=== PATIENT | female | born 1975 | race Caucasian/White ===

== ENCOUNTER 2024-03-31 21:00 | Outpatient (OUT) | payer BC, SELFPAY | END 2024-03-31 21:01 | disposition home or self-care (01) | LOC: SLEEP 04-02 08:00 | PROVIDERS: PCP Family Medicine; Visit Provider Family Medicine | DX: G47.33 Obstructive sleep apnea (adult) (pediatric) (principal) | CPT/HCPCS: 95810 ==

== ENCOUNTER 2024-04-10 20:54 | Outpatient (OUT) | payer BC, SELFPAY ==
--- OUTSIDE RECORDS SUMMARY | 2024-04-10 20:56 | XMS_ITS | CCD ---
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 Name Role Phone DR JAUN SULTANA Attending Unavailable NADERER, DR JAUN Irene Consulting Unavailable NADEREWiley, DR JAUN Irene Primary Care Unavailable NADERER, DR JAUN Irene Admitting Unavailable Shantell Serra Unavailable David Giles Unavailable Allison Odom Unavailable Santa Jang Unavailable MD Jaun Sultana Primary Care Provider Ly, DO Martha Kwok Attending Provider Ly, Martha L Admitting Unavailable Ly, Martha Kwok Attending Unavailable Naderer, Jaun Primary Care Unavailable Ly, Martha L Admitting Unavailable Ly, Martha Kwok Attending Unavailable Lexi, Jaun Primary Care Unavailable SERVICE, JOBST Referring Unavailable NADERER, JAUN Primary Care Unavailable SERVICE, JOBST Referring Unavailable NADERER, JAUN Primary Care Unavailable SERVICE, JOBST Referring Unavailable NADERER, JAUN Primary Care Unavailable SERVICE, JOBST Referring Unavailable NADERER, JAUN Primary Care Unavailable SERVICE, JOBST Referring Unavailable NADERER, JAUN Primary Care Unavailable NADPOWER, JAUN Attending Unavailable NADERER, JAUN Attending Unavailable Allergies Allergy Classification Reported Allergen(s) Allergy Type Date of Onset Reaction(s) Facility (20 sources) adalimumab; Translations: [ADALIMUMAB] Drug Allergy 1 RASH [facility] (20 sources) metroNIDAZOLE; Translations: [METRONIDAZOLE] Drug Allergy 7 headaches, nausea [facility] (1 source) adalimumab Drug Allergy 4 [facility] (1 source) metroNIDAZOLE Drug Allergy 4 [facility] (1 source) Midodrine; Translations: [MIDODRINE] Drug Allergy 7 [facility] Medications Current Medications Medication Drug Class(es) Dates Sig (Normalized) Sig (Original) 10 ML risankizumab-rzaa 60 MG/ML Injection [Skyrizi] (5 sources) Skyrizi 600 MG/10ML as directed Intravenous Active [id number] 200 actuat albuterol 0.09 mg/actuat metered dose inhaler (5 sources) beta2-Adrenergic Agonist Start: 10-03-2022 take 2 puff(s) by inhalation every four hours as needed Albuterol Sulfate HFA 108 (90 Base) MCG/ACT 2 puffs as needed Inhalation every 4 hrs PRN Sep, Active aspirin 81 mg delayed release oral tablet (19 sources) Platelet Aggregation Inhibitor, Nonsteroidal Anti-inflammatory Drug Start: 01-30-2024 take 1 tablet by mouth once daily Aspirin (Adult Aspirin Regimen) 81 mg tablet,delayed release (DR/EC) Active 81 MG PO Daily January 30, 2024 12:00am take 1 tablet by molly th every twenty-four hours Aspirin 81 MG 1 tablet Orally Once a day Active atorvastatin 20 mg oral tablet (4 sources) HMG-CoA Reductase Inhibitor Start: 01-30-2024 take 20 mg by mouth once daily Atorvastatin Active 20 MG PO Daily January 30, 2024 12:00am take 1 tablet by molly th every twenty-four hours Atorvastatin Calcium 20 MG 1 tablet Oral ly Once a day Active cetirizine hydrochloride 10 mg oral tablet (17 sources) Histamine-1 Receptor Antagonist take 1 tablet by mouth every twenty-four hours ZyrTEC Allergy 10 MG 1 tablet Orally Once a day Active ZyrTEC Allergy A ctive cholecalciferol 0.05 mg oral capsule (11 sources) Vitamin D Vitamin D3 50 MC G (1999) as directed Orally Once a day Active citalopram 20 mg oral tablet (15 sources) Serotonin Reuptake Inhibitor Start: take 20 mg by mouth once daily Citalopram Active 20 MG PO Daily January 30, 2024 12:00am take 1 tablet by molly th every twenty-four hours Citalopram Hydrobromide 20 MG 1 tablet Orally Once a day Active Citalopram & Diet Manage Prod (4 sources) Citalopram & t Manage Prod Active dextromethorphan hydrobromide 15 mg / guaiFENesin 400 mg / pseudoephedrine hydrochloride 60 mg oral tablet (1 source) alpha-Adrenergic Agonist, Uncompetitive U-zmuwos-R-aspartate Receptor Antagonist, Sigma-1 Agonist Start: 11-17-19 take 4 tablets by mouth every twenty-four hours as needed Capmist DM 60-15-400 MG as needed Orally every 4-6 hours as needed, max 4 tablets in 24 hours for 5 days Nov, Active lisinopril 10 mg oral tablet (15 sources) Angiotensin Converting Enzyme Inhibitor take 1 tablet by mouth every twenty-four hours Lisinopril 10 MG 1 tablet Orally Once a day for 30 Active Lisinopril 20 MG Oral for 30 Active methylPREDNISolone 4 mg oral tablet (4 sources) Corticosteroid Start: 07-23-2022 methylPREDNISo lone 4 MG as directed Orally for daily dose take half with breakfast, half with dinner for 6 days Jul, Active Start: 10-22-2021 methylPREDNISo lone 4 MG as directed Orally Oct, Active 24 hr metoprolol succinate 25 mg extended release oral tablet (4 sources) beta-Adrenergic Reddy Start: 01-30-2024 take 25 mg by mouth twice daily Metoprolol Succinate Active 25 MG PO Twice daily January 30, 2024 12:00am [facility] Metoprolol Tartrate 25 MG 1 tablet with food Orally Twice a day Active Omeprazole (4 sources) Proton Pump Inhibitor Start: 01-30-2024 omeprazo le Active PO January 30, 2024 12:00am Start: 04-21-2023 take 1 capsule by mo [facility] once daily Omeprazole 40 MG 1 capsule 30 minutes before morning meal Orally Once a day for 30 days Apr, Active oseltamivir 75 mg oral capsule (1 source) Neuraminidase Inhibitor Start: 11-17-2023 take 1 capsule by mouth every twelve hours Oseltamivir Phosphate 75 MG 1 capsule Orally Twice a day for 5 day(s) Nov, Active 24 hr oxybutynin chloride 10 mg extended release oral tablet (14 sources) Cholinergic Muscarinic Antagonist Start: 01-30-2024 take 10 mg by mouth once daily Oxybutynin Chloride Active 10 MG PO Daily January 30, 2024 12:00am oxyBUTYnin Chlor lul 10 MG as directed Orally Active Oxybutynin Activ e predniSONE 20 mg oral tablet (8 sources) Start: 01-09-2024 take 2 tablets by mouth once daily Prednisone Active 40 MG PO Daily 60 January 09, 2024 12:00am Take 2 tablets orally once a day. Start: 01-02-2024 End: 01-30-2024 Prednisone Discontinued 0 PO Daily 36 January 02, 2024 12:00am January 30, 2024 3:00pm Take 8 tablets on day one then decrease by 1 tablet until gone orally daily; Start: 11-17-2023 take 1 tablet by molly th every twelve hours prednisone 20 MG 1 tablet Orally BID for 5 Nov, Active Start: 07-05-2022 predniSONE 10 MG 8 tabs day one then decrease by 1 tablet until finished. Orally Once a day for 8 days Jun, Active Start: 02-10-2022 predniSONE 10 MG 8 tabs day one then decrease by 1 tablet until finished. Orally Once a day for 8 days Jan, Active Skyrizi 360 MG/2.4ML (3 sources) Start: 04-30-2022 Skyrizi 360 MG/2.4ML INJECT Subcutaneous AT WEEK 12 AND THEN EVERY 8 WEEKS THERAFTER for 56 days DISPENSE WITH ON BODY INJECTOR Apr, Active skyrizi 360 mg/2.4ml solution cartridge (2 sources) Skyrizi 360 MG/2.4ML as directed Subcutaneous Active Skyrizi 600 MG/10ML (3 sources) Start: 04-30-2022 Skyrizi 600 MG /10ML as directed Intravenous INFUSED AT WEEK 0, WEEK 4 AND WEEK 8 for 56 days Apr, Active 1 ml ustekinumab 90 mg/ml prefilled syringe (10 sources) Interleukin-12 Antagonist, Interleukin-23 Antagonist Start: 09-07-2021 Stelara 90 MG/ML INJECT 1 PREFILLED SYRINGE Subcutaneous EVERY 56 DAYS for 56 days PRIOR AUTH REFERENCE NUMBER [id number] FROM 09/07/21 TO 09/07/22 Aug, Active warfarin sodium 4 mg oral tablet (4 sources) Vitamin K Antagonist Start: 01-30-2024 take 4 mg by mouth once daily Warfarin Active 4 MG PO Daily January 30, 2024 12:00am take 1 tablet by molly th every twenty-four hours Warfarin Sodium 4 MG 1 tablet Orally Once a day Active Completed/Discontinued Medications Medication Drug Class(es) Dates Sig (Normalized) Sig (Original) Triamcinolone (20 sources) Corticosteroid Start: 10-22-2021 KENALOG - 10 m g Oct, 60 mg Start: 03-05-2021 KENALOG - 10 m g February, 40 mg Start: 06-08-2018 KENALOG - 10 m g May, 40 mg Problems Active Problems Problem Classification Problem Date Documented Da te Episodic/Chronic Abdominal pain (17 sources) Abdominal pain; Translations: [Unspecified abdominal pain] Episodic Heart valve disorders (2 sources) History of aortic valve replacement; Translations: [Presence of prosthetic heart valve] 01-30-2024 Chronic Immunizations and screening for infectious disease (12 sources) Contact with and (suspected) exposure to other viral communicable diseases; Translations: [Contact with and (suspected) exposure to other viral communicable diseases] Episodic Influenza (1 source) Influenza due to other identified influenza virus with other respiratory manifestations Episodic Nutritional deficiencies (1 source) Vitamin D deficiency, unspecified; Translations: [VITAMIN D DEFICIENCY UNSPECIFIED] Onset: 10-20-2021 Chronic Other circulatory disease (17 sources) Elevated blood pressure; Translations: [Elevated blood-pressure reading, without diagnosis of hypertension] Episodic Other gastrointestinal disorders (19 sources) Constipation; Translations: [Constipation, unspecified] 01-30-2024 Episodic Other gastrointestinal disorders (17 sources) Diarrhea; Translations: [Diarrhea, unspecified] Episodic Other nutritional; endocrine; and metabolic disorders (17 sources) Obese class I; Translations: [Body mass index (BMI) 31.0-31.9, adult] Chronic Other skin disorders (17 sources) Eruption; Translations: [Rash and other nonspecific skin eruption] Episodic Other upper respiratory infections (1 source) Acute sinusitis, unspecified Episodic Regional enteritis and ulcerative colitis (20 sources) Crohn's disease; Translations: [Crohn's disease, unspecified, with unspecified complications] Onset: 09-15-2021 Resolved: 04-15-2022 Chronic Viral infection (1 source) Other viral agents as the cause of diseases classified elsewhere Episodic Past or Other Problems Problem Classification Problem Date Documented Da te Episodic/Chronic Complication of device; implant or graft (1 source) Stenosis of other cardiac prosthetic devices, implants and grafts, subsequent encounter; Translations: [Stenosis of other cardiac prosthetic devices, implants and grafts, subsequent encounter] Onset: 01-08-2023 Episodic Other skin disorders (1 source) Rash and other nonspecific skin eruption Onset: 10-22-2021 Resolved: 10-22-2021 Episodic Viral infection (1 source) COVID-19 Results Test Name Value Interpretation Reference Range Facility Complete Blood Count Auto Di ffon 02-28-2024 Basophils (Bld) [#/Vol] 0.1 10*3/uL Normal 0.0-0.2 [facility] Comment on above: Result Comment: PERF ORMED BY: [place] [address] PATHOLOGIST EMERGENCY COMMUNICATIONS OFFICER ROBIN HERNANDEZ M.D. Performed By: #### P TT, PT, CBC #### [address] Basophils/100 WBC (Bld) 0.5 % Normal . [facility] Comment on above: Performed By: #### P TT, PT, CBC #### [place] [address] [place] Eosinophils (Bld) [#/Vol] 0.1 10*3/uL Normal 0.0-0.45 [facility] Comment on above: Performed By: #### P TT, PT, CBC #### [address] Eosinophils/100 WBC (Bld) 0.7 % Normal . [facility] Comment on above: Performed By: #### P TT, PT, CBC #### [address] Erythrocyte distribution width (RBC) [Ratio] 13.5 % Normal 11.9-15.3 [facility] Comment on above: Performed By: #### P TT, PT, CBC #### [address] Hematocrit (Bld) [Volume fraction] 43.7 % Normal 34.0-46.4 [facility] Comment on above: Performed By: #### P TT, PT, CBC #### [facility] [address] Hemoglobin (Bld) [Mass/Vol] 14.8 g/dL Normal 11.8-15.4 [facility] Comment on above: Performed By: #### P TT, PT, CBC #### [facility] [address] Lymphocytes (Bld) [#/Vol] 2.2 10*3/uL Normal 1.00-4.8 [facility] Comment on above: Performed By: #### P TT, PT, CBC #### [address] Lymphocytes/100 WBC (Bld) 16.6 % Normal . [facility] Comment on above: Performed By: #### P TT, PT, CBC #### [address] MCH (RBC) [Entitic mass] 29.5 pg Normal 24.7-34.3 [facility] Comment on above: Performed By: #### P TT, PT, CBC #### [address] MCV (RBC) [Entitic vol] 87.1 fL Normal 80-100 [facility] Comment on above: Performed By: #### P TT, PT, CBC #### [address] Mean Corpuscular HGB Conc 33.9 g/dL Normal 32.0-35.0 [facility] Comment on above: Performed By: #### P TT, PT, CBC #### [place] [address] [place] Monocytes (Bld) [#/Vol] 0.5 10*3/uL Normal 0.0-0.8 [facility] Comment on above: Performed By: #### P TT, PT, CBC #### [place] [address] [place] Monocytes/100 WBC (Bld) 3.5 % Normal . [facility] Comment on above: Performed By: #### P TT, PT, CBC #### [facility] [address] Neutrophils (Bld) [#/Vol] 10.3 10*3/uL High 1.8-7.7 [facility] Comment on above: Performed By: #### P TT, PT, CBC #### [facility] [address] Neutrophils/100 WBC (Bld) 78.7 % Normal . [facility] Comment on above: Performed By: #### P TT, PT, CBC #### [facility] [address] NRBC% 0.2 /100{WBC} Normal 0-0.5 [facility] Comment on above: Performed By: #### P TT, PT, CBC #### [address] Platelet mean volume (Bld) [Entitic vol] 9.1 fL Normal 6.3-10.7 [facility] Comment on above: Performed By: #### P TT, PT, CBC #### [place] [address] [place] Platelets (Bld) [#/Vol] 264 10*3/uL Normal 150-450 [facility] Comment on above: Performed By: #### P TT, PT, CBC #### [place] [address] [place] RBC (Bld) [#/Vol] 5.02 10*6/uL High 3.60-5.00 [facility] Comment on above: Performed By: #### P TT, PT, CBC #### [facility] [address] [place] [address] [place] WBC (Bld) [#/Vol] 13.1 10*3/uL High 3.8-11.6 [facility] Comment on above: Performed By: #### P TT, PT, CBC #### [place] [address] [place] HCG,Urineon 05-14-2024 Beta HCG ( test) Ql (U) Negative Normal [facility] Comment on above: Result Comment: PERF ORMED BY: [place] [address] PATHOLOGIST EMERGENCY COMMUNICATIONS OFFICER ROBIN HERNANDEZ M.D. Performed By: #### U HCG #### [address] Luis Miguel 02-28-2024 L Specimen: [id number] Received: 02/28/24 Status: OZ Retony Num: [id number] Spec Type: Surgical Subm Dr: Martha Calderon DO Tissues: A Colon Biopsy (TERMINAL ILEUM BX) B Colon Biopsy (ASC POLYP) C Colon Biopsy (RT COLON BX) D Colon Biopsy (TRANSV BX) E Colon Biopsy (LT COLON BX) Procedures: HE/10, Gross/Micro L4/5 Age/ Patient Sex Location Account Attending Physician Bridget Campa 48/F [id number] Martha Calderon DO SPEC NUM: [id number] RECD: 02/28/24 STATUS: OZ WYNNE NUM: [id number] NICOL: 02/28/24 DR: Martha Calderon DO ENTERED: 02/28/[address] [facility] [address]: SPEC TYPE: Surgical DEPT: S ORDERED: HE/10, Gross/Micro L4/5 ORDERED: HE/10, Gross/Micro L4/5 Pathological Diagnosis A. Terminal ileum, biopsy: No significant pathologic abnormality. B. Polyp, ascending colon, biopsy: Hyperplastic polyp. C. Right colon, biopsy: No evidence of active colitis. D. Transverse colon, biopsy: No evidence of active colitis. E. Left colon, biopsy: No evidence of active colitis. Gross Description Received are 5 formalin filled containers each labeled with the patient's name, date of and specific specimen site. A. Further labeled terminal ileum BX are 2 herman mucosal tissue fragments measuring 0.4 x 0.3 x 0.1 cm and 0.3 x 0.3 x 0.1 cm, entirely submitted in A1. B. Further labeled ascending polyp is a 0.4 x 0.3 x 0.1 cm herman polypoid tissue fragment, entirely submitted in B1. Specimen: [id number] Received: 02/28/24 Status: OZ Wynne Num: [id number] Spec Type: Surgical Subm Dr: Martha Calderon DO Tissues: A Colon Biopsy (TERMINAL ILEUM BX) B Colon Biopsy (ASC POLYP) C Colon Biopsy (RT COLON BX) D Colon Biopsy (TRANSV BX) E Colon Biopsy (LT COLON BX) Procedures: , Gross/Micro L4/5 Patient: Janet Campajolanta [id number] (Continued) Specimen: [id number] Received: 02/28/24 (Continued) Gross Description (Continued) Signed (signature on file) Priscila Pace MD 02/29/24 1429 Specimen: [id number] Received: 02/28/24 Status: OZ Wynne Num: [id number] Spec Type: Surgical Subm Dr: Martha Calderon DO Tissues: A Colon Biopsy (TERMINAL ILEUM BX) B Colon Biopsy (ASC POLYP) C Colon Biopsy (RT COLON BX) D Colon Biopsy (TRANSV BX) E Colon Biopsy (LT COLON BX) Procedures: , Gross/Micro /5 Patient: KatherynJanetjolanta [id number] (Continued) Specimen: [id number] Received: 02/28/24 (Continued) Gross Description (Continued) C. Further labeled right colon BX are multiple herman mucosal tissue fragments measuring in aggregate 1.2 x 0.3 x 0.1 cm, entirely submitted in C1. D. Further labeled transverse colon BX are 2 herman mucosal tissue fragments measuring 0.5 x 0.4 x 0.1 cm and 0.4 x 0.4 x 0.1 cm, entirely submitted in D1. E. Further labeled left colon BX are multiple herman mucosal tissue fragments measuring in aggregate 1.4 x 0.3 x 0.1 cm, entirely submitted in E1. Clinical history: Crohn's, colitis. CPT Codes 36121k0 Specimen: [id number] Received: 02/28/24 Status: OZ Wynne Num: [id number] Spec Type: Surgical Subm Dr: Martha Calderon DO Tissues: A Colon Biopsy (TERMINAL ILEUM BX) B Colon Biopsy (ASC POLYP) C Colon Biopsy (RT COLON BX) D Colon Biopsy (TRANSV BX) E Colon Biopsy (LT COLON BX) Procedures: Tameka RICHARDSON/Ronnie L4/5 Patient: Bridget Campa [id number] (Continued) Signed (signature on file) Priscila Pace MD 02/29/24 1429 Normal [facility] Partial Thromboplastin Timeo n 02-28-2024 aPTT Coag (Bld) [Time] 26.1 s Normal 25.1-36.5 [facility] Comment on above: Result Comment: A he matocrit value greater than 55% may lead to inaccurate results in coagulation testing. Patients having hematocrit values >55% require a special collection tube for coagulation studies. Please contact the laboratory at [phone] for redraw instructions. PERFORMED BY: [place] [address] PATHOLOGIST EMERGENCY COMMUNICATIONS OFFICER ROBIN HERNANDEZ M.D. Performed By: #### P TT, PT, CBC #### [address] Prothrombin Time INRon 02-27 INR Coag (PPP) [Relative time] 1.0 {INR} Normal [facility] Comment on above: Result Comment: INR Therapeutic Range A) Pre- and Peroperative OAT started two weeks before surgery. NOT HIP SURGERY: 1.5 - 2.5 HIP SURGERY: 2 - 3 B) Primary and secondary prevention of venous THROMBOSIS: 2 - 3 C) Active venous thrombosis, pulmonary embolism and prevention of recurrent venous thrombosis: 2 - 3 D) Prevention of arterial thromboembolism including patients with mechanical heart valves: 3 - 4.5 Performed By: #### P TT, PT, CBC #### [address] PT Coag (PPP) [Time] 11.7 s Normal 9.0-12.9 [facility] Comment on above: Result Comment: A he matocrit value greater than 55% may lead to inaccurate results in coagulation testing. Patients having hematocrit values >55% require a special collection tube for coagulation studies. Please contact the laboratory at [phone] for redraw instructions. Performed By: #### P TT, PT, CBC #### [address] enterographyon 02-13-2024 CT enterography [facility] [place] [address] [place] [address] CT Scan Report Signed Patient: Bridget Campa MR#: [id number] : 1975 Acct:[id number] Age/Sex: 48 / F ADM Date: 02/13/24 Loc: CT Room: Type: [facility] Attending Dr: Martha Calderon DO Copies to: Martha Calderon DO Ordering Provider: Martha Calderon DO Date of Service: 02/13/24 CT/CT enterography: K50.90 - Crohn's disease, unspecified, without complications CT ABDOMEN AND PELVIS WITH INTRAVENOUS CONTRAST: (Enterography protocol) CLINICAL HISTORY: Crohn's disease. COMPARISON: None TECHNIQUE: Spiral images were obtained through the abdomen and pelvis following the administration of intravenous contrast. Enterography protocol was utilized. This CT exam was performed using one or more following dose reduction techniques: Automated exposure control, adjustment of the mA and/or kV according to patient size, or use of iterative reconstruction technique. FINDINGS: Lung Bases: [Bibasilar atelectasis.] Organs:Cholelithiasi s. Subcentimeter low attenuating lesions left lobe of the liver, too small fracture characterization. No CBD dilatation. Portal vein is patent. Spleen pancreas and adrenal glands all appear unremarkable. No enhancing renal mass or hydronephrosis. Punctate stone left kidney. Abdominal and appears normal in caliber.[ GI: Small hiatal hernia. Distal stomach is grossly unremarkable. Duodenum appears normally positioned. Normal fold pattern is seen. No definite abnormal wall thickening or enhancement is seen. Terminal ileum appears grossly unremarkable. Mesentery appears unremarkable. Pelvis:[Urinary bladder is grossly unremarkable. IUD is in place. No adnexal mass.] Peritoneum/Retroperi toneum:No free air, free fluid or lymphadenopathy.[ Abd wall/Bones:Abdominal wall demonstrates no acute findings. Osseous structures demonstrate degenerative change.[ CT/CT enterography IMPRESSION: 1. No definitive CT evidence of active Crohn's disease. 2. Cholelithiasis. 3. Small hiatal hernia. 4. Left nephrolithiasis. Impression dictated by: Michael Tavares Jr., D.OTristan02/13/2024 1:17 PM Dictation Location: [place] [address] Transcribed By: [facility] 02/13/24 1317 Dictated By: Michael Tavares Jr, DO 02/13/24 1311 Signed By: 02/13/24 1317 Normal [facility] COVID/FLU/RSV RT-PCRon 11-17 SARS-CoV-2 (COVID-19) RNA DAMIEN+probe Ql (Unsp spec) Negative [facility] flikdate Other COVID/FLU/RSV RT-PCR Positive [facility] flikdate Other COVID/FLU/RSV RT-PCR Negative [facility] flikdate Other Quick Strepon 11-17-2023 S. pyogenes Org specific cx Ql (Throat) Negative [facility] flikdate Other [employer] Strep [facility] flikdate Other COVID/FLU/RSV RT-PCRon 10-26 SARS-CoV-2 (COVID-19) RNA DAMIEN+probe Ql (Unsp spec) Positive [facility] flikdate Other COVID/FLU/RSV RT-PCR Negative [facility] flikdate Other COVID/FLU RT-PCRon 2 SARS-CoV-2 (COVID-19) RNA DAMINE+probe Ql (Unsp spec) Negative [facility] flikdate Other COVID/FLU RT-PCR Negative [facility] flikdate Other Quick Strepon 07-23-2022 S. pyogenes Org specific cx Ql (Throat) Negative [facility] flikdate Other Quick Strep Lizhi [facility] flikdate Other VIT D 25-OH [facility] 2020 Vitamin D, 25-Hydroxy 25.7 ng/mL Critically low 30.0-100.0 [facility] Comment on above: Result Comment: Lizzy min D deficiency has been defined by the [place] [employer] and an Endocrine Society practice guideline as a level of serum 25-OH vitamin D less than 20 ng/mL (1,2). The Endocrine Society went on to further define vitamin D insufficiency as a level between 21 and 29 ng/mL (2). 1. IOM ([place] [employer]). 2010. Dietary reference intakes for calcium and D. [place]: The National Academies Press. 2. Lacey MF, Raoul SCHAEFER, Addy PACHECO, et al. Evaluation, treatment, and prevention of vitamin D deficiency: an Endocrine Society clinical practice guideline. JCEM. 2010; 96(7):1911-30. Performed By: #### V ITADLC #### [facility] [address] [place] [address] Dr. Kanchan Ramirez CBC AUTO DIFFon 10-12-2021 BASO # 0.0 103/ul Normal 0.0-0.1 [facility] Comment on above: Performed By: #### C BC #### [facility] [address] [place] [place] [address] Dr. Kanchan Ramirez Basophils/100 WBC (Bld) 0.4 % Normal 0.2-2.0 [facility] Comment on above: Performed By: #### C BC #### [facility] [address] [place] [address] Dr. Kanchan Ramirez EO # 0.1 103/ul Normal 0.0-0.7 [facility] Comment on above: Performed By: #### C BC #### [facility] [address] [place] [address] Dr. Kanchan Ramirez Eosinophils/100 WBC (Bld) 1.5 % Normal 0.9-7.0 [facility] Comment on above: Performed By: #### C BC #### [facility] [address] [place] [address] Dr. Kanchan Ramirez Erythrocyte distribution width (RBC) [Ratio] 12.7 % Normal 11.0-15.0 [facility] Comment on above: Performed By: #### C BC #### [facility] [address] [place] [address] Dr. Kanchan Ramirez Hematocrit (Bld) [Volume fraction] 40.4 % Normal 36.0-48.0 [facility] Comment on above: Performed By: #### C BC #### [facility] [address] [address] [address] Kanchan Ramirez Hemoglobin (Bld) [Mass/Vol] 13.6 g/dL Normal 12.0-16.0 [facility] Comment on above: Performed By: #### C BC #### [facility] [address] [address] [address] Kanchan Ramirez IG # 0.02 10e3/ul Normal 0.00-0.03 [facility] Comment on above: Performed By: #### C BC #### [facility] [address] [place] [address] Dr. Kanchan Ramirez IG % 0.2 % Normal 0.0-0.5 [facility] Comment on above: Performed By: #### C BC #### [facility] [address] [place] [address] Dr. Kanchan Ramirez LYMPH # 3.4 103/ul Normal 1.2-3.8 [facility] Comment on above: Performed By: #### C BC #### [facility] [address] [place] [address] Dr. Kanchan Ramirez Lymphocytes/100 WBC (Bld) 37.5 % Normal 20.5-60.0 [facility] Comment on above: Performed By: #### C BC #### [facility] [address] [place] [address] Dr. Kanchan Ramirez MANUAL DIFF REQ NO Normal [facility] Comment on above: Performed By: #### C BC #### [facility] [address] [place] [address] Dr. Kanchan Ramirez MCH (RBC) [Entitic mass] 30.4 pg Normal 26.7-34.0 [facility] Comment on above: Performed By: #### C BC #### [facility] [address] [place] [address] Dr. Kanchan Ramirez MCHC (RBC) [Mass/Vol] 33.7 g/dL Normal 29.9-35.2 [facility] Comment on above: Performed By: #### C BC #### [facility] [address] [address] [address] Kanchan Ramirez MCV (RBC) [Entitic vol] 90.2 fL Normal 81.0-99.0 [facility] Comment on above: Performed By: #### C BC #### [facility] [address] [address] [address] Kanchan Ramirez MONO # 0.7 103/ul Normal 0.3-0.8 [facility] Comment on above: Performed By: #### C BC #### [facility] [address] [place] [address] Dr. Kanchan Ramirez Monocytes/100 WBC (Bld) 7.9 % Normal 1.7-12.0 [facility] Comment on above: Performed By: #### C BC #### [facility] [address] [place] [address] Dr. Kanchan Ramirez NEUT # 4.8 103/ul Normal 1.4-6.5 [facility] Comment on above: Performed By: #### C BC #### [facility] [address] [place] [address] Dr. Kanchan Ramirez Neutrophils/100 WBC (Bld) 52.5 % Normal 43.0-75.0 [facility] Comment on above: Performed By: #### C BC #### [facility] [address] [place] [address] Dr. Kanchan Ramirez Platelet mean volume (Bld) [Entitic vol] 11.7 fL Normal 9.5-13.5 [facility] Comment on above: Performed By: #### C BC #### [facility] [address] [place] [address] Dr. Kanchan Ramirez PLT 260 103/ul Normal 150-450 [facility] Comment on above: Performed By: #### C BC #### [facility] [address] [place] [address] Dr. Kanchan Ramirez RBC 4.48 106/ul Normal 4.20-5.40 [facility] Comment on above: Performed By: #### C BC #### [facility] [address] [address] [address] Kanchan Ramirez WBC 9.1 103/ul Normal 4.0-11.0 [facility] Comment on above: Performed By: #### C BC #### [facility] [address] [place] [address] Dr. Kanchan Ramirez DIRECT LDLon 10-12-2021 Cholesterol in LDL [Mass/Vol] 116 mg/dL Normal [facility] Comment on above: Performed By: #### D LDL, LIPID, TSH, LIVER, BMP #### [facility] [address] [place] [address] Dr. Kanchan Ramirez DLDL NORMAL SEE BELOW Normal [facility] Comment on above: Result Comment: <100 mg/dl OPTIMAL 100 - 129 mg/dl NEAR OR ABOVE OPTIMAL 130 - 159 mg/dl BORDERLINE HIGH 160 - 189 mg/dl HIGH >190 mg/dl VERY HIGH Performed By: #### D LDL, LIPID, TSH, LIVER, BMP #### [facility] [address] [place] [address] Dr. Kanchan Ramirez GLYCOHEMOGLOBIN A1Con 2020 ADA RECOMMENDATION ADA THERAPEUTIC TARGET 6.0 - 7.0 ACTION SUGGESTED > 7.0 Normal [facility] Comment on above: Performed By: #### A 1C #### [facility] [address] [place] [address] Dr. Kanchan Ramirez Glucose [Mass/Vol] 114 mg/dL Normal [facility] Comment on above: Performed By: #### A 1C #### [facility] [address] [place] [address] Dr. Kanchan Ramirez HbA1c (Bld) [Mass fraction] 5.6 % Normal <=6.0 [facility] Comment on above: Performed By: #### A 1C #### [facility] [address] [place] [address] Dr. Kanchan Ramirez LIPID PROFILEon 10-12-2021 CHOL-HDL RATIO NORM SEE BELOW Normal [facility] Comment on above: Result Comment: 3.3 - 4.4 LOW RISK 4.4 - 7.1 AVERAGE RISK 7.1 - 11.0 MODERATE RISK >11.0 HIGH RISK Performed By: #### D LDL, LIPID, TSH, LIVER, BMP #### [facility] [address] [address] [address] Kanchan Ramirez Cholesterol [Mass/Vol] 219 mg/dL Critically high <=200 [facility] Comment on above: Performed By: #### D LDL, LIPID, TSH, LIVER, BMP #### [facility] [address] [address] [address] Kanchan Ramirez Cholesterol in HDL [Mass/Vol] 38 mg/dL Normal [facility] Comment on above: Performed By: #### D LDL, LIPID, TSH, LIVER, BMP #### [facility] [address] [address] [address] Kanchan Ramirez Cholesterol.total/Ch olesterol in HDL [Mass ratio] 5.8 {ratio} Normal [facility] Comment on above: Performed By: #### D LDL, LIPID, TSH, LIVER, BMP #### [facility] [address] [address] [address] Kanchan Ramirez HDL NORMAL > or = 60 mg/dl - LOW CARDIOVASCULAR RISK <40 mg/dl - HIGH CARDIOVASCULAR RISK Normal [facility] Comment on above: Performed By: #### D LDL, LIPID, TSH, LIVER, BMP #### [facility] [address] [address] [address] Kanchan Ramirez LDL CALC NORMAL SEE BELOW Normal [facility] Comment on above: Result Comment: <100 mg/dl OPTIMAL 100 - 129 mg/dl NEAR OR ABOVE OPTIMAL 130 - 159 mg/dl BORDERLINE HIGH 160 - 189 mg/dl HIGH >190 mg/dl VERY HIGH Performed By: #### D LDL, LIPID, TSH, LIVER, BMP #### [facility] [address] [address] [address] Kanchan Ramirez Triglyceride [Mass/Vol] 457 mg/dL Critically high <=150 [facility] Comment on above: Performed By: #### D LDL, LIPID, TSH, LIVER, BMP #### [facility] [address] [address] [address] Kanchan Ramirez VLDL CALC 91.4 mg/dL Normal [facility] Comment on above: Performed By: #### D LDL, LIPID, TSH, LIVER, BMP #### [facility] [address] [place] [address] Dr. Kanchan Ramirez LIVER PROFILEon 10-12-2021 Albumin [Mass/Vol] 3.7 g/dL Normal 3.5-5.0 [facility] Comment on above: Performed By: #### D LDL, LIPID, TSH, LIVER, BMP #### [facility] [address] [place] [address] Dr. Kanchan Ramirez Albumin/Globulin [Mass ratio] 1.0 {ratio} Normal [facility] Comment on above: Performed By: #### D LDL, LIPID, TSH, LIVER, BMP #### [facility] [address] [place] [address] Dr. Kanchan Ramirez ALP [Catalytic activity/Vol] 65 U/L Normal 38-126 [facility] Comment on above: Performed By: #### D LDL, LIPID, TSH, LIVER, BMP #### [facility] [address] [place] [address] Dr. Kanchan Ramirez ALT [Catalytic activity/Vol] 15 U/L Normal 9-52 [facility] Comment on above: Performed By: #### D LDL, LIPID, TSH, LIVER, BMP #### [facility] [address] [place] [address] Dr. Kanchan Ramirez AST [Catalytic activity/Vol] 20 U/L Normal 14-36 [facility] Comment on above: Performed By: #### D LDL, LIPID, TSH, LIVER, BMP #### [facility] [address] [place] [address] Dr. Kanchan Ramirez BILI, CONJUGATED <0.1 Normal 0.0-0.3 [facility] Comment on above: Performed By: #### D LDL, LIPID, TSH, LIVER, BMP #### [facility] [address] [place] [address] Dr. Kanchan Ramirez Bilirubin [Mass/Vol] 0.2 mg/dL Normal 0.2-1.3 [facility] Comment on above: Performed By: #### D LDL, LIPID, TSH, LIVER, BMP #### [facility] [address] [place] [address] Dr. Kanchan Ramirez Globulin (S) [Mass/Vol] 3.6 g/dL Normal [facility] Comment on above: Performed By: #### D LDL, LIPID, TSH, LIVER, BMP #### [facility] [address] [place] [address] Dr. Kanchan Ramirez Protein [Mass/Vol] 7.3 g/dL Normal 6.1-8.2 [facility] Comment on above: Performed By: #### D LDL, LIPID, TSH, LIVER, BMP #### [facility] [address] [place] [address] Dr. Kanchan Ramirez PROF CHEM 8 (BAS METB)on Anion gap [Moles/Vol] 14.8 mmol/L Normal [facility] Comment on above: Performed By: #### D LDL, LIPID, TSH, LIVER, BMP #### [facility] [address] [place] [address] Dr. Kanchan Ramirez Calcium [Mass/Vol] 8.9 mg/dL Normal 8.4-10.2 [facility] Comment on above: Performed By: #### D LDL, LIPID, TSH, LIVER, BMP #### [facility] [address] [place] [address] Dr. Kanchan Ramirez Chloride [Moles/Vol] 103 mmol/L Normal 98-107 [facility] Comment on above: Performed By: #### D LDL, LIPID, TSH, LIVER, BMP #### [facility] [address] [place] [address] Dr. Kanchan Ramirez CO2 [Moles/Vol] 23.7 mmol/L Normal 22.0-30.0 [facility] Comment on above: Performed By: #### D LDL, LIPID, TSH, LIVER, BMP #### [facility] [address] [place] [address] Dr. Kanchan Ramirez Creatinine [Mass/Vol] 0.88 mg/dL Normal 0.52-1.04 [facility] Comment on above: Performed By: #### D LDL, LIPID, TSH, LIVER, BMP #### [facility] [address] [address] [address] Kanchan Ramirez EGFR-AF BAHRAINI >60 Normal >=60 [facility] Comment on above: Performed By: #### D LDL, LIPID, TSH, LIVER, BMP #### [facility] [address] [address] [address] Kanchan Ramirez EGFR-NON AF BAHRAINI >60 Normal >=60 [facility] Comment on above: Performed By: #### D LDL, LIPID, TSH, LIVER, BMP #### [facility] [address] [address] [address] Kanchan Ramirez Glucose [Mass/Vol] 128 mg/dL Critically high 74-106 [facility] Comment on above: Performed By: #### D LDL, LIPID, TSH, LIVER, BMP #### [facility] [address] [address] [address] Kanchan Ramirez Potassium [Moles/Vol] 3.5 mmol/L Normal 3.4-5.0 [facility] Comment on above: Performed By: #### D LDL, LIPID, TSH, LIVER, BMP #### [facility] [address] [address] [address] Kanchan Ramirez Sodium [Moles/Vol] 138 mmol/L Normal 137-145 [facility] Comment on above: Performed By: #### D LDL, LIPID, TSH, LIVER, BMP #### [facility] [address] [address] [address] Kanchan Ramriez Urea nitrogen [Mass/Vol] 16.0 mg/dL Normal 7.0-17.0 [facility] Comment on above: Performed By: #### D LDL, LIPID, TSH, LIVER, BMP #### [facility] [address] [address] [address] Kanchan Ramirez Urea nitrogen/Creatinine [Mass ratio] 18.2 mg/mg Normal [facility] Comment on above: Performed By: #### D LDL, LIPID, TSH, LIVER, BMP #### [facility] [address] [address] [address] Kanchan Ramirez TSHon 10-12-2021 TSH 1.244 uIU/mL Normal 0.470-4.680 [facility] Comment on above: Performed By: #### D LDL, LIPID, TSH, LIVER, BMP #### [facility] [address] [place], [place] [address] Dr. Kanchan Ramirez TSH RANGE SEE BELOW Normal [facility] Comment on above: Result Comment: <0.3 4 UIU/ml HYPERTHYROID 0.34-5.60 UIU/ml EUTHYROID >5.60 UIU/ml HYPOTHYROID Performed By: #### D LDL, LIPID, TSH, LIVER, BMP #### [facility] [address] [place], [place] [address] Dr. Kanchan Ramirez Vital Signs Date Time Vital Sign Value Performing Clinician Facility 01-30-2024 14:58-0400 Body height 167.64 cm [facility] 01-30-2024 14:58-0400 Body mass index (BMI) [Ratio] 35.9 kg/m2 [facility] 01-30-2024 14:58-0400 Body weight 100.81 kg [facility] 01-30-2024 14:58-0400 Diastolic blood pressure 86 mm[Hg] [facility] 01-30-2024 14:58-0400 Systolic blood pressure 166 mm[Hg] [facility] 11-17-2023 11:00-0500 Body height 167.64 cm Allison Odom Other [facility] 11-17-2023 11:00-0500 Body mass index (BMI) [Ratio] 34.21 kg/m2 Allison Odom Other [facility] Other 11-17-2023 11:00-0500 Body temperature 99.6 [degF] Allison Odom Other [email or web address] Other 11-17-2023 11:00-0500 Body weight 96.16 kg Allison Odom Other [facility] 11-17-2023 11:00-0500 Respiratory rate 18 /min Allison Odom Other [email or web address] Other 11-17-2023 11:00-0500 SaO2% (BldA) [Mass fraction] 98 % Allison Odom Other [email or web address] Other 10-26-2022 17:15-0500 Body height 167.64 cm Santa Jang Other [email or web address] Other 10-26-2022 17:15-0500 Body mass index (BMI) [Ratio] 33.89 kg/m2 Santa Jang Other [email or web address] Other 10-26-2022 17:15-0500 Body temperature 97.7 [degF] Santa Jang Other [facility] Other 10-26-2022 17:15-0500 Body weight 95.26 kg Santa Jang Other [email or web address] Other 10-26-2022 17:15-0500 Respiratory rate 18 /min Santa Jang Other [email or web address] Other 10-26-2022 17:15-0500 SaO2% (BldA) [Mass fraction] 97 % Santa Jang Other [email or web address] Other 10-21-2022 16:30-0500 Body height 167.64 cm David Giles Other [email or web address] Other 10-21-2022 16:30-0500 Body mass index (BMI) [Ratio] 33.57 kg/m2 David Giles Other [facility] Other 10-21-2022 16:30-0500 Body weight 94.35 kg David Giles Other [email or web address] Other 10-21-2022 16:30-0500 Diastolic blood pressure 99 mm[Hg] David Giles Other [email or web address] Other 10-21-2022 16:30-0500 Systolic blood pressure 135 mm[Hg] David Giles Other [email or web address] Other 07-23-2022 11:30-0400 Body height 167.64 cm Allison Odom Other [email or web address] Other 07-23-2022 11:30-0400 Body mass index (BMI) [Ratio] 33.08 kg/m2 Allison Odom Other [facility] Other 07-23-2022 11:30-0400 Body temperature 97.7 [degF] Allison Odom Other [facility] Other 07-23-2022 11:30-0400 Body weight 92.99 kg Allison Odom Other [email or web address] Other 07-23-2022 11:30-0400 Respiratory rate 18 /min Allison Odom Other [email or web address] Other 07-23-2022 11:30-0400 SaO2% (BldA) [Mass fraction] 97 % Allison Odom Other [email or web address] Other 04-15-2022 16:30-0400 Body height 167.64 cm David Tisha Other [email or web address] Other 04-15-2022 16:30-0400 Body mass index (BMI) [Ratio] 32.92 kg/m2 David Giles Other [facility] Other 04-15-2022 16:30-0400 Body weight 92.53 kg David Giles Other [facility] Other 01-12-2022 16:45-0400 Body height 167.64 cm David Giles Other [facility] Other 01-12-2022 16:45-0400 Body mass index (BMI) [Ratio] 33.25 kg/m2 David Giles Other [facility] Other 01-12-2022 16:45-0400 Body weight 93.44 kg David Giles Other [email or web address] Other 10-22-2021 11:25-0500 Body height 167.64 cm Shantell Serra Other [email or web address] Other 10-22-2021 11:25-0500 Body mass index (BMI) [Ratio] 33.08 kg/m2 Shantell Serra Other [email or web address] Other 10-22-2021 11:25-0500 Body temperature 98 [degF] Shantell Serra Other [email or web address] Other 10-22-2021 11:25-0500 Body weight 92.99 kg Shantell Serra Other [email or web address] Other 10-22-2021 11:25-0500 Diastolic blood pressure 80 mm[Hg] Shantell Serra Other [facility] Other 10-22-2021 11:25-0500 SaO2% (BldA) [Mass fraction] 98 % Deniscoreen Serra Other [email or web address] Other 10-22-2021 11:25-0500 Systolic blood pressure 130 mm[Hg] Deniscoreen Maryse Other [facility] Other 09-15-2021 16:30-0500 Body height 167.64 cm David Tisha Other [facility] Other 09-15-2021 16:30-0500 Body mass index (BMI) [Ratio] 33.08 kg/m2 David Giles Other [facility] Other 09-15-2021 16:30-0500 Body weight 92.99 kg David Tisha Other [email or web address] Other Encounters Encounter Date Encounter Type Care Provider Facility Start: 03-19-2024 End: 03-19-2024 ambulatory JAUN SULTANA Not Available Start: 03-14-2024 End: 03-14-2024 ambulatory [facility] Start: 02-28-2024 End: 02-28-2024 ambulatory Martha L Ly Facility:[facility] Start: 02-13-2024 End: 02-13-2024 ambulatory Martha L Ly Facility:[facility] Start: 02-13-2024 End: 02-13-2024 ambulatory MD Jaun Sultana Work Phone: [facility] Work Phone: Start: 02-13-2024 End: 02-13-2024 Patient encounter procedure MD Jaun Sultana Work Phone: [facility] [place] Work Phone: Start: 02-01-2024 End: 02-01-2024 ambulatory [facility] Start: 01-30-2024 End: 01-30-2024 ambulatory [facility] Work Phone: Start: 01-30-2024 End: 01-30-2024 Patient encounter procedure [facility] Physician [facility] Work Phone: Start: 11-23-2023 End: 11-28-2023 ambulatory [facility] Start: 11-17-2023 End: 11-17-2023 ambulatory Allison Flowersler Other [email or web address] Other Start: 11-17-2023 Office outpatient visit 25 minutes Allison Odom [facility] Start: 11-17-2023 End: 11-17-2023 Patient encounter procedure [facility] Start: 10-31-2023 End: 10-31-2023 ambulatory David Giles Other [email or web address] Other Start: 10-31-2023 Telephone encounter David welch [facility] Start: 10-14-2023 End: 10-17-2023 ambulatory [facility] Start: 10-12-2023 End: 10-12-2023 ambulatory [facility] Start: 09-19-2023 End: 09-19-2023 ambulatory JAUN SULTANA Not Available Start: 04-14-2023 End: 04-14-2023 ambulatory David Giles Other [email or web address] Other Start: 04-14-2023 Telephone encounter David welch [facility] Start: 11-15-2022 End: 11-15-2022 ambulatory David Giles Other [email or web address] Other Start: 11-15-2022 Telephone encounter David welch [facility] Start: 10-26-2022 End: 10-26-2022 ambulatory David Giles Other [facility] Other Start: 10-26-2022 Office outpatient visit 25 minutes Santa Jang [facility] Start: 10-26-2022 Telephone encounter David welch [facility] Start: 10-21-2022 End: 10-21-2022 ambulatory David Giles Other [email or web address] Other Start: 10-21-2022 Patient encounter procedure David Giles [facility] Start: 07-23-2022 End: 07-23-2022 ambulatory Allison Odom Other [email or web address] Other Start: 07-23-2022 Office outpatient visit 25 minutes Allison Odom [facility] Start: 07-19-2022 End: 07-19-2022 ambulatory David Giles Other [email or web address] Other Start: 07-19-2022 Telephone encounter David welch [facility] Start: 07-14-2022 End: 07-14-2022 ambulatory David Giles Other [email or web address] Other Start: 07-14-2022 Telephone encounter David welch [facility] Start: 07-02-2022 End: 07-02-2022 ambulatory David Giles Other [email or web address] Other Start: 07-02-2022 Telephone encounter David welch [facility] Start: 04-15-2022 End: 04-15-2022 ambulatory David Giles Other [email or web address] Other Start: 04-15-2022 Patient encounter procedure David Giles [facility] Start: 04-15-2022 Telephone encounter David Arias ck [facility] Start: 02-09-2022 End: 02-09-2022 ambulatory David Giles Other [email or web address] Other Start: 02-09-2022 Telephone encounter David Jiménezmagdalene welch [facility] Start: 01-12-2022 End: 01-12-2022 ambulatory David Tisha Other [email or web address] Other Start: 01-12-2022 Office outpatient visit 15 minutes David Giles [facility] Start: 10-22-2021 End: 10-22-2021 ambulatory Deniscoreen Maryse Other [email or web address] Other Start: 10-22-2021 Office outpatient visit 15 minutes Shantell Serra [facility] Start: 10-20-2021 Encounter for genera l adult medical examination without abnormal findings DR JAUN SULTANA [facility] Start: 10-12-2021 End: 10-13-[address] JAUN SULTANA Facility:[facility] Start: 10-12-2021 End: 10-13-2021 Encounter for general adult medical examination without abnormal findings DR JAUN SULTANA Facility:[facility] Start: 09-15-2021 End: 09-15-2021 ambulatory David Giles Other [email or web address] Other Start: 09-15-2021 Office outpatient visit 15 minutes David Giles [facility] Procedures Date Procedure Procedure Detail Performing Clinician Start: 02-13-2024 CT of small intestine Leslie Sultana Work Phone: Plan of Treatment Date Care Activity Detail Author CT Abdomen and Pelvis [facility] Hepatitis B core antibody measurement [facility] Hepatitis B virus bedoya rface Ab [Presence] in Serum [facility] enter [facility] Payers Date Payer Category Payer Self-pay [id number] [address] [id number] 1975 Unknown [id number] 1975 Unknown [id number] 1974 Unknown [id number] 1975 Unknown [id number] 2.16.84 [id number] 1974 Unknown [id number] 2.16.84 [id number] 1974 Unknown [id number] 2.16.84 [id number] 1974 Unknown [id number] 2.16.840 [id number] 1959 Unknown [id number] Unknown [id number] 2.16.8 [id number] Unknown [id number] 2.16.8 [id number] Social History Date Type Detail Facility Unknown if ever smoked [email or web address] Other Sex Assigned At Sex Assigned At Bir th [email or web address] Other Start: 07-27-2018 Tobacco smoking status NHIS Ex-smoker (finding) [facility] Start: 1975 Sex Assigned At Female F [facility] Clinical Notes 11-19-2011 to 11-17-2023 Note Date & Type Note Facility 11-17-2023 Evaluation note Encounter Date Diagnosis Assessment Notes Nov, Contact with and (suspected) exposure to other viral communicable diseases (ICD-10 - Z20.828) Nov, Influenza A (ICD-10 - J10.1) Advised patient that Influenza A PCR test was positive, Influenza B/COVID/RSV PCR negative. Rapid Strep test negative. Encouraged supportive care, Tamiflu as directed, prednisone, Capmist as directed, Tylenol as needed for body aches/fever. Increase fluids and rest. Encouraged use of cool mist humidifier, push fluids, rest. Advised patient that she needs to stay home from work/school/acti vities until fever free for 24 hours without use of antipyretics. Work note provided. Follow-up with PCP for further management if needed. Immediate eval for SOB, difficulty, chest pain, fevers that do not break with antipyretic or any other concerning symptoms as reviewed on patient education handout. Patient verbalizes understanding and is agreeable to treatment plan. Patient left in stable condition [email or web address] Other 01-10-2023 Evaluation note* Encounter Date Diagnosis Assessment Notes Treatment Notes Treatment Clinical Notes Oct, Contact with and (suspected) exposure to other viral communicable diseases (ICD-10 - Z20.828) Oct, COVID-19 (ICD-10 - U07.1) Today you tested positive for the COVID virus. This mean you need to follow all CDC quarantine guidelines found at [email or web address]. It is important to rest, increase fluids, and stay at home. Recommend contacting primary care provider and discussing best course of action if you have chronic health conditions. COVID POSITIVE education handout discharge instructions. given. [email or web address] Other 01-05-2023 Evaluation note* Encounter Date Diagnosis Assessment Notes Treatment Notes Treatment Clinical Notes Oct, Crohn's disease (ICD-10 - K50.90) CONTINUE SKYRIZI DIRECTED PT DUE FOR SKYRIZI INJECTION NEXT WEEK OBTAIN LABS FROM [email or web address] Other 10-07-2022 Evaluation note* Encounter Date Diagnosis Assessment Notes Treatment Notes Treatment Clinical Notes Jul, Contact with and (suspected) exposure to other viral communicable diseases (ICD-10 - Z20.828) Jul, Acute sinusitis, unspecified (ICD-10 - J01.90) Advsied patient that rapid Strep test, COVID and Influenza A/B PCR test were negative. Discussed diagnosis with patient today. Will treat as viral at this time based on physical exam and duration of symptoms. Advised patient viral syndromes last 7-10 days. Patient reports no tolerance to Flonase, will send in rx of Medrol dose pack as directed, reviewed side effects. If symptoms do not improve in the next 7 days patient may call UC and I will send antibiotic. Encouraged supportive care as directed today. Push fluids/rest, nasal saline washes as directed, may use Tylenol as needed for discomfort, OTC Cordicidin HBP. Patient to follow up with PCP or UC for any new or worsening symptoms. Immediate eval if SOB, wheezing, difficulty breathing, or other concerning symptoms. Patient verbalizes understanding and is agreeable to treatment plan Jul, Other viral agents as the cause of diseases classified elsewhere (ICD-10 - B97.89) [email or web address] Other 06-30-2022 Evaluation note* Encounter Date Diagnosis Assessment Notes Treatment Notes Treatment Clinical Notes Mar, Crohn's disease, unspecified, without complications (ICD-10 - K50.90) START PROCESS FOR APPROVAL OF Social 2 Step INDICATED ABOVE [email or web address] Other 03-29-2022 Evaluation note* Encounter Date Diagnosis Assessment Notes Treatment Notes Treatment Clinical Notes Dec, Crohn's disease, unspecified, without complications (ICD-10 - K50.90) PATIENT HAD AN ALLERGIC REACTION TO THE HUMIRA. PATIENT DOES CONTINUE ON THE STELARA AND NO REATIONS NOTED. PATIENT DOES HAVE INCREASED GAS, LOOSE STOOLS AND DOES WEAR OFF SOONER THEN THE 56 DAYS. PATIENT STATES 1 WEEK PRIOR SHE DOES START DEVELOPING SYMPTOMS. PATIENT DOES WATCH WHAT SHE EATS AT THIS TIME AND WITH THE HUMIRA SHE DID NOT HAVE TO DO THAT. PATIENT HAS BEEN ON THE STELARA SINCE JULY OR SEPTEMBER OF 2021. [email or web address] Other 01-06-2022 Evaluation note* Encounter Date Diagnosis Assessment Notes Treatment Notes Treatment Clinical Notes Oct, Rash and nonspecific skin eruption (ICD-10 - R21) Pt received 60mg IM Kenalog in office today. Pt tolerated well. Performed by Jacinda Gross CMA. Pt to take meds as prescribed -- start tomorrow. May use rx topical steroid cream as prescribed. No other nsaids while on steroid. Pt to avoid contact with allergen. Avoid hot showers as it draws out rash. Pt to use topical calamine lotion or benadryl cream prn for itching. Otc benadryl prn. Pt to f/u with pcp as needed for persistent or worsening symptoms. Pt understood and agreed to treatment plan. [email or web address] Other 11-30-2021 Evaluation note* Encounter Date Diagnosis Assessment Notes Treatment Notes Treatment Clinical Notes Aug, Crohn's disease, unspecified, without complications (ICD-10 - K50.90) PATIENT STATES THAT SHE IS ON THE STELARA AND SHE HAS ONLY HAD THE IV DOSE. PATIENT CAN NOT TELL A DIFFERENCE AT THIS TIME. PATIENT STATES PAIN HAS IMPROVED, NOT REGULAR BOWEL MOVEMENTS AT THIS TIME. [email or web address] Other 02-03-2012 History general Narrative - Reported* Type Description Date Medical History bicuspid aortic valve Medical History crohns Medical History 11/19/11 Colonoscopy-scarring sple terri flexure Medical History 07/03/09EGD/Colonoscopy-normal EG D, Crohn's disease Medical History Tobacco use disorder, current Medical History Tobacco use disorder, current Medical History Acrodermatitis continua of Hallo peau Medical History AI [Aortic insufficiency] Medical History Hypertension, unspecified HTN Medical History Crohn's disease Medical History Exercise counseling Medical History 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 difficile diarrhea Medical History Crohn disease Medical History Encounter for smoking cessation counseling Medical History 03/09/2017 Colonoscop y- patchy inflammation cecum, Scarring, splenic flexure Medical History BMI 30.0-30.9,adult Medical History BMI 31.0-31.9,adult Medical History chronic depression Surgical History crohns Surgical History ganglion cyst Surgical History bicuspid aortic valve replaceme nt 03/2015 Hospitalization History Crohns 2009 [email or web address] Other 02-03-2012 History general Narrative - Reported* Type Description Date Medical History bicuspid aortic valve Medical History crohns Medical History 11/19/11 Colonoscopy-scarring sple terri flexure Medical History 07/03/09EGD/Colonoscopy-normal EG D, Crohn's disease Medical History Tobacco use disorder, current Medical History Tobacco use disorder, current Medical History Acrodermatitis continua of Hallo peau Medical History AI [Aortic insufficiency] Medical History Hypertension, unspecified HTN Medical History Crohn's disease Medical History Exercise counseling Medical History 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 difficile diarrhea Medical History Crohn disease Medical History Encounter for smoking cessation counseling Medical History 03/09/2017 Colonoscop y- patchy inflammation cecum, Scarring, splenic flexure Medical History BMI 30.0-30.9,adult Medical History BMI 31.0-31.9,adult Medical History chronic depression Surgical History crohns Surgical History ganglion cyst Surgical History bicuspid aortic valve replaceme nt 03/2015 Surgical History bicuspid aortic valve replaceme nt 01/05/2023 Hospitalization History Crohns 2008 [facility] flikdate Other Evaluation noteNo InformationNortThe [facility] flikdate Other Evaluation noteNo assessment information available [facility] Work Phone: Evaluation note* Diagnosis Onset Date Resolution Status Crohn's disease acute [facility] Work Phone: Summary Purpose Family History No Family History Records Found Relationship Condition Age at Onset Recorded Date/T kimberly father Malignant neoplasm Unknown Diabetes mellitus Unknown Heart disease Unknown Not Specified Unknown Chronic obstructive pulmonary disease Unk nown sister Hypertension Unknown Advance Directives No Advanced Directives Records Found Advance Directive Response Recorded Date/ Time Advance Directives No June 9:13am Chief Complaint and Reason for Visit Chief Complaint Congestion, Fever, S trep Exposure 6 month follow up for crohns Chief Complaint Congestion, Fever, S trep Exposure 6 month follow up for crohns K50.90 Reason for Visit Crohn's disease Additional Source Comments INFORMATION SOURCE (unrecogn ized section and content) DATE CREATED AUTHOR 10/21/2021 [facility] DATE CREATED AUTHOR AUTHOR'S ORGANIZ ATION 03/10/2024 [facility] DATE CREATED AUTHOR AUTHOR'S ORGANIZ ATION 03/15/2024 [facility] DATE CREATED AUTHOR AUTHOR'S ORGANIZ ATION 04/10/2024 [facility] EPIC REASON FOR VISIT (unrecogniz ed section and content) RASH ON ARM, POST COVID CASSANDRA TER, POSS REACTIONPATIENT HERE FOR 6 WEEK FOLLOW UP TO CROHNS. PATIENT WAS TO START STELARA.PATIENT HERE FOR 4 MONTH FOLLOW UP TO CROHNS. PATIENT WAS TO CONTINUE ON THE STELARA.Clinical Acute IllnessPATIENT HERE FOR 3 MONTH FOLLOW UP TO CROHNS. PATIENT TO CONTINUE ON STELARA.06/18 SKYRIZI- APPROVEDCLINICALPRESCRIPTIONH/A POSS SINUS INFECTIONSKYRIZI- APPROVED THROUGH [facility]- DATE 08/03PATIENT HERE FOR 6 MONTH FOLLOW UP CROHN'S DISEASE. PT WAS STARTED ON SKYRIZI.SkyriziCOUG, CONGESTION, POSITIVE HOME LUBJZpxtcksg01/29 [place]52/15 Skrizi 360 mg/2.4 ml OBICONGESTION, FEVER, STREP EXPOSURE Care Teams (unrecognized sec tion and content) Team Status: Active Member Role Status Dates Jaun Sultana MD Primary Care Provider Active Team Status: Inactive Member Role Status Dates Allison Odom APRN Attending Provider Active Start: November 17, 2023 End: November 17, 2023 Team Status: Inactive Member Role Status Dates Jaun Sultana MD Primary Care Provider Active S tart: January 30, 2024 End: January 30, 2024 Martha Calderon DO Attending Provider Active St art: January 30, 2024 End: January 30, 2024 Team Status: Inactive Member Role Status Dates Jaun Sultana MD Primary Care Provider Active S tart: February 13, 2024 End: February 13, 2024 Martha Calderon DO Attending Provider Active St art: February 13, 2024 End: February 13, 2024 Goals (unrecognized section and content) Goals may be documented in a n alternate section FOR RECORDS PERTAINING TO PATIENTS WHO ARE OR HAVE BEEN ENROLLED IN A CHEMICAL DEPENDENCY/SUBSTANCEABUSE PROGRAM, SOME INFORMATION MAY BE OMITTED. This clinical summary was aggregated from multiple sources. Caution should be exercised in using it in the provision of clinical care. This summary normalizes information from multiple sources, and as a consequence, information in this document may materially change the coding, format and clinical context of patient data. In addition, data may be omitted in some cases. CLINICAL DECISIONS SHOULD BE BASED ON THE PRIMARY CLINICAL RECORDS. [facility] provides no warranty or guarantee of the accuracy or completeness of information in this document.
== END 2024-04-10 20:55 | disposition home or self-care (01) ==
LOC: SLEEP 20:54
PROVIDERS: PCP Family Medicine; Visit Provider Family Medicine
DX: G47.33 Obstructive sleep apnea (adult) (pediatric) (principal)
CPT/HCPCS: 95811

== ENCOUNTER 2025-05-02 07:32 | Outpatient (OUT) | payer BC, SELFPAY ==
--- OUTSIDE RECORDS SUMMARY | 2025-05-02 07:37 | XMS_ITS | CCD ---
Author Organization [facility] Care Team Providers Care Piercing Machine Operator Name Role Phone DR JAUN SULTANA Attending Unavailable NADERER, DR JAUN Irene Consulting Unavailable NADERER, DR JAUN Irene Primary Care Unavailable NADERER, DR JAUN Irene Admitting Unavailable Shantell Serra Unavailable David Giles Unavailable Allison Odom Unavailable Santa Jang Unavailable MD Jaun Sultana Primary Care Provider Ly, DO Martha L Attending Provider Ly, Martha L Admitting Unavailable Ly, Martha L Attending Unavailable Jaun Sultana Primary Care Unavailable Ly, Martha L Admitting Unavailable Ly, Martha L Attending Unavailable Jaun Sultana Primary Care Unavailable ROBINA LEE Attending Unavailable JAUN SULTANA Referring Unavailable JAUN SULTANA Primary Care Unavailable Jaun Sultana MD Primary Care Provider Jaun Sultana MD Unavailable JAUN SULTANA Attending Unavailable NADERERJAUN Attending Unavailable NADEREJAUN Jama Attending Unavailable NADEREJAUN Jama Attending Unavailable RAJI PAULINO Attending Unavailable NADEREJAUN Jama Attending Unavailable Jaun Sultana MD Primary Care Provider Jaun Sultana MD Primary Care Provider [phone] SERVICE, MIROSLAVA Referring Unavailable JAUN SULTANA Primary Care Unavailable LY, MARTHA L Referring Unavailable JAUN SULTANA Primary Care Unavailable JAUN SULTANA Referring Unavailable JAUN SULTANA Primary Care Unavailable SERVICE, JOBST Referring Unavailable JAUN SULTANA Primary Care Unavailable LY, MARTHA L Referring Unavailable NADERER, JAUN Primary Care Unavailable SERVICE, JOBST Referring Unavailable NADERER, JAUN Primary Care Unavailable SERVICE, JOBST Referring Unavailable NADERER, JAUN Primary Care Unavailable NADERER, JAUN Referring Unavailable NADERER, JAUN Primary Care Unavailable MEDICATION MANAGEMENT, [facility] Referr ing Unavailable NADERER, JAUN Primary Care Unavailable MEDICATION MANAGEMENT, [facility] Referr ing Unavailable NADERER, JAUN Primary Care Unavailable MEDICATION MANAGEMENT, [facility] Referr ing Unavailable NADERER, JAUN Primary Care Unavailable MEDICATION MANAGEMENT, [facility] Referr ing Unavailable NADERER, JAUN Primary Care Unavailable MEDICATION MANAGEMENT, [facility] Referr ing Unavailable NADERER, JAUN Primary Care Unavailable MEDICATION MANAGEMENT, [facility] Referr ing Unavailable NADERER, JAUN Primary Care Unavailable MEDICATION MANAGEMENT, [facility] Referr ing Unavailable NADERER, JAUN Primary Care Unavailable MEDICATION MANAGEMENT, [facility] Referr ing Unavailable NADERER, JAUN Primary Care Unavailable Allergies Allergy Classification Reported Allergen(s) Allergy Type Date of Onset Reaction(s) Facility (20 sources) adalimumab; Translations: [ADALIMUMAB] Drug Allergy 1 RASH [facility] (20 sources) metroNIDAZOLE; Translations: [METRONIDAZOLE] Drug Allergy 7 headaches, nausea [facility] (1 source) adalimumab Drug Allergy 4 [facility] Repository (1 source) metroNIDAZOLE Drug Allergy 4 [facility] Repository (14 sources) Midodrine; Translations: [MIDODRINE] Drug Allergy 7 [facility] Rep[facility] (10 sources) adalimumab Drug Allergy 3 [facility] Healthcare Medications Current Medications Medication Drug Class(es) Dates Sig (Normalized) Sig (Original) 10 ML risankizumab-rzaa 60 MG/ML Injection [Skyrizi] (5 sources) Skyrizi 600 MG/10ML as directed Intravenous Active acetaminophen 325 mg oral tablet (12 sources) Start: 01-09-2023 take 2 tablets by mouth every four hours as needed acetaminophen (TYLENOL) 325 mg tablet Take 2 tablets (650 mg total) by mouth every 4 (four) hours as needed (Mild headache or pain scale of 1-3). 30 tablet 01/09/2023 Active [id number] 200 actuat albuterol 0.09 mg/actuat metered dose inhaler (5 sources) beta2-Adrenergic Agonist Start: 10-03-2022 take 2 puff(s) by inhalation every four hours as needed Albuterol Sulfate HFA 108 (90 Base) MCG/ACT 2 puffs as needed Inhalation every 4 hrs PRN Sep, Active ALPRAZolam 0.5 mg oral tablet (12 sources) Benzodiazepine Start: 09-19-2023 End: 12-06-2024 take 1 tablet by mouth three times daily as needed for anxiety ALPRAZolam (Xanax) 0.5 MG tablet Indications: VIKI (generalized anxiety disorder) Take 1 tablet (0.5 mg) by mouth 3 (three) times a day as needed for anxiety for up to 7 days 20 tablet 11/29/2024 Active aspirin 81 mg delayed release oral tablet (20 sources) Platelet Aggregation Inhibitor, Nonsteroidal Anti-inflammatory Drug Start: 05-24-2023 take 1 tablet by mouth in the morning aspirin 81 mg Take 1 tablet (81 mg total) by mouth in the morning. 05/24/2023 Active take 1 tablet by molly th every twenty-four hours Aspirin 81 MG 1 tablet Orally Once a day Active atorvastatin 20 mg oral tablet (20 sources) HMG-CoA Reductase Inhibitor Start: 01-30-2024 End: 01-14-2025 take 1 tablet by mouth in the morning atorvastatin (LIPITOR) 20 mg tablet TAKE 1 TABLET BY MOUTH IN THE MORNING PATIENT NEEDS LABS FOR FURTHER REFILLS 90 tablet 01/14/2025 Active cetirizine hydrochloride 10 mg oral tablet (20 sources) Histamine-1 Receptor Antagonist take 5 mg by mouth in the morning cetirizine (ZyrTEC) 10 MG tablet Take 5 mg by mouth in the morning. Active take 1 tablet by molly th every twenty-four hours ZyrTEC Allergy 10 MG 1 tablet Orally Once a day Active ZyrTEC Allergy A ctive cholecalciferol 0.05 mg oral capsule (11 sources) Vitamin D Vitamin D3 50 MC G (2000 UT) as directed Orally Once a day Active citalopram 40 mg oral tablet (20 sources) Serotonin Reuptake Inhibitor Start: take 1 tablet by mouth once daily citalopram (CeleXA) 40 MG tablet Indications: VIKI (generalized anxiety disorder) Take 1 tablet by mouth once daily 30 tablet 04/15/2025 Active Start: 02-09-2025 take 1 tablet by molly th once daily Citalopram 40 mg tablet Active 40 MG PO Daily February 09, 2025 12:00am Start: 09-17-2024 take 1 tablet by molly th once daily citalopram (CeleXA) 40 MG tablet Indications: VIKI (generalized anxiety disorder) (CMS/HCC) TAKE 1 TABLET BY MOUTH ONCE DAILY 30 tablet 2 09/17/2024 Active Start: 03-19-2024 take 1 tablet by molly th once daily citalopram (CeleXA) 40 MG tablet Indications: VIKI (generalized anxiety disorder) (CMS/HCC) Take 1 tablet (40 mg) by mouth Daily 30 tablet 5 03/19/2024 Active Start: 05-05-2020 End: 02-09-2025 take 1 tablet by mouth in the morning citalopram (CeleXA) 20 mg tablet Take 1 tablet (20 mg total) by mouth in the morning. 05/05/2020 Active Citalopram & Diet Manage Prod (4 sources) Citalopram & t Manage Prod Active dextromethorphan hydrobromide 15 mg / guaiFENesin 400 mg / pseudoephedrine hydrochloride 60 mg oral tablet (1 source) alpha-Adrenergic Agonist, Uncompetitive N-kmzyfg-G-aspartate Receptor Antagonist, Sigma-1 Agonist Start: 11-17-19 take 4 tablets by mouth every twenty-four hours as needed Capmist DM 60-15-400 MG as needed Orally every 4-6 hours as needed, max 4 tablets in 24 hours for 5 days Nov, Active furosemide 40 mg oral tablet (20 sources) Loop Diuretic Start: 09-17-20 24 Furosemide 40 mg tablet Active 40 MG PO Every 48 hours as needed September 17, 2024 1:00am Start: 05-24-2024 take 1 tablet by molly th once daily as needed furosemide (Lasix) 40 MG tablet Indications: Bilateral leg edema TAKE 1 TABLET BY MOUTH DAILY NEEDED 30 tablet 2 09/17/2024 Active levonorgestrel 0.866915 mg/hr intrauterine system (10 sources) Progestin, Progestin-containing Intrauterine Device Levonorgestrel (Mirena, 52 MG,) 20 MCG/DAY intrauterine device by Intrauterine route. Active lisinopril 10 mg oral tablet (15 sources) Angiotensin Converting Enzyme Inhibitor take 1 tablet by mouth every twenty-four hours Lisinopril 10 MG 1 tablet Orally Once a day for 30 Active Lisinopril 20 MG Oral for 30 Active 24 hr metFORMIN hydrochloride 500 mg extended release oral tablet (20 sources) Biguanide Start: 05-24-2024 End: 05-01-2025 take 1 tablet by mouth every twenty-four hours at mealtime metFORMIN XR (Glucophage-XR) 500 MG 24 hr tablet Indications: Prediabetes Take 1 tablet (500 mg) by mouth in the evening. Take with meals Do not crush, chew, or split. 30 tablet 5 05/24/2024 05/01/2025 Discontinued take 1 tablet by molly th once daily at breakfast metFORMIN XR (GLUCOPHAGE XR) 500 mg 24 h r tablet Take 1 tablet (500 mg total) by mouth daily with breakfast. Active methylPREDNISolone 4 mg oral tablet (4 sources) Corticosteroid Start: 07-23-2022 methylPREDNISo lone 4 MG as directed Orally for daily dose take half with breakfast, half with dinner for 6 days Jul, Active Start: 10-22-2021 methylPREDNISo lone 4 MG as directed Orally Oct, Active metoprolol tartrate 25 mg oral tablet (20 sources) beta-Adrenergic Reddy Start: 10-01-2024 take 1 tablet by mouth at bedtime metoprolol tartrate (LOPRESSOR) 25 mg tablet Indications: Benign hypertension , Nonrheumatic aortic valve stenosis Take 1 tablet (25 mg total) by mouth in the morning and at bedtime. 180 tablet 3 10/01/2024 Active Start: 01-30-2024 End: 02-09-2025 take 1 tablet by mouth twice daily Metoprolol Succinate 25 mg tablet extended release 24 hr Discontinued 25 MG PO Twice daily January 30, 2024 12:00am February 09, 2025 9:27am oseltamivir 75 mg oral capsule (1 source) Neuraminidase Inhibitor Start: 11-17-2023 take 1 capsule by mouth every twelve hours Oseltamivir Phosphate 75 MG 1 capsule Orally Twice a day for 5 day(s) Nov, Active 24 hr oxybutynin chloride 15 mg extended release oral tablet (20 sources) Cholinergic Muscarinic Antagonist Start: 09-27-2024 take 1 tablet by mouth once daily oxybutynin XL (Ditropan-XL) 15 MG 24 hr tablet Indications: Stress bladder incontinence, female Take 1 tablet (15 mg) by mouth Daily Do not crush, chew, or split. 30 tablet 5 09/27/2024 Active Start: 03-19-2024 take 1 tablet by molly th once daily oxybutynin XL (Ditropan-XL) 15 MG 24 hr tablet Indications: Stress bladder incontinence, female Take 1 tablet (15 mg) by mouth Daily Do not crush, chew, or split. 30 tablet 5 03/19/2024 Active Start: 01-30-2024 End: 02-09-2025 take 1 tablet by mouth once daily Oxybutynin Chloride 10 mg tablet extended release 24hr Discontinued 10 MG PO Daily January 30, 2024 12:00am February 09, 2025 9:27am Start: 04-24-2021 take 1 tablet by molly th every twenty-four hours in the morning oxybutynin XL (DITROPAN-XL) 10 mg 24 hr tablet Take 1 tablet (10 mg total) by mouth in the morning. 04/24/2021 Active oxyBUTYnin Chlor lul 10 MG as directed Orally Active Oxybutynin Activ e Skyrizi 360 MG/2.4ML (3 sources) Start: 04-30-2022 Skyrizi 360 MG /2.4ML INJECT Subcutaneous AT WEEK 12 AND THEN EVERY 8 WEEKS THERAFTER for 56 days DISPENSE WITH ON BODY INJECTOR Apr, Active skyrizi 360 mg/2.4ml solution cartridge (2 sources) Skyrizi 360 MG/2 .4ML as directed Subcutaneous Active Skyrizi 600 MG/10ML [...] for 56 days PRIOR AUTH REFERENCE NUMBER [id number] FROM 09/07/21 TO 09/07/22 Aug, Active Vedolizumab (20 sources) Integrin Receptor Antagonist Start: 02-09-2025 Vedolizumab (Entyvio Pen) 108 mg/0.68 mL pen injector Active 108 MG SUBCUT EVERY 2 MONTHS February 09, 2025 9:27am Start: 11-22-2024 End: 02-09-2025 Vedolizumab (Entyvio Pen) 10 8 mg/0.68 mL pen injector Discontinued 108 MG SUBCUT EVERY 2 WEEKS November 22, 2024 1:00am February 09, 2025 9:28am Start: 11-22-2024 Vedolizumab (E ntyvio Pen) 108 mg/0.68 mL pen injector Active 108 MG SUBCUT EVERY 2 WEEKS November 22, 2024 12:00am vedolizumab (ENT YVIO) 60 mg/mL recon soln Infuse 300 mL (18,000 mg total) into a venous catheter. Active Vedolizumab (ENT YVIO IV) Infuse into a venous catheter Active warfarin sodium 4 mg oral tablet (20 sources) Vitamin K Antagonist Start: 01-30-2024 End: 03-18-2025 take 1 tablet by mouth in the evening warfarin (COUMADIN) 4 mg tablet Indications: Stenosis of prosthetic aortic valve, subsequent encounter Take 1 tablet (4 mg total) by mouth in the evening. Or as directed by PPMM. 90 tablet 1 03/18/2025 Active take 1 tablet by mouth once sonali y warfarin (Coumadin) 5 MG tablet Take 5 mg by mouth 1 (one) time each day. Take as directed per After Visit Summary. Active take 1 tablet by molly th every twenty-four hours Warfarin Sodium 4 MG 1 tablet Orally Onc e a day Active Completed/Discontinued Medications Medication Drug Class(es) Dates Sig (Normalized) Sig (Original) amoxicillin 875 mg / clavulanate 125 mg oral tablet (2 sources) Penicillin-class Antibacterial Start: 09-17-2024 End: 09-28-2024 take 1 tablet by mouth every twelve hours Amoxicillin-Pot Clavulanate 875-125 mg tablet Discontinued 1 TAB PO Every 12 hours 05 08September 17, 2024 1:00am September 28, 2024 12:20pm Nirmatrelvir-Riton avir (Paxlovid) 300 mg (150 mg x 2)-100 mg tablets,dose pack (2 sources) Start: 09-28-2024 End: 11-22-2024 Nirmatrelvir-Riton avir (Paxlovid) 300 mg (150 mg x 2)-100 mg tablets,dose pack Discontinued 0 PO .COMPLEX September 28, 2024 1:00am November 22, 2024 3:49pm take TWO 150 mg tablets of nirmatrelvir with ONE 100 mg tablet of ritonavir twice daily for 5 days PO Start: 09-28-2024 End: 11-22-2024 Nirmatrelvir-Ritonavir (Paxl ovid) 300 mg (150 mg x 2)-100 mg tablets,dose pack Discontinued 0 PO .COMPLEX September 28, 2024 12:00am November 22, 2024 2:49pm take TWO 150 mg tablets of nirmatrelvir with ONE 100 mg tablet of ritonavir twice daily for 5 days PO Omeprazole (14 sources) Proton Pump Inhibitor Start: 01-30-2024 End: 02-17-2024 omeprazole Discontinued PO January 30, 2024 12:00am February 17, 2024 9:00am Start: 01-30-2024 End: 02-17-2024 omeprazole Discontinued PO A pril 2023 11:00pm February 17, 2024 8:00am Start: 01-30-2024 omeprazole Act eddie PO January 30, 2024 12:00am Start: 04-21-2023 End: 11-22-2024 take 1 capsule by mouth once daily Omeprazole 40 mg capsule,delayed release(DR/EC) Discontinued 40 MG PO Daily February 17, 2024 12:00am November 22, 2024 3:49pm FreeTextSi capsule 30 minutes before morning meal Orally Once a day; Note: Source Status: Taking; Refills: 11; Provider: Tisha Jama predniSONE 20 mg oral tablet (14 sources) Start: 01-09-2024 End: 09-17-2024 take 2 tablets by mouth once daily Prednisone 20 mg tablet Discontinued 10 MG PO Daily February 17, 2024 12:00am September 17, 2024 11:25am Take 2 tablets orally once a day. Start: 01-09-2024 take 2 tablets by [facility] once daily Prednisone Active 40 MG PO Daily 60 January 09, 2024 12:00am Take 2 tablets orally once a day. Start: 01-02-2024 End: 01-30-2024 Prednisone 10 mg tablet Disc ontinued 0 PO Daily 36 January 02, 2024 [...] a day for 8 days Jan, Active Triamcinolone (20 sources) Corticosteroid Start: 10-22-2021 KENALOG - 10 m g Oct, 60 mg Start: 03-05-2021 KENALOG - 10 m g February, 40 mg Start: 06-08-2018 KENALOG - 10 m g May, 40 mg Problems Active Problems Problem Classification Problem Date Documented Da te Episodic/Chronic Abdominal pain (17 sources) Abdominal pain; Translations: [Unspecified abdominal pain] Episodic Anxiety disorders (13 sources) Generalized anxiety disorder; Translations: [Generalized anxiety disorder] Onset: 09-19-2023 09-19-2023 Chronic Aortic; peripheral; and visceral artery aneurysms (10 sources) Aneurysm of ascending aorta; Translations: [Thoracic ascending aortic aneurysm] Onset: 03-19-2024 03-19-2024 Chronic Cardiac and circulatory congenital anomalies (11 sources) Bicuspid aortic valve; Translations: [Congenital bicuspid aortic valve] Onset: 09-19-2023 09-19-2023 Chronic Diabetes mellitus without complication (13 sources) Prediabetes; Translations: [Prediabetes] Onset: 09-22-2023 09-22-2023 Episodic Disorders of lipid metabolism (11 sources) Hyperlipidemia, unspecified; Translations: [Dyslipidemia] Onset: 09-19-2023 09-19-2023 Chronic Essential hypertension (20 sources) Essential (primary) hypertension; Translations: [Hypertensive disorder] Onset: 08-19-2011 Resolved: 07-04-2018 09-19-2023 Chronic Genitourinary symptoms and ill-defined conditions (10 sources) Female stress incontinence; Translations: [Stress incontinence (female) (male)] Onset: 09-19-2023 09-19-2023 Chronic Heart valve disorders (20 sources) History of aortic valve replacement; Translations: [Presence of prosthetic heart valve] Onset: 10-25-2013 Resolved: 07-04-2018 01-30-2024 Chronic Immunizations and screening for infectious disease (12 sources) Contact with and (suspected) exposure to other viral communicable diseases; Translations: [Contact with and (suspected) exposure to other viral communicable diseases] Episodic Influenza (1 source) Influenza due to other identified influenza virus with other respiratory manifestations Episodic Intestinal infection (2 sources) Clostridium difficile diarrhea; Translations: [Enterocolitis due to Clostridium difficile, not specified as recurrent] 09-17-2024 Episodic Mood disorders (12 sources) Recurrent major depressive episodes, mild ; Translations: [Major depressive disorder, recurrent, mild] Onset: 09-19-2023 09-19-2023 Chronic Nutritional deficiencies (1 source) Vitamin D deficiency, unspecified; Translations: [VITAMIN D DEFICIENCY UNSPECIFIED] Onset: 10-20-2021 Chronic Other circulatory disease (17 sources) Elevated blood pressure; Translations: [Elevated blood-pressure reading, without diagnosis of hypertension] Episodic Other connective tissue disease (2 sources) Ganglion cyst; Translations: [Ganglion, unspecified site] 09-17-2024 Episodic Other gastrointestinal disorders (20 sources) Constipation; Translations: [Constipation, unspecified] 01-30-2024 Episodic Other gastrointestinal disorders (17 sources) Diarrhea; Translations: [Diarrhea, unspecified] Episodic Other lower respiratory disease (2 sources) Hypoxia; Translations: [Hypoxemia] 07-18-2024 Episodic Other lower respiratory disease (2 sources) Snoring; Translations: [Snoring] 07-18-2024 Episodic Other nutritional; endocrine; and metabolic disorders (17 sources) Obese class I; Translations: [Body mass index (BMI) 31.0-31.9, adult] Chronic Other nutritional; endocrine; and metabolic disorders (18 sources) Body mass index 30+ - obesity; Translations: [Obesity, unspecified] Onset: 08-19-2021 09-19-2023 Chronic Other nutritional; endocrine; and metabolic disorders (12 sources) Insulin resistance; Translations: [Insulin resistance] Onset: 05-15-2024 05-15-2024 Chronic Other nutritional; endocrine; and metabolic disorders (8 sources) Severe obesity; Translations: [Class 2 severe obesity due to excess calories with serious comorbidity and body mass index (BMI) of 36.0 to 36.9 in adult ([facility])] Onset: 08-19-2021 08-14-2024 Chronic Other skin disorders (17 sources) Eruption; Translations: [Rash and other nonspecific skin eruption] Episodic Other upper respiratory infections (4 sources) Acute sinusitis, unspecified; Translations: [Acute sinusitis] Episodic Regional enteritis and ulcerative colitis (20 sources) Crohn's disease; Translations: [Crohn's disease, unspecified, with unspecified complications] Onset: 07-12-2019 Resolved: 04-15-2022 Chronic Residual codes; unclassified (12 sources) Hypersomnia; Translations: [Hypersomnia, unspecified] Onset: 03-19-2024 03-19-2024 Chronic Residual codes; unclassified (6 sources) Obstructive sleep apnea syndrome; Translations: [Obstructive sleep apnea (adult) (pediatric)] 07-18-2024 Chronic Residual codes; unclassified (2 sources) Sleep deprivation; Translations: [Sleep deprivation] 07-18-2024 Episodic Spondylosis; intervertebral disc disorders; other back problems (10 sources) Degeneration of lumbar intervertebral disc; Translations: [DDD (degenerative disc disease), lumbar] Onset: 09-19-2023 09-19-2023 Chronic Viral infection (4 sources) Other viral agents as the cause of diseases classified elsewhere; Translations: [Disease caused by 2019-nCoV] Episodic Past or Other Problems Problem Classification Problem Date Documented Date Episodic/Chronic Abdominal hernia (10 sources) Gastroesophageal reflux disease with hiatal hernia; Translations: [Diaphragmatic hernia without obstruction or gangrene] Onset: 03-19-2024 03-19-2024 Episodic Complication of device; implant or graft (20 sources) Prosthetic aortic valve stenosis; Translations: [Stenosis of other cardiac prosthetic devices, implants and grafts, subsequent encounter] Onset: 01-05-2023 10-08-2024 Episodic Conditions associated with dizziness or vertigo (12 sources) Dizziness; Translations: [Dizziness and giddiness] Resolved: 07-04-2018 07-04-2018 Episodic Other lower respiratory disease (12 sources) Dyspnea; Translations: [Shortness of breath] Resolved: 07-04-2018 07-04-2018 Episodic Other nervous system disorders (10 sources) Pain of skin; Translations: [Other disturbances of skin sensation] Onset: 05-15-2024 05-15-2024 Episodic Other skin disorders (1 source) Rash and other nonspecific skin eruption Onset: 10-22-2021 Resolved: 10-22-2021 Episodic Other skin disorders (12 sources) Skin tag; Translations: [Other hypertrophic disorders of the skin] Onset: 03-19-2024 Resolved: 05-01-2025 05-24-2024 Episodic Residual codes; unclassified (12 sources) Bilateral lower limb edema; Translations: [Localized edema] Onset: 05-24-2024 05-24-2024 Episodic Residual codes; unclassified (1 source) Localized edema; Translations: [Localized edema] Onset: 09-27-2024 Episodic Viral infection (1 source) COVID-19 Results Test Name Value Interpretation Reference Range Facility HbA1c (Bld) [Mass fraction]o n 05-01-2025 Interpretation and review of laboratory [facility] 05-01-2025 HbA1c (Bld) [Mass fraction] 6.2 % [facility] POCT Protime / INRon 04-04-2 025 INR Coag (PPP) [Relative time] 1.5 {INR} Abnormal 0.8 - 1.2 [facility] Interpretation and review of laboratory results Abnormal [facility] POCT Protime / INRon 03-14-2 025 INR Coag (PPP) [Relative time] 2.3 {INR} Abnormal 0.8 - 1.2 [facility] Interpretation and review of laboratory results Abnormal [facility] POCT Protime / INRon 02-13-2 025 INR Coag (PPP) [Relative time] 2.5 {INR} Abnormal 0.8 - 1.2 [facility] Interpretation and review of laboratory results Abnormal [facility] POCT Protime / INRon 01-15-2 025 INR Coag (PPP) [Relative time] 1.7 {INR} Abnormal 0.8 - 1.2 [facility] Interpretation and review of laboratory results Abnormal [facility] POCT Protime / INRon 12-24-2 025 INR Coag (PPP) [Relative time] 1.4 {INR} Abnormal 0.8 - 1.2 [facility] Interpretation and review of laboratory results Abnormal [facility] POCT Protime / INRon 12-03- 025 INR Coag (PPP) [Relative time] 1.4 {INR} Abnormal 0.8 - 1.2 [facility] Interpretation and review of laboratory results Abnormal [facility] POCT Protime / INRon 10-22- 025 INR Coag (PPP) [Relative time] 1.8 {INR} Abnormal 0.8 - 1.2 [facility] Interpretation and review of laboratory results Abnormal [facility] POCT Protime / INRon 024 INR Coag (PPP) [Relative time] 1.2 {INR} 0.8 - 1.2 [facility] No Panel InformationOrdered By: Heidy Barrios on 09-28-2024 COVID Antigen (POC) [facility] Influenza virus B Ag [Presen ce] in Upper respiratory specimen by Rapid immunoassayon 09-17-2024 FLUBV Ag IA.rapid Ql (Nph) Influenza virus B Ag [Presence] in Upper respiratory specimen by Rapid immunoassay [facility] No Panel Informationon 09-17 Influenza Type A (Rapid) Negative [facility] POC SARS CoV-2 Antigen Negative [facility] No Panel InformationOrdered By: Heidy Barrios on 09-17-2024 Quick Strep (POC) [facility] CBC AND AUTO DIFFon 07-09-20 24 ABSOLUTE BASOPHIL 0.0 [id number]/L Normal 0.0-0.2 [place] [facility] Comment on above: Performed By: #### C BCA, LIVR #### [facility] ([id number]) [address], [address] [place] [address] ABSOLUTE NEUTROPHIL 5.5 X10E9/L Normal 1.5-6.6 [facility] Comment on above: Performed By: #### C MAL, LIVR #### [facility] ([id number]) [address], [address] [place] [address] Basophils/100 WBC (Bld) 0.4 % Normal [facility] Comment on above: Performed By: #### C BCA, LIVR #### [facility] ([id number]) [address], [address] [place] [address] Eosinophils (Bld) [#/Vol] 0.1 10*3/uL Normal 0.0-0.4 [facility] Comment on above: Performed By: #### C BCA, LIVR #### [facility] ([id number]) [address] [place] [address] Eosinophils/100 WBC (Bld) 1.3 % Normal [facility] Comment on above: Performed By: #### C MAL, LIVR #### [facility] ([id number]) [address] [place] [address] Erythrocyte distribution width (RBC) [Ratio] 12.6 % Normal 11.5-15.0 [facility] Comment on above: Performed By: #### C BCA, LIVR #### [facility] ([id number]) [address], [address] [place] [address] Hematocrit (Bld) [Volume fraction] 40.9 % Normal 35-47 [facility] Comment on above: Performed By: #### C BCA, LIVR #### [facility] ([id number]) [address] [place] [address] Hemoglobin (Bld) [Mass/Vol] 14.0 g/dL Normal 11.7-15.5 [facility] Comment on above: Performed By: #### C BCA, LIVR #### [facility] ([id number]) [address] [place] [address] Lymphocytes (Bld) [#/Vol] 3.1 10*3/uL Normal 1.0-3.5 [facility] Comment on above: Performed By: #### C BCA, LIVR #### [facility] ([id number]) [address], [address] [place] [address] Lymphocytes/100 WBC (Bld) 32.6 % Normal [facility] Comment on above: Performed By: #### C MAL, LIVR #### [facility] ([id number]) [address], [address] [place] [address] MCH (RBC) [Entitic mass] 29.7 pg Normal 27-34 [facility] Comment on above: Performed By: #### C MAL, LIVR #### [facility] ([id number]) [address], [address] [place] [address] MCHC (RBC) [Mass/Vol] 34.3 g/dL Normal 32-36 [facility] Comment on above: Performed By: #### C MAL, LIVR #### [facility] ([id number]) [address], [address] [place] [address] MCV (RBC) [Entitic vol] 87 fL Normal 80-100 [facility] Comment on above: Performed By: #### C BCA, LIVR #### [facility] ([id number]) [address], [address] [place] [address] Monocytes (Bld) [#/Vol] 0.7 10*3/uL Normal 0-0.9 [facility] Comment on above: Performed By: #### C BCA, LIVR #### [facility] ([id number]) [address], [address] [place] [address] Monocytes/100 WBC (Bld) 7.8 % Normal [facility] Comment on above: Performed By: #### C BCA, LIVR #### [facility] ([id number]) [address], [address] [place] [address] Neutrophils/100 WBC (Bld) 57.9 % Normal [facility] Comment on above: Performed By: #### C BCA, LIVR #### [facility] ([id number]) [address] [facility] [address] [place] [address] Platelet mean volume (Bld) [Entitic vol] 10.3 fL Normal 7-12 [facility] Comment on above: Performed By: #### C MAL, LIVR #### [facility] ([id number]) [address] [address] [place] [address] Platelets (Bld) [#/Vol] 230 10*3/uL Normal 150-450 [facility] Comment on above: Performed By: #### C MAL, LIVR #### [facility] ([id number]) [address], [address] [place] [address] RBC COUNT 4.73 X10E12/L Normal 3.80-5.20 [facility] Comment on above: Performed By: #### C MAL, LIVR #### [facility] ([id number]) [address] [address] [place] [address] WBC (Bld) [#/Vol] 9.5 10*3/uL Normal 4.0-11.0 [facility] Comment on above: Performed By: #### C BCA, LIVR #### [facility] ([id number]) [address] [address] [place] [address] LIVER PANELon 07-09-2024 Albumin [Mass/Vol] 4.4 g/dL Normal 3.2-5.3 [facility] Comment on above: Performed By: #### C MAL, LIVR #### [facility] ([id number]) [address], [address] [place] [address] ALP [Catalytic activity/Vol] 55 U/L Normal 39-130 [facility] Comment on above: Performed By: #### C BCA, LIVR #### [facility] ([id number]) [address], [address] [place] [address] ALT [Catalytic activity/Vol] 15 U/L Normal 0-31 [facility] Comment on above: Performed By: #### C BCA, LIVR #### [facility] ([id number]) [address], [address] [place] [address] AST [Catalytic activity/Vol] 19 U/L Normal 0-41 [facility] Comment on above: Performed By: #### C BCA, LIVR #### [facility] ([id number]) [address], [address] [place] [address] Bilirubin [Mass/Vol] 0.6 mg/dL Normal 0.3-1.2 [facility] Comment on above: Performed By: #### C BCA, LIVR #### [facility] ([id number]) [address], [address] [place] [address] Bilirubin.direct [Mass/Vol] 0.1 mg/dL Normal 0.0-0.4 [facility] Comment on above: Performed By: #### C BCA, LIVR #### [facility] ([id number]) [address], [address] [place] [address] Protein [Mass/Vol] 7.1 g/dL Normal 6.0-8.0 [facility] Comment on above: Performed By: #### C BCA, LIVR #### [facility] ([id number]) [address], [address] [place] [address] BASIC METABOLIC PANLon 05-16 Anion gap [Moles/Vol] 10 mmol/L Normal 5-15 [facility] Comment on above: Performed By: #### H A1C, BMP #### [facility] ([id number]) [address], [address] [place] [address] Calcium [Mass/Vol] 8.7 mg/dL Normal 8.5-10.5 [facility] Comment on above: Performed By: #### H A1C, BMP #### [facility] ([id number]) [address], [address] [place] [address] Chloride [Moles/Vol] 103 mmol/L Normal 98-109 [facility] Comment on above: Performed By: #### H A1C, BMP #### [facility] ([id number]) [address], [address] [place] [address] CO2 [Moles/Vol] 22 mmol/L Normal 22-32 [facility] Comment on above: Performed By: #### H A1C, BMP #### [facility] ([id number]) [address], [address] [place] [address] Creatinine [Mass/Vol] 0.85 mg/dL Normal 0.40-1.00 [facility] Comment on above: Result Comment: METH OD TRACEABLE TO IDMS STANDARD Performed By: #### H A1C, BMP #### [facility] ([id number]) [address], [address] [place] [address] GFR/1.73 sq M.predicted among non-blacks MDRD (S/P/Bld) [Vol rate/Area] 84 mL/min/{1.73_m2} Normal >59 [facility] Comment on above: Result Comment: Reported eGFR is based on the CKD-EPI 2020 equation that does not use a race coefficient. Performed By: #### H A1C, BMP #### [facility] ([id number]) [address], [address] [place] [address] Glucose [Mass/Vol] 84 mg/dL Normal 65-99 [facility] Comment on above: Performed By: #### H A1C, BMP #### [facility] ([id number]) [address], [address] [place] [address] Potassium [Moles/Vol] 3.6 mmol/L Normal 3.5-5.0 [facility] Comment on above: Performed By: #### H A1C, BMP #### [facility] ([id number]) [address], [address] [place] [address] Sodium [Moles/Vol] 135 mmol/L Normal 134-146 [facility] Comment on above: Performed By: #### H A1C, BMP #### [facility] ([id number]) [address], [address] [place] [address] Urea nitrogen [Mass/Vol] 11 mg/dL Normal 5-23 [facility] Comment on above: Performed By: #### H A1C, BMP #### [facility] ([id number]) [address], [address] [place] [address] HGB A1C (GLYCO-HGB)on 2023 Glucose [Mass/Vol] 123 mg/dL Normal [facility] Comment on above: Performed By: #### H A1C, BMP #### [facility] ([id number]) [address] [place] [address] HbA1c (Bld) [Mass fraction] 5.9 % High 4.4-5.6 [facility] Comment on above: Result Comment: NOTE ADA Guidelines Result HgbA1c Normal : less than 5.7 % Prediabetes : 5.7 % to 6.4 % Diabetes : > 6.4 % Use with caution in patients with abnormal hemoglobin variants as the half-life of red blood cells and in vivo glycation rates are affected. Performed By: #### H A1C, BMP #### [facility] ([id number]) [address], [address] [place] [address] CBC AND AUTO DIFFon 07-25-20 24 ABSOLUTE BASOPHIL 0.0 X10E9/L Normal 0.0-0.2 [facility] Comment on above: Performed By: #### C MAL, LIVR #### [facility] ([id number]) [address], [address] [place] [address] ABSOLUTE NEUTROPHIL 4.6 X10E9/L Normal 1.5-6.6 [facility] Comment on above: Performed By: #### C MAL, LIVR #### [facility] ([id number]) [address], [address] [place] [address] Basophils/100 WBC (Bld) 0.4 % Normal [facility] Comment on above: Performed By: #### Rebekah RESENDEZ, LIVR #### [facility] ([id number]) [address] [place] [address] Eosinophils (Bld) [#/Vol] 0.1 10*3/uL Normal 0.0-0.4 [facility] Comment on above: Performed By: #### Rebekah RESENDEZ, LIVR #### [facility] ([id number]) [address] [place] [address] Eosinophils/100 WBC (Bld) 1.7 % Normal [facility] Comment on above: Performed By: #### Rebekah RESENDEZ, LIVR #### [facility] ([id number]) [address] [place] [address] Erythrocyte distribution width (RBC) [Ratio] 13.2 % Normal 11.5-15.0 [facility] Comment on above: Performed By: #### Rebekah BCA, LIVR #### [facility] ([id number]) [address] [place] [address] Hematocrit (Bld) [Volume fraction] 39.2 % Normal 35-47 [facility] Comment on above: Performed By: #### C BCA, LIVR #### [facility] ([id number]) [address], [address] [place] [address] Hemoglobin (Bld) [Mass/Vol] 13.7 g/dL Normal 11.7-15.5 [facility] Comment on above: Performed By: #### C BCA, LIVR #### [facility] ([id number]) [address], [address] [place] [address] Lymphocytes (Bld) [#/Vol] 2.6 10*3/uL Normal 1.0-3.5 [facility] Comment on above: Performed By: #### C BCA, LIVR #### [facility] ([id number]) [address], [address] [place] [address] Lymphocytes/100 WBC (Bld) 33.0 % Normal [facility] Comment on above: Performed By: #### C BCA, LIVR #### [facility] ([id number]) [address], [address] [place] [address] MCH (RBC) [Entitic mass] 30.7 pg Normal 27-34 [facility] Comment on above: Performed By: #### C BCA, LIVR #### [facility] ([id number]) [address] [place] [address] MCHC (RBC) [Mass/Vol] 34.9 g/dL Normal 32-36 [facility] Comment on above: Performed By: #### C BCA, LIVR #### [facility] ([id number]) [address] [place] [address] MCV (RBC) [Entitic vol] 88 fL Normal 80-100 [facility] Comment on above: Performed By: #### C BCA, LIVR #### [facility] ([id number]) [address], [address] [place] [address] Monocytes (Bld) [#/Vol] 0.6 10*3/uL Normal 0-0.9 [facility] Comment on above: Performed By: #### C BCA, LIVR #### [facility] ([id number]) [address], [address] [place] [address] Monocytes/100 WBC (Bld) 7.1 % Normal [facility] Comment on above: Performed By: #### C MAL, LIVR #### [facility] ([id number]) [address], [address] [place] [address] Neutrophils/100 WBC (Bld) 57.8 % Normal [facility] Comment on above: Performed By: #### C BCA, LIVR #### [facility] ([id number]) [address] [place] [address] Platelet mean volume (Bld) [Entitic vol] 11.0 fL Normal 7-12 [facility] Comment on above: Performed By: #### C MAL, LIVR #### [facility] ([id number]) [address], [address] [place] [address] Platelets (Bld) [#/Vol] 206 10*3/uL Normal 150-450 [facility] Comment on above: Performed By: #### C BCA, LIVR #### [facility] ([id number]) [address] [place] [address] RBC COUNT 4.46 X10E12/L Normal 3.80-5.20 [facility] Comment on above: Performed By: #### C BCA, LIVR #### [facility] ([id number]) [address] [place] [address] WBC (Bld) [#/Vol] 7.9 10*3/uL Normal 4.0-11.0 [facility] Comment on above: Performed By: #### C BCA, LIVR #### [facility] ([id number]) [address], [address] [place] [address] LIVER PANELon 05-10-2024 Albumin [Mass/Vol] 4.2 g/dL Normal 3.2-5.3 [facility] Comment on above: Performed By: #### C BCA, LIVR #### [facility] ([id number]) [address] [place] [address] ALP [Catalytic activity/Vol] 50 U/L Normal 39-130 [facility] Comment on above: Performed By: #### C BCA, LIVR #### [facility] ([id number]) [address], [address] [place] [address] ALT [Catalytic activity/Vol] 18 U/L Normal 0-31 [facility] Comment on above: Performed By: #### C BCA, LIVR #### [facility] ([id number]) [address] [place] [address] AST [Catalytic activity/Vol] 23 U/L Normal 0-41 [facility] Comment on above: Performed By: #### C BCA, LIVR #### [facility] ([id number]) [address] [place] [address] Bilirubin [Mass/Vol] 0.5 mg/dL Normal 0.3-1.2 [facility] Comment on above: Performed By: #### C BCA, LIVR #### [facility] ([id number]) [address] [place] [address] Bilirubin.direct [Mass/Vol] 0.1 mg/dL Normal 0.0-0.4 [facility] Comment on above: Performed By: #### C BCA, LIVR #### [facility] ([id number]) [address] [place] [address] Protein [Mass/Vol] 6.8 g/dL Normal 6.0-8.0 [facility] Comment on above: Performed By: #### C MAL, LIVR #### [facility] ([id number]) [address], [address] [place] [address] Complete Blood Count Auto Di ffon 02-28-2024 Basophils (Bld) [#/Vol] 0.1 10*3/uL Normal 0.0-0.2 [facility] Comment on above: Result Comment: PERF ORMED BY: [place] [address] PATHOLOGIST [employer]PER[employer] ROBIN HERNANDEZ M.D. Performed By: #### P TT, PT, CBC #### [address] Basophils/100 WBC (Bld) 0.5 % Normal . [facility] Comment on above: Performed By: #### P TT, PT, CBC #### [place] [address] [place] Eosinophils (Bld) [#/Vol] 0.1 10*3/uL Normal 0.0-0.45 [facility] Comment on above: Performed By: #### P TT, PT, CBC #### [place] [address] [place] Eosinophils/100 WBC (Bld) 0.7 % Normal . [facility] Comment on above: Performed By: #### P TT, PT, CBC #### [place] [address] [place] Erythrocyte distribution width (RBC) [Ratio] 13.5 % Normal 11.9-15.3 [facility] Comment on above: Performed By: #### P TT, PT, CBC #### [place] [address] [place] Hematocrit (Bld) [Volume fraction] 43.7 % Normal 34.0-46.4 [facility] Comment on above: Performed By: #### P TT, PT, CBC #### [address] Hemoglobin (Bld) [Mass/Vol] 14.8 g/dL Normal 11.8-15.4 [facility] Comment on above: Performed By: #### P TT, PT, CBC #### [address] Lymphocytes (Bld) [#/Vol] 2.2 10*3/uL Normal 1.00-4.8 [facility] Comment on above: Performed By: #### P TT, PT, CBC #### [address] Lymphocytes/100 WBC (Bld) 16.6 % Normal . [facility] Comment on above: Performed By: #### P TT, PT, CBC #### [address] MCH (RBC) [Entitic mass] 29.5 pg Normal 24.7-34.3 [facility] Comment on above: Performed By: #### P TT, PT, CBC #### [address] MCV (RBC) [Entitic vol] 87.1 fL Normal 80-100 [facility] Comment on above: Performed By: #### P TT, PT, CBC #### [address] Mean Corpuscular HGB Conc 33.9 g/dL Normal 32.0-35.0 [facility] Comment on above: Performed By: #### P TT, PT, CBC #### [place] [address] [place] Monocytes (Bld) [#/Vol] 0.5 10*3/uL Normal 0.0-0.8 [facility] Comment on above: Performed By: #### P TT, PT, CBC #### [address] Monocytes/100 WBC (Bld) 3.5 % Normal . [facility] Comment on above: Performed By: #### P TT, PT, CBC #### [facility] [address] [place] [address] [place] Neutrophils (Bld) [#/Vol] 10.3 10*3/uL High 1.8-7.7 [facility] Comment on above: Performed By: #### P TT, PT, CBC #### [facility] [address] [place] [address] [place] Neutrophils/100 WBC (Bld) 78.7 % Normal . [facility] Comment on above: Performed By: #### P TT, PT, CBC #### [facility] [address] NRBC% 0.2 /100{WBC} Normal 0-0.5 [facility] Comment on above: Performed By: #### P TT, PT, CBC #### [address] Platelet mean volume (Bld) [Entitic vol] 9.1 fL Normal 6.3-10.7 [facility] Comment on above: Performed By: #### P TT, PT, CBC #### [place] [address] [place] Platelets (Bld) [#/Vol] 264 10*3/uL Normal 150-450 [facility] Comment on above: Performed By: #### P TT, PT, CBC #### [place] [address] [place] RBC (Bld) [#/Vol] 5.02 10*6/uL High 3.60-5.00 [facility] Comment on above: Performed By: #### P TT, PT, CBC #### [place] [address] [place] WBC (Bld) [#/Vol] 13.1 10*3/uL High 3.8-11.6 [facility] Comment on above: Performed By: #### P TT, PT, CBC #### [place] [address] [place] HCG,Urineon 02-28-2024 Beta HCG ( test) Ql (U) Negative Normal [facility] Comment on above: Result Comment: PERF ORMED BY: [place] [address] PATHOLOGIST [employer]PER[employer] ROBIN HERNANDEZ M.D. Performed By: #### U HCG #### [address] [place] 02-28-2024 L Specimen: [id number] Received: 02/28/24 Status: NASEEMGhazala Wynne Num: [id number] Spec Type: Surgical Subm Dr: Martha Calderon DO Tissues: A Colon Biopsy (TERMINAL ILEUM BX) B Colon Biopsy (ASC POLYP) C Colon Biopsy (RT COLON BX) D Colon Biopsy (TRANSV BX) E Colon Biopsy (LT COLON BX) Procedures: HE/10, Gross/Micro L4/5 Age/ Patient Sex Location Account Attending Physician Sarbjit Campa 48/F [id number] Martha Calderon DO SPEC NUM: [id number] RECD: 02/28/24 STATUS: OZ WYNNE NUM: [id number] NICOL: 02/28/24- SUBM DR: Martha Calderon DO ENTERED: 02/28/[address] [facility] [address]: SPEC TYPE: Surgical DEPT: S ORDERED: [...] tissue fragment, entirely submitted in B1. Specimen: [id number] Received: 02/28/24 Status: OZ [place] Num: [id number] Spec Type: Surgical Subm Dr: Martha Calderon DO Tissues: A Colon Biopsy (TERMINAL ILEUM BX) B Colon Biopsy (ASC POLYP) C Colon Biopsy (RT COLON BX) D Colon Biopsy (TRANSV BX) E Colon Biopsy (LT COLON BX) Procedures: , Gross/Micro L4/5 Patient: Janet Campajolanta [id number] (Continued) Specimen: [id number] Received: 02/28/24 (Continued) Gross Description (Continued) Signed (signatur e on file) Priscila Pace MD 02/29/24 1429 Specimen: [id number] Received: 02/28/24 Status: OZ [place] Num: [id number] Spec Type: Surgical Subm Dr: Martha Calderon DO Tissues: A Colon Biopsy (TERMINAL ILEUM BX) B Colon Biopsy (ASC POLYP) C Colon Biopsy (RT COLON BX) D Colon Biopsy (TRANSV BX) E Colon Biopsy (LT COLON BX) Procedures: , Gross/Micro L4/5 Patient: Janet Campajolanta [id number] (Continued) Specimen: [id number] Received: 02/28/24 (Continued) Gross Description (Continued) C. [...] E1. Clinical history: Crohn's, colitis. CPT Codes 59015x2 Specimen: [id number] Received: 02/28/24 Status: OZ [place] Num: [id number] Spec Type: Surgical Subm Dr: Martha Calderon DO Tissues: A Colon Biopsy (TERMINAL ILEUM BX) B Colon Biopsy (ASC POLYP) C Colon Biopsy (RT COLON BX) D Colon Biopsy (TRANSV BX) E Colon Biopsy (LT COLON BX) Procedures: Tameka RICHARDSON/Ronnie L4/5 Patient: Sarbjit Campa [id number] (Continued) Signed (signatur e on file) Priscila Pace MD 02/29/24 1429 Normal [facility] Partial Thromboplastin Timeo n 02-28-2024 aPTT Coag (Bld) [Time] 26.1 s Normal 25.1-36.5 [facility] Comment on above: Result Comment: A he matocrit value greater than 55% may lead to inaccurate results in coagulation testing. Patients having hematocrit values >55% require a special collection tube for coagulation studies. Please contact the laboratory at [phone] for redraw instructions. PERFORMED BY: [place] [address] PATHOLOGIST [employer]PER[employer] ROBIN HERNANDEZ M.D. Performed By: #### P TT, PT, CBC #### [address] Prothrombin Time INRon 02-27 INR Coag (PPP) [Relative time] 1.0 {INR} Normal [facility] Comment on above: Result Comment: INR Therapeutic [...] By: #### P TT, PT, CBC #### [address] PT Coag (PPP) [Time] 11.7 s Normal 9.0-12.9 [facility] Comment on above: Result Comment: A he matocrit value greater than 55% may lead to inaccurate results in coagulation testing. Patients having hematocrit values >55% require a special collection tube for coagulation studies. Please contact the laboratory at [phone] for redraw instructions. Performed By: #### P TT, PT, CBC #### [address] enterographyon 02-13-2024 CT enterography [facility] [place] [address] [place] [address] CT Scan Report Signed Patient: Sarbjit Campa MR#: [id number] : [id number] Acct:[id number] Age/Sex: 48 / F ADM Date: 02/13/24 Loc: CT Room: Type: [facility] Attending Dr: Martha Calderon DO Copies to: [...] reconstruction technique. FINDINGS: Lung Bases: [Bibasilar atelectasis.] Organs:Cholelithias is. Subcentimeter low attenuating lesions left lobe of [...] IUD is in place. No adnexal mass.] Peritoneum/Retroper itoneum:No free air, free fluid or lymphadenopathy.[ Abd wall/Bones:Abdomina l wall demonstrates no acute findings. Osseous structures demonstrate degenerative change.[ CT/CT enterography IMPRESSION: 1. No definitive CT evidence of active Crohn's disease. 2. Cholelithiasis. 3. Small hiatal hernia. 4. Left nephrolithiasis. Impression dictated by: Michael Tavares Jr., D.OTristan02/13/2024 1:17 PM Dictation Location: [place] [address] Transcribed By: [facility] 02/13/24 1317 Dictated By: Michael Tavares Jr DO 02/13/24 1311 Signed By: 02/13/24 1317 Normal [facility] COVID/FLU/RSV RT-PCRon 11-17 SARS-CoV-2 (COVID-19) RNA DAMIEN+probe Ql (Unsp spec) Negative [facility] [employer] Other COVID/FLU/RSV RT-PCR Positive [facility] [employer] Other COVID/FLU/RSV RT-PCR Negative [facility] [employer] Other Quick Strepon 11-17-2023 S. pyogenes Org specific cx Ql (Throat) Negative [facility] [employer] Other [employer] Strep [facility] [employer] Other COVID/FLU/RSV RT-PCRon 10-26 SARS-CoV-2 (COVID-19) RNA DAMIEN+probe Ql (Unsp spec) Positive [facility] [employer] Other COVID/FLU/RSV RT-PCR Negative [facility] [employer] Other COVID/FLU RT-PCRon 2 SARS-CoV-2 (COVID-19) RNA DAMIEN+probe Ql (Unsp spec) Negative [facility] [employer] Other COVID/FLU RT-PCR Negative [facility] [employer] Other [employer] St[employer] 07-23-2022 S. pyogenes Org specific cx Ql (Throat) Negative [facility] [employer] Other Quick Strep [facility] [employer] Other VIT D 25-OH [facility]on 2020 Vitamin D, 25-Hydroxy 25.7 ng/mL Critically low 30.0-100.0 [facility] Comment on above: Result Comment: Lizzy min D deficiency has been defined by the [place] of [employer] and an Endocrine Society practice guideline as a level of serum 25-OH vitamin D less than 20 ng/mL (1,2). The Endocrine Society went on to further define vitamin D insufficiency as a level between 21 and 29 ng/mL (2). 1. IOM ([place] of [employer]). 2010. Dietary reference intakes for calcium and D. [place]uri [place]: The National Academies Press. 2. Lacey MF, Raoul SCHAEFER, Addy PACHECO, et al. Evaluation, treatment, and prevention of vitamin D deficiency: an Endocrine Society clinical practice guideline. JCEM. 2010; 96(7):1911-30. Performed By: #### V ITADLC #### [facility] [address] [place] [address] Dr. Kanchan Ramirez CBC AUTO DIFFon 10-12-2021 BASO # 0.0 103/ul Normal 0.0-0.1 [facility] Comment on above: Performed By: #### C BC #### [facility] [address] [place] [address] Dr. Kanchan Ramirez Basophils/100 WBC (Bld) 0.4 % Normal 0.2-2.0 [facility] Comment on above: Performed By: #### C BC #### [facility] [address] [place] [address] Dr. Kanchan Ramirez EO # 0.1 103/ul Normal 0.0-0.7 [facility] Comment on above: Performed By: #### C BC #### [facility] [address] [place] [address] Dr. Kanchan Ramirez Eosinophils/100 WBC (Bld) 1.5 % Normal 0.9-7.0 [facility] Comment on above: Performed By: #### C BC #### [facility] [address] [place] [address] Dr. Kanchan Ramirez Erythrocyte distribution width (RBC) [Ratio] 12.7 % Normal 11.0-15.0 [facility] Comment on above: Performed By: #### C BC #### [facility] [address] [place] [address] Dr. Kanchan Ramirez Hematocrit (Bld) [Volume fraction] 40.4 % Normal 36.0-48.0 [facility] Comment on above: Performed By: #### C BC #### [facility] [address] [place] [address] [address] Kanchan Ramirez Hemoglobin (Bld) [Mass/Vol] 13.6 g/dL Normal 12.0-16.0 [facility] Comment on above: Performed By: #### C BC #### [facility] [address] [place] [address] [address] Kanchan Ramirez IG # 0.02 10e3/ul Normal 0.00-0.03 [facility] Comment on above: Performed By: #### C BC #### [facility] [address] [place] [address] Dr. Kanchan Ramirez IG % 0.2 % Normal 0.0-0.5 [facility] Comment on above: Performed By: #### C BC #### [facility] [address] [place] [address] Dr. Kanchan Ramirez LYMPH # 3.4 103/ul Normal 1.2-3.8 [facility] Comment on above: Performed By: #### C BC #### [facility] [address] [place] [address] Dr. Kanchan Ramirez Lymphocytes/100 WBC (Bld) 37.5 % Normal 20.5-60.0 [facility] Comment on above: Performed By: #### C BC #### [facility] [address] [place] [address] Dr. Kanchan Ramirez MANUAL DIFF REQ NO Normal [facility] Comment on above: Performed By: #### C BC #### [facility] [address] [place] [address] Dr. Kanchan Ramirez MCH (RBC) [Entitic mass] 30.4 pg Normal 26.7-34.0 [facility] Comment on above: Performed By: #### C BC #### [facility] [address] [place] [address] Dr. Kanchan Ramirez MCHC (RBC) [Mass/Vol] 33.7 g/dL Normal 29.9-35.2 [facility] Comment on above: Performed By: #### C BC #### [facility] [address] [place] [address] [address] Kanchan Ramirez MCV (RBC) [Entitic vol] 90.2 fL Normal 81.0-99.0 [facility] Comment on above: Performed By: #### C BC #### [facility] [address] [place] [address] [address] Kanchan Ramirez MONO # 0.7 103/ul Normal 0.3-0.8 [facility] Comment on above: Performed By: #### C BC #### [facility] [address] [place] [address] Dr. Kanchan Ramirez Monocytes/100 WBC (Bld) 7.9 % Normal 1.7-12.0 [facility] Comment on above: Performed By: #### C BC #### [facility] [address] [place] [address] Dr. Kanchan Ramirez NEUT # 4.8 103/ul Normal 1.4-6.5 [facility] Comment on above: Performed By: #### C BC #### [facility] [address] [place] [address] Dr. Kanchan Ramirez Neutrophils/100 WBC (Bld) 52.5 % Normal 43.0-75.0 [facility] Comment on above: Performed By: #### C BC #### [facility] [address] [place] [address] Dr. Kanchan Ramirez Platelet mean volume (Bld) [Entitic vol] 11.7 fL Normal 9.5-13.5 [facility] Comment on above: Performed By: #### C BC #### [facility] [address] [place] [address] Dr. Kanchan Ramirez PLT 260 103/ul Normal 150-450 [facility] Comment on above: Performed By: #### C BC #### [facility] [address] [place] [address] Dr. Kanchan Ramirez RBC 4.48 106/ul Normal 4.20-5.40 [facility] Comment on above: Performed By: #### C BC #### [facility] [address] [place] [address] [address] Kanchan Ramirez WBC 9.1 103/ul Normal 4.0-11.0 [facility] Comment on above: Performed By: #### C BC #### [facility] [address] [place] [address] Dr. Kanchan Ramirez DIRECT LDLon 10-12-2021 Cholesterol in LDL [Mass/Vol] 116 mg/dL Normal [facility] Comment on above: Performed By: #### D LDL, LIPID, TSH, LIVER, BMP #### [facility] [address] [place] [address] [address] Kanchan Ramirez DLDL NORMAL SEE BELOW Normal [facility] Comment on above: Result Comment: <100 mg/dl OPTIMAL 100 - 129 mg/dl NEAR OR ABOVE OPTIMAL 130 - 159 mg/dl BORDERLINE HIGH 160 - 189 mg/dl HIGH >190 mg/dl VERY HIGH Performed By: #### D LDL, LIPID, TSH, LIVER, BMP #### [facility] [address] [place] [address] [address] Kanchan Ramirez GLYCOHEMOGLOBIN A1Con 2020 ADA RECOMMENDATION ADA THERAPEUTIC TARGET 6.0 - 7.0 ACTION SUGGESTED > 7.0 Normal [facility] Comment on above: Performed By: #### A 1C #### [facility] [address] [place] [address] Dr. Kanchan Ramirez Glucose [Mass/Vol] 114 mg/dL Normal [facility] Comment on above: Performed By: #### A 1C #### [facility] [address] [place] [address] Dr. Kanchan Ramirez HbA1c (Bld) [Mass fraction] 5.6 % Normal <=6.0 [facility] Comment on above: Performed By: #### A 1C #### [facility] [address] [place] [address] Dr. Kanchan Ramirez LIPID PROFILEon 10-12-2021 CHOL-HDL RATIO NORM SEE BELOW Normal [facility] Comment on above: Result Comment: 3.3 - 4.4 LOW RISK 4.4 - 7.1 AVERAGE RISK 7.1 - 11.0 MODERATE RISK >11.0 HIGH RISK Performed By: #### D LDL, LIPID, TSH, LIVER, BMP #### [facility] [address] [place] [address] [address] Kanchan Ramirez Cholesterol [Mass/Vol] 219 mg/dL Critically high <=200 [facility] Comment on above: Performed By: #### D LDL, LIPID, TSH, LIVER, BMP #### [facility] [address] [place] [address] [address] Kanchan Ramirez Cholesterol in HDL [Mass/Vol] 38 mg/dL Normal [facility] Comment on above: Performed By: #### D LDL, LIPID, TSH, LIVER, BMP #### [facility] [address] [place] [address] [address] Kanchan Ramirez Cholesterol.total/Chol esterol in HDL [Mass ratio] 5.8 {ratio} Normal [facility] Comment on above: Performed By: #### D LDL, LIPID, TSH, LIVER, BMP #### [facility] [address] [place] [address] [address] Kanchan Ramirez HDL NORMAL > or = 60 mg/dl - LOW CARDIOVASCULAR RISK <40 mg/dl - HIGH CARDIOVASCULAR RISK Normal [facility] Comment on above: Performed By: #### D LDL, LIPID, TSH, LIVER, BMP #### [facility] [address] [place] [address] [address] Kanchan Ramirez LDL CALC NORMAL SEE BELOW Normal [facility] Comment on above: Result Comment: <100 mg/dl OPTIMAL 100 - 129 mg/dl NEAR OR ABOVE OPTIMAL 130 - 159 mg/dl BORDERLINE HIGH 160 - 189 mg/dl HIGH >190 mg/dl VERY HIGH Performed By: #### D LDL, LIPID, TSH, LIVER, BMP #### [facility] [address] [place] [address] [address] Kanchan Ramirez Triglyceride [Mass/Vol] 457 mg/dL Critically high <=150 [facility] Comment on above: Performed By: #### D LDL, LIPID, TSH, LIVER, BMP #### [facility] [address] [place] [address] [address] Kanchan Ramirez VLDL CALC 91.4 mg/dL Normal [facility] Comment on above: Performed By: #### D LDL, LIPID, TSH, LIVER, BMP #### [facility] [address] [place] [address] Dr. Kanchan Ramirez LIVER PROFILEon 10-12-2021 Albumin [Mass/Vol] 3.7 g/dL Normal 3.5-5.0 [facility] Comment on above: Performed By: #### D LDL, LIPID, TSH, LIVER, BMP #### [facility] [address] [place] [address] Dr. Kanchan Ramirez Albumin/Globulin [Mass ratio] 1.0 {ratio} Normal [facility] Comment on above: Performed By: #### D LDL, LIPID, TSH, LIVER, BMP #### [facility] [address] [place] [address] Dr. Kanchan Ramirez ALP [Catalytic activity/Vol] 65 U/L Normal 38-126 [facility] Comment on above: Performed By: #### D LDL, LIPID, TSH, LIVER, BMP #### [facility] [address] [place] [address] Dr. Kanchan Ramirez ALT [Catalytic activity/Vol] 15 U/L Normal 9-52 [facility] Comment on above: Performed By: #### D LDL, LIPID, TSH, LIVER, BMP #### [facility] [address] [place] [address] Dr. Kanchan Ramirez AST [Catalytic activity/Vol] 20 U/L Normal 14-36 [facility] Comment on above: Performed By: #### D LDL, LIPID, TSH, LIVER, BMP #### [facility] [address] [place] [address] Dr. Kanchan Ramirez BILI, CONJUGATED <0.1 Normal 0.0-0.3 [facility] Comment on above: Performed By: #### D LDL, LIPID, TSH, LIVER, BMP #### [facility] [address] [place] [address] Dr. Kanchan Ramirez Bilirubin [Mass/Vol] 0.2 mg/dL Normal 0.2-1.3 [facility] Comment on above: Performed By: #### D LDL, LIPID, TSH, LIVER, BMP #### [facility] [address] [place] [address] Dr. Kanchan Ramirez Globulin (S) [Mass/Vol] 3.6 g/dL Normal [facility] Comment on above: Performed By: #### D LDL, LIPID, TSH, LIVER, BMP #### [facility] [address] [place] [address] Dr. Kanchan Ramirez Protein [Mass/Vol] 7.3 g/dL Normal 6.1-8.2 [facility] Comment on above: Performed By: #### D LDL, LIPID, TSH, LIVER, BMP #### [facility] [address] [place] [address] Dr. Kanchan Ramirez PROF CHEM 8 (BAS METB)on Anion gap [Moles/Vol] 14.8 mmol/L Normal [facility] Comment on above: Performed By: #### D LDL, LIPID, TSH, LIVER, BMP #### [facility] [address] [place] [address] Dr. Kanchan Ramirez Calcium [Mass/Vol] 8.9 mg/dL Normal 8.4-10.2 [facility] Comment on above: Performed By: #### D LDL, LIPID, TSH, LIVER, BMP #### [facility] [address] [place] [address] Dr. Kanchan Ramirez Chloride [Moles/Vol] 103 mmol/L Normal 98-107 [facility] Comment on above: Performed By: #### D LDL, LIPID, TSH, LIVER, BMP #### [facility] [address] [place] [address] Dr. Kanchan Ramirez CO2 [Moles/Vol] 23.7 mmol/L Normal 22.0-30.0 [facility] Comment on above: Performed By: #### D LDL, LIPID, TSH, LIVER, BMP #### [facility] [address] [place] [address] Dr. Kanchan Ramirez Creatinine [Mass/Vol] 0.88 mg/dL Normal 0.52-1.04 [facility] Comment on above: Performed By: #### D LDL, LIPID, TSH, LIVER, BMP #### [facility] [address] [place] [address] [address] Kanchan Ramirez EGFR-AF LITHUANIAN >60 Normal >=60 [facility] Comment on above: Performed By: #### D LDL, LIPID, TSH, LIVER, BMP #### [facility] [address] [place] [address] [address] Kanchan Ramirez EGFR-NON AF LITHUANIAN >60 Normal >=60 [facility] Comment on above: Performed By: #### D LDL, LIPID, TSH, LIVER, BMP #### [facility] [address] [place] [address] [address] Kanchan Ramirez Glucose [Mass/Vol] 128 mg/dL Critically high 74-106 [facility] Comment on above: Performed By: #### D LDL, LIPID, TSH, LIVER, BMP #### [facility] [address] [place] [address] [address] Kanchan Ramirez Potassium [Moles/Vol] 3.5 mmol/L Normal 3.4-5.0 [facility] Comment on above: Performed By: #### D LDL, LIPID, TSH, LIVER, BMP #### [facility] [address] [place] [address] [address] Kanchan Ramirez Sodium [Moles/Vol] 138 mmol/L Normal 137-145 [facility] Comment on above: Performed By: #### D LDL, LIPID, TSH, LIVER, BMP #### [facility] [address] [place] [address] [address] Kanchan Ramirez Urea nitrogen [Mass/Vol] 16.0 mg/dL Normal 7.0-17.0 [facility] Comment on above: Performed By: #### D LDL, LIPID, TSH, LIVER, BMP #### [facility] [address] [place] [address] [address] Kanchan Ramirez Urea nitrogen/Creatinine [Mass ratio] 18.2 mg/mg Normal [facility] Comment on above: Performed By: #### D LDL, LIPID, TSH, LIVER, BMP #### [facility] [address] [address] [address] Kanchan Ramirez TSHon 10-12-2021 TSH 1.244 uIU/mL Normal 0.470-4.680 [facility] Comment on above: Performed By: #### D LDL, LIPID, TSH, LIVER, BMP #### [facility] [address], [place] [address] Dr. Kanchan Ramirez TSH RANGE SEE BELOW Normal [facility] Comment on above: Result Comment: <0.3 4 UIU/ml HYPERTHYROID 0.34-5.60 UIU/ml EUTHYROID >5.60 UIU/ml HYPOTHYROID Performed By: #### D LDL, LIPID, TSH, LIVER, BMP #### [facility] [address], [place] [address] Dr. Kanchan Ramirez Vital Signs Date Time Vital Sign Value Performing Clinician Facility 05-01-2025 09:05-0400 Body height 167.6 cm Jaun Sultana MD Work Phone: [facility] 05-01-2025 09:05-0400 Body mass index (BMI) [Ratio] 39.22 kg/m2 Jaun Sultana MD Work Phone: [facility] 05-01-2025 09:05-0400 Body temperature 97.5 [degF] Jaun Sultana MD Work Phone: [facility] 05-01-2025 09:05-0400 Body weight 110.22 kg Jaun Sultana MD Work Phone: [facility] 05-01-2025 09:05-0400 Diastolic blood pressure 78 mm[Hg] Jaun Sultana MD Work Phone: [facility] 05-01-2025 09:05-0400 Heart rate 62 /min Jaun Sultana MD Work Phone: [facility] 05-01-2025 09:05-0400 Respiratory rate 22 /min Jaun Sultana MD Work Phone: [facility] 05-01-2025 09:05-0400 SaO2% (BldA) [Mass fraction] 97 % Jaun Sultana MD Work Phone: [facility] 05-01-2025 09:05-0400 Systolic blood pressure 144 mm[Hg] Jaun Sultana MD Work Phone: [facility] 02-09-2025 09:21-0400 Body height 167.64 cm [facility] 02-09-2025 09:21-0400 Body mass index (BMI) [Ratio] 38.3 kg/m2 [facility] 02-09-2025 09:21-0400 Body temperature 98.6 [degF] [facility] 02-09-2025 09:21-0400 Body weight 107.72 kg [facility] 02-09-2025 09:21-0400 Diastolic blood pressure 77 mm[Hg] [facility] 02-09-2025 09:21-0400 Heart rate 77 /min [facility] 02-09-2025 09:21-0400 Respiratory rate 18 /min [facility] 02-09-2025 09:21-0400 SaO2% (BldA) [Mass fraction] 98 % [facility] 02-09-2025 09:21-0400 Systolic blood pressure 109 mm[Hg] [facility] 11-22-2024 14:45-0500 Body height 167.64 cm [facility] 11-22-2024 14:45-0500 Body mass index (BMI) [Ratio] 37.1 kg/m2 [facility] 11-22-2024 14:45-0500 Body weight 104.5 kg [facility] 09-28-2024 11:24-0500 Body temperature 98.1 [degF] [facility] 09-28-2024 11:24-0500 Diastolic blood pressure 87 mm[Hg] [facility] 09-28-2024 11:24-0500 Heart rate 80 /min [facility] 09-28-2024 11:24-0500 Respiratory rate 18 /min [facility] 09-28-2024 11:24-0500 SaO2% (BldA) [Mass fraction] 99 % [facility] 09-28-2024 11:24-0500 Systolic blood pressure 133 mm[Hg] [facility] 09-17-2024 10:31-0500 Body height 167.64 cm [facility] 09-17-2024 10:31-0500 Body mass index (BMI) [Ratio] 37.1 kg/m2 [facility] 09-17-2024 10:31-0500 Body temperature 97.5 [degF] [facility] 09-17-2024 10:31-0500 Body weight 104.49 kg [facility] 09-17-2024 10:31-0500 Diastolic blood pressure 96 mm[Hg] [facility] 09-17-2024 10:31-0500 Heart rate 78 /min [facility] 09-17-2024 10:31-0500 Respiratory rate 18 /min [facility] 09-17-2024 10:31-0500 SaO2% (BldA) [Mass fraction] 98 % [facility] 09-17-2024 10:31-0500 Systolic blood pressure 146 mm[Hg] [facility] 08-14-2024 15:15-0400 Body height 167.6 cm Jaun Sultana MD Work Phone: [facility] 08-14-2024 15:15-0400 Body mass index (BMI) [Ratio] 36.8 kg/m2 Jaun Sultana MD Work Phone: [facility] 08-14-2024 15:15-0400 Body temperature 97.81 [degF] Jaun Sultana MD Work Phone: [facility] 08-14-2024 15:15-0400 Body weight 103.42 kg Jaun Sultana MD Work Phone: [facility] 08-14-2024 15:15-0400 Diastolic blood pressure 84 mm[Hg] Jaun Sultana MD Work Phone: [facility] 08-14-2024 15:15-0400 Heart rate 73 /min Jaun Sultana MD Work Phone: [facility] 08-14-2024 15:15-0400 Respiratory rate 22 /min Jaun Sultana MD Work Phone: [facility] 08-14-2024 15:15-0400 SaO2% (BldA) [Mass fraction] 96 % Jaun Sultana MD Work Phone: [facility] 08-14-2024 15:15-0400 Systolic blood pressure 156 mm[Hg] Jaun Sultana MD Work Phone: [facility] 07-18-2024 15:04-0400 Body height 167.6 cm Raji Tamir DO Work Phone: [facility] 07-18-2024 15:04-0400 Body mass index (BMI) [Ratio] 37.12 kg/m2 Raji Tamir DO Work Phone: [facility] 07-18-2024 15:04-0400 Body weight 104.33 kg Raji Tamir DO Work Phone: [facility] 07-18-2024 15:04-0400 Diastolic blood pressure 106 mm[Hg] Raji Tamir DO Work Phone: [facility] 07-18-2024 15:04-0400 Heart rate 78 /min Raji Tamir DO Work Phone: [facility] 07-18-2024 15:04-0400 SaO2% (BldA) [Mass fraction] 96 % Raji Tamir DO Work Phone: [facility] 07-18-2024 15:04-0400 Systolic blood pressure 152 mm[Hg] Raji Tamir DO Work Phone: [facility] 01-30-2024 14:58-0400 Body height 167.64 cm [facility] 01-30-2024 14:58-0400 Body mass index (BMI) [Ratio] 35.9 kg/m2 [facility] 01-30-2024 14:58-0400 Body weight 100.81 kg [facility] 01-30-2024 14:58-0400 Diastolic blood pressure 86 mm[Hg] [facility] 01-30-2024 14:58-0400 Systolic blood pressure 166 mm[Hg] [facility] 11-17-2023 11:00-0500 Body height 167.64 cm Allison Odom Other [facility] 11-17-2023 11:00-0500 Body mass index (BMI) [Ratio] 34.21 kg/m2 Allison Odom Other [employer] Other 11-17-2023 11:00-0500 Body temperature 99.6 [degF] Allison Odom Other [facility] [employer] Other 11-17-2023 11:00-0500 Body weight 96.16 kg Allison Odom Other [facility] 11-17-2023 11:00-0500 Respiratory rate 18 /min Allison Odom Other [employer] Other 11-17-2023 11:00-0500 SaO2% (BldA) [Mass fraction] 98 % Allison Odom Other [employer] Other 10-26-2022 17:15-0500 Body height 167.64 cm Santa Jang Other [employer] Other 10-26-2022 17:15-0500 Body mass index (BMI) [Ratio] 33.89 kg/m2 Santa Jang Other [employer] Other 10-26-2022 17:15-0500 Body temperature 97.7 [degF] Santa Jang Other [employer] Other 10-26-2022 17:15-0500 Body weight 95.26 kg Santa Jang Other [employer] Other 10-26-2022 17:15-0500 Respiratory rate 18 /min Santa Jang Other [employer] Other 10-26-2022 17:15-0500 SaO2% (BldA) [Mass fraction] 97 % Santa Jang Other [employer] Other 10-21-2022 16:30-0500 Body height 167.64 cm David Tisha Other [employer] Other 10-21-2022 16:30-0500 Body mass index (BMI) [Ratio] 33.57 kg/m2 David Tisha Other [employer] Other 10-21-2022 16:30-0500 Body weight 94.35 kg David Giles Other [employer] Other 10-21-2022 16:30-0500 Diastolic blood pressure 99 mm[Hg] David Giles Other [employer] Other 10-21-2022 16:30-0500 Systolic blood pressure 135 mm[Hg] David Tisha Other [employer] Other 07-23-2022 11:30-0400 Body height 167.64 cm Allison Odom Other [employer] Other 07-23-2022 11:30-0400 Body mass index (BMI) [Ratio] 33.08 kg/m2 Allison Odom Other [employer] Other 07-23-2022 11:30-0400 Body temperature 97.7 [degF] Allison Odom Other [employer] Other 07-23-2022 11:30-0400 Body weight 92.99 kg Allison Odom Other [employer] Other 07-23-2022 11:30-0400 Respiratory rate 18 /min Allison Odom Other [employer] Other 07-23-2022 11:30-0400 SaO2% (BldA) [Mass fraction] 97 % Allison Odom Other [employer] Other 04-15-2022 16:30-0400 Body height 167.64 cm David Giles Other [employer] Other 04-15-2022 16:30-0400 Body mass index (BMI) [Ratio] 32.92 kg/m2 David Giles Other [employer] Other 04-15-2022 16:30-0400 Body weight 92.53 kg David Giles Other [employer] Other 01-12-2022 16:45-0400 Body height 167.64 cm David Giles Other [employer] Other 01-12-2022 16:45-0400 Body mass index (BMI) [Ratio] 33.25 kg/m2 David Giles Other [employer] Other 01-12-2022 16:45-0400 Body weight 93.44 kg David Giles Other [employer] Other 10-22-2021 11:25-0500 Body height 167.64 cm Shantell Serra Other [employer] Other 10-22-2021 11:25-0500 Body mass index (BMI) [Ratio] 33.08 kg/m2 Shantell Maryse Other [employer] Other 10-22-2021 11:25-0500 Body temperature 98 [degF] Shantell Serra Other [employer] Other 10-22-2021 11:25-0500 Body weight 92.99 kg Shantell Serra Other [employer] Other 10-22-2021 11:25-0500 Diastolic blood pressure 80 mm[Hg] Shantell Maryse Other [employer] Other 10-22-2021 11:25-0500 SaO2% (BldA) [Mass fraction] 98 % Shantell Maryse Other [employer] Other 10-22-2021 11:25-0500 Systolic blood pressure 130 mm[Hg] Shantell Maryse Other [employer] Other 09-15-2021 16:30-0500 Body height 167.64 cm David Giles Other [employer] Other 09-15-2021 16:30-0500 Body mass index (BMI) [Ratio] 33.08 kg/m2 David Giles Other [employer] Other 09-15-2021 16:30-0500 Body weight 92.99 kg David Giles Other [employer] Other Encounters Encounter Date Encounter Type Care Provider Facility Start: 05-01-2025 End: 05-01-2025 Anibal Sultana MD Work Phone: [facility] Start: 05-01-2025 End: 05-01-2025 Bamboo flowsheet Jaun Sultana MD [facility] Phone[facility] Start: 05-01-2025 End: 05-01-2025 Office outpatient visit 25 minutes Jaun Sultana MD Work Phone: [facility] Comment on above: Prediabetes (Primary Dx); Insulin resistance; Annual physical exam; Obstructive sleep apnea (adult) (pediatric); Crohn's disease of both small and large intestine without complications (HCC) Start: 05-01-2025 End: 05-01-2025 Patient encounter procedure Jaun Sultana MD Work Phone: [facility] Start: 04-04-2025 End: 04-04-2025 Follow-up encounter [facility] 1 [facility] Medication Management Comment on above: Stenosis of prosthet ic aortic valve, subsequent encounter (Primary Dx); S/P AVR Start: 04-04-2025 End: 04-04-2025 ambulatory [facility] Start: 03-18-2025 End: 03-18-2025 Orders Only Laquita Jacobs [facility] Work Phone: [facility] Comment on above: S/P AVR (Primary Dx) ; Stenosis of prosthetic aortic valve, subsequent encounter Start: 03-14-2025 End: 03-14-2025 Follow-up encounter [facility] 1 [facility] Comment on above: Stenosis of prosthet ic aortic valve, subsequent encounter (Primary Dx) Start: 03-14-2025 End: 03-14-2025 ambulatory [facility] Start: 02-13-2025 End: 02-13-2025 ambulatory [facility] Start: 02-13-2025 End: 02-13-2025 Follow-up encounter [facility] 1 [facility] Comment on above: Stenosis of prosthet ic aortic valve, subsequent encounter (Primary Dx) Start: 02-09-2025 End: 02-09-2025 ambulatory [facility] Work Phone: Start: 02-09-2025 End: 02-09-2025 Patient encounter procedure [facility] Work Phone: Start: 01-15-2025 End: 01-15-2025 Follow-up encounter [facility] 1 [facility] Medication Management Comment on above: Stenosis of prosthet ic aortic valve, subsequent encounter (Primary Dx) Start: 01-15-2025 End: 01-15-2025 [facility] Start: 01-14-2025 End: 01-14-2025 Refill Murtaza Starr APRN-QA SPECIALIST Work Phone: [facility] Comment on above: Med Refill Start: 01-10-2025 End: 01-10-2025 Telephone encounter Letty Magallon MA [facility] Medication Management Start: 12-24-2024 End: 12-24-2024 Follow-up encounter [facility] 1 [facility]ication Management Comment on above: Stenosis of prosthet ic aortic valve, subsequent encounter (Primary Dx) Start: 12-24-2024 End: 12-24-2024 ambulatory [facility] Start: 12-03-2024 End: 12-03-2024 Follow-up encounter [facility] 1 [facility] Medication Management Comment on above: Stenosis of prosthet ic aortic valve, subsequent encounter (Primary Dx) Start: 12-03-2024 End: 12-03-2024 [facility] Start: 11-29-2024 End: 11-29-2024 Refill Jaun Sultana MD Work Phone: [facility] Comment on above: VIKI (generalized anx iety disorder) ([facility]) Start: 11-22-2024 End: 11-22-2024 ambulatory [facility] Work Phone: Start: 11-22-2024 End: 11-22-2024 Patient encounter procedure [facility] Work Phone: Start: 10-22-2024 End: 10-22-2024 ambulatory [facility] Start: 10-22-2024 End: 10-22-2024 Follow-up encounter [facility] [address] [facility] Medication Therapy Management Comment on above: Stenosis of prosthet ic aortic valve, subsequent encounter (Primary Dx) Start: 10-11-2024 End: 10-18-2024 Refill Sunitha Alvarenga APRN-QA SPECIALIST Work Phone: [facility] Comment on above: Med Refill Start: 10-08-2024 End: 10-08-2024 Follow-up encounter [facility] Medication Therapy Management Comment on above: Stenosis of prosthet ic aortic valve, subsequent encounter (Primary Dx) Start: 10-08-2024 End: 10-08-2024 ambulatory [facility] Start: 09-28-2024 End: 09-28-2024 Patient encounter procedure [facility] Work Phone: Start: 09-27-2024 End: 09-27-2024 ambulatory JAUN SULTANA [facility] Start: 09-17-2024 End: 09-17-2024 Patient encounter procedure [facility] Work Phone: Start: 08-29-2024 End: 08-29-2024 ambulatory [facility] Start: 08-14-2024 End: 08-14-2024 Office outpatient visit 25 minutes Jaun Sultana MD Work Phone: [facility] Comment on above: Essential hypertensi on (CMS/HCC) (Primary Dx); MDD (major depressive disorder), recurrent episode, mild (HCC) (CMS/HCC); VIKI (generalized anxiety disorder) (CMS/HCC); Bilateral leg edema; Inflamed skin tag; Class 2 severe obesity due to excess calories with serious comorbidity and body mass index (BMI) of 36.0 to 36.9 in adult (CMS/HCC); Obstructive sleep apnea (adult) (pediatric) Start: 08-14-2024 End: 08-14-2024 ambulatory JAUN SULTANA Not Available Start: 08-14-2024 End: 08-14-2024 Bamboo flowsheet Jaun Sultana MD Work Phone: [facility] Start: 08-14-2024 End: 08-14-2024 Bamboo flowsheet Jaun Sultana MD Work Phone: [facility] Start: 07-20-2024 End: 07-20-2024 ambulatory [facility] Start: 07-19-2024 End: 07-19-2024 ambulatory [facility] Start: 07-18-2024 End: 07-18-2024 Office consultation new/estab patient 60 min Raji Paulino DO Work Phone: [facility] Comment on above: KOLE (obstructive sle ep apnea); Hypoxia; Sleep deprivation; Hypersomnia; Snoring; Obesity (BMI 35.0-39.9 without comorbidity) Start: 07-18-2024 End: 07-18-2024 ambulatory RAJI PAULINO Not Available Start: 07-18-2024 End: 07-18-2024 Bamboo flowsheet Raji Tamir DO Work Phone: [facility] Start: 07-18-2024 End: 07-18-2024 [employer] Labsheet Raji Tamir DO Work Phone: [facility] Start: 07-09-2024 End: 07-09-2024 ambulatory [facility] Start: 06-06-2024 End: 06-06-2024 ambulatory [facility] Start: 05-24-2024 End: 05-24-2024 ambulatory JAUN SULTANA Not Available Start: 05-16-2024 End: 05-16-2024 ambulatory JAUN SULTANA [facility] Start: 05-15-2024 End: 05-15-2024 ambulatory JAUN CURRYERER Not Available Start: 05-10-2024 End: 05-10-2024 ambulatory MARTHA L LY [facility] Start: 04-25-2024 End: 04-25-2024 ambulatory [facility] Start: 03-19-2024 End: 03-19-2024 ambulatory JAUN ANTOINETTEERER Not Available Start: 02-28-2024 End: 02-28-2024 ambulatory Martha L Ly Facility:[facility] Start: 02-13-2024 End: 02-13-2024 ambulatory Martha L Ly Facility:[facility] Start: 02-13-2024 End: 02-13-2024 ambulatory MD Jaun Sultana Work Phone: [facility] Work Phone: Start: 02-13-2024 End: 02-13-2024 Patient encounter procedure MD Jaun Sultana Work Phone: [facility] [place] Work Phone: Start: 01-30-2024 End: 01-30-2024 ambulatory [facility] Work Phone: Start: 01-30-2024 End: 01-30-2024 Patient encounter procedure [facility] Gastroenterology Work Phone: Start: 11-17-2023 End: 11-17-2023 ambulatory Allison Odom Other [employer] Other Start: 11-17-2023 Office outpatient vi sit 25 minutes Allison Odom [facility] Start: 11-17-2023 End: 11-17-2023 Patient encounter procedure [facility]- Start: 10-31-2023 End: 10-31-2023 ambulatory David Giles Other [employer] Other Start: 10-31-2023 Telephone encounter David welch [facility] Start: 09-19-2023 End: 09-19-2023 ambulatory JAUN SULTANA Not Available Start: 09-19-2023 Patient encounter procedure Raji Paulino DO Work Phone: [facility] Start: 04-14-2023 End: 04-14-2023 ambulatory David Jiménezack Other [employer] Other Start: 04-14-2023 Telephone encounter David Arias yuri [facility] Start: 11-15-2022 End: 11-15-2022 ambulatory David Giles Other [employer] Other Start: 11-15-2022 Telephone encounter David Arias yuri [facility] Start: 10-26-2022 End: 10-26-2022 ambulatory David Giles Other [employer] Other Start: 10-26-2022 Office outpatient vi sit 25 minutes Santa Jang [facility] Start: 10-26-2022 Telephone encounter David welch [facility] Start: 10-21-2022 End: 10-21-2022 ambulatory David Giles Other [employer] Other Start: 10-21-2022 Patient encounter procedure David Giles [facility] Start: 07-23-2022 End: 07-23-2022 ambulatory Allison Odom Other [employer] Other Start: 07-23-2022 Office outpatient vi sit 25 minutes Allison Odom [facility] Start: 07-19-2022 End: 07-19-2022 ambulatory David Tisha Other [employer] Other Start: 07-19-2022 Telephone encounter David welch [facility] Start: 07-14-2022 End: 07-14-2022 ambulatory David Giles Other [employer] Other Start: 07-14-2022 Telephone encounter David welch [facility] Start: 07-02-2022 End: 07-02-2022 ambulatory David Tisha Other [employer] Other Start: 07-02-2022 Telephone encounter David welch [facility] Start: 04-15-2022 End: 04-15-2022 ambulatory David Tisha Other [employer] Other Start: 04-15-2022 Patient encounter procedure David Giles [facility] Start: 04-15-2022 Telephone encounter David welch [facility] Start: 02-09-2022 End: 02-09-2022 ambulatory David Giles Other [employer] Other Start: 02-09-2022 Telephone encounter David welch [facility] Start: 01-12-2022 End: 01-12-2022 ambulatory David Giles Other [employer] Other Start: 01-12-2022 Office outpatient vi sit 15 minutes David Giles [facility] Start: 10-22-2021 End: 10-22-2021 ambulatory Shantell Serra Other [employer] Other Start: 10-22-2021 Office outpatient vi sit 15 minutes Shantell Serra [facility] Start: 10-20-2021 Encounter for genera l adult medical examination without abnormal findings DR JAUN SULTANA [facility] Start: 10-12-2021 End: 10-13-[address] JAUN SULTANA Facility: Start: 10-12-2021 End: 10-13-2021 Encounter for general adult medical examination without abnormal findings DR JAUN SULTANA Facility:[facility] Start: 09-15-2021 End: 09-15-2021 ambulatory David Giles Other [employer] [facility] [employer] Other Start: 09-15-2021 Office outpatient vi sit 15 minutes David Giles [facility] Procedures Date Procedure Procedure Detail Performing Clinician Start: 05-01-2025 Hemoglobin glycosyla dewey a1c Jaun Sultana MD Work Phone: Start: 04-04-2025 Prothrombin time [facility] Work Phone: Start: 03-14-2025 Prothrombin time [facility] Work Phone: Start: 02-13-2025 Prothrombin time [facility] Work Phone: Start: 01-15-2025 Prothrombin time [facility] Work Phone: Start: 12-24-2024 Prothrombin time [facility] Work Phone: Start: 12-03-2024 Prothrombin time [facility] Work Phone: Start: 10-22-2024 Prothrombin time [employer] Work Phone: Start: 10-08-2024 Prothrombin time [employer] Work Phone: Start: 09-28-2024 COVID Antigen (POC) Start: 09-17-2024 Quick Strep (POC) Start: 07-20-2024 Follow-up visit Follow-up [facility] Start: 02-28-2024 Colonoscopy Raji hathaway DO Work Phone: Start: 02-13-2024 CT of small intestine Leslie Sultana Work Phone: Plan of Treatment Date Care Activity Detail Author Start: 02-27-2034 Screening for malign ant neoplasm of colon [facility] Start: 08-01-2025 End: 08-01-2025 Patient encounter procedure 08/01/2025 9:15 AM EDT Office Visit [facility] [address] [place] [address] Jaun Sultana MD [address] [place] [address] [facility] Start: 07-20-2025 Adult BMI Screening Adult BMI Screen ing [facility] Start: 06-17-2025 Influenza vaccination P [facility] Start: 05-21-2025 End: 05-21-2025 Follow-up encounter 05/21/2025 11:15 AM EDT Follow Up Anticoagulation [facility] Medication Management [address] [place] [address] [facility] Start: 05-01-2025 End: 05-01-2026 Basic metabolic 1998 panel - Serum or Plasma Basic metabolic panel Lab Routine Annual physical exam Expected: 05/01/2025 (Approximate), Expires: 05/01/2026 [facility] Comment on above: Expected: 05/01/2025 (Approximate), Expires: 05/01/2026 Start: 05-01-2025 End: 05-01-2026 CBC W Auto Differential panel - Blood CBC and differential Lab Routine Annual physical exam Expected: 05/01/2025 (Approximate), Expires: 05/01/2026 [facility] Comment on above: Expected: 05/01/2025 (Approximate), Expires: 05/01/2026 Start: 05-01-2025 End: 05-01-2026 Hepatic function 2000 panel - Serum or Plasma Hepatic function panel Lab Routine Annual physical exam Expected: 05/01/2025 (Approximate), Expires: 05/01/2026 [facility] Comment on above: Expected: 05/01/2025 (Approximate), Expires: 05/01/2026 Start: 05-01-2025 End: 05-01-2026 Insulin, fasting Insulin, fasting Lab Routine Insulin resistance Expected: 05/01/2025 (Approximate), Expires: 05/01/2026 [facility] Work Phone: Comment on above: Expected: 05/01/2025 (Approximate), Expires: 05/01/2026 Start: 05-01-2025 End: 05-01-2026 Lipid 1996 panel - Serum or Plasma Lipid panel Lab Routine Annual physical exam Expected: 05/01/2025 (Approximate), Expires: 05/01/2026 [facility] Comment on above: Expected: 05/01/2025 (Approximate), Expires: 05/01/2026 Start: 05-01-2025 End: 05-01-2026 Thyrotropin [Units/volume] in Serum or Plasma TSH Lab Routine Annual physical exam Expected: 05/01/2025 (Approximate), Expires: 05/01/2026 [facility] Comment on above: Expected: 05/01/2025 (Approximate), Expires: 05/01/2026 Start: 05-01-2025 End: 05-01-2025 Patient encounter procedure 05/01/2025 8:45 AM EDT Office Visit [facility] [address] [place] [address] Jaun Sultana MD [address] [place] [address] Arrived [facility] Comment on above: Arrived Start: 04-04-2025 End: 04-04-2025 Follow-up encounter 04/04/2025 11:15 AM EDT Follow Up Anticoagulation [facility] Medication Management [address] [place] [address] [facility] Start: 03-14-2025 End: 03-14-2025 Follow-up encounter 03/14/2025 11:45 AM EDT Follow Up Anticoagulation [facility] Medication Management [address] [place] [address] [facility] Start: 02-13-2025 End: 02-13-2025 Follow-up encounter 02/13/2025 9:00 AM EDT Follow Up Anticoagulation [facility] Medication Management [address] [place] [address] [facility] Start: 02-11-2025 End: 02-11-2025 Patient encounter procedure 02/11/2025 2:45 PM EDT Office Visit [facility] [address] [place] [address] Jaun Sultana MD [address] [place] [address] [facility] Start: 01-15-2025 End: 01-15-2025 Follow-up encounter 01/15/2025 2:15 PM EDT Follow Up Anticoagulation [facility]ication [facility] [address] [place] [address] [facility] Start: 01-11-2025 End: 01-11-2025 Follow-up encounter 01/11/2025 2:15 PM EDT Follow Up Anticoagulation [facility] Medication Management [address] [place] [address] [facility] Start: 12-24-2024 End: 12-24-2024 Follow-up encounter 12/24/2024 2:15 PM EDT Follow Up Anticoagulation [facility] Medication Management [address] [place] [address] [facility] Start: 12-03-2024 End: 12-03-2024 Follow-up encounter 12/03/2024 2:15 PM EST Follow Up Anticoagulation [facility] Medication Therapy Management [address] [place] [address] [facility] Start: 10-22-2024 End: 10-22-2024 Follow-up encounter 10/22/2024 2:15 PM EST Follow Up Anticoagulation [facility] Medication Therapy Management [address] [place] [address] [facility] Start: 2024 Administration of varicella zoster vaccine Zoster (Shingles) Vaccine (1 of 2) [facility] Start: 08-14-2024 End: 08-14-2024 Patient encounter procedure [facility] Comment on above: Arrived Start: 07-18-2024 End: 07-18-2024 Patient encounter procedure 07/18/2024 3:00 PM EDT Office Visit [facility] [address] [place] [id number] Raji Paulino, [address] [place] [address] Arrived [facility] Comment on above: Arrived Start: 06-17-2024 COVID-19 Vaccine ( season) COVID-19 Vaccine ( season) [facility] Start: 06-17-[address] [facility] Start: 01-29-2024 Tobacco Screening Tobacco Screening [facility] Start: 2014 Screening for malign ant neoplasm of breast Mammogram [facility] Start: 2004 Screening for malign ant neoplasm of cervix [facility] Start: 1995 Screening for malign ant neoplasm of cervix Pap Smear [facility] Start: 1993 DTaP,Tdap and Td Vaccines (1 - Tdap) DTaP,Tdap and Td Vaccines ( - Tdap) [facility] Start: 1992 Adult BMI Follow Up Plan Adult BMI F ollow Up Plan [facility] Start: 1986 Depression Screening Depression Scre ening [facility] Start: 1986 Tobacco Screening Tobacco Screening [facility] Start: 1974 Screening for malign ant neoplasm of colon [facility] Start: 1974 Screening for malign ant neoplasm of lung Lung Cancer Screening Shared Decision Making [facility] CT Abdomen and Pelvis [facility] Hepatitis B core antibody measurement [facility] Hepatitis B virus surface Ab [Presence] in Serum [facility] Immunizations Immunization Date Immunization Notes Care Provider Yajaira medina 10-18-2021 Moderna SARS-CoV-2 Vaccination Raji Paulino DO Work Phone: [facility] 08-12-2021 influenza, injectabl e, quadrivalent, preservative free Pmh 1 [facility] 08-12-2021 influenza virus vaccine, unspecified formulation Raji Paulino DO Work Phone: [facility] 01-15-2021 Moderna SARS-CoV-2 Vaccination Raji Paulino DO Work Phone: [facility] 12-18-2020 Moderna SARS-CoV-2 Vaccination Raji Paulino DO Work Phone: [facility] 08-06-2020 influenza, injectabl e, quadrivalent, preservative free Pmh 1 [facility] 08-28-2019 influenza, injectabl e, quadrivalent, contains preservative Pmh 1 [facility] 08-02-2018 influenza, injectabl e, quadrivalent, preservative free Pmh 1 [facility] 08-03-2017 influenza, injectabl e, quadrivalent, preservative free Pmh 1 [facility] 07-28-2016 influenza, injectabl e, quadrivalent, contains preservative Pmh 1 [facility] 07-23-2015 influenza, injectabl e, quadrivalent, preservative free Pmh 1 [facility] 08-15-2014 influenza, injectabl e, quadrivalent, contains preservative Pmh 1 [facility] Payers Date Payer Category Payer Medicaid MEDICAID [facility] [id number] 2025 Medicaid [id number] 2024 Self-pay [id number] 2023 [employer] Blue [employer] [id number] 2023 Blue Cross Blue Shie ld Managed Care - Other ANTHEM [id number]. [id number] 2023 Blue Cross Blue Shie ld Managed Care - PPO ANTHEM [id number]. [id number] 2023 Unknown BCBS BCBS [id number] [id number] 2023-Present [phone] [address] [place] [address] [id number]. [id number] 2023 Blue Cross Blue Shield INJ [id number] 2.16.840.1.155970.19 1974 Unknown [id number] 2.16.840.1.204090.3.579.2. 593 1974 Unknown [id number] 2.16840.1.834525.3.579.2. 1286 1974 Unknown [id number] 2.16.840.1.910872.3.579.2. 1259 1974 Unknown [id number] 2.16840.1.340664.3.579.2. 9 1974 Unknown [id number] 2.16.840.1.207972.3.579.2. 9 1974 Unknown [id number] 2.840.1.805782.3.579.2. 1259 1974 Unknown [id number] 2.16840.1.142829.3.579.2. 1259 1974 Unknown [id number] 2.16840.1.892958.3.579.2. 9 1974 Unknown [id number] 2.16.840.1.305932.3.579.2. 128 1974 Unknown [id number] 2.840.1.064590.3.579.2. 128 1974 Unknown [id number] 2.16840.1.756976.3.579.2. 128 1974 Unknown [id number] 2.16840.1.482462.3.579.2. 128 1974 Unknown [id number] 2.16840.1.441034.3.579.2. 128 1974 Unknown [id number] 2.16840.1.148918.3.579.2. 128 1974 Unknown [id number] 2.16.840.1.871734.3.579.2. 1285 1974 Unknown [id number] 2.16.840.1.304279.3.579.2. 1285 1974 Unknown [id number] 2.16.840.1.279579.3.579.2. 1285 1974 Unknown [id number] 2.16840.1.258094.3.579.2. 1285 1974 Unknown [id number] 2.16.840.1.295594.3.579.2. 1285 1974 Unknown [id number] 2.16840.1.899651.3.579.2. 1285 1974 Unknown [id number] 2.16.840.1.690961.3.579.2. 1285 1974 Unknown [id number] 2.16840.1.823991.3.579.2. 1285 1974 Unknown [id number] 2.16.840.1.249805.3.579.2. 128 1959 Unknown [id number] Unknown [id number] 2.16.840.1.923254.3.579.2. 531 Unknown [id number] 2.16.840.1.719431.3.579.2. 531 Social History Date Type Detail Facility Unknown if ever smoked [facility] Start: 05-14-2024 End: 05-01-2025 Sex Assigned At [facility] Start: 07-27-2018 End: 07-18-2024 Tobacco smoking status SDIS Ex-smoker (finding) [facility] Start: 1975 Sex Assigned At Female [facility] Start: 10-17-1994 End: 10-17-2014 History of tobacco use Current smoker [facility] Start: 10-17-1994 End: 10-17-2014 History of tobacco use Cigarette Smoker [facility] Start: 09-19-2023 End: 05-14-2024 Cigarettes smoked current (pack per day) - Reported 1 [facility] Start: 09-19-2023 End: 07-18-2024 Tobacco use and exposure Former smokeless tobacco user [facility] Start: 05-24-2024 End: 05-01-2025 Alcoholic beverage intake Lifetime non-drinker (finding) [facility] How often do you nee d to have someone help you when you read instructions, pamphlets, or other written material from your doctor or pharmacy [SILS] Never [facility] Do you belong to any clubs or organizations such as synagogue groups, unions, fraternal or athletic groups, or school groups? Yes [facility] Are you now , , , , never or living with a partner? [facility] How often to you hav e a drink containing alcohol? Monthly or less [facility] How many standard dr inks containing alcohol do you have on a typical day? 1 or 2 [facility] How often do you hav e 6 or more drinks on 1 occasion? Never [facility] How hard is it for y ou to pay for the very basics like food, housing, medical care, and heating Not very hard [facility] Do you feel stress - tense, restless, nervous, or anxious, or unable to sleep at night because your mind is troubled all the time - these days [OSQ] Only a little [facility] (I/We) worried wheth er (my/our) food would run out before (I/we) got money to buy more. Never true [facility] In the past 12 month s, was there a time when you were not able to pay the mortgage or rent on time? No [facility] Start: 1975 Sex assigned at Not on file [facility] Start: 09-03-2022 Tobacco use and exposure Smokeless tobacco non-user [facility] Start: 05-24-2023 Alcoholic beverage intake Current drinker of alcohol (finding) [facility] Start: 06-17-2017 Alcohol Comment occasionally [facility] Start: 05-22-2015 End: 02-09-2025 Sex Female (finding) [facility] Medical Equipment Procedure Code Equipment Code Equipment Origin al Text Equipment Identifier Dates Valve Aor 14.7mm 21mm 30mm 19.4mm Onx Cnfrm-X Sw Rng Ptfe - [id number] - [id number] Start: 01-05-2023 Goals Date Patient Goal Desired Activity /State Personal health goal Comment on above: Formatting of this n ote might be different from the original. Evaluation of progress towards goal: Patient will discharge with home health care. - Timi Ochoa RN 01/06/23 2:13 PM Clinical Notes 11-19-2011 to 05-01-2025 Jaun Sultana MD - 05/01/2025 9:36 AM Simon Sultana MD - 05/01/2025 9:36 AM Simon Sultana MD - 05/01/2025 8:45 AM Dominic Rivas [facility] - 04/04/2025 11:15 AM EDT Note Date & Type Note Facility 05-01-2025 History of Presen t illness Narrative Associated Problem(s): Class 2 severe obesity due to excess calories with serious comorbidity and body mass index (BMI) of 39.0 to 39.9 in adult ([facility]) Weight loss indicated. Associated Problem(s): Prediabetes A1C in office 6.2. Reports BS 150 fasting and developed signs of elevated BS. Check fasting labs and if over 126 would meet criteria for diabetes. Images from the original note were not included. Subjective Patient ID: Sarbjit Campa is a 49 y.o. female who presents for Follow-up (Possible diabetes). Concerned of possible diabetes. History of prediabetes and insulin resistance. On metformin for few months but had to stop due to diarrhea and nausea. Checking BS in am and often around 150 when first wake up and fasting. Highest reading has been 189 after eating. C/o excessive thirst and increased urination. C/o severe fatigue and no energy. C/o sweating all the time. Reports episode where felt shaky and jittery like BS was dropping and it was 95. Did not have labs. Review of Systems Respiratory: Negative for cough, shortness of breath and wheezing. Cardiovascular: Negative for chest pain and palpitations. Gastrointestinal: Negative for abdominal pain, diarrhea, nausea and vomiting. Genitourinary: Negative for dysuria. Objective Physical Exam Constitutional: General: She is not in acute distress. Appearance: Normal appearance. HENT: Head: Normocephalic. Right Ear: Tympanic membrane normal. Left Ear: Tympanic membrane normal. Eyes: Extraocular Movements: Extraocular movements intact. Pupils: Pupils are equal, round, and reactive to light. Cardiovascular: Rate and Rhythm: Normal rate and regular rhythm. Heart sounds: No murmur heard. No friction rub. No gallop. Pulmonary: Effort: Pulmonary effort is normal. Breath sounds: Normal breath sounds. No wheezing, rhonchi or rales. Abdominal: General: Bowel sounds are normal. There is no distension. Palpations: Abdomen is soft. Tenderness: There is no abdominal tenderness. There is no guarding or rebound. Musculoskeletal: Cervical back: Neck supple. Right lower leg: No edema. Left lower leg: No edema. Neurological: Mental Status: She is alert. Assessment/Plan Problem List Items Addressed This Visit Annual physical exam Relevant Orders Basic metabolic panel CBC and differential Hepatic function panel Lipid panel TSH Prediabetes - Primary A1C in office 6.2. Reports BS 150 fasting and developed signs of elevated BS. Check fasting labs and if over 126 would meet criteria for diabetes. Relevant Orders POCT glycosylated hemoglobin (Hb A1C) docked device (Completed) Insulin resistance Relevant Orders Insulin, fasting documented in this encounter [facility] 04-04-2025 History of Presen t illness Narrative 15 minute azzi-oh-hlss follow-up anticoagulation appointment. INR performed in office per protocol. INR 1.5 (goal range: 1.5-2.0). Patient reports: Taking warfarin dosing as documented. Missed or extra doses of warfarin: No Changes to medications: No Changes to lifestyle (diet / alcohol / smoking / activity): No Recent emergency department visit / hospitalization / health changes / new contraindication to current anticoagulant: No Signs/symptoms of bruising/bleeding or clotting or any intolerable adverse events: No Upcoming procedures: No Anticoagulant prescription needed: No Seen referring provider in the last year Duration of therapy reviewed Assessment: INR is remaining stable in therapeutic range on current warfarin regimen. Plan: Patient instructed to continue warfarin 4 mg daily. Check INR in 6 week(s). Patient verbalizes understanding of anticoagulant dosing instructions and information discussed. Dosing regimen, counseling, and follow-up appointment were provided to the patient. Patient reminded to call with questions or any medication changes. Patient instructed to seek medical attention if any major bleeding/bleeding that persists or worsens. Priscilla Rivas [facility] 04/04/25 1123 documented in this encounter [facility] 03-18-2025 History of Presen t illness Narrative Refill request received via fax from [facility] for warfarin 4 mg tablets. Last OV: 07/20/24. New Rx sent to patient preferred pharmacy. Additionally, updated referral routed to Dr. Robina Lee for co-sign as Asiya Wang PA-C is no longer with [facility]. PPMM awaiting co-signature. Laquita Jacobs [facility] 03/18/25 0839 documented in this encounter [facility] 03-14-2025 History of Presen t illness Narrative 15 minute ccdm-dm-tzuh follow-up anticoagulation appointment. INR performed in office per protocol. INR 2.3 (goal range: 1.5-2.0). Patient reports: Taking warfarin dosing as documented. Missed or extra doses of warfarin: No Changes to medications: No Changes to lifestyle (diet / alcohol / smoking / activity): No Recent emergency department visit / hospitalization / health changes / new contraindication to current anticoagulant: No Signs/symptoms of bruising/bleeding or clotting or any intolerable adverse events: No Upcoming procedures: No Anticoagulant prescription needed: No Seen referring provider in the last year Duration of therapy reviewed Assessment: INR remains slightly elevated for unidentifiable reason.We will reduce weekly dose 7% Plan: Patient instructed to decrease to warfarin 4 mg daily. Check INR in 3 week(s). Patient is usually a 6 week follow up Patient verbalizes understanding of anticoagulant dosing instructions and information discussed. Dosing regimen, counseling, and follow-up appointment were provided to the patient. Patient reminded to call with questions or any medication changes. Patient instructed to seek medical attention if any major bleeding/bleeding that persists or worsens. Priscilla Rivas [facility] 03/14/25 1148 documented in this encounter [facility] 02-13-2025 History of Presen t illness Narrative 15 minute yigo-fr-ohxu follow-up anticoagulation appointment. INR performed in office per protocol. INR 2.5 (goal range: 1.5-2.0). Patient reports: Taking warfarin dosing as documented. Missed or extra doses of warfarin: No Changes to medications: YES Prednisone 20 mg daily course and a decongestant Changes to lifestyle (diet / alcohol / smoking / activity): No Recent emergency department visit / hospitalization / health changes / new contraindication to current anticoagulant: YES Cold for ~1 week Signs/symptoms of bruising/bleeding or clotting or any intolerable adverse events: No Upcoming procedures: No Anticoagulant prescription needed: No Seen referring provider in the last year Duration of therapy reviewed Assessment: INR is elevated due to illness and steroids. We will reduce x1, then resume stable dosing. Plan: Patient instructed to decrease to warfarin 2 mg 02/13, then resume 6 mg Mon and 4 mg AOD. Check INR in 4 week(s). Patient is usually a 6 week follow up. Patient verbalizes understanding of anticoagulant dosing instructions and information discussed. Dosing regimen, counseling, and follow-up appointment were provided to the patient. Patient reminded to call with questions or any medication changes. Patient instructed to seek medical attention if any major bleeding/bleeding that persists or worsens. Priscilla Rivas [facility] 02/13/25 0927 documented in this encounter [facility] 01-15-2025 History of Presen t illness Narrative 15 minute unrm-rz-ctvs follow-up anticoagulation appointment. INR performed in office per protocol. INR 1.7 (goal range: 1.5-2.0). Patient reports: Taking warfarin dosing as documented. Missed or extra doses of warfarin: No Changes to medications: No Changes to lifestyle (diet / alcohol / smoking / activity): No Recent emergency department visit / hospitalization / health changes / new contraindication to current anticoagulant: No Signs/symptoms of bruising/bleeding or clotting or any intolerable adverse events: No Upcoming procedures: No Anticoagulant prescription needed: No Seen referring provider in the last year Duration of therapy reviewed Assessment: INR is remaining stable in therapeutic range on current warfarin regimen. Plan: Patient instructed to continue warfarin 6 mg Mon and 4 mg AOD. Check INR in 4 week(s). Patient was previously a 6 week follow up Patient verbalizes understanding of anticoagulant dosing instructions and information discussed. Dosing regimen, counseling, and follow-up appointment were provided to the patient. Patient reminded to call with questions or any medication changes. Patient instructed to seek medical attention if any major bleeding/bleeding that persists or worsens. Priscilla Rivas RPH 01/15/25 1423 documented in this encounter [facility] 01-10-2025 Miscellaneous Notes The patient's name appeared on the PALOMO for tomorrow. Mechanic Welder CHELSEY requesting a call back to let [facility] know if patient plans on keeping the appointment or if the appointment needs to be rescheduled. documented in this encounter [facility] 01-10-2025 Telephone encounter Note The patient's name appeared on the PALOMO for tomorrow. Mechanic Welder CHELSEY requesting a call back to let [facility]rosl[facility] know if patient plans on keeping the appointment or if the appointment needs to be rescheduled. [facility] 12-24-2024 History of Presen t illness Narrative 15 minute pvla-kn-pzjd follow-up anticoagulation appointment. INR performed in office per protocol. INR 1.4 (goal range: 1.5-2.0). Patient reports: Taking warfarin dosing as documented. Missed or extra doses of warfarin: No Changes to medications: No Changes to lifestyle (diet / alcohol / smoking / activity): No Recent emergency department visit / hospitalization / health changes / new contraindication to current anticoagulant: No Signs/symptoms of bruising/bleeding or clotting or any intolerable adverse events: No Upcoming procedures: No Anticoagulant prescription needed: No Seen referring provider in the last year Duration of therapy reviewed Assessment: INR remains low. Patient endorses overall increased movement with warmer weather. WE will increase weekly dose 7% Plan: Patient instructed to increase to warfarin 6 mg Mon and 4 mg AOD. Check INR in 2.5 week(s). Patient verbalizes understanding of anticoagulant dosing instructions and information discussed. Dosing regimen, counseling, and follow-up appointment were provided to the patient. Patient reminded to call with questions or any medication changes. Patient instructed to seek medical attention if any major bleeding/bleeding that persists or worsens. Priscilla Rivas RPH 12/24/24 1417 documented in this encounter [facility] 12-03-2024 History of Presen t illness Narrative 15 minute sprm-yx-utsw follow-up anticoagulation appointment. INR performed in office per protocol. INR 1.4 (goal range: 1.5-2.0). Patient reports: Taking warfarin dosing as documented. Missed or extra doses of warfarin: No Changes to medications: No Changes to lifestyle (diet / alcohol / smoking / activity): No Recent emergency department visit / hospitalization / health changes / new contraindication to current anticoagulant: No Signs/symptoms of bruising/bleeding or clotting or any intolerable adverse events: No Upcoming procedures: No Anticoagulant prescription needed: No Seen referring provider in the last year Duration of therapy reviewed Assessment: INR is slightly low. Patient is getting ready to leave for vacation and anticipates 1 ETOH per day. We will boost aggressively for initial travel, then maintain current dosing schedule Plan: Patient instructed to increase to warfarin 8 mg 12/03, then resume 4 mg daily. Check INR in 3 week(s). Patient is usually a 6 week follow up Patient verbalizes understanding of anticoagulant dosing instructions and information discussed. Dosing regimen, counseling, and follow-up appointment were provided to the patient. Patient reminded to call with questions or any medication changes. Patient instructed to seek medical attention if any major bleeding/bleeding that persists or worsens. Priscilla Rivas RPH 12/03/24 1418 documented in this encounter [facility] 11-22-2024 Evaluation note Diagnosis Onset Date Resolution Crohn's disease acute November 22, 2024 2:44pm [facility] Work Phone: 1(364) 959-672301-06-2025 History of Present illness Narrative* Priscilla Rivas RPH - 10/22/2024 2:15 PM EST 15 minute xppr-on-mqsf follow-up anticoagulation appointment. INR performed in office per protocol. INR 1.8 (goal range: 1.5-2.0). Patient reports: Taking warfarin dosing as documented. Missed or extra doses of warfarin: No Changes to medications: No Changes to lifestyle (diet / alcohol / smoking / activity): No Recent emergency department visit / hospitalization / health changes / new contraindication to current anticoagulant: No Signs/symptoms of bruising/bleeding or clotting or any intolerable adverse events: No Upcoming procedures: No Anticoagulant prescription needed: No Seen referring provider in the last year Duration of therapy reviewed Assessment: INR is remaining stable in therapeutic range on current warfarin regimen. Plan: Patient instructed to continue warfarin 4 mg daily. Check INR in 6 week(s). Patient verbalizes understanding of anticoagulant dosing instructions and information discussed. Dosing regimen, counseling, and follow-up appointment were provided to the patient. Patient reminded to call with questions or any medication changes. Patient instructed to seek medical attention if anymajor bleeding/bleeding that persists or worsens. Priscilla Rivas RPH 10/22/24 1425 [facility] History of Present illness Narrative* Priscilla Rivas RP - 10/08/2024 2:15 PM EST 15 minute dwbi-qp-jqjo follow-up anticoagulation appointment. INR performed in office per protocol. INR 1.2 (goal range: 1.5-2.0). Patient reports: Taking warfarin dosing as documented. Missed or extra doses of warfarin: No Changes to medications: YES Completed Paxlovid Changes to lifestyle (diet / alcohol / smoking / activity): YES Physical inventory on 10/05-- long active day Recent emergency department visit / hospitalization / health changes / new contraindication to current anticoagulant: No Signs/symptoms of bruising/bleeding or clotting or any intolerable adverse events: No Upcoming procedures: No Anticoagulant prescription needed: No Seen referring provider in the last year Duration of therapy reviewed Assessment: INR is subtherapeutic. This is possibly due to increased activity and/or Paxlovid DDI. We will boost x1, then resume usual dose Plan: Patient instructed to increase to warfarin 6 mg 10/08, then resume 4 mg daily. Check INR in 2week(s). Patient is usually a 6 week follow up Patient verbalizes understanding of anticoagulant dosing instructions and information discussed. Dosing regimen, counseling, and follow-up appointment were provided to the patient. Patient reminded to call with questions or any medication changes. Patient instructed to seek medical attention if anymajor bleeding/bleeding that persists or worsens. Priscilla Rivas RPH 10/08/24 1358 documented in this [facility]12-02-2024 Evaluation note* Diagnosis Onset Date Resolution Status Admit Date Acute sinusitis acute September 17, 2024 10:12am COVID-19 acute September 28, 2024 10:36am Crohn's disease acute November 22, 2024 2:44pm [facility] Work Phone: 1(389) 929-678010-29-2024 History of Present illness Narrative* Jaun Sultana MD - 08/14/2024 5:10 PM EDTAssociated Problem(s): MDD (major depressive disorder), recurrent episode, mild (HCC) (CMS/HCC) Symptoms controlled with celexa and continue. * Jaun Sultana MD - 08/14/2024 5:10 PM EDTAssociated Problem(s): Inflamed skin tag Painful skin tag and requests removal. Will cryo. Used liquid nitrogen to perform 3 freeze thaw cycles and patient tolerated well. Warned will form blister and likely will take multiple treatments. If develop new or worsening symptoms call. * Jaun Sultana MD - 08/14/2024 5:10 PM EDTAssociated Problem(s): VIKI (generalized anxiety disorder) (CMS/HCC) Symptoms controlled with celexa and continue. Use xanax PRN. * Jaun Sultana MD - 08/14/2024 5:10 PM EDTAssociated Problem(s): Essential hypertension (CMS/HCC) BP controlled and monitor PRN. * Jaun Sultana MD - 08/14/2024 5:10 PM EDTAssociated Problem(s): Bilateral leg edema Edema controlled with lasix and continue. Elevate legs PRN. * Jaun Sultana MD - 08/14/2024 5:10 PM EDTAssociated Problem(s): Class 2 severe obesity due to excess calories with serious comorbidity and body mass index (BMI) of 36.0 to 36.9 in adult (CMS/HCC) Discussed proper diet and regular aerobic exercise. Recommend Weight Watchers and need to limit calories and smaller portions. Need to increase activity and regular aerobic exercise several days a week for 30 minutes at a time. * Jaun Sultana MD - 08/14/2024 3:00 PM EDT Images from the original note were not included. Subjective Patient ID: Sarbjit Campa is a 48 y.o. female who presents for Follow-up (Skin tag did not fall off/). Follow up HTN, depression, anxiety, back pain, and edema. Checking BP PRN and typically controlled.BP elevated today. Taking medication daily and tolerating without side effects. Mood tolerable withmedication. Occasional symptoms and at times down, sad, and no motivation. Not want to do anything or be around others. Anxiety stable. Not as stressed out or overwhelmed. Not as nervous or worry as much. Not as grayson or irritable. Using xanax rarely and helps when needed. Back pain stable. Pain inlow back and across top hips. No radiation into gluteal region or down legs. Pain worse with walking and standing. Using OTC PRN and helps when needed. Edema controlled with medication. Mild swellingat end of day and if on feet a lot. Edema improved in am and with elevation. C/o skin tag on left upper inner thigh. Cryo 7/30 and smaller but still present. Irritated with underwear and clothing. Review of Systems Respiratory: Negative for cough, shortness of breath and wheezing. Cardiovascular: Negative for chest pain and palpitations. Gastrointestinal: Negative for abdominal pain, diarrhea, nausea and vomiting. Genitourinary: Negative for dysuria. Objective Physical Exam Constitutional: General: She is not in acute distress. Appearance: Normal appearance. HENT: Head: Normocephalic. Right Ear: Tympanic membrane normal. Left Ear: Tympanic membrane normal. Eyes: Extraocular Movements: Extraocular movements intact. Pupils: Pupils are equal, round, and reactive to light. Cardiovascular: Rate and Rhythm: Normal rate and regular rhythm. Heart sounds: No murmur heard. No friction rub. No gallop. Pulmonary: Effort: Pulmonary effort is normal. Breath sounds: Normal breath sounds. No wheezing, rhonchi or rales. Abdominal: General: Bowel sounds are normal. There is no distension. Palpations: Abdomen is soft. Tenderness: There is no abdominal tenderness. There is no guarding or rebound. Musculoskeletal: Cervical back: Neck supple. Right lower leg: No edema. Left lower leg: No edema. Neurological: Mental Status: She is alert. Assessment/Plan Problem List Items Addressed This Visit Essential hypertension (CMS/HCC) - Primary (Chronic) BP controlled and monitor PRN. Class 2 severe obesity due to excess calories with serious comorbidity and body mass index (BMI) of36.0 to 36.9 in adult (CMS/HCC) Discussed proper diet and regular aerobic exercise. Recommend Weight Watchers and need to limit calories and smaller portions. Need to increase activity and regular aerobic exercise several days a week for 30 minutes at a time. VIKI (generalized anxiety disorder) (CMS/HCC) Symptoms controlled with celexa and continue. Use xanax PRN. MDD (major depressive disorder), recurrent episode, mild (HCC) (CMS/HCC) Symptoms controlled with celexa and continue. Inflamed skin tag Painful skin tag and requests removal. Will cryo. Used liquid nitrogen to perform 3 freeze thaw cycles and patient tolerated well. Warned will form blister and likely will take multiple treatments. If develop new or worsening symptoms call. Bilateral leg edema Edema controlled with lasix and continue. Elevate legs PRN. documented in this encounterWashington University Medical [id number] History of Present illness Narrative* Raji Paulino, - 07/18/2024 3:00 PM EDT Images from the original note were not included. Chief Complaint Patient presents with Sleep Apnea Subjective Sarbjit Campa, 48 y.o., female being seen in Sleep Consultation. She was told by her sister that she snores and stops breathing. HPI Sleep ND Patient Symptoms Snores: NO Wakes gasping for breath: yes Dozes off if inactive: sometimes Dozes off with activity: NO Wakes a lot through the night: no Witnessed episodes of apnea: yes Is sleep restful or restorative: NO Bedtime: 9 tevin Is it hard or easy to fall asleep: +/- Wake time: 4 am. Takes naps: yes - every Tuesday. 1 hour Feels better after napping: yes Sleepwalk: NO Sleeptalk: No Vivid Dreams:No Acts out dreams: No Sleep related hallucinations: No Sleep paralysis: No Cataplexy: No Restless Leg: No Kicking/Jerking at night: No TV on while sleeping: no Smoke before bed: vape Caffeine within 3 hours before bed: no CV exercise: No Past Medical History: Diagnosis Date Benign essential hypertension (CMS/HCC) Congenital bicuspid aortic valve Crohn's disease without complication, unspecified gastrointestinal tract location (CMS/HCC) DDD (degenerative disc disease), lumbar Dyslipidemia (CMS/HCC) VIKI (generalized anxiety disorder) (CMS/HCC) Ganglion cyst Hyperhidrosis MDD (major depressive disorder), single episode, mild (HCC) (CMS/HCC) Psoriasis (CMS/HCC) Stress incontinence in female Vitamin D deficiency Past Surgical History: Procedure Laterality Date AORTIC VALVE REPLACEMENT 04/10/2015 bioprostetic, mechanical valve CT ANGIOGRAM ABDOMEN PELVIS 12/30/2022 CT ANGIOGRAM ABDOMEN PELVIS 12/30/2022 CT ANGIOGRAM ABDOMEN PELVIS 04/04/2015 CT ANGIOGRAM ABDOMEN PELVIS 04/04/2015 CT ANGIOGRAM HEART CORONARY 12/30/2022 CT ANGIOGRAM TAVR 12/30/2022 CT ANGIOGRAM HEART CORONARY 04/04/2015 CT ANGIOGRAM TAVR 04/04/2015 CYST REMOVAL TUBAL LIGATION Family History Problem Relation Name Age of Onset COPD Mother Diabetes Mother Hypertension Mother Hypertension Father Coronary artery disease Father Social History Tobacco Use Smoking status: Former Current packs/day: 0.00 Average packs/day: 1 pack/day for 20.0 years (20.0 ttl pk-yrs) Types: Cigarettes Start date: 1994 Quit date: 2015 Years since quittin.7 Smokeless tobacco: Former Substance Use Topics Alcohol use: Never Vape nicotine Allergies: Flagyl [metronidazole] and Humira [adalimumab] General: No fever or chills HEENT: No nasal congestion or runny nose Pulmonary: No shortness of breath or cough Cardiovascular: No chest pain or palpitations GI: No nausea or vomiting : No dysuria or hematuria Musculoskeletal: No new aches or pains or muscle weakness Infectious: no recurrent fevers or infections Dermatologic: No rashes or skin lesions Neurologic: No new headaches or dizziness Vitals: 07/18/24 1504 BP: (!) 152/106 Pulse: 78 SpO2: 96% Body mass index is 37.12 kg/m . weight: 230 lb Neurologic exam: General: Obese, cooperative, pleasant Mental status: Awake, alert to person, place and time. Recent and remote memory are intact. Attention and concentration are normal. Fund of knowledge is appropriate for level of education. HEENT: NC/AT Cranial nerves: CN II: Visual clark full to confrontation. No loss of vision CN III, IV, : pupils equal round and reactive to light. Extraocular movements intact. No ptosis present. CN V: Facial sensation is normal. CN VII: Full and symmetric facial movement. CN VIII: Hearing is normal CN IX and X: Palate elevates symmetrically. CN XI: Shoulder shrug is normal bilaterally. CN XII: Tongue is midline without atrophy or fasciculation. Speech: Clear and fluent no aphasia or dysarthria Pronator drift: Negative bilateral upper extremity Coordination: Intact, no signs of dysmetria Good finger to nose and rapid alternating movements Sensory: Sensation is intact to light, temperature and vibratory touch throughout four extremities. Motor: LUE 5/5 RUE 5/5 LLE 5/5 RLE 5/5 Tone: Physiologic, no tremor, bradykinesia or rigidity DTR: Bilateral Biceps 2/4 Bilateral BR 2/4 Bilateral Patellar 2/4 No spasticity Gait: Normal to casual gait Romberg's Negative Review and summary of old records: Assessment/Plan Diagnoses and all orders for this visit: KOLE (obstructive sleep apnea) Hypoxia Sleep deprivation Hypersomnia Snoring Obesity (BMI 35.0-39.9 without comorbidity) 48-year-old female with a severe obstructive sleep apnea with an apnea-hypopnea index of 44 and an oxygen desaturation /hypoxia down to 80 percent. This is leading to significant daytime hypersomnolence and snoring. She does have underlying obesity and would benefit from aggressive weight loss measures. She did have some signs of possible periodic limb movement disorder on her testing however shestates that she typically sleeps with the dog down at her feet and so she thinks that may have beenthe increased movements as the dog was not there. She was titrated on BiPAP at 11/cm of water and this is working well for her. She is getting great benefit feeling more rested and overall seen an improvement in her sleep. She is compliant using the machine 100 percent of the time was 97 percent ofthe time greater than 4 hours. Her average nightly usage is 5 hours and 59 minutes and residual AHIof 3.9. She does have some mild sleep deprivation from not allowing enough hours of sleep and wouldbenefit from allowing at least an hour more sleep time. She has to get up at 4:00 a.m. and does notwant to go to bed at 8 she goes to bed at 9 but would benefit from going to bed at 8. Plan PSG was reviewed with her BiPAP titration was reviewed with her Compliance data was reviewed and she is compliant as above Her [place] Sleepiness scale is a 4 She will monitor for any limb movements and we can consider adding medication if she feels like it is an issue Wear the CPAP machine whenever sleeping including naps She should try to get more hours of sleep and try to get 8 hours The patient was counseled on proper sleep hygiene and adequate hours of sleep. The patient was counseled on the need for aggressive diet, exercise, and weight loss. No tobacco within 1 hour of bed (stop nicotine) The patient was counseled on the risks of stroke, CT, and sudden with KOLE, along with the need for compliance with the CPAP/BiPAP treatment. The diagnosis was all discussed with the patient. All questions were answered and they agreed with the treatment plan. Patient will call if there are any new issues or questions. Pt has been fully educated on their diagnosis, treatment options, follow up plan, and return instructions Return to clinic: 1 year documented in this encounterWashington University Medical [id number] Evaluation note* Encounter Date Diagnosis Assessment Notes Treatment Notes Treatment Clinical Notes Nov, Contact with and (suspected) exposure [...] that she needs to stay home from work/school/activit ies until fever free for 24 hours without use of antipyretics. Work note provided. Follow-up with PCP for further management if needed. Immediate eval for SOB, difficulty, chest pain, fevers that do not break with antipyretic or any other concerning symptoms as reviewed on patient education handout. Patient verbalizes understanding and is agreeable to treatment plan. Patient left in stable condition [employer] Other 01-10-2023 Evaluation note* Encounter Date Diagnosis [...] COVID POSITIVE education handout discharge instructions. given. [employer] Other 01-05-2023 Evaluation note* Encounter Date Diagnosis Assessment Notes Treatment Notes Treatment Clinical Notes Oct, Crohn's disease (ICD-10 - K50.90) CONTINUE SKYRIZI DIRECTED PT DUE FOR SKYRIZI INJECTION NEXT WEEK OBTAIN LABS FROM [facility] [place] [facility] 6 MONTHS [employer] Other 10-07-2022 Evaluation note* Encounter Date Diagnosis [...] the next 7 days patient may call and I will send antibiotic. Encouraged supportive [...] of diseases classified elsewhere (ICD-10 - B97.89) [employer] Other 06-30-2022 Evaluation note* Encounter Date Diagnosis Assessment Notes Treatment Notes Treatment Clinical Notes Mar, Crohn's disease, unspecified, without complications (ICD-10 - K50.90) START PROCESS FOR APPROVAL OF Feebbo INDICATED ABOVE [employer] Other 03-29-2022 Evaluation note* Encounter Date Diagnosis [...] STELARA SINCE JULY OR SEPTEMBER OF 2021. [employer] Other 01-06-2022 Evaluation note* Encounter Date Diagnosis Assessment Notes Treatment Notes Treatment Clinical Notes Oct, Rash and nonspecific skin eruption (ICD-10 - R21) Pt received 60mg IM Kenalog in office today. Pt tolerated well. Performed by Jacinda Gross [facility]. Pt to take meds as prescribed -- [...] Pt understood and agreed to treatment plan. [employer] Other 11-30-2021 Evaluation note* Encounter Date Diagnosis Assessment Notes Treatment Notes Treatment Clinical Notes Aug, Crohn's disease, unspecified, without complications (ICD-10 - K50.90) PATIENT STATES THAT SHE IS ON THE STELARA AND SHE HAS ONLY HAD THE IV DOSE. PATIENT CAN NOT TELL A DIFFERENCE AT THIS TIME. PATIENT STATES PAIN HAS IMPROVED, NOT REGULAR BOWEL MOVEMENTS AT THIS TIME. [employer] Other 02-03-2012 History general Narrative - Reported* Type Description Date Medical History bicuspid aortic valve Medical History crohns Medical History 2 Colonoscopy-scarring sple terri flexure Medical History 07/03/09EGD/Colonoscopy-normal EG D, Crohn's disease Medical History Tobacco use disorder, current Medical History Tobacco use disorder, current Medical History Acrodermatitis continua of Hallo peau Medical History AI [Aortic insufficiency] Medical History Hypertension, unspecified HTN Medical History Crohn's disease Medical History Exercise counseling Medical History Dietary surveillance and intellectual property counsel ing Medical History C. difficile diarrhea Medical History Crohn disease Medical History Encounter for smoking cessation counseling Medical History 03/09/2017 Colonoscop y- patchy inflammation cecum, Scarring, splenic flexure Medical History BMI 30.0-30.9,adult Medical History BMI 31.0-31.9,adult Medical History chronic depression Surgical History crohns Surgical History ganglion cyst Surgical History bicuspid aortic valve replaceme nt 03/2015 Hospitalization History Crohns 2009 [employer] Other 02-03-2012 History general Narrative - Reported* [...] Exercise counseling Medical History Dietary surveillance and intellectual property counsel ing Medical History C. difficile diarrhea Medical [...] valve replaceme nt 01/05/2023 Hospitalization History Crohns 2009 [facility] [employer] Other Evaluation noteNo InformationNortK[facility] [employer] Other Evaluation noteNo assessment information available [facility] Work Phone: Evaluation note* Diagnosis Onset Date Resolution Status [facility] Work Phone: Evaluation note* Diagnosis KOLE (obstructive sleep apnea) Obstructive sleep apnea (adult) (pediatric) Hypoxia Hypoxemia Sleep deprivation Problems related to lack of adequate sleep Hypersomnia Hypersomnia, unspecified Snoring Other dyspnea and respiratory abnormality Obesity (BMI 35.0-39.9 without comorbidity) documented [facility]* Diagnosis Annual physical exam- Primary Routine general medical examination at a health care facility Screening mammogram for breast cancer Essential hypertension (CMS/HCC) Unspecified essential hypertension Essential hypertension (CMS/HCC)- Primary Unspecified essential hypertension MDD (major depressive disorder), recurrent episode, mild (HCC) (CMS/HCC) VIKI (generalized anxiety disorder) (CMS/HCC) Generalized anxiety disorder DDD (degenerative disc disease), lumbar Degeneration of lumbar or lumbosacral intervertebral disc Stress bladder incontinence, female Inflamed skin tag Hypersomnia Hypersomnia, unspecified Aneurysm of ascending aorta without rupture (CMS/HCC) Hiatal hernia with GERD without esophagitis Crohn's disease of both small and large intestine without complication (CMS/HCC) Body mass index [BMI] 35.0-35.9, adult (Z68.35) Inflamed skin tag- Primary Pain of skin Disturbance of skin sensation Prediabetes Other abnormal glucose Obesity (BMI 30-39.9) Insulin resistance Other abnormal glucose Essential (primary) hypertension (CMS/HCC) Unspecified essential hypertension Body mass index (BMI) 37.0-37.9, adult Bilateral leg edema- Primary Edema Congenital bicuspid aortic valve Prediabetes Other abnormal glucose Essential hypertension (CMS/HCC)- Primary Unspecified essential hypertension MDD (major depressive disorder), recurrent episode, mild (HCC) (CMS/HCC) VIKI (generalized anxiety disorder) (CMS/HCC) Generalized anxiety disorder Bilateral leg edema Edema Inflamed skin tag Class 2 severe obesity due to excess calories with serious comorbidity and body mass index (BMI) of 36.0 to 36.9 in adult (CMS/HCC) Obstructive sleep apnea (adult) (pediatric) documented in this encounter [facility]* Diagnosis Stenosis of prosthetic aortic valve, subsequent encounter- Primary documented [facility]* Diagnosis Annual physical exam- Primary Routine general medical examination at a health care facility Screening mammogram for breast cancer Essential hypertension (CMS/HCC) Unspecified essential hypertension Essential hypertension (CMS/HCC)- Primary Unspecified essential hypertension MDD (major depressive disorder), recurrent episode, mild (HCC) (CMS/HCC) VIKI (generalized anxiety disorder) ([facility]) Generalized anxiety disorder DDD (degenerative disc disease), lumbar Degeneration of lumbar or lumbosacral intervertebral disc Stress bladder incontinence, female Inflamed skin tag Hypersomnia Hypersomnia, unspecified Aneurysm of ascending aorta without rupture ([facility]) Hiatal hernia with GERD without esophagitis Crohn's disease of both small and large intestine without complication ([facility]) Body mass index [BMI] 35.0-35.9, adult (Z68.35) Inflamed skin tag- Primary Pain of skin Disturbance of skin sensation Prediabetes Other abnormal glucose Obesity (BMI 30-39.9) Insulin resistance Other abnormal glucose Essential (primary) hypertension (CMS/HCC) Unspecified essential hypertension Body mass index (BMI) 37.0-37.9, adult Bilateral leg edema- Primary Edema Congenital bicuspid aortic valve Prediabetes Other abnormal glucose Essential hypertension (CMS/HCC)- Primary Unspecified essential hypertension MDD (major depressive disorder), recurrent episode, mild (HCC) (CMS/HCC) VIKI (generalized anxiety disorder) ([facility]/HCC) Generalized anxiety disorder Bilateral leg edema Edema Inflamed skin tag Class 2 severe obesity due to excess calories with serious comorbidity and body mass index (BMI) of 36.0 to 36.9 in adult (CMS/HCC) Obstructive sleep apnea (adult) (pediatric) VIKI (generalized anxiety disorder) ([facility]) Generalized anxiety disorder documented in this encounter [facility] HealthcareEvaluation note* Diagnosis Stenosis of prosthetic aortic valve, subsequent encounter- Primary documented in this encounter [facility]* Diagnosis Stenosis of prosthetic aortic valve, subsequent encounter- Primary documented in this encounter [facility]* Diagnosis S/P AVR- Primary Stenosis of prosthetic aortic valve, subsequent encounter documented in this encounter [facility]* Diagnosis Stenosis of prosthetic aortic valve, subsequent encounter- Primary S/P AVR documented in this encounter [facility]* Diagnosis Annual physical exam- Primary Routine general medical examination at a health care facility Screening mammogram for breast cancer Essential hypertension Unspecified essential hypertension Essential hypertension- Primary Unspecified essential hypertension MDD (major depressive disorder), recurrent episode, mild VIKI (generalized anxiety disorder) Generalized anxiety disorder DDD (degenerative disc disease), lumbar Degeneration of lumbar or lumbosacral intervertebral disc Stress bladder incontinence, female Inflamed skin tag Hypersomnia Hypersomnia, unspecified Aneurysm of ascending aorta without rupture Hiatal hernia with GERD without esophagitis Crohn's disease of both small and large intestine without complication (HCC) Body mass index [BMI] 35.0-35.9, adult (Z68.35) Inflamed skin tag- Primary Pain of skin Disturbance of skin sensation Prediabetes Other abnormal glucose Obesity (BMI 30-39.9) Insulin resistance Other abnormal glucose Essential (primary) hypertension Unspecified essential hypertension Body mass index (BMI) 37.0-37.9, adult Bilateral leg edema- Primary Edema Congenital bicuspid aortic valve Prediabetes Other abnormal glucose Essential hypertension- Primary Unspecified essential hypertension MDD (major depressive disorder), recurrent episode, mild VIKI (generalized anxiety disorder) Generalized anxiety disorder Bilateral leg edema Edema Inflamed skin tag Class 2 severe obesity due to excess calories with serious comorbidity and body mass index (BMI) of 36.0 to 36.9 in adult ([facility]-HCC) Obstructive sleep apnea (adult) (pediatric) Prediabetes- Primary Other abnormal glucose Insulin resistance Other abnormal glucose Annual physical exam Routine general medical examination at a health care facility Obstructive sleep apnea (adult) (pediatric) Crohn's disease of both small and large intestine without complications (HCC) documented in this encounter [facility] HealthcareInstructionsNot on filedocumented in this encounterProMediParma [facility] SystemInstructionsNot on filedocumented in this encounterProCorey Hospital SystemInstructionsNot on filedocumented in this encounterProCorey Hospital SystemInstructionsNot on filedocumented in this encounterProCorey Hospital System InstructionsNot on filedocumented in this encounterProCorey Hospital System InstructionsNot on filedocumented in this encounterProDch [facility] Summary Purpose Family History Relationship Condition Age at Onset Recorded Date/T kimbelry father Malignant neoplasm Unknown Diabetes mellitus Unknown Heart disease Unknown Not Specified Unknown Chronic obstructive pulmonary disease Unk nown sister Hypertension Unknown Relationship Condition Age at Onset Recorded Date/T kimberly father Diabetes mellitus Unknown Heart disease Unknown Malignant neoplasm of prostate Unknown mother Unknown Chronic obstructive pulmonary disease Unk nown sister Hypertension Unknown Advance Directives Advance Directive Response Recorded Date/ Time Advance Directives No June 9:13am Date Activated Date Inactivated Comments 01/05/2023 11:49 AM 01/08/2023 2:55 PM Advance Directive Response Recorded Date/ Time Advance Directives No June 8:13am Date Activated Date Inactivated Comments 01/05/2023 11:49 AM 01/08/2023 2:55 PM Chief Complaint and Reason for Visit Chief Complaint Congestion, Fever, S trep Exposure 6 month follow up for crohns Chief Complaint Congestion, Fever, S trep Exposure 6 month follow up for crohns K50.90 Reason for Visit Crohn's disease Chief Complaint Admit Date cough, congestion September 17, 2024 1 0:12am Cough, congestion September 28, 2024 10:36am 6 month follow up / Crohn's November 2:44pm Reason for Visit Admit Date Acute sinusitis September 17, 2024 1 0:12am COVID-19 September 28, 2024 10:36am Crohn's disease November 22, 2024 2 :44pm Chief Complaint Admit Date 6 month follow up / Crohn's November 2:44pm Cough, ear pain February 09, 2025 9:2 0am Reason for Visit Admit Date Crohn's disease November 22, 2024 2 :44pm Additional Source Comments INFORMATION SOURCE (unrecogn ized section and content) DATE CREATED AUTHOR 10/21/2021 [facility] DATE CREATED AUTHOR AUTHOR'S ORGANIZ ATION 03/10/2024 [facility] DATE CREATED AUTHOR AUTHOR'S ORGANIZ ATION 07/22/2024 [facility] DATE CREATED AUTHOR AUTHOR'S ORGANIZ ATION 08/16/2024 [facility] DATE CREATED AUTHOR AUTHOR'S ORGANIZ ATION 04/07/2025 [facility] REASON FOR VISIT (unrecogniz ed section and content) Reason Comments Sleep Apnea Reason Comments Follow-up Skin tag did not fal l off Reason Onset Date Comments Med Refill 10/11/2024 Reason Onset Date Comments Med Refill 11/29/2024 Reason Comments Med Refill Reason Comments Follow-up Possible diabetes Care Teams (unrecognized sec tion and content) Team Status: Active Member Role Status Dates Jaun Slutana MD Primary Care Provider Active Team Status: [...] February 13, 2024 End: February 13, 2024 Piercing Machine Operator Relationship Specialty Start Date End Date Jaun Sultana MD [address] [place] [phone] PCP - General Family Medicine 08/24/23 Piercing Machine Operator Relationship Specialty Start Date End Date Jaun Sultana MD [address] [place] [phone] PCP - General Family Medicine 08/24/23 Piercing Machine Operator Relationship Specialty Start Date End Date Jaun Sultana MD [address] [place] [phone] PCP - General Family Medicine 08/24/23 Jaun Sultana MD [address] [place] [phone] PCP - [employer] 06/17/24 Piercing Machine Operator Relationship Specialty Start Date End Date Jaun Sultana MD [address] [place] [phone] PCP - General Family Medicine 08/24/23 Jaun Sultana MD [address] [place] [phone] PCP - [employer] 06/17/24 Piercing Machine Operator Relationship Specialty Start Date End Date Jaun Sultana MD PCP - General Family Medicine 07/04/18 [employer]cing Machine Operator Relationship Specialty Start Date End Date Jaun Sultana MD PCP - General Family Medicine 07/04/18 Team Status: Inactive Member Role Status Dates Jaun Sultana MD Primary Care Provider Active S tart: September 17, 2024 End: September 17, 2024 Heidy Barrios APRN Attending Provider Active Start: September 17, 2024 End: September 17, 2024 Team Status: Inactive Member Role Status Dates Jaun Sultana MD Primary Care Provider Active S tart: September 28, 2024 End: September 28, 2024 Heidy Barrios APRN Attending Provider Active Start: September 28, 2024 End: September 28, 2024 Team Status: Inactive Member Role Status Dates Jaun Sultana MD Primary Care Provider Active S tart: November 22, 2024 End: November 22, 2024 Martha Calderon DO Attending Provider Active St art: November 22, 2024 End: November 22, 2024 Piercing Machine Operator Relationship Specialty Start Date End Date Jaun Sultana MD [address] [place] [address] PCP - General Family Medicine 08/24/23 Jaun Sultana MD [address] [place] [id number] PCP [facility] 06/17/24 Piercing Machine Operator Relationship Specialty Start Date End Date Jaun Sultana MD PCP - General Family Medicine 07/04/18 Piercing Machine Operator Relationship Specialty Start Date End Date Jaun Sultana MD PCP - General Family Medicine 07/04/18 Piercing Machine Operator Relationship Specialty Start Date End Date Jaun Sultana MD PCP - General Family Medicine 07/04/18 Team Status: Inactive Member Role Status Dates Jaun uSltana MD Primary Care Provider Active S tart: February 09, 2025 End: February 09, 2025 Mariah Morin APRN Attending Provider Active S tart: February 09, 2025 End: February 09, 2025 Piercing Machine Operator Relationship Specialty Start Date End Date Jaun Sultana MD PCP - General Family Medicine 07/04/18 Piercing Machine Operator Relationship Specialty Start Date End Date Jaun Sultana MD PCP - General Family Medicine 07/04/18 Piercing Machine Operator Relationship Specialty Start Date End Date Jaun Sultana MD [address] [place] [address] PCP - General Family Medicine 08/24/23 Piercing Machine Operator Relationship Specialty Start Date End Date Jaun Sultana MD [address] [place] [address] PCP - General Family Medicine 08/24/23 Goals (unrecognized section and content) Goals may [...] BE BASED ON THE PRIMARY CLINICAL RECORDS. [facility] [employer] provides no warranty or guarantee of the accuracy or completeness of information in this document.
[2025-05-02 07:57] LABS: Hematocrit 41.0 % (36.0-48.0); Hemoglobin 14.7 g/dL (12.0-16.0); Immature Granulocytes Abs Auto 0.01 10^3/uL (0.00-0.03); Immature Granulocytes Pct Auto 0.1 % (0.0-0.5); Lymphocytes Absolute Auto 1.9 10^3/uL (1.2-3.8); Mean Corpuscular HGB Conc 35.9 g/dL (29.9-35.2); Mean Corpuscular Hemoglobin 30.1 pg (26.7-34.0); Mean Corpuscular Volume 84.0 fL (81.0-99.0); Platelet Count 203 10^3/uL (150-450); Red Blood Count 4.88 10^6/uL (4.20-5.40); White Blood Count 7.1 10^3/uL (4.0-11.0)
[2025-05-02 08:56] LABS: Alanine Aminotransferase 28 U/L (14-59); Albumin Globulin Ratio 1.1; Albumin Level 3.7 g/dL (3.4-5.0); Alkaline Phosphatase 76 U/L (46-116); Anion Gap 14.4; Aspartate Amino Transferase 18 U/L (15-37); Blood Urea Nitrogen 10.0 mg/dL (7.0-18.0); Calcium 8.8 mg/dL (8.5-10.1); Carbon Dioxide 24.6 mmol/L (21.0-32.0); Chloride 106 mmol/L (98-107); Cholesterol 136 mg/dL (<=200); Estimated GFR (African America >60 (>=60 mL/min/1.73m^2); Estimated GFR (Non-African Ame >60 (>=60 mL/min/1.73m^2); Globulin 3.3 g/dL; Glucose 143 mg/dL (74-106); HDL Cholesterol 44 mg/dL (40-60); Potassium 4.0 mmol/L (3.5-5.1); Sodium 141 mmol/L (136-145); Thyroid Stimulating Hormone 1.446 uIU/mL (0.358-3.740); Total Protein 7.0 g/dL (6.4-8.2); Triglycerides 148 mg/dL (<=150); VLDL CHOLESTEROL 29.6 mg/dL
== END 2025-05-02 07:33 | disposition home or self-care (01) ==
PROVIDERS: PCP Family Medicine; Visit Provider Family Medicine
DX: Z00.00 Encounter for general adult medical examination without abnormal findings (principal); E88.819 Insulin resistance, unspecified
CPT/HCPCS: 36415; 80048; 80061; 80076; 83525; 84443; 85025

== ENCOUNTER 2025-07-29 14:30 | Outpatient (REF) | payer BC, SELFPAY ==
--- OUTSIDE RECORDS SUMMARY | 2025-08-01 05:49 | XMS_ITS | Continuity of Care Document ---
Author Organization [facility] Address [address] [place] [address] Phone Care Team Providers Care Reimbursement Specialist Name Role Phone Jaun Elliott MD Primary Care Provider Martha Calderon DO Attending Provider [phone] Kevin Flynn DO Attending Provider [phone] Jaun Elliott MD Attending Provider [phone] Care Teams Patient Care Team Team Status: Active Member Role Status Dates Jaun Elliott MD Primary Care Provider Active Visit Care Team Team Status: Inactive Member Role Status Dates Jaun Elliott MD Primary Care Provider Active S tart: June 06, 2025 End: June 06jose Calderon DOAttrosalba ProviderActiveStart: June 06, 2025 End: June 06, 2025 Visit Care Team Team Status: Inactive Member Role Status Dates Kevin Flynn DO Attending Provider Active Start : July 29, 2025 End: July 29, 2025 Patient Care Team Team Status: Inactive Member Role Status Dates Jaun Elliott MD Primary Care Provider Active S tart: August 01, 2025 End: August 01, 2025Jaun Elliott MDAttrosalba ProviderActiveStart: August 01, 2025 End: August 01, 2025 Chief Complaint and Reason for Visit Chief Complaint Admit Date 6 MONTH FOLLOW UP CROHN'S June 06, 025 2:24pm Unknown July 29, 2025 1 :20pm Established Patient August 01, 2025 9 :07am Reason for Visit Admit Date Crohn's disease June 06, 2025 2: 24pm Allergies, Adverse Reactions, Alerts Allergen Type Severity Reaction Last Updated Verified Status adalimumab Allergy Unknown RASH August 01, 2025 9:26am Yes Active metronidazole Allergy Unknown headaches, nausea Octo 2024 9:26am Yes Active Social History Smoking Status Status Start Date End Date Date of Observa tion Ex-smoker (finding) February 09, 2025 9:30am Observation Status Observation Response Date of Response Legal Sex Female (finding) Sex Assigned At BirthFemaleDecember 1974 Family History Relationship Condition Age at Onset Recorded Date/T kimberly father Diabetes mellitus Unknown Heart diseaseUnknownMalignant neoplasm of prostateUnknownmotherDeceasedUnknown Chronic obstructive pulmonary diseaseUnknownsisterHypertensionUnknown Problems Active Problems Medical Problem Onset Date Status Class 2 severe obesity due t o excess calories with serious comorbidity and body mass index (BMI) of 39.0 to 39.9 in adult Unknown Active Bilateral leg edema Unknown Active VIKI (generalized anxiety disorder) Unknown Active Crohn's disease of both smal l and large intestine without complication Unknown Active Congenital bicuspid aortic valve Unknown Active Ganglion cyst Unknown Active Stress bladder incontinence, female Unknown Active Pain of skin Unknown Active Dyslipidemia Unknown Active AI (aortic insufficiency) Unknown Active Hypersomnia Unknown Active DDD (degenerative disc disease), lumbar Unknown Active Essential hypertension Unknown Active Bicuspid aortic valve Unknown Active Acrodermatitis continua of [place] Unknown Active Hiatal hernia with GERD without esophagitis Unkn own Active Type 2 diabetes mellitus wit h hyperglycemia, without long-term current use of insulin Unknown Active MDD (major depressive disorder), recurrent episo de, mild Unknown Active Thoracic ascending aortic aneurysm Unknown Active Constipation Unknown Active Inactive/Resolved Problems Medical Problem Onset Date Status C. difficile diarrhea Unknown Resolved COVID-19 Unknown Resolved Viral URI with cough Unknown Resolved Acute sinusitis Unknown Resolved Type 2 diabetes mellitus Unknown Resolve d Acute effusion of both middle ears Unknown Resolved Crohn's disease Unknown Resolved Insulin resistance Unknown Resolved Aortic valve replaced Unknown Resolved Medications Medication Status Dose Units Route Directions Qty Days St art Date Stop Date End Date Instructions Adherence Prednisone 10 mg tablet Discontinued 0 QULdrln346Isgvh 2023 12:00amApril 2023 3:00pmTake 8 tablets on day one then decrease by 1 tablet until gone orally daily;Prednisone 20 mg tablet Fjwrkcglapym96OBAWOcqpz8074Lvjxs 2023 12:00amMay 2023 9:02amTake 2 tablets orally once a day.Tirzepatide (Mounjaro) 5 mg/0.5 mL pen injector Nadxjvfwwdwz3AOHXLFBNuuxzj anfd3Lmlvmiipr 2024 3:46pmOctober 2024 9:44amFurosemide 40 mg omlyerNyakrahmkdxt74REUJVubpl 48 hours as needed for dmwvm30Yvlxstqtl 2024 3:46pmOctober 2024 9:27amCitalopram 40 mg blzgfaIixgwe43QZYSWnqlw46Xvvbmszfu 2024 9:33amComplies with drug therapy Omeprazole 40 mg capsule,delayed release(DR/EC)Mwarrxydkcns88MQPPVmnqfXbd 2023 12:00amFebruary 2024 3:49pmFreeTextSi capsule 30 minutes before morning meal Orally Once a day; Note: Source Status: Taking; Refills: 11; Provider: Tisah Hernandez RPrednisone 20 mg rkvhjdUjetxdfcofvz54TDYDEdqjpGln 2023 12:00amDecember 2023 11:25amTake 2 tablets orally once a day. Aspirin (Adult Aspirin Regimen) 81 mg tablet,delayed release (DR/EC)Qlghzf67XEOM DailyApril 2023 12:00amComplies with drug therapyWarfarin 4 mg tablet Vdqjpuesajgg9SAOEVezmhNmlun 2023 12:00amOctober 2024 9:55am Metoprolol Succinate 25 mg tablet extended release 24 gcHfjyouxolaaf57TEXSQsbvj dailyApril 2023 12:00amApril 2024 9:27amAtorvastatin 20 mg tablet Emzsas15UMBKMadgyLyvlz 2023 12:00amComplies with drug therapyOxybutynin Chloride 10 mg tablet extended release 86qpHqzkigddwamr23RIDCEnjvmZviyt 2023 12:00amApril 2024 9:27amCitalopram 20 mg izlhouVojkczzvcbyp34PYKR DailyApril 2023 12:00amApril 2024 9:26amomeprazoleDiscontinuedPO January 30, 2024 12:00amMay 2023 9:00amVedolizumab (Entyvio Pen) 108 mg/0.68 mL pen rhhnzmqpXuodmjnsmxok332HMIMDZZJOTMNE 2 WEEKSFebruary 2024 1:00amApril 2024 9:28amVedolizumab (Entyvio Pen) 108 mg/0.68 mL pen hchxyuchWnslyyrqlimc307IRMIKNHWBGZQJ 2 MONTHSApril 2024 9:27amAugust 2024 2:30pmMetformin 500 mg tablet extended release 24 hrDiscontinuedMGPO September 17, 2024 1:00amApril 2024 9:25amFurosemide 40 mg tablet Tlsfnlmixgjr35BRCMXqtxk 48 hours as neededDe2023 1:00amSeptember 2024 3:47pmAmoxicillin-Pot Clavulanate 875-125 mg vredgpFmwwaivsxalm1NFHGF Every 12 dyyve0646Ftajldie2023 1:00amDecember 2023 12:20pm Vedolizumab (Entyvio) 300 mg recon wofqMaitjq296ZXMMWCKVI 8 WEEKSAugust 2024 12:00amadminister over 30 minsUnknownTirzepatide (Mounjaro) 5 mg/0.5 mL pen injectorDiscontinuedMGSUBCUTAugu2024 12:00amSeptember 2024 3:47pm Vedolizumab (Entyvio Pen) 108 mg/0.68 mL pen zleamxhrOwmxie416SFEUDTFZKNNDI 2 WEEKS2.0430Augus2024 12:00amComplies with drug therapyMetoprolol Tartrate 25 mg wsspodOlqxem64YFQJQhriu dailyApr2024 12:00amComplies with drug therapyCitalopram 40 mg vwglhyAhiydsbmeenz77HAFGOdmnhHqgtz 2024 12:00amSeptember 2024 9:34amOxybutynin Chloride 15 mg tablet extended release 26mfYjbqus30RHIFtoognJuiyr 2024 12:00amComplies with drug therapy Alprazolam 0.5 mg tabletActive0.5MGPOThree times daily as neededApril 2024 12:00amComplies with drug therapyPrednisone 20 mg hvuswbOrdjofpvmxfe68TTILLsdmz3 3April 2024 12:00amOctober 2024 9:15xjNhktsmjonqpdclw-Lctuirslq-Yo (Bromfed Dm) 2-30-10 mg/5 mL nrdybWjzcugstikut1TAWFLEJSK 4-6 HOURS as needed for cold qslbared9344Vxrxo 2024 12:00amOctober 2024 9:26amFluticasone Propionate 50 mcg/actuation spray,ujhtiqcbazDttnmj5GPCIRNGOKOPICJAPjldv5047Zutfx 2024 12:00amadminister into each nostrilComplies with drug therapyWarfarin 5 mg xuotlvIfuymw9PQUIKvlozSnodsph 2024 12:00amComplies with drug therapy Tirzepatide 7.5 mg/0.5 mL pen injectorActive7.5MGSUBCUTevery urjc6Lxpucnk 2024 9:44amComplies with drug therapyNirmatrelvir-Ritonavir (Paxlovid) 300 mg (150 mg x 2)-100 mg tablets,dose cssbBraicvjuyobt7NC.BGPOBUQ04Oagfnxbp 2023 1:00amFebruary 2024 3:49pmtake TWO 150 mg tablets of nirmatrelvir with ONE 100 mg tablet of ritonavir twice daily for 5 days PO Vital Signs Vital Reading Result Reference Range Collection Date/Time Height 66 [in_i] June 06, 2025 2:78fsNnqqrs207.32 kgAugust 2024 2:29pmBMI (Body Mass Index)37.1 kg/n9Hehsqe 2024 2:49cgNjvwil95 [in_i]August 01, 2025 9:25am Idbpwp28.97 kgOctober 2024 9:25amBody Lrvrtyibpjf59.8 [degF]97.6-99.0 August 01, 2025 9:25amHeart Rate81 /dft79-349Mcesfla 2024 9:25am Respiratory rate20 /rbg62-42Roplesg 2024 9:25amOxygen saturation by Pulse rwbnraaz22 %95-100[facility] 2024 9:25amBP Xmfqxcmt939 mm[Hg]100-140Octc[facility] 2024 9:25amBP Amhyydjbm15 mm[Hg]60-100Octcumberland [facility] hospital 2024 9:25amBMI (Body Mass Index)34.8 kg/w8Ycypbci 2024 9:25am Advance Directives Advance Directive Response Recorded Date/ Time Advance Directives No June 9:13am Insurance Providers Guarantor Sarbjit Campa Address [address] [place] [phone] Info.Home Phone: Payer Policy Id Subscriber's Name Subscriber Id Effectiv e Date Expiration Date Rochelle TELLES [id number] Sarbjit Knightsaudberto [id number] Encounters Encounter Location(s) Arrival/Admit Date Discharge/Depart Date Provider(s) Departed Physician/Prov ider Office Visit -[facility] June 06, 2025 2:24pm June 06, 2025 2:46pm Martha Calderon DO Departed Referred -[facility] July 29, 2025 1:20pm July 29, 2025 1:21pm Kevin Flynn Departed Physician/Prov ider Office Visit -[facility] August 01, 2025 9:07am August 01, 2025 9:48am Jaun Elliott MD Recent Diagnosis Onset Date Admit Date Crohn's disease Unknown June 06 2:24pm Assessments Diagnosis Onset Date Resolution Status Admit Date Crohn's disease inactiveAugus2024 2:24pm Plan of Treatment Author [facility]on [facility] 2:45pmContinue Entyvio infusions. Patient would like to switch to injectable if able which is fine Will request her labs from her primary care doctor Follow-up in 6 months and as needed Future Tests Future scheduled test information is unavailable Pending Tests Test Name Ordered Date Scheduled Date Miscellaneous Pathology Test July 29, 2025 12:00am Future Visits Future appointment information is unavailable Referrals to Other Providers Referral information is unavailable Future Procedures Procedure Name Ordered Date Scheduled Date Pathology Request for Lab Parag July 30 2:14pm July 29, 2025 12:00am Future Medications Future medication information is unavailable Patient Instructions Patient instructions are unavailable
--- OUTSIDE RECORDS SUMMARY | 2025-08-06 14:36 | XMS_ITS | CCD ---
Author Organization [facility] Care Team Providers Care Heel Sander Name Role Phone DR JAUN SULTANA Attending Unavailable RD, DR JAUN Irene Consulting Unavailable RD, DR JAUN Irene Primary Care Unavailable RD, DR JAUN Irene Admitting Unavailable Shantell Serra Unavailable David Giles Unavailable [phone] Allison Odom Unavailable Santa Jang Unavailable MD Jaun Sultana Primary Care Provider LyDO Martha Attending Provider ROBINA LEE Attending Unavailable JAUN SULTANA Referring Unavailable JAUN SULTANA Primary Care Unavailable Jaun Sultana MD Primary Care Provider [phone] Jaun Sultana MD Unavailable Jaun Sultana MD Primary Care Provider Jaun Sultana MD Primary Care Provider Jaun Sultana MD Primary Care Provider [phone] Jaun Sultana MD Primary Care Provider Martha Calderon DO Attending Provider [phone] Jaun Sultana MD Primary Care Provider JAUN SULTANA Attending Unavailable KEVIN FLYNN Attending Unavailable JAUN SULTANA Attending Unavailable KEVIN FLYNN Attending Unavailable KEVIN FLYNN Attending Unavailable Kevin Flynn DO Attending Provider Kevin Flynn Attending Unavailable Kevin Flynn Admitting Unavailable Jaun Sultana MD Attending Provider [phone] SERVICE, JOBST Referring Unavailable NADERER, JAUN Primary [...] NADERER, JAUN Primary Care Unavailable Allergies Allergy ClassificationReported Allergen(s)Allergy TypeDate of OnsetReaction(s) Facility (20 sources)adalimumab; Translations: [ADALIMUMAB]Drug Asthnpm96-37-5147RNML[address] [place] [address] (20 sources)metroNIDAZOLE; Translations: [METRONIDAZOLE]Drug Epwyood44-70-6839 headaches, [facility] ([facility] sources)Midodrine; Translations: [MIDODRINE]Drug Uosvxaq01-93-5039UswVxdbrc Repository (18 sources)adalimumabDrug Nroibay09-25-7341[facility] (1 source)adalimumabDrug Rahuqqd31-46-9474WvmnjwxwsElyria [facility] Hospital Repository (1 source)metroNIDAZOLEDrug Pwbwnbn66-97-9228HybeeqhcqElyria [facility] Hospital Repository Medications Current Medications MedicationDrug Class(es)DatesSig (Normalized)Sig (Original)10 ML risankizumab- rzaa 60 MG/ML Injection [Skyrizi] (5 sources)Skyrizi 600 MG/10ML as directed Intravenous Activeacetaminophen 325 mg oral tablet (17 sources)Start: 49-10-0481ngru 2 tablets by mouth every four hours as needed acetaminophen (TYLENOL) 325 mg tablet Take 2 tablets (650 mg total) by mouth every 4 (four) hours as needed (Mild headache or pain scale of 1-3). 30 tablet 01/09/2023 [id number] 200 actuat albuterol 0.09 mg/actuat metered dose inhaler (5 sources)beta2-Adrenergic AgonistStart: 81-42-0315grwa 2 puff(s) by inhalation every four hours as neededAlbuterol Sulfate HFA 108 (90 Base) MCG/ACT 2 puffs as needed Inhalation every 4 hrs PRN Sep, ActiveALPRAZolam 0.5 mg oral tablet (20 sources)BenzodiazepineStart: 54-52-3685bjvz 1 tablet by mouth three times daily as neededAlprazolam 0.5 mg tablet Active 0.5 MG PO Three times daily as needed February 09, 2025 12:00am Complies with drug therapyStart: 09-19-2023 End: 94-06-3501ygci 1 tablet by mouth three times daily as needed for anxiety ALPRAZolam (Xanax) 0.5 MG tablet Indications: VIKI (generalized anxiety disorder) Take 1 tablet (0.5mg) by mouth 3 (three) times a day as needed for anxiety for up to 7 days 20 tablet 11/29/2024 Activeaspirin 81 mg delayed release oral tablet (20 sources)Platelet Aggregation Inhibitor, Nonsteroidal Anti-inflammatory Drug Start: 08-20-8080vxis 1 tablet by mouth in the morningaspirin 81 mg Take 1 tablet (81 mg total) by mouth in the morning. 05/24/2023 Activetake 1 tablet by mouth every twenty-four hoursAspirin 81 MG 1 tablet Orally Once a day Active atorvastatin 20 mg oral tablet (20 sources)HMG-CoA Reductase InhibitorStart: 01-30-2024 End: 95-15-6128lkpi 1 tablet by mouth once dailyatorvastatin (LIPITOR) 20 mg tablet Indications: Hyperlipidemia, unspecified hyperlipidemia type Take 1 tablet (20 mg total) by mouth daily. 90 tablet 1 05/23/2025 Activecetirizine hydrochloride 10 mg oral tablet (20 sources)Histamine-1 Receptor Antagonisttake 5 mg by mouth in the morning cetirizine (ZyrTEC) 10 MG tablet Take 5 mg by mouth in the morning. Activetake 1 tablet by mouth every twenty-four hoursZyrTEC Allergy 10 MG 1 tablet Orally Once a day ActiveZyrTEC Allergy Activecholecalciferol 0.05 mg oral capsule (11 sources)Vitamin DVitamin D3 50 MCG (1999 UT) as directed Orally Once a day Activecitalopram 40 mg oral tablet (20 sources)Serotonin Reuptake InhibitorStart: 02-09-2025 End: 66-72-6158iawm 1 tablet by mouth once dailycitalopram (CeleXA) 40 MG tablet Indications: VIKI (generalized anxiety disorder) Take 1 tablet by mouth once daily 30 tablet 05/20/2025 ActiveStart: 32-58-1989bzzl 1 tablet by mouth once dailycitalopram (CeleXA) 40 MG tablet Indications: VIKI (generalized anxiety disorder) (CMS/HCC) TAKE 1 TABLET BY MOUTH ONCE DAILY 30 tablet 2 09/17/2024 ActiveStart: 20-57-7744fypi 1 tablet by mouth once dailycitalopram (CeleXA) 40 MG tablet Indications: VIKI (generalized anxiety disorder) (CMS/HCC) Take 1 ta blet (40 mg) by mouth Daily 30 tablet 5 03/19/2024 ActiveStart: 05-05-2020 End: 26-67-6181ibzf 1 tablet by mouth in the morningcitalopram (CeleXA) 20 mg tablet Take 1 tablet (20 mg total) by mouth in the morning. 05/05/2020 Active Citalopram & Diet Manage Prod (4 sources)Citalopram & Diet Manage Prod Activedextromethorphan hydrobromide 15 mg / guaiFENesin 400 mg / pseudoephedrine hydrochloride 60 mg oraltablet (1 source)alpha-Adrenergic Agonist, Uncompetitive W-aazicw-X-aspartate Receptor Antagonist, Sigma-1 AgonistStart: 92-23-5020qgma 4 tablets by mouth every twenty-four hours as neededCapmist DM 60-15-400 MG as needed Orally every 4-6 hours as needed, max 4 tablets in 24 hours for 5days Nov, Active fluconazole 150 mg oral tablet (2 sources)Azole AntifungalStart: 06-11-2025 End: 33-50-0582nxoblprsidk (Diflucan) 150 MG tablet Indications: Yeast infection Take 1 tablet (150 mg) by mouth 1(one) time for 1 dose Repeat in 7 days if symptoms persist. 2 tablet 06/11/2025 06/11/2025 Activefluticasone propionate 0.05 mg/actuat metered dose nasal spray (3 sources)CorticosteroidStart: 69-64-2486wqww 1 spray(s) nasal route once daily Fluticasone Propionate 50 mcg/actuation spray,suspension Active 1 SPRAY INTRANASAL Daily February 09, 2025 12:00am administer into each nostril Complies with drug therapyfurosemide 40 mg oral tablet (20 sources)Loop DiureticStart: 09-17-2024 End: 98-97-8298Tfybipdbhk 40 mg tablet Discontinued 40 MG PO Every 48 hours as needed for edema June 3:46pm August 01, 2025 9:27amStart: 86-20-3562ugfn 1 tablet by mouth once daily as neededfurosemide (Lasix) 40 MG tablet Indications: Bilateral leg edema TAKE 1 TABLET BY MOUTH DAILY NEEDED 30 tablet 2 09/17/2024 Activelevonorgestrel 0.630716 mg/hr intrauterine system (20 sources)Progestin, Progestin-containing Intrauterine DeviceStart: 06-24-2025 End: 68-10-9722Rdewrcblbbxsfa intrauterine device 52 mgStart: 06-24-2025 End: 88-80-9620Oxxueekazqmvgj intrauterine deviceStart: 06-24-2025 End: 81-75-5718Hoxf PRN Procedure, Starting on Tue06/24/25 at 1330, For 1 dose Levonorgestrel (Mirena, 52 MG,) 20 MCG/DAY intrauterine device by Intrauterine route. Activelisinopril 10 mg oral tablet (15 sources)Angiotensin Converting Enzyme Inhibitortake 1 tablet by mouth every twenty-four hoursLisinopril 10 MG 1 tablet Orally Once a day for 30 Active Lisinopril 20 MG Oral for 30 ActivemethylPREDNISolone 4 mg oral tablet (4 sources)CorticosteroidStart: 22-04-9274asxmtuRZLHEYOyitwy 4 MG as directed Orally for daily dose take half with breakfast, half with dinner for 6 days Jul, ActiveStart: 19-95-8420jetzgcTCRWDHSpxfxw 4 MG as directed Orally Oct, Activemetoprolol tartrate 25 mg oral tablet (20 sources)beta-Adrenergic BlockerStart: 53-68-3786tjey 1 tablet by mouth at bedtimemetoprolol tartrate (LOPRESSOR) 25 mg tablet Indications: Benign hypertension , Nonrheumatic aorticvalve stenosis Take 1 tablet (25 mg total) by mouth in the morning and at bedtime. 180 tablet 3 10/01/2024 ActiveStart: 01-30-2024 End: 83-70-6528umxy 1 tablet by mouth twice dailyMetoprolol Succinate 25 mg tablet extended release 24 hr Discontinued 25 MG PO Twice daily January 30, 2024 12:00am February 09, 2025 9:27amoseltamivir 75 mg oral capsule (1 source)Neuraminidase InhibitorStart: 13-57-3636nbak 1 capsule by mouth every twelve hoursOseltamivir Phosphate 75 MG 1 capsule Orally Twice a day for 5 day(s) Nov, Vicwjt02 hr oxybutynin chloride 15 mg extended release oral tablet (20 sources)Cholinergic Muscarinic AntagonistStart: 38-06-8652pyjc 1 tablet by mouth once dailyoxybutynin XL (Ditropan-XL) 15 MG 24 hr tablet Indications: Stress bladder incontinence, female Take 1 tablet (15 mg) by mouth Daily Do not crush, chew, or split. 30 tablet 5 09/27/2024 ActiveStart: 92-77-6446ownv 1 tablet by mouth once dailyoxybutynin XL (Ditropan-XL) 15 MG 24 hr tablet Indications: Stress bladder incontinence, female Take 1 tablet (15 mg) by mouth Daily Do not crush, chew, or split. 30 tablet 5 03/19/2024 ActiveStart: 01-30-2024 End: 69-57-5933riyl 1 tablet by mouth once dailyOxybutynin Chloride 10 mg tablet extended release 24hr Discontinued 10 MG PO Daily January 292:00am February 09, 2025 9:27amStart: 50-63-7719eypp 1 tablet by mouth every twenty-four hours in the morningoxybutynin XL (DITROPAN-XL) 10 mg 24 hr tablet Take 1 tablet (10 mg total) by mouth in the morning.04/24/2021 ActiveoxyBUTYnin Chloride 10 MG as directed Orally ActiveOxybutynin ActiveSkyrizi 360 MG/2.4ML (3 sources)Start: 72-02-9693Qkalili 360 MG/2.4ML INJECT Subcutaneous AT WEEK 12 AND THEN EVERY 8 WEEKS THERAFTER for 56 days DISPENSE WITH ON BODY INJECTOR Apr, Activeskyrizi 360 mg/2.4ml solution cartridge (2 sources)Skyrizi 360 MG/2.4ML as directed Subcutaneous ActiveSkyrizi 600 MG/10ML (3 sources)Start: 68-17-7250Faoufns 600 MG/10ML as directed Intravenous INFUSED AT WEEK 0, WEEK 4 AND WEEK 8 for 56 days Apr, ActiveTirzepatide (1 source)Start: 42-67-8394Fznozoluxpc 7.5 mg/0.5 mL pen injector Active 7.5 MG SUBCUT every week 2 August 01, 2025 9:44am Complies with drug therapy Tirzepatide (Mounjaro) 5 MG/0.5ML solution auto-injector (7 sources)Start: 05-75-5612ximsgd 5 mg by subcutaneous injection every week Tirzepatide (Mounjaro) 5 MG/0.5ML solution auto-injector Indications: Type 2 diabetes mellitus withhyperglycemia, without long-term current use of insulin (HCC) Inject 5 mg under the skin 1 (one) time per week 2 mL 3 06/03/2025 Active1 ml ustekinumab 90 mg/ml prefilled syringe (10 sources)Interleukin-12 Antagonist, Interleukin-23 AntagonistStart: 65-96-8644Hqrynmy 90 MG/ML INJECT 1 PREFILLED SYRINGE Subcutaneous EVERY 56 DAYS for 56 days PRIOR AUTH REFERENCE NUMBER [id number] FROM 09/07/21 TO 09/07/22 Aug, Activevedolizumab 300 mg injection (20 sources)Integrin Receptor AntagonistStart: 59-60-0845Pwhuu: 06-06-2025 Vedolizumab (Entyvio Pen) 108 mg/0.68 mL pen injector Active 108 MG SUBCUT EVERY 2 WEEKS 2.02 13June 06, 2025 12:00am Complies with drug therapyStart: 89-35-1513Vvjke: 02-09-2025 End: 70-55-7601Lajnstzokmy (Entyvio Pen) 108 mg/0.68 mL pen injector Discontinued 108 MG SUBCUT EVERY 2 MONTHS February 09, 2025 9:27am June 06, 2025 2:30pmStart: 99-14-6857Ydakczvwhqj (Entyvio Pen) 108 mg/0.68 mL pen injector Active 108 MG SUBCUT EVERY 2 MONTHS February 09, 2025 9:27amStart: 11-22-2024 End: 21-57-8229Ogizyqjyvap (Entyvio Pen) 108 mg/0.68 mL pen injector Discontinued 108 MG SUBCUT EVERY 2 WEEKS November 22, 2024 1:00am February 09, 2025 9:28amStart: 72-65-8048Rngegotzydz (Entyvio Pen) 108 mg/0.68 mL pen injector Active 108 MG SUBCUT EVERY 2 WEEKS November 22, 2024 12:00am vedolizumab (ENTYVIO) 60 mg/mL recon soln Infuse 300 mL (18,000 mg total) into a venous catheter. ActiveVedolizumab (ENTYVIO IV) Infuse into a venous catheter Activewarfarin sodium 5 mg oral tablet (20 sources)Vitamin K AntagonistStart: 16-17-1922sqfq 1 tablet by mouth once dailyWarfarin 5 mg tablet Active 5 MG PO Daily July 30, 2025 12:00am Complies with drug therapyStart: 01-30-2024 End: 71-83-6687xxgp 1 tablet by mouth in the eveningwarfarin (COUMADIN) 4 mg tablet Indications: Stenosis of prosthetic aortic valve, subsequent encounter Take 1 tablet (4 mg total) by mouth in the evening. Or as [facility] by [facility] 90 tablet 1 03/18/2025 Activetake 1 tablet by mouth every twenty-four hoursWarfarin Sodium 4 MG 1 tablet Orally Once a day Active Completed/Discontinued Medications MedicationDrug Class(es)DatesSig (Normalized)Sig (Original)amoxicillin 875 mg / clavulanate 125 mg oral tablet (5 sources)Penicillin-class AntibacterialStart: 09-17-2024 End: 35-79-3205rrbo 1 tablet by mouth every twelve hoursAmoxicillin-Pot Clavulanate 875-125 mg tablet Discontinued 1 TAB PO Every 12 hours 20 September 17, 2024 1:00am September 28, 2024 12:20pmbrompheniramine maleate 0.4 mg/ml / dextromethorphan hydrobromide 2 mg/ml / pseudoephedrine hydrochloride 6 mg/ml oral solution (3 sources)alpha-Adrenergic Agonist, Uncompetitive L-dbpjni-L-aspartate Receptor Antagonist, Sigma-1 AgonistStart: 02-09-2025 End: 43-05-9126qtwc 1 mL by mouth every four to six hours as needed Dpwlsiqecyrfdtk-Byebhvlcs-Pr (Bromfed Dm) 2-30-10 mg/5 mL syrup Discontinued 5 ML PO EVERY 4-6 HOURS as needed for cold symptoms 118 February 09, 2025 12:00am August 01, 2025 9:26am24 hr metFORMIN hydrochloride 500 mg extended release oral tablet (20 sources)BiguanideStart: 05-24-2024 End: 56-36-0175svom 1 tablet by mouth every twenty-four hoursMetformin 500 mg tablet extended release 24 hr Discontinued MG PO September 17, 2024 1:00am February 09, 2025 9:25amtake 1 tablet by mouth once daily at breakfastmetFORMIN XR (GLUCOPHAGE XR) 500 mg 24 hr tablet Take 1 tablet (500 mg total) by mouth daily with breakfast. ActiveNirmatrelvir-Ritonavir (3 sources)Start: 09-28-2024 End: 09-45-4597Ulymqcvbmysf-Ritonavir (Paxlovid) 300 mg (150 mg x 2)-100 mg tablets,dose pack Discontinued 0 PO .COMPLEX September 28, 2024 1:00am November 22, 2024 3:49pm take TWO 150 mg tablets of nirmatrelvir with ONE 100 mg tablet of ritonavir twice daily for 5 days PONirmatrelvir-Ritonavir (Paxlovid) 300 mg (150 mg x 2)-100 mg tablets,dose pack (2 sources)Start: 09-28-2024 End: 32-82-4002Nzzdnzkouazc-Ritonavir (Paxlovid) 300 mg (150 mg x 2)-100 mg tablets,dose pack Discontinued 0 PO .COMPLEX September 28, 2024 1:00am November 22, 2024 3:49pm take TWO 150 mg tablets of nirmatrelvir with ONE 100 mg tablet of ritonavir twice daily for 5 days POStart: 09-28-2024 End: 79-34-4090Tuqtnwbnukwh-Ritonavir (Paxlovid) 300 mg (150 mg x 2)-100 mg tablets,dose pack Discontinued 0 PO .COMPLEX September 28, 2024 12:00am November 22, 2024 2:49pm take TWO 150 mg tablets of nirmatrelvir with ONE 100 mg tablet of ritonavir twice daily for 5 days POOmeprazole (20 sources)Proton Pump InhibitorStart: 01-30-2024 End: 59-14-9160lklagqsdys Discontinued PO January 30, 2024 12:00am February 17, 2024 9:00amStart: 01-30-2024 End: 28-56-8730cmruiqxkkj Discontinued PO January 29, 2024 11:00pm February 17, 2024 8:00amStart: 47-37-1803djbcqjvcay Active PO January 30, 2024 12:00amStart: 04-21-2023 End: 54-05-8491exwz 1 capsule by mouth once dailyOmeprazole 40 mg capsule,delayed release(DR/EC) Discontinued 40 MG PO Daily February 17, 2024 12:00am November 22, 2024 3:49pm FreeTextSi capsule 30 minutes before morning meal Orally Once a day; Note: Source Status: Taking; Refills: 11; Provider: Tisha Hernandez RpredniSONE 20 mg oral tablet (20 sources)Start: 02-09-2025 End: 57-31-9077ecrs 1 tablet by mouth once dailyPrednisone 20 mg tablet Discontinued 20 MG PO Daily 3 February 09, 2025 12:00am July 30, 2025 9:53amStart: 01-09-2024 End: 98-48-7984byia 2 tablets by mouth once dailyPrednisone 20 mg tablet Discontinued 10 MG PO Daily February 17, 2024 12:00am September 17, 2024 11:25am Take 2 tablets orally once a day.Start: 50-82-0860zadw 2 tablets by mouth once dailyPrednisone Active 40 MG PO Daily 60 January 09, 2024 12:00am Take 2 tablets orally once a day.Start: 01-02-2024 End: 50-03-2613Wpzvbuuzwy 10 mg tablet Discontinued 0 PO Daily 36 8 January 02, 2024 12:00am January 30, 2024 3:00pm Take 8 tablets on day one then decrease by 1 tablet until gone orally daily;Start: 04-14-1253mhls 1 tablet by mouth every twelve hoursprednisone 20 MG 1 tablet Orally BID for 5 Nov, ActiveStart: 57-68-1859nwzwybHBJS 10 MG 8 tabs day one then decrease by 1 tablet until finished. Orally Once a day for 8 days Jun, ActiveStart: 02-10-2022 predniSONE 10 MG 8 tabs day one then decrease by 1 tablet until finished. Orally Once a day for 8 days Jan, ActiveTirzepatide (5 sources)Start: 07-01-2025 End: 59-97-0346Ivbggqvosqu (Mounjaro) 5 mg/0.5 mL pen injector Discontinued 5 MG SUBCUT every week 2 July 01, 2025 3:46pm August 01, 2025 9:44amStart: 20-24-8401Rvkmu: 06-06-2025 End: 93-96-0939Oeqrwollsmm (Mounjaro) 5 mg/0.5 mL pen injector Discontinued MG SUBCUT June 06, 2025 12:00am July 01, 2025 3:47pmStart: 06-06-2025 Tirzepatide (Mounjaro) 5 mg/0.5 mL pen injector Active MG SUBCUT June 06, 2025 12:00am Complieswith drug therapyTriamcinolone (20 sources)CorticosteroidStart: 85-29-2971MGXPTJT - 10 mg Oct, 60 mg Start: 02-01-4633ISRVSFD - 10 mg February, 40 mgStart: 14-31-0620FHNGDMZ - 10 mg May, 40 mg Problems Active Problems Problem ClassificationProblemDateDocumented DateEpisodic/ChronicAbdominal pain (17 sources)Abdominal pain; Translations: [Unspecified abdominal pain]Episodic Anxiety disorders (20 sources)Generalized anxiety disorder; Translations: [Generalized anxiety disorder]Onset: 255853-47-9622BwaetomXrfouv; peripheral; and visceral artery aneurysms (20 sources)Aneurysm of ascending aorta; Translations: [Thoracic ascending aortic aneurysm]Onset: 589997-73-0039OmyvoyhAcrucxm and circulatory congenital anomalies (20 sources)Bicuspid aortic valve; Translations: [Congenital bicuspid aortic valve]Onset: 632441-88-0219PiclykbCtshchbxjfcvp and procreative management (5 sources)Intrauterine contraceptive device in situ; Translations: [Encounter for routine checking of intrauterine contraceptive device]16-87-7862Cqivgmaz Diabetes mellitus with complications (9 sources)Hyperglycemia due to type 2 diabetes mellitus; Translations: [Type 2 diabetes mellitus with hyperglycemia]Onset: 220478-25-8566PcuuvyuCvbkmqvs mellitus without complication (3 sources)Type 2 diabetes mellitus; Translations: [Type 2 diabetes mellitus without complications]36-13-4211AvsaaetPveeqfkio of lipid metabolism (20 sources)Hyperlipidemia, unspecified; Translations: [Dyslipidemia]Onset: 971869-54-5668RtxlnwiHeygxvmyw hypertension (20 sources)Essential (primary) hypertension; Translations: [Hypertensive disorder]Onset: 08-19-2011 Resolved: 880629-79-1280NbeqwjaClswyrdcxgxag symptoms and ill-defined conditions (20 sources)Female stress incontinence; Translations: [Stress incontinence (female) (male)]Onset: 865957-94-9017RzbzjlrVsncc valve disorders (20 sources)History of aortic valve replacement; Translations: [Presence of prosthetic heart valve]Onset: 10-25-2013 Resolved: 237247-15-8573RhuuwmdOvcoxeerhhrgz and screening for infectious disease (12 sources)Contact with and (suspected) exposure to other viral communicable diseases; Translations: [Contact with and (suspected) exposure to other viral communicable diseases]EpisodicInfluenza (1 source)Influenza due to other identified influenza virus with other respiratory manifestationsEpisodicIntestinal infection (5 sources)Clostridium difficile diarrhea; Translations: [Enterocolitis due to Clostridium difficile, not specified as recurrent]31-79-7873AxcitxwzJhqb disorders (20 sources)Recurrent major depressive episodes, mild ; Translations: [Major depressive disorder, recurrent, mild]Onset: 852078-09-0100EbtnyjmOxiplhn (2 sources)Mycosis; Translations: [Candidiasis, unspecified]09-84-1649Chemwlba Nutritional deficiencies (1 source)Vitamin D deficiency, unspecified; Translations: [VITAMIN D DEFICIENCY UNSPECIFIED]Onset: 43-56-4537XwzuuhpSsjve circulatory disease (17 sources)Elevated blood pressure; Translations: [Elevated blood-pressure reading, without diagnosis of hypertension]EpisodicOther connective tissue disease (5 sources)Ganglion cyst; Translations: [Ganglion, unspecified site]09-17-2024 EpisodicOther gastrointestinal disorders (20 sources)Constipation; Translations: [Constipation, unspecified]01-30-2024 EpisodicOther gastrointestinal disorders (17 sources)Diarrhea; Translations: [Diarrhea, unspecified]EpisodicOther inflammatory condition of skin (2 sources)Acrodermatitis continua of [place]; Translations: [Acrodermatitis continua]71-50-5142JwjjdtgNvbvd lower respiratory disease (2 sources)Hypoxia; Translations: [Hypoxemia]35-58-8335TdtgqmkhAzckp lower respiratory disease (2 sources)Snoring; Translations: [Snoring]76-44-8637VsmhrqnwTgtql nutritional; endocrine; and metabolic disorders (17 sources)Obese class I; Translations: [Body mass index (BMI) 31.0-31.9, adult]ChronicOther nutritional; endocrine; and metabolic disorders (20 sources)Body mass index 30+ - obesity; Translations: [Obesity, unspecified] Onset: 104890-17-2146XydqbswHhhqg nutritional; endocrine; and metabolic disorders (20 sources)Insulin resistance; Translations: [Insulin resistance]Onset: 046814-99-7621TttkgryRqflc nutritional; endocrine; and metabolic disorders (18 sources)Severe obesity; Translations: [Class 2 severe obesity due to excess calories with serious comorbidity and body mass index (BMI) of 36.0 to 36.9 in adult ([facility])]Onset: 771268-22-9866EytoguwBhjzn screening for suspected conditions (not mental disorders or infectious disease) (1 source)Patient encounter status; Translations: [Encounter for screening mammogram for malignant neoplasm of breast]70-68-4474EuwqduirLukbx skin disorders (17 sources)Eruption; Translations: [Rash and other nonspecific skin eruption] EpisodicOther upper respiratory infections (10 sources)Acute sinusitis, unspecified; Translations: [Acute sinusitis] EpisodicOtitis media and related conditions (3 sources)Acute transudative otitis media; Translations: [Other acute nonsuppurative otitis media, bilateral]98-72-1882QjjpodtoNecoprgv enteritis and ulcerative colitis (20 sources)Crohn's disease; Translations: [Crohn's disease, unspecified, with unspecified complications]Onset: 07-12-2019 Resolved: 58-89-3133OuvvthsHwlzlgig codes; unclassified (20 sources)Hypersomnia; Translations: [Hypersomnia, unspecified]Onset: 617452-79-3805ZtxqikwSuvixbon codes; unclassified (6 sources)Obstructive sleep apnea syndrome; Translations: [Obstructive sleep apnea (adult) (pediatric)]78-92-6346JfoxiggJyjtfkaq codes; unclassified (2 sources)Sleep deprivation; Translations: [Sleep deprivation]07-18-2024 EpisodicResidual codes; unclassified (1 source)Postmenopausal state; Translations: [Asymptomatic menopausal state] 78-04-7704UiiicvuuPfrcvkftnvs; intervertebral disc disorders; other back problems (20 sources)Degeneration of lumbar intervertebral disc; Translations: [DDD (degenerative disc disease), lumbar]Onset: 426670-24-2594UpdffafThqwp infection (7 sources)Other viral agents as the cause of diseases classified elsewhere; Translations: [Disease caused by 2019-nCoV]Episodic Past or Other Problems Problem ClassificationProblemDateDocumented DateEpisodic/ChronicAbdominal hernia (20 sources)Gastroesophageal reflux disease with hiatal hernia; Translations: [Diaphragmatic hernia without obstruction or gangrene]Onset: 03-19-2024 04-77-6666PkcporzfYpqfcgiagchw of device; implant or graft (20 sources)Prosthetic aortic valve stenosis; Translations: [Stenosis of other cardiac prosthetic devices, implants and grafts, subsequent encounter]Onset: 734690-75-7149ZwsrwuxdMcyjephlnm associated with dizziness or vertigo (17 sources)Dizziness; Translations: [Dizziness and giddiness] Resolved: 306117-35-6679HwsppqgtRybzpmup mellitus without complication (13 sources)Prediabetes; Translations: [Prediabetes]Onset: 076369-18-3532 EpisodicOther lower respiratory disease (17 sources)Dyspnea; Translations: [Shortness of breath] Resolved: [id number] nervous system disorders (20 sources)Pain of skin; Translations: [Other disturbances of skin sensation] Onset: [id number] skin disorders (1 source)Rash and other nonspecific skin eruptionOnset: 10-22-2021 Resolved: 38-19-5704LtrlwyfuOsmgm skin disorders (20 sources)Skin tag; Translations: [Other hypertrophic disorders of the skin] Onset: 03-19-2024 Resolved: [id number] codes; unclassified (20 sources)Bilateral lower limb edema; Translations: [Localized edema]Onset: 945318-73-8873UfanyacyKszoylpt codes; unclassified (1 source)Localized edema; Translations: [Localized edema]Onset: 09-27-2024 EpisodicViral infection (1 source)COVID-19 Results Test NameValueInterpretationReference RangeFacilityPATHOLOGY REQUEST FOR LAB CORPon [id number] REQUEST FOR LAB [facility] HospitalComment on above: See report. Scanned copy available in EMR. PATH- [facility] POCT Protime / INRon 85-96-1017PXZ Coag (PPP) [Relative time]1.8 {INR}Abnormal 0.8 - 1.2PWyandot Memorial Hospital SystemInterpretation and review of laboratory results AbnormalProKindred Hospital PittsburghPOCT Protime / INRon 28-38-4792VDT Coag (PPP) [Relative time]1.8 {INR}Abnormal0.8 - 1.2PWyandot Memorial Hospital SystemInterpretation and review of laboratory resultsAbnormalProMediTidelands Waccamaw Community Hospital SystemIUD Insertionon [id number] Zamora LPN 06/25/2025 8:58 AM IUD Insertion Performed by: Sharda Zamora LPN Authorized by: Kevin Flynn DO Procedure: IUD insertion Consent obtained by patient, parent, or legal power of mortgage loan closer - including discussion of procedure risks and [...] fundal placement: no Intended removal date: 5 yearsH[facility] Division HealthcarePOCT Protime / INRon 85-94-5499XXT Coag (PPP) [Relative time]2.7 {INR}Abnormal0.8 - 1.2PCleveland Clinic Akron GeneralInterpretation and review of laboratory resultsAbDepartment of Veterans Affairs Medical Center-LebanonPOCT Protime / INRon 31-08-5304EUZ Coag (PPP) [Relative time]1.8 {INR}Abnormal0.8 - 1.2PC[facility] Clinic [facility] General Interpretation and review of laboratory resultsAbChildren's Hospital of Wisconsin– MilwaukeeALL CBC WITH AUTO DIFFon 76-85-3945ACELIKVWF ABSOLUTE CDQI2JVDD HealthcareBasophils/100 WBC (Bld)0.3 %0.2 - 2.0 %[facility] Healthcare Eosinophils/100 WBC (Bld)2 %0.9 - 7.0 %[facility] Special[facility] HospitalErythrocyte distribution width (RBC) [Ratio]12.5 %11.0 - 15.0 %[facility] HealthcareHematocrit (Bld) [Volume fraction]41 %36.0 - 48.0 %[facility] HealthcareHemoglobin (Bld) [Mass/Vol]14.7 g/dL 12.0 - 16.0 g/dLNOPike County Memorial HospitalIMMATURE GRANULOCYTES ABS AUTO0.01[facility] Immature granulocytes/100 WBC (Bld)0.1 %0.0 - 0.5 %[facility] HospitalInterpretation and review of laboratory resultsAbnormCrichton Rehabilitation CenterLYMPHOCYTES ABSOLUTE AUTO1.9NOPike County Memorial HospitalLymphocytes/100 WBC (Bld)27.2 %20.5 - 60.0 %[facility] CenterH (RBC) [Entitic mass]30.1 pg26.7 - 34.0 pgWestern Missouri Mental Health CenterHC (RBC) [Mass/Vol]35.9 g/gJBxad68.9 - 35.2 g/dLWestern Missouri Mental Health CenterV (RBC) [Entitic vol]84 fL81.0 - 99.0 fLSelect Specialty HospitalMONOCYTES ABSOLUTE AUTO0.6NOPike County Memorial Hospital Monocytes/100 WBC (Bld)7.8 %1.7 - 12.0 %[facility] HospitalNEUTROPHILS ABSOLUTE AUTO 4.4N[facility]S [facility]ruder HospitalNeutrophils/100 WBC (Bld)62.6 %43.0 - 75.0 %[facility] Platelet mean volume (Bld) [Entitic vol]11.7 fL9.5 - 13.5 fLSelect Specialty HospitalTBH EO #0.1NOMS Magruder HospitalTB QXC492EILV Magruder HospitalTB RBC4.88N[facility]S [facility]ruder HospitalTB WBC 7.1N[facility]S [facility]ruder HospitalCLINISYNCNOMS EszpwifogmDfK4w (Bld) [Mass fraction]on 59-19-6785Gbezoqidphxjxp and review of laboratory resultsAbCape Fear Valley Medical CenterLaboratory - Hematology and Cell countson 77-66-3426RrL5h (Bld) [Mass fraction]6.2 %[facility] HospitalPOCT Protime / INRon 94-57-7816UQK Coag (PPP) [Relative time]1.5 {INR}Abnormal0.8 - 1.2PWyandot Memorial Hospital SystemInterpretation and review of laboratory resultsAbDepartment of Veterans Affairs Medical Center-LebanonPOCT Protime / INRon 98-47-7839EJS Coag (PPP) [Relative time]2.3 {INR} Abnormal0.8 - 1.2PCleveland Clinic Akron GeneralInterpretation and review of laboratory resultsAbDepartment of Veterans Affairs Medical Center-LebanonPOCT Protime / INR on 81-88-0921LMJ Coag (PPP) [Relative time]2.5 {INR}Abnormal0.8 - 1.2PWyandot Memorial Hospital SystemInterpretation and review of laboratory resultsAbnoBarnes-Kasson County HospitalPOCT Protime / INRon 68-19-0752INJ Coag (PPP) [Relative time]1.7 {INR}Abnormal0.8 - 1.2PWyandot Memorial Hospital System Interpretation and review of laboratory resultsAbnoMarshfield Medical Center Rice LakePOCT Protime / INRon 91-86-9228YZJ Coag (PPP) [Relative time]1.4 {INR}Abnormal0.8 - 1.2PWyandot Memorial Hospital SystemInterpretation and review of laboratory resultsAbnoBarnes-Kasson County HospitalPOCT Protime / INRon 13-06-2750XPW Coag (PPP) [Relative time]1.4 {INR}Abnormal0.8 - 1.2PWyandot Memorial Hospital SystemInterpretation and review of laboratory results AbnormalMeadows Psychiatric CenterPOCT Protime / INRon 95-34-6607IPB Coag (PPP) [Relative time]1.8 {INR}Abnormal0.8 - 1.2PWyandot Memorial Hospital SystemInterpretation and review of laboratory resultsAbnoBarnes-Kasson County HospitalPOCT Protime / INRon 26-44-6566NIG Coag (PPP) [Relative time]1.2 {INR}0.8 - 1.2PKirkbride CenterNo Panel InformationOrdered By: Heidy Barrios on 39-27-8509POAMT Antigen (POC)[facility] HospitalInfluenza virus B Ag [Presence] in Upper respiratory specimen by Rapid immunoassayon [id number] Ag IA.rapid Ql (Nph) Influenza virus B Ag [Presence] in Upper respiratory specimen by Rapid immunoassayElyria Memorial HospitalNo Panel Informationon 09-17-2024 Influenza Type A (Rapid)NegativeElyria Memorial HospitalPO SARS CoV-2 AntigenNegativeElyria Memorial HospitalNo Panel InformationOrdered By: Heidy Barrios on 18-01-2975Cczlg Strep (POC)[facility] COVID/FLU/RSV RT-PCRon 58-64-0389WZNP-CoV-2 (COVID-19) RNA DAMIEN+probe Ql (Unsp spec)NegativeRives Junction [facility] Other COVID/FLU/RSV RT-PCRPositiveNopemiscot memorial health systems [facility] Other COVID/FLU/RSV RT-PCRNegativeRives Junction [facility] Other Quick Strepon 11-17-2023S. pyogenes Org specific cx Ql (Throat)NegativeRives Junction [facility] Other quick StrepTransGenRx Other COVID/FLU/RSV RT-PCRon 56-31-5279PDWK-CoV-2 (COVID-19) RNA DAMIEN+probe Ql (Unsp spec)PositiveRives Junction [facility] Other COVID/FLU/RSV RT-PCRNegativeRives Junction [facility] Other COVID/FLU RT-PCRon 94-45-8061LHPJ-CoV-2 (COVID-19) RNA DAMIEN+probe Ql (Unsp spec)NegativeRives Junction [facility] Other COVID/FLU RT-PCRNegativeVLN Partners [facility] Other quick Strepon 2S. pyogenes Org specific cx Ql (Throat)NegativeRives Junction [facility] Other Quick StrepTransGenRx Other VIT D 25-OH LABCORPon 23-84-0260Iaitgxq D, 25-Hydroxy 25.7 ng/mLCritically low30.0-100.0The [facility] [address] HospitalComment on above:Result Comment: Vitamin D deficiency has been defined by the [place] of [employer] and an Endocrine Society practice guideline as a level of serum 25-OH vitamin D less than 20 ng/mL (1,2). The Endocrine Society went on to further define vitamin D insufficiency as a level between 21 and 29 ng/mL (2). 1. IOM ([place] of [employer]). 2010. Dietary reference intakes for calcium and D. [place]: The National Academies Press. 2. Lacey MF, Raoul SCHAEFER, Addy PACHECO, et al. Evaluation, treatment, and prevention of vitamin D deficiency: an Endocrine Society clinical practice guideline. JCEM. 2010; 96(7):1911-30.Performed By: #### VITADLC #### [facility] [address] [place] [address] Dr. Kanchan Olvera AUTO DIFFon 65-21-1590CTYI #0.0 103/ulNormal0.0-0.1The [facility] [address] HospitalComment on above:Performed By: #### CBC #### [facility] [address] [place] [address] Dr. Kanchan RamirezBasophils/100 WBC (Bld)0.4 %Normal0.2-2.0[facility] Comment on above:Performed By: #### CBC #### [facility] [address] [address] [address] Kanchan Covarrubias #0.1 103/ulNormal0.0-0.7The [facility] [address] HospitalComment on above: Performed By: #### CBC #### [facility] [address] [place] [address] Dr. Kanchan Garciaosinophils/100 WBC (Bld)1.5 %Normal0.9-7.0The [facility] Comment on above:Performed By: #### CBC #### [facility] [address] [place] [address] Dr. Kanchan Garciarythrocyte distribution width (RBC) [Ratio]12.7 %Vvztwn16.0-15.[address] HospitalComment on above:Performed By: #### CBC #### [facility] [address] [place] [address] Dr. Kanchan RamirezHematocrit (Bld) [Volume fraction]40.4 %Yxwkfc99.0-48.0The [facility] HospitalComment on above:Performed By: #### CBC #### [facility] [address] [address] [address] Kanchan RamirezHemoglobin (Bld) [Mass/Vol]13.6 g/eLDmqhbb82.0-16.0The [facility] [address] HospitalComment on above:Performed By: #### CBC #### [facility] [address] [place] [address] Dr. Kanchan Guerra #0.02 10e3/ulNormal0.00-0.03The [facility] [address] HospitalComment on above:Performed By: #### CBC #### [facility] [address] [place] [address] Dr. Kanchan Guerra %0.2 %Normal0.0-0.5The [facility] [address] HospitalComment on above: Performed By: #### CBC #### [facility] [address] [place] [address] Dr. Kanchan Leigh #3.4 103/ulNormal1.2-3.8The [facility] [address] HospitalComment on above:Performed By: #### CBC #### [facility] [address] [place] [address] Dr. Kanchan Urenahocytes/100 WBC (Bld)37.5 %Iawerr20.5-60.0The [facility] [address] HospitalComment on above:Performed By: #### CBC #### [facility] [address] [place] [address] Dr. Kanchan HenriquezUAL DIFF REQNONormalThe Wilson Street HospitalComment on above: Performed By: #### CBC #### [facility] [address] [place] [address] Dr. Kanchan Tran (RBC) [Entitic mass]30.4 hkYoiqvf75.7-34.0The [facility] [address] HospitalComment on above:Performed By: #### CBC #### [facility] [address] [place] [address] Dr. Kanchan Tran (RBC) [Mass/Vol]33.7 g/wIOdosvw21.9-35.2The [facility] [address] HospitalComment on above:Performed By: #### CBC #### [facility] [address] [address] [address] Kanchan TranV (RBC) [Entitic vol]90.2 wUKuhodb07.0-99.0The [facility] [address] HospitalComment on above:Performed By: #### CBC #### [facility] [address] [address] [address] Kanchan Patel #0.7 103/ulNormal0.3-0.8The [facility] [address] HospitalComment on above:Performed By: #### CBC #### [facility] [address] [place] [address] Dr. Kanchan Mitchellocytes/100 WBC (Bld)7.9 %Normal1.7-12.0The [facility] on above:Performed By: #### CBC #### [facility] [address] [place] [address] Dr. Kanchan Calloway #4.8 103/ulNormal1.4-6.5The [facility] on above:Performed By: #### CBC #### [facility] [address] [place] [address] Dr. Kanchan Pozoutrophils/100 WBC (Bld)52.5 %Bqgfxn28.0-75.0The [facility] on above:Performed By: #### CBC #### [facility] [address] [place] [address] Dr. Kanchan Larrylet mean volume (Bld) [Entitic vol]11.7 fLNormal9.5-13.5The [facility] Hospitalment on above:Performed By: #### CBC #### [facility] [address] [place] [address] Dr. Kanchan RamirezPLT260 103/uwIqzphq574-240Uog [facility] Hospitalment on above: Performed By: #### CBC #### [facility] [address] [place] [address] Dr. Kanchan RamirezRBC4.48 106/ulNormal4.20-5.40The [facility] Hospitalment on above:Performed By: #### CBC #### [facility] [address] [address] [address] Kanchan RamirezWBC9.1 103/ulNormal4.0-11.0The [facility] on above: Performed By: #### CBC #### [facility] [address] [address] [address] Kanchan RamirezDIRECT LDLon 73-64-1242Lnsgkijfsdp in LDL [Mass/Vol]116 mg/dL NormalThe Wilson Street HospitalComment on above:Performed By: #### DLDL, LIPID, TSH, LIVER, BMP #### [facility] [address] [address] [address] Kanchan RamirezDLDL NORMALSEE [facility] MemorialComasc[facility] on above: Result Comment: <100 mg/dl OPTIMAL 100 - 129 mg/dl NEAR OR ABOVE OPTIMAL 130 - 159 mg/dl BORDERLINE HIGH 160 - 189 mg/dl HIGH >190 mg/dl VERY HIGHPerformed By: #### DLDL, LIPID, TSH, LIVER, BMP #### [facility] [address] [address] [address] Kanchan RamirezGLYCOHEMOGLOBIN A1Con 53-79-2563LCW RECOMMENDATIONADA THERAPEUTIC TARGET 6.0 - 7.0 ACTION SUGGESTED > 7.0NoSelect Medical Specialty Hospital [facility] on above:Performed By: #### A1C #### [facility] [address] [address] [address] Kanchan RamirezGlucose [Mass/Vol]114 mg/dLWestern Reserve Hospital on above:Performed By: #### A1C #### [facility] [address] [address] [address] Kanchan RamirezHbA1c (Bld) [Mass fraction]5.6 %Normal<=6.0[facility] Comment on above:Performed By: #### A1C #### [facility] [address] [address] [address] Kanchan RamirezLIPID PROFILEon 39-83-0460NNJU-HDL RATIO NORMSEE [facility] on above:Result Comment: 3.3 - 4.4 LOW RISK 4.4 - 7.1 AVERAGE RISK 7.1 - 11.0 MODERATE RISK >11.0 HIGH RISKPerformed By: #### DLDL, LIPID, TSH, LIVER, BMP #### [facility] [address] [address] [address] Kanchan RamirezCholesterol [Mass/Vol]219 mg/dLCritically high<=200[facility] on above:Performed By: #### DLDL, LIPID, TSH, LIVER, BMP #### [facility] [address] [address] [address] Kanchan RamirezCholesterol in HDL [Mass/Vol]38 mg/dLWilson Street Hospital Comment on above:Performed By: #### DLDL, LIPID, TSH, LIVER, BMP #### [facility] [address] [place] [address] Dr. Kanchan Aquinoesterjacky.total/Cholesterol in HDL [Mass ratio]5.8 {ratio} NormalDunlap Memorial Hospital on above:Performed By: #### DLDL, LIPID, TSH, LIVER, BMP #### [facility] [address] [place] [address] Dr. Kanchan Null NORMAL> or = 60 mg/dl - LOW CARDIOVASCULAR RISK <40 mg/dl - HIGH CARDIOVASCULAR RISKWestern Reserve Hospital on above:Performed By: #### DLDL, LIPID, TSH, LIVER, BMP #### [facility] [address] [place] [address] Dr. Kanchan RamirezLDL CALC NORMALSEE [facility]Com[facility] on above:Result Comment: <100 mg/dl OPTIMAL 100 - 129 mg/dl NEAR OR ABOVE OPTIMAL 130 - 159 mg/dl BORDERLINE HIGH 160 - 189 mg/dl HIGH >190 mg/dl VERY HIGH Performed By: #### DLDL, LIPID, TSH, LIVER, BMP #### [facility] [address] [place] [address] Dr. Kanchan RamirezTriglyceride [Mass/Vol]457 mg/dLCritically high<=150The [facility] HospitalComment on above:Performed By: #### DLDL, LIPID, TSH, LIVER, BMP #### [facility] [address] [address] [address] Kanchan FreemanLDL CALC91.4 mg/dLNormalThe [facility] Hospitalment on above: Performed By: #### DLDL, LIPID, TSH, LIVER, BMP #### [facility] [address] [address] [address] Kanchan Tabor PROFILEon 11-53-8166Aeluyhw [Mass/Vol]3.7 g/dLNormal3.5-5.[address] HospitalComment on above:Performed By: #### DLDL, LIPID, TSH, LIVER, BMP #### [facility] [address] [place] [address] Dr. Kanchan RamirezAlbumin/Globulin [Mass ratio]1.0 {ratio}NormalThe [facility] on above:Performed By: #### DLDL, LIPID, TSH, LIVER, BMP #### [facility] [address] [place] [address] Dr. Kanchan Allen [Catalytic activity/Vol]65 U/QAyxheq49-114Xtw [facility] on above:Performed By: #### DLDL, LIPID, TSH, LIVER, BMP #### [facility] [address] [address] [address] Kanchan Maier [Catalytic activity/Vol]15 U/LNormal9-52The [facility] on above:Performed By: #### DLDL, LIPID, TSH, LIVER, BMP #### [facility] [address] [address] [address] Kanchan Holland [Catalytic activity/Vol]20 U/BJrxpow05-58Grs [facility] Hospitalment on above:Performed By: #### DLDL, LIPID, TSH, LIVER, BMP #### [facility] [address] [address] [address] Kanchan Lin, CONJUGATED<0.0Ogysxf2.0-0.3The [facility] Hospitalment on above:Performed By: #### DLDL, LIPID, TSH, LIVER, BMP #### [facility] [address] [address] [address] Kanchan RamirezBilirubin [Mass/Vol]0.2 mg/dLNormal0.2-1.3The [facility] Comment on above:Performed By: #### DLDL, LIPID, TSH, LIVER, BMP #### [facility] [address] [address] [address] Kanchan RamirezGlobulin (S) [Mass/Vol]3.6 g/dLNormalThe [facility] Street HospitalComment on above:Performed By: #### DLDL, LIPID, TSH, LIVER, BMP #### [facility] [address] [place] [address] Dr. Kanchan RamirezProtein [Mass/Vol]7.3 g/dLNormal6.1-8.2[facility] Comment on above:Performed By: #### DLDL, LIPID, TSH, LIVER, BMP #### [facility] [address] [place] [address] Dr. Kanchan RamirezPROF CHEM 8 (BAS METB)on 08-00-6692Aplgt gap [Moles/Vol]14.8 mmol/LNormalOhio State Harding HospitalComment on above:Performed By: #### DLDL, LIPID, TSH, LIVER, BMP #### [facility] [address] [place] [address] Dr. Kanchan RamirezCalcium [Mass/Vol]8.9 mg/dLNormal8.4-10.2[facility] Comment on above:Performed By: #### DLDL, LIPID, TSH, LIVER, BMP #### [facility] [address] [place] [address] Dr. Kanchan RamirezChloride [Moles/Vol]103 mmol/FQnjvwv17-544Gif [facility] Comment on above:Performed By: #### DLDL, LIPID, TSH, LIVER, BMP #### [facility] [address] [place] [address] Dr. Kanchan RamirezCO2 [Moles/Vol]23.7 mmol/CNfutgy19.0-30.0The [facility] Comment on above:Performed By: #### DLDL, LIPID, TSH, LIVER, BMP #### [facility] [address] [address] [address] Kanchan RamirezCreatinine [Mass/Vol]0.88 mg/dLNormal0.52-1.04The [facility] [address] HospitalComment on above:Performed By: #### DLDL, LIPID, TSH, LIVER, BMP #### [facility] [address] [place] [address] Dr. Kanchan GarciaGFR-AF ANDORRAN>60Normal>=60The [facility] HospitalComment on above:Performed By: #### DLDL, LIPID, TSH, LIVER, BMP #### [facility] [address] [place] [address] Dr. Kanchan GarciaGFR-NON AF ANDORRAN>60Normal>=60The [facility] [address] HospitalComment on above:Performed By: #### DLDL, LIPID, TSH, LIVER, BMP #### [facility] [address] [place] [address] Dr. Kanchan RamierzGlucose [Mass/Vol]128 mg/dLCritically rjpw59-579Yjj [facility] Hospitalment on above:Performed By: #### DLDL, LIPID, TSH, LIVER, BMP #### [facility] [address] [place] [address] Dr. Kanchan RamirezPotassium [Moles/Vol]3.5 mmol/LNormal3.4-5.0[facility] Comment on above:Performed By: #### DLDL, LIPID, TSH, LIVER, BMP #### [facility] [address] [place] [address] Dr. Kanchan RamirezSodium [Moles/Vol]138 mmol/KEalbud229-454XgqOhio State Harding Hospital Comment on above:Performed By: #### DLDL, LIPID, TSH, LIVER, BMP #### [facility] [address] [place] [address] Dr. Kanchan RamirezUrea nitrogen [Mass/Vol]16.0 mg/dLNormal7.0-17.0[address] [facility] [address] HospitalComment on above:Performed By: #### DLDL, LIPID, TSH, LIVER, BMP #### [facility] [address] [address] [address] Kanchan RamirezUrea nitrogen/Creatinine [Mass ratio]18.2 mg/mgWilson Street HospitalComascension [facility] on above:Performed By: #### DLDL, LIPID, TSH, LIVER, BMP #### [facility] [address] [address] [address] Kanchan Mccabe 18-27-5613QXC4.244 uIU/mLNormal0.470-4.680[facility] HospitalComascension [facility] on above:Performed By: #### DLDL, LIPID, TSH, LIVER, BMP #### [facility] [address] [place] [address] Dr. Kanchan LanderosThe [facility] HospitalComment on above: Result Comment: <0.34 UIU/ml HYPERTHYROID 0.34-5.60 UIU/ml EUTHYROID >5.60 UIU/ml HYPOTHYROIDPerformed By: #### DLDL, LIPID, TSH, LIVER, BMP #### [facility] [address] [place] [address] Dr. Kanchan Ramirez Vital Signs Date TimeVital SignValuePerforming RnzipzntzLghjkpem63-12-6139 09:25-0400Body qoooln639.64 cmJaun Sultana MD Work Phone: [phone]10-16-2025 09:25-0400 Body mass index (BMI) [Ratio]34.8 kg/m2Jaun Sultana MD Work Phone: [phone]10-16-2025 09:25-0400 Body bdyycxpcuhz82.8 [degF]Jaun Sultana MD Work Phone: [phone] [place], [place] [address]10-16-2025 09:25-0400 Body czhram21.97 kgJaun Sultana MD Work Phone: [phone]10-16-2025 09:25-0400 Diastolic blood iltzptul68 mm[Hg]Jaun Sultana MD Work Phone: [facility]10-16-2025 09:25-0400 Heart rate81 /minJaun Sultana MD Work Phone: [facility]10-16-2025 09:25-0400 Respiratory rate20 /minJaun Sultana MD Work Phone: [facility]10-16-2025 09:25-0400 SaO2% (BldA) [Mass fraction]97 %Jaun Sultana MD Work Phone: [facility]10-16-2025 09:25-0400 Systolic blood rdwwobxb080 mm[Hg]Jaun Sultana MD Work Phone: [phone]10-13-2025 13:53-0400 Body mass index (BMI) [Ratio]34.82 kg/x0Fgqwx Rina DO Work Phone: [phone] [place], [place] [address]Ygybvtxltv90-57-0379 13:53-0400Body dvuflu71.86 kgCorey Rina DO Work Phone: [phone] [place], [place] [address]Uuibpzzjky61-11-2416 13:53-0400Diastolic blood qxzaxres07 mm[Hg]Kevin Rina DO Work Phone: [phone] [place], [place] [address]Pmircdrncq44-03-1016 13:53-0400Systolic blood afagrxga168 mm[Hg]Kevin Rina DO Work Phone: [phone] [place], [place] [address]Yreljpudie00-52-5061 14:00-0400Body mass index (BMI) [Ratio]36.48 kg/k1Xdyie Rina DO Work Phone: [phone] [place], [place] [address]Vmetatfvkv88-61-0581 14:00-0400Body pkjnyd510.51 kgCorey Rina DO Work Phone: [phone]-[facility] HospitalGwktkpsxrk23-56-8997 14:00-0400Diastolic blood mm[Hg]Kevin Rina DO Work Phone: [phone] HospitalPtypolvowq43-12-5482 14:00-0400Systolic blood mm[Hg]Kevin Rina DO Work Phone: [facility] HospitalTikroapxop22-15-6172 09:33-0400Body mass index (BMI) [Ratio]37.04 kg/v5Jkpao Rina DO Work Phone: [facility] HospitalHwihpzuciz12-83-4764 09:33-0400Body .1 kgCorey Rina DO Work Phone: [facility] HospitalPjbtxschim71-22-0314 09:33-0400Diastolic blood uiruwvfk83 mm[Hg]Kevin Rina DO Work Phone: [facility] HospitalIftogwxhao11-64-9717 09:33-0400Systolic blood umywnilj030 mm[Hg]Kevin Rina DO Work Phone: [facility] HospitalArbtthfgyx99-02-4805 14:29-0400Body kucgst438.64 cmJaun Sultana MD Work Phone: [phone] [place], [place] 4610408-21-2025 14:29-0400 Body mass index (BMI) [Ratio]37.1 kg/m2Jaun Sultana MD Work Phone: [facility]08-21-2025 14:29-0400 Body .32 kgJaun Sultana MD Work Phone: [phone]-[facility] [facility] 09:05-0400 Body .6 cmJaun Sultana MD Work Phone: [facility] HospitalYizzopxcmi73-86-5056 09:05-0400Body mass index (BMI) [Ratio]39.22 kg/m2Jaun Sultana MD Work Phone: [facility] HospitalIkgntzmrkp71-54-9559 09:05-0400Body temperature 97.5 [degF]Jaun Sultana MD Work Phone: [facility] HospitalJlttdewrut99-07-9519 09:05-0400Body hfyfvh998.22 kgJaun Sultana MD Work Phone: [facility] HospitalEmdzrlrvfq54-01-2028 09:05-0400Diastolic blood mjgjuljs61 mm[Hg]Jaun Sultana MD Work Phone: [facility] HospitalRknakzfurl25-59-3709 09:05-0400Heart rate62 /min Jaun Sultana MD Work Phone: [facility] HospitalAfzzpkqiiw96-90-7014 09:05-0400Respiratory rate22 /minJaun Sultana MD Work Phone: [facility] HospitalYerjwjmfra03-77-4184 09:05-3233CkL4% (BldA) [Mass fraction]97 %Jaun Sultana MD Work Phone: [facility] HospitalEhqmnyedsi52-69-9737 09:05-0400Systolic blood ukcybyud130 mm[Hg]Jaun Sultana MD Work Phone: [facility] HospitalJdsilynmzi32-16-5154 09:21-0400Body shjagu815.64 [facility] 09:21-0400Body mass index (BMI) [Ratio]38.3 kg/z1HrxqxdyyuElyria [facility]04-26-2025 09:21-0400Body vzwtepvyfpj36.6 [degF][facility]04-26-2025 09:21-0400Body duczcd137.72 kg[facility]04-26-2025 09:21-0400Diastolic blood mm[Hg][facility]04-26-2025 09:21-0400 Heart rate77 /[facility]04-26-2025 09:21-0400 Respiratory rate18 /[facility]04-26-2025 09:21-0400 SaO2% (BldA) [Mass fraction]98 %[facility]04-26-2025 09:21-0400Systolic blood dixqaxbg062 mm[Hg][facility] 11-22-2024 14:45-0500Body jaipfp742.64 [facility] 11-22-2024 14:45-0500Body mass index (BMI) [Ratio]37.1 kg/b4BprkzcmngElyria [facility]02-06-2025 14:45-0500Body eifjtg703.5 [facility]12-13-2024 11:24-0500Body idyauasrpks66.1 [degF][facility]12-13-2024 11:24-0500Diastolic blood eubbbulq25 mm[Hg][facility]12-13-2024 11:24-0500Heart rate80 /[facility]12-13-2024 11:24-0500Respiratory rate18 /[facility]12-13-2024 11:24-1721UoN8% (BldA) [Mass fraction]99 %[facility]12-13-2024 11:24-0500Systolic blood euvikjdk514 mm[Hg] [facility]12-02-2024 10:31-0500Body efdqpy542.64 cm [facility]12-02-2024 10:31-0500Body mass index (BMI) [Ratio]37.1 kg/z2ZmsubankfElyria Memorial Hospital12-02-2024 10:31-0500Body xotkmvwqdad15.5 [degF][facility]12-02-2024 10:31-0500Body utpjux820.49 kg[facility]12-02-2024 10:31-0500Diastolic blood zdolkyhp81 mm[Hg][facility]12-02-2024 10:31-0500 Heart rate78 /[facility]12-02-2024 10:31-0500 Respiratory rate18 /[facility]12-02-2024 10:31-0500 SaO2% (BldA) [Mass fraction]98 %[facility]12-02-2024 10:31-0500Systolic blood ggsegkpd084 mm[Hg][facility] 08-14-2024 15:15-0400Body aqpadd696.6 cmJaun Sultana MD Work Phone: [facility] HospitalQznijriivl76-07-0637 15:15-0400Body mass index (BMI) [Ratio]36.8 kg/m2Jaun Sultana MD Work Phone: [facility] HospitalDvixkjdpov59-74-1914 15:15-0400Body temperature 97.81 [degF]Jaun Sultana MD Work Phone: [facility] HospitalHjidrsutph12-77-6703 15:15-0400Body fujrpa573.42 kgJaun Sultana MD Work Phone: [place] [address]Vxstwedpst30-90-4725 15:15-0400Diastolic blood rajuienf00 mm[Hg]Jaun Sultana MD Work Phone: [place] [address]Cewycnzezi76-23-4205 15:15-0400Heart rate73 /min Jaun Sultana MD Work Phone: [place] [address]Qncczlpjku27-22-7676 15:15-0400Respiratory rate22 /minJaun Sultana MD Work Phone: [place] [address]Lwpkcfdbee36-03-6775 15:15-3219DfI1% (BldA) [Mass fraction]96 %Jaun Sultana MD Work Phone: [place] [address]Jnamdjgpkq47-64-9755 15:15-0400Systolic blood qsqiqdqb242 mm[Hg]Jaun Sultana MD Work Phone: [facility] HospitalXkjmhvutff36-59-2735 15:04-0400Body .6 cmNicole Tamir DO Work Phone: noP[facility] HospitalQyxetjebzw32-22-3226 15:04-0400Body mass index (BMI) [Ratio]37.12 kg/e8Gpnogx Tamir DO Work Phone: noP[facility] HospitalQhfyoaejrb38-46-6664 15:04-0400Body lubddy889.33 kgNicole Tamir DO Work Phone: noP[facility] HospitalYpgheiqhkg22-67-2293 15:04-0400Diastolic blood hoeaosoj035 mm[Hg]Kinsey Tamir DO Work Phone: noP[facility] HospitalNmffmyyllq61-49-1852 15:04-0400Heart rate78 /min Kinsey Tamir DO Work Phone: [place] [address]Wxfttqcngl13-21-4424 15:04-0874XbU4% (BldA) [Mass fraction]96 %Kinsey Garnett DO Work Phone: [facility] HospitalPssmxwffhd08-34-2072 15:04-0400Systolic blood mxzxrujf506 mm[Hg]Kinsey Garnett DO Work Phone: [facility] HospitalQvpqaehtvm91-99-8580 14:58-0400Body .64 [facility]04-15-2024 14:58-0400Body mass index (BMI) [Ratio]35.9 kg/s6DguaalrmlElyria [facility] Hospital04-15-2024 14:58-0400Body .81 kg[facility]04-15-2024 14:58-0400Diastolic blood uqzycjrw46 mm[Hg][facility]04-15-2024 14:58-0400 Systolic blood igyjzpny461 mm[Hg][facility]02-01-2024 11:00-0500Body tukrtk608.64 cmAhelen Odom Other [facility]02-01-2024 11:00-0500 Body mass index (BMI) [Ratio]34.21 kg/u7AkrzoAllison Odom Other [employer] Other 395410-42-5106 11:00-0500Body .6 [degF]Allison Odom Other [employer] Other 02-01-2024 11:00-0500Body rwooxx73.16 kgAllison Odom Other [facility]02-01-2024 11:00-0500 Respiratory rate18 /minAllison Odom Other [employer] Other 02-01-2024 11:00-9881VeB3% (BldA) [Mass fraction]98 % Allison Odom Other [employer] Other 01-10-2023 17:15-0500Body pafmzm509.64 cmSeusebio Jang Other [employer] Other 01-10-2023 17:15-0500Body mass index (BMI) [Ratio] 33.89 kg/h9Nmsvbqvvpcrow Jang Other [employer] Other 01-10-2023 17:15-0500Body jdtriotxwgi93.7 [degF] Santa Jang Other [employer] Other 01-10-2023 17:15-0500Body .26 kgStcrow Jang Other [employer] Other 01-10-2023 17:15-0500Respiratory rate18 /minSeusebio Jang Other [employer] Other 01-10-2023 17:15-9986WaT1% (BldA) [Mass fraction]97 % Santa Jang Other [employer] Other 01-05-2023 16:30-0500Body .64 Braden Giles Other [employer] Other 01-05-2023 16:30-0500Body mass index (BMI) [Ratio] 33.57 kg/h0Pzddgmukomar Giles Other [employer] Other 01-05-2023 16:30-0500Body fdiytr30.35 kgLanish Giles Other [employer] Other 01-05-2023 16:30-0500Diastolic blood iiptpcsg29 mm[Hg] David Tisha Other [employer] Other 01-05-2023 16:30-0500Systolic blood isvzvujo641 mm[Hg] David Tisha Other [employer] Other 10-07-2022 11:30-0400Body rryigo780.64 cmAmbnga Odom Other [employer] Other 10-07-2022 11:30-0400Body mass index (BMI) [Ratio] 33.08 kg/f7UaknyAllison Odom Other [employer] Other 10-07-2022 11:30-0400Body vnyadtpxybm94.7 [degF]Allison Odom Other [employer] Other 10-07-2022 11:30-0400Body nxtids46.99 kgAllison Odom Other [employer] Other 10-07-2022 11:30-0400Respiratory rate18 /minAllison Odom Other [employer] Other 10-07-2022 11:30-1752RzP5% (BldA) [Mass fraction]97 % Allison Odom Other [employer] Other 06-30-2022 16:30-0400Body .64 Braden Giles Other [employer] Other 06-30-2022 16:30-0400Body mass index (BMI) [Ratio] 32.92 kg/e9Xejzfjzdnish Giles Other [employer] Other 06-30-2022 16:30-0400Body rjruit16.53 kgLanish Giles Other [employer] Other 03-29-2022 16:45-0400Body .64 Tiffanyrosi Giles Other [employer] Other 03-29-2022 16:45-0400Body mass index (BMI) [Ratio] 33.25 kg/f3Zkgihyrjnish Giles Other [employer] Other 03-29-2022 16:45-0400Body oqolvj97.44 kgLanish Giles Other [employer] Other 01-06-2022 11:25-0500Body ujlstx516.64 cmCradha Serra Other [employer] Other 01-06-2022 11:25-0500Body mass index (BMI) [Ratio] 33.08 kg/k6ZdsejrShantell Serra Other [employer] Other 01-06-2022 11:25-0500Body ssjsobretfj36 [degF]Shantell Serra Other [employer] Other 01-06-2022 11:25-0500Body anrlff07.99 kgShantell Serra Other [employer] Other 01-06-2022 11:25-0500Diastolic blood mm[Hg] Shantell Serra Other [employer] Other 01-06-2022 11:25-5945SbJ0% (BldA) [Mass fraction]98 % Shantell Serra Other [employer] Other 01-06-2022 11:25-0500Systolic blood ehbcifoa502 mm[Hg] Shantell Serra Other [employer] Other 11-30-2021 16:30-0500Body .64 cmLawjc Giles Other [employer] Other 11-30-2021 16:30-0500Body mass index (BMI) [Ratio] 33.08 kg/t7Zhhpgqefnish Giles Other [employer] Other 11-30-2021 16:30-0500Body .99 kgLawromar Giles Other [employer] Other Encounters Encounter DateEncounter TypeCare ProviderFacilityStart: 08-05-2025 End: 98-12-3822Kvayvo-up encounter[address] - Pharmacy Medication ManagementComment on above:Stenosis of prosthetic aortic valve, subsequent encounter (Primary Dx); S/P AVRStart: 08-05-2025 End: 68-16-6381njkpdndujfLIWEGZYZN PHARMACY MEDICATION MANAGEMENTLancaster Municipal Hospitaltart: 08-01-2025 End: 69-80-1187nbivzyhnhwJxgs Naderer MD Work Phone: [facility] Work Phone: Start: 08-01-2025 End: 92-52-5506Elnshlm encounter procedureJaun Sultana MD-[facility] Work Phone: Start: 07-29-2025 End: 70-89-2407Xjibfm flowsheetCorey Rina DO Work Phone: [facility] OBGYNStart: 07-29-2025 End: 63-63-4574Kowxxq flowsheetCorey Rina DO Work Phone: n[facility] Ron OBGYNStart: 07-29-2025 End: 82-52-2064Aaibnmid Result EncounterCorey Rina DO Work Phone: NOUP External Department UnsolicitedStart: 07-29-2025 End: 13-68-3188Icbyiqa encounter procedureCorey Rina DO Work Phone: NOYM HealthcareStart: 07-29-2025 End: 20-39-4934Podyuaeu preventive med est patient 40-64yrsCorey Rina DO Work Phone: noms Ron OBGYNComment on above:Well woman exam with routine gynecological exam; Encounter for screening mammogram for malignant neoplasm of breast; Postmenopausal stateStart: 07-29-2025 End: 07-79-8238exbdansszvULOIK FAZIONot AvailableStart: 07-29-2025 End: 69-57-6094Afqfwrur ReferredCorey Rina-LAB Path Spec Ron HospStart: 07-05-2025 End: 41-95-6325Dfrfjd-up encounter[address] - Pharmacy Medication ManagementComment on above:Stenosis of prosthetic aortic valve, subsequent encounter (Primary Dx); S/P AVRStart: 07-05-2025 End: 01-39-2776klfonhwfhfLZMOCASXA PHARMACY MEDICATION MANAGEMENTC[facility] HospitalStart: 06-24-2025 End: 30-71-4099Tumvdyb encounter procedureCorey Rina DO Work Phone: noms Ron OBGYNComment on above:Encounter for removal and reinsertion of intrauterine contraceptive device (IUD); Encounter for insertion of Mirena IUD; Encounter for IUD removalStart: 06-24-2025 End: 74-08-3072tdbtispydqQQLSY FAZIONot AvailableStart: 06-19-2025 End: 79-51-8317Eyumja-up encounter[address] - Pharmacy Medication ManagementComment on above:Stenosis of prosthetic aortic valve, subsequent encounter (Primary Dx); S/P AVRStart: 06-19-2025 End: 77-94-8076diphoyzwfyOMUXNQRWF PHARMACY MEDICATION MANAGEMENTProMem[facility] HospitalStart: 06-11-2025 End: 69-27-6107Ezuniq flowsheetCorey Rina DO Work Phone: [facility] Ron OBGYNStart: 06-11-2025 End: 57-96-8385Oyzaeq flowsheetCorey Rina DO Work Phone: [facility] [place] OBGYNStart: 06-11-2025 End: 35-32-1896Vcwdql outpatient new 20 minutesCorey Rina DO Work Phone: NOIF [place] OBGYNComment on above:Intrauterine device surveillance; Yeast infectionStart: 06-11-2025 End: 06-55-6074stgqpvbhxvMKICD FAZIONot AvailableStart: 06-06-2025 End: 22-92-8802rlikbupewtTtqc Naderer MD Work Phone: [facility] Work Phone: Start: 06-06-2025 End: 39-98-8611Titdwkk encounter procedureCatherSouth [facility] Work Phone: Start: 05-22-2025 End: 12-64-2026UpfiacBdkpgjdw Schlosser APRN-S[employer]GEANT [employer]IC[employer] Work Phone: [facility] CardiologyComment on above:Med RefillStart: 05-21-2025 End: 76-57-7798Bsgary-up encounter[address] - Pharmacy Medication ManagementComment on above:Stenosis of prosthetic aortic valve, subsequent encounter (Primary Dx); S/P AVRStart: 05-21-2025 End: 28-96-8122yomnptjxjmOAXVGNABA PHARMACY MEDICATION MANAGEMENTC[facility] Clinic [facility] HospitalStart: 05-02-2025 End: 35-89-3112Jojtzstuu Result EncounterJaun Sultana MD Work Phone: noms External Department UnsolicitedStart: 05-02-2025 End: 09-24-9926Envkkxtuv Result EncounterJaun Sultana MD Work Phone: noms External Department UnsolicitedStart: 05-01-2025 End: 44-95-5680Ucgfto flowsheetJaun Sultana MD Work Phone: noms CWM FMStart: 05-01-2025 End: 37-41-9978Uebuoh Wandy Sultana MD Work Phone: noms CWM FMStart: 05-01-2025 End: 84-44-7063Kdlylm outpatient visit 25 minutesJaun Sultana MD Work Phone: noms CWM FMComment on above:Prediabetes (Primary Dx); Insulin resistance; Annual physical exam; Obstructive sleep apnea (adult) (pediatric); Crohn's disease of both small and large intestine without complications (HCC) Start: 05-01-2025 End: 86-01-2870Fddkawc encounter procedureJaun Sultana MD Work Phone: noms HealthcareStart: 05-01-2025 End: 04-03-6091abmtxqxdvcKPAR NADERERNot AvailableStart: 04-04-2025 End: 77-74-7741Bgddvm-up encounter[address] - Pharmacy Medication ManagementComment on above:Stenosis of prosthetic aortic valve, subsequent encounter (Primary Dx); S/P AVRStart: 04-04-2025 End: 72-24-8247jhpzbzxrujWXSSSKSTI PHARMACY MEDICATION MANAGEMENTLancaster Municipal Hospitaltart: 03-18-2025 End: 04-90-2154Yvufbo Brandon Jacobs [facility] Work Phone: [phone] - Pharmacy Medication ManagementComment on above:S/P AVR (Primary Dx); Stenosis of prosthetic aortic valve, subsequent encounterStart: 03-14-2025 End: 48-78-7742Jyoyze-up encounterPm[address] - Pharmacy Medication ManagementComment on above:Stenosis of prosthetic aortic valve, subsequent encounter (Primary Dx)Start: 03-14-2025 End: 60-95-2267qfaawvfipfCZDXNJORC PHARMACY MEDICATION MANAGEMENTLancaster Municipal Hospitaltart: 02-13-2025 End: 06-84-5095vwqwmlscdeMYIZTRZGP PHARMACY MEDICATION MANAGEMENTLancaster Municipal Hospitaltart: 02-13-2025 End: 71-40-4882Cosvzl-up encounterPm[address] - Pharmacy Medication ManagementComment on above:Stenosis of prosthetic aortic valve, subsequent encounter (Primary Dx)Start: 02-09-2025 End: 71-48-0663nbqnnwfrskWkzggyfjqMer[facility] Work Phone: Start: 02-09-2025 End: 57-53-2373Vlftkua encounter procedureCritical Access [facility] Work Phone: Start: 01-15-2025 End: 98-19-8281Gcbfsd-up encounterPm[address] - Pharmacy Medication ManagementComment on above:Stenosis of prosthetic aortic valve, subsequent encounter (Primary Dx)Start: 01-15-2025 End: 52-71-4743abvdomsxbnPAXLYJPVB PHARMACY MEDICATION MANAGEMENTLancaster Municipal Hospitaltart: 01-14-2025 End: 70-29-6405NvlornYocrboxtJesus Starr APRN-LOUIE Work Phone: [facility] CardiologyComment on above:Med RefillStart: 01-10-2025 End: 58-60-4326Sdrunvvvo encounterCatProMedica [facility] - Pharmacy Medication ManagementStart: 12-24-2024 End: 67-62-8894Bwmgro-up encounterPm[address] - Pharmacy Medication ManagementComment on above:Stenosis of prosthetic aortic valve, subsequent encounter (Primary Dx)Start: 12-24-2024 End: 51-75-9231imsbfgmpupAMQAAGUJS PHARMACY MEDICATION MANAGEMENTLancaster Municipal Hospitaltart: 12-03-2024 End: 39-28-7012Jfdozp-up encounterPm[address] Medication ManagementComment on above:Stenosis of prosthetic aortic valve, subsequent encounter (Primary Dx)Start: 12-03-2024 End: 78-77-9295typrrectpfQXSSXGRXO PHARMACY MEDICATION MANAGEMENTLancaster Municipal Hospitaltart: 11-29-2024 End: 87-53-8077VrzazlHzkf Naderer MD Work Phone: [facility] FMComment on above:VIKI (generalized anxiety disorder) ([facility])Start: 11-22-2024 End: 86-72-7145ubddhocdupQjnekwfmrUniversity Hospitals Beachwood [facility] Work Phone: Start: 11-22-2024 End: 68-24-4535Jhrsgjb encounter [facility] Work Phone: Start: 10-22-2024 End: 61-66-7744tewkpydrwhIPKORJJLM PHARMACY MEDICATION MANAGEMENTLancaster Municipal Hospitaltart: 10-22-2024 End: 22-87-1184Wsjiho-up encounterPm Nataliet [address] Medication Therapy ManagementComment on above:Stenosis of prosthetic aortic valve, subsequent encounter (Primary Dx)Start: 10-11-2024 End: 41-87-6454NxfancUrmikwpzWendy Alvarenga APRN-S[employer]GEANT [employer]IC[employer] Work Phone: [facility] CardiologyComment on above:Med RefillStart: 10-08-2024 End: 87-85-4686Nyrzrd-up encounterPm Nataliet [address] Medication Therapy ManagementComment on above:Stenosis of prosthetic aortic valve, subsequent encounter (Primary Dx)Start: 10-08-2024 End: 68-72-2888karwswhkolUBNGDPJOJ PHARMACY MEDICATION MANAGEMENTLancaster Municipal Hospitaltart: 09-28-2024 End: 74-63-4663Xugpwhm encounter procedureFirbattery parkcatarina [facility]ician [facility] Work Phone: Start: 09-27-2024 End: 99-07-0659mbcnltkefkQVXN NADERERPHenry County Hospitaltart: 09-17-2024 End: 84-15-7829Lxtihgi encounter procedureFirsentara [facility] Physician [facility] Work Phone: Start: 08-29-2024 End: 76-29-9253fhktffyiilLWLUJ SERVICECleveland Clinic Hillcrest Hospital HospitalStart: 08-14-2024 End: 31-84-7652Duhqth outpatient visit 25 minutesJaun Sultana MD Work Phone: noms CWM FMComment on above:Essential hypertension (CMS/HCC) (Primary Dx); MDD (major depressive disorder), recurrent episode, mild (HCC) (CMS/HCC); VIKI (generalized anxiety disorder) (CMS/HCC); Bilateral leg edema; Inflamed skin tag; Class 2 severe obesity due to excess calories with serious comorbidity and body mass index (BMI) of36.0 to 36.9 in adult (CMS/HCC); Obstructive sleep apnea (adult) (pediatric)Start: 08-14-2024 End: 27-24-5097zzrsybeitaGBDT NADERERNot AvailableStart: 08-14-2024 End: 01-63-4312Whptykcooper Sultana MD Work Phone: noms CWM FMStart: 08-14-2024 End: 50-30-8294Hejmbbcooper Sultana MD Work Phone: noms CWM FMStart: 07-20-2024 End: 73-01-3818nbmmuyfuoqNIMCYGKN [facility] HospitalStart: 07-18-2024 End: 95-18-1306Kbukqh consultation new/estab patient 60 minNicole Tamir DO Work Phone: noms [facility] ROUTEComment on above:KOLE (obstructive sleep apnea); Hypoxia; Sleep deprivation; Hypersomnia; Snoring; Obesity (BMI 35.0-39.9 without comorbidity)Start: 07-18-2024 End: 98-32-3360Rdjuhs flowsheetNicole Tamir DO Work Phone: NOQB [facility] ROUTEStart: 07-18-2024 End: 37-42-9402Cfzesl flowsheetNicole Tamir DO Work Phone: noms [facility] ROUTEStart: 02-13-2024 End: 64-42-8057xxwvgkhjufGI Jaun Sultana Work Phone: [facility] Work Phone: Start: 02-13-2024 End: 19-72-7976Bxcdqig encounter procedure Jaun Sultana Work Phone: [facility] [place] Work Phone: Start: 01-30-2024 End: 85-68-6357rlslvowvyrOxevoflhlUniversity Hospitals Beachwood [facility] Work Phone: Start: 01-30-2024 End: 34-20-2346Zqwkmpa encounter procedureVijay Physician Group-[facility] Gastroenterology Work Phone: Start: 11-17-2023 End: 93-99-4240etzgodwbicEtybm Keller Other [employer] Other Start: 96-66-4862Tonuwt outpatient visit 25 minutes Allison Alexis [facility] ClydeStart: 11-17-2023 End: 10-81-7096Uqcmeha encounter procedureVijay Physician Group-Start: 10-31-2023 End: 32-75-8679wxyeagofnvYnyvbjma McCormack Other [employer] Other Start: 83-67-1024Hddbxkytn encounterDavid Giles [facility] GastroenterologyStart: 67-25-1357Txitqqg encounter procedureNicole Tamir DO Work Phone: NOGA HealthcareStart: 04-14-2023 End: 02-33-8759jfbpdxoqrgVzumrabs Tisha Other [employer] Other Start: 11-43-6293Wqmvqbphk encounterLawrence Tisha [facility] GastroenterologyStart: 11-15-2022 End: 26-97-2667ckdtntkldbOjvtpcaq Tisha Other [facility] [employer] Other Start: 70-91-1456Paldfbwax encounterLawrence Tisha [facility] GastroenterologyStart: 10-26-2022 End: 78-40-0068vxkmehrlxbGvryapgc Tisha Other [employer] Other Start: 05-60-3767Nozghw outpatient visit 25 minutes Santaricki JangFPG Urgent Care ClydeStart: 23-53-6318Gvvtaxchk encounter David McCormackFPG GastroenterologyStart: 10-21-2022 End: 49-64-5515astapzrexkMqityktk Tisha Other [facility] [employer] Other Start: 56-94-6974Kmzzqig encounter procedureLawrence McCormackFPG GastroenterologyStart: 07-23-2022 End: 11-66-6941ezlnwyrtuyLxedw Keller Other [facility] [employer] Other Start: 67-90-7589Wzqufe outpatient visit 25 minutes Allison OdomFPG Urgent Care ClydeStart: 07-19-2022 End: 39-81-9090syhfewslvrEccpnvfp Tisha Other [employer] Other Start: 98-51-5846Wrclbfwti encounterLawrence Tisha [facility] GastroenterologyStart: 07-14-2022 End: 84-91-8652sfptcvplpeEeitiris Tisha Other [employer] Other Start: 16-75-9258Jcdcuyzrj encounterLawrence Tisha [facility] GastroenterologyStart: 07-02-2022 End: 51-27-4455pjarsnqytaXcyxizrf Tisha Other [employer] Other Start: 81-07-2694Wtyqdipdk encounterLawrence Tisha [facility] GastroenterologyStart: 04-15-2022 End: 34-34-1650ttvumgsxheJvgraumn Tisha Other [employer] Other Start: 99-07-6380Cwrtogo encounter procedureLawrence McCormackFPG GastroenterologyStart: 50-08-2339Ciplohioc encounterLawrence McCormackFPG GastroenterologyStart: 02-09-2022 End: 93-10-5560ttstfqjgluNukihihf Tisha Other [employer] Other Start: 56-91-2523Bcaycjxcu encounterLawrence Tisha [facility] GastroenterologyStart: 01-12-2022 End: 47-33-6651pfluusfozrFjdizqjo Tisha Other [employer] Other Start: 04-51-0993Ojjrey outpatient visit 15 minutes David DongG GastroenterologyStart: 10-22-2021 End: 77-39-0826furkaealfyTptzpr Taylor Other [employer] Other Start: 00-47-4261Sruycq outpatient visit 15 minutes Shantell Stroud [facility] ClydeStart: 06-95-6984Yprpdtwxd for general adult medical examination without abnormal findingsDR JAUN Thornton [facility] Westtart: 10-12-2021 End: 32-07-8541wpqadtkzduHJ JAUN Irene NADERERFacility:P9Rglfa: 10-12-2021 End: 61-16-1823Amtowbqip for general adult medical examination without abnormal findingsDR JAUN Irene NADERERFacility:M5Wyjay: 09-15-2021 End: 02-11-9186eksudignegGpizqcpg Tisha Other [employer] Other Start: 10-67-7758Vykdla outpatient visit 15 minutes David Duncan [facility]astroenter[facility] Procedures DateProcedureProcedure DetailPerforming ClinicianStart: 50-95-3455Mpgmtoynowx timePromedica Pharmacy Medication Management Work Phone: Start: 85-92-8425DTYSWLPMS REQUEST FOR LAB CORPCorey Rina GIBSON Work Phone: Start: 08-21-9435Aczzdkehpgy timePromed[facility] Work Phone: Start: 98-19-3800Ktchunhon intrauterine device iud Sharda Zamora LPNStart: 66-50-5717Hkskwtlozmv timePromedica [facility] Work Phone: Start: 29-65-4220Cxyndbkwzau timePromedica [facility] Work Phone: Start: 99-09-4252RWH CBC WITH AUTO DIFFJaun Sultana MD Work Phone: Start: 69-38-0616Fqaouakadf glycosylated s1lIifsJaun Sultana MD Work Phone: Start: 62-80-9353Qcsmptosald timePromed[facility] Work Phone: Start: 52-14-8914Rhhxaxdmwfu timeProm[facility] Work Phone: Start: 38-23-2935Ztqilpowcmr timeProm[facility] Work Phone: Start: 74-17-7386Zmhjnnslaiz timeProm[facility] Work Phone: Start: 68-44-6172Tfcudabgltr timeProm[facility] Work Phone: Start: 25-39-8645Wazhbzhoigb timePromed[facility] Work Phone: [phone]: 35-43-2532Qtjxzkldnqb timeJobst Service Work Phone: Start: 78-92-3177Fdxzuugcggd timeJobst Service Work Phone: [phone]: 71-34-3969KCOLW Antigen (POC)Start: 09-17-2024 Quick Strep (POC)Start: 55-38-8658Pmusbm-up visitFollow-upMOHAMMED SHUAIBStart: 24-05-2032EdgyeqplnlmYpxfvu Tamir DO Work Phone: Start: 22-89-9974CV of small intestineMD Jaun Sultana Work Phone: Plan of Treatment DateCare ActivityDetailAuthorStart: 10-92-7606Icwndvfmu for malignant neoplasm of colonNOMS HealthcareStart: 08-05-2026 End: 66-56-8741Trboeeb encounter kzndvzrso73/20/2026 2:00 PM EDT Procedure Visit MACI MORENO [address] [place] [address] Kevin Flynn DO [address] [place], [place] [address] MACI AYALAtart: 09-09-2025 End: 66-27-0446Gsbmme-up ybvosthep96/24/2025 11:30 AM EST Follow Up Anticoagulation [facility] - Pharmacy Medication Management [address] [place] [address] KdaXfvyjxSelect [facility] Medication ManagementStart: 08-13-2025 End: 20-82-0543Styhnsu encounter etdkcmonx76/28/2025 9:00 AM EDT Office Visit [facility] Cardiology [address] [place] [address] Robina Lee MD [address] [place] [address] [facility] Physicians CardiologyStart: 08-05-2025 End: 59-38-2412Eeqstc-up djtiodoll36/20/2025 11:00 AM EDT Follow Up Anticoagulation [facility] - Pharmacy Medication Management [address] [place] [address] ZjyTuarkc [facility] - Pharmacy Medication ManagementStart: 94-75-0413Txlnlsteww A1c measurementDiabetes: Hemoglobin Z2MKKJY HealthcareStart: 08-01-2025 End: 59-91-2614Xjskzin encounter /16/2025 9:15 AM EDT Office Visit [facility] [address] [place] [address] Jaun Sultana MD [address] [place] [address] [facility] FMStart: 07-29-2025 End: 01-54-7343TDF Skeletal system Views for bone densityDEXA bone density Imaging Routine Postmenopausal state Expected: 07/29/2025 (Approximate), Expires:07/29/2026NOGA HealthcareComment on above:Expected: 07/29/2025 (Approximate), Expires: 07/29/2026Start: 07-29-2025 End: 26-81-9777IK Breast - bilateral ScreeningBilateral screening mammogram Imaging Routine Encounter for screening mammogram for malignant neoplasm of breast Expected: 07/29/2025, Expires: 09/28/2026[facility] Work Phone: comment on above:Expected: 07/29/2025, Expires: 09/28/2026Start: 07-29-2025 End: 91-16-1339Mmiwkig encounter procedureNOMS Osyka OBGYNComment on above: ArrivedStart: 58-74-2652HhmwqjcwtMartins Ferry Hospitaltart: 59-88-4624Dpbge BMI ScreeningAdult BMI ScreeningMercy Health [facility] Hospital SystemStart: 07-05-2025 End: 51-84-1464Rvupyx-up dtqdcjeeq56/19/2025 11:15 AM EDT Follow Up Anticoagulation [facility] - Pharmacy Medication Management [address] [place] [address] ImwCfuzreMercy Health Tiffin Hospital - Pharmacy Medication ManagementStart: 06-24-2025 End: 90-58-6228Swelpxr encounter hnqsvaoys43/08/2025 1:30 PM EDT Procedure Visit MACI MORENO [address] [place] [address] Kevin Flynn DO [address] [place] [address] MACI [place] OBGYNStart: 06-19-2025 End: 78-92-8124Jnmmge-up ogccpwptv42/03/2025 11:30 AM EDT Follow Up Anticoagulation [facility] - Pharmacy Medication Management [address] [place] [address] CccVphbnrMercy Health Tiffin Hospital - Pharmacy Medication ManagementStart: 53-32-7546TXMFQ-19 Vaccine ( season)COVID-19 Vaccine ( season)[facility] SystemStart: 69-12-5043Ligiclmzg vaccinationMercy Health Lorain Hospital SystemStart: 06-11-2025 End: 28-51-3145Vahhkcq encounter gnrofzoii52/26/2025 9:20 AM EDT Office Visit MACI MORENO [address] [place] [address] Kevin Flynn, [address] [place] [address] ArrivedNOMS [place] OBURIELNComment on above:ArrivedStart: 05-21-2025 End: 11-75-9572Yewzzk-up /05/2025 11:15 AM EDT Follow Up Anticoagulation [facility] - Pharmacy Medication Management [address] [place] [address] PbhJeplujMercy Health Tiffin Hospital - Pharmacy Medication ManagementStart: 05-01-2025 End: 69-12-4436Kytes metabolic 1998 panel - Serum or PlasmaBasic metabolic panel Lab Routine Annual physical exam Expected: 05/01/2025 (Approximate), Expires: 05/01/2026[facility] HealthcareComment on above:Expected: 05/01/2025 (Approximate), Expires: 05/01/2026Start: 05-01-2025 End: 66-64-5380UZM W Auto Differential panel - BloodCBC and differential Lab Routine Annual physical exam Expected: 05/01/2025 (Approximate), Expires: 0 05/01/2026[facility] HealthcareComment on above:Expected: 05/01/2025 (Approximate), Expires: 05/01/2026Start: 05-01-2025 End: 25-38-8697Jtewpaq function 2000 panel - Serum or PlasmaHepatic function panel Lab Routine Annual physical exam Expected: 05/01/2025 (Approximate), Expires: 05/01/2026[facility] HealthcareComment on above:Expected: 05/01/2025 (Approximate), Expires: 05/01/2026Start: 05-01-2025 End: 16-15-4131Eessjkq, fastingInsulin, fasting Lab Routine Insulin resistance Expected: 05/01/2025 (Approximate), Expires: 05/01/2026[facility] Work Phone: Comment on above:Expected: 05/01/2025 (Approximate), Expires: 05/01/2026Start: 05-01-2025 End: 48-06-6063Ghjkv 1996 panel - Serum or PlasmaLipid panel Lab Routine Annual physical exam Expected: 05/01/2025 (Approximate), Expires: 05/01/2026[facility] HealthcareComment on above:Expected: 05/01/2025 (Approximate), Expires: 05/01/2026Start: 05-01-2025 End: 53-50-5171Upmhoobmzxu [Units/volume] in Serum or PlasmaTSH Lab Routine Annual physical exam Expected: 05/01/2025 (Approximate), Expires: 05/01/2026NOPike County Memorial HospitalComment on above:Expected: 05/01/2025 (Approximate), Expires: 05/01/2026Start: 05-01-2025 End: 15-22-8451Ymbtjqc encounter tktvtxjoy32/16/2025 8:45 AM EDT Office Visit [facility] [address] [place] [address] Jaun Sultana MD [address] [place] [address] Lynnette [facility] CENTERComment on above:ArrivedStart: 04-04-2025 End: 24-66-7962Fbqngk-up cnqtnjoww80/19/2025 11:15 AM EDT Follow Up Anticoagulation [facility] Medication Management [address] [place] [address] JqhFlexkbThe [facility] Pharmacy Medication ManagementStart: 03-14-2025 End: 85-56-7879Blveea-up qucxgntcv69/29/2025 11:45 AM EDT Follow Up Anticoagulation [facility] - Pharmacy Medication Management [address] [place] [address] EihUvembrThe [facility] Hospital Pharmacy Medication ManagementStart: 02-13-2025 End: 27-78-4663Tuconr-up ignrgltxy61/30/2025 9:00 AM EDT Follow Up Anticoagulation [facility] Medication Management [address] [place] [address] IahDkcbafThe [facility] Hospital Pharmacy Medication ManagementStart: 02-11-2025 End: 13-93-1715Mmyihbj encounter vqelcsthu25/28/2025 2:45 PM EDT Office Visit [facility] [address] [place] [address] Jaun Sultana MD [address] [place] [address] MEDINACatarina MATTHEW FMStart: 01-15-2025 End: 32-99-4187Lhxngz-up ehzwdvngn86/01/2025 2:15 PM EDT Follow Up Anticoagulation [facility] - Pharmacy Medication Management [address] [place] [address] HvdVknyetThe [facility] Hospital Pharmacy Medication ManagementStart: 01-11-2025 End: 52-91-9061Qlqivf-up ssfeprxvt93/28/2025 2:15 PM EDT Follow Up Anticoagulation [facility] Medication Management [address] [place] [address] AdnMjfkdoThe [facility] Medication ManagementStart: 12-24-2024 End: 07-31-7172Znocxu-up qobirdgdv54/10/2025 2:15 PM EDT Follow Up Anticoagulation [facility] Medication Management [address] [place] [address] YovXelkfdThe [facility] Hospital [facility] Medication ManagementStart: 12-03-2024 End: 23-69-1067Hmrcnr-up ocqlbkzdm51/17/2025 2:15 PM EST Follow Up Anticoagulation [facility] Medication Therapy Management [address] [place] [address] NwcTefpqaWadsworth-Rittman Hospital Medication Therapy ManagementStart: 10-22-2024 End: 17-94-4294Axueys-up ttidboriy83/06/2025 2:15 PM EST Follow Up Anticoagulation [facility] Medication Therapy Management [address] [place] [address] MwhMvwgdpWadsworth-Rittman Hospital Medication Therapy ManagementStart: 2024 Administration of varicella zoster vaccineZoster (Shingles) Vaccine (1 of 2) [facility] SystemStart: 08-14-2024 End: 62-52-4077Lihublx encounter procedureNOMS CWM FMComment on above:Arrived Start: 07-18-2024 End: 14-31-7588Jgounyz encounter daxgfhqvf14/02/2024 3:00 PM EDT Office Visit [facility] [address] [place] [address] TamirKinsey, DO [address] [place] [address] ArrivedNOMS [facility] ROUTEComment on above: ArrivedStart: 12-63-3464ZFKBL-19 Vaccine ( season)COVID-19 Vaccine ( season)[facility] SystemStart: 05-91-5948Zczucnwzh vaccination [facility] HealthcareStart: 53-43-2064Svnmqnz ScreeningTobacco ScreeningMercy Health Lorain Hospital SystemStart: 85-72-2133Fccztxmrw for malignant neoplasm of breast MammogramNOMS HealthcareStart: 21-51-3820Emxjifqkn for malignant neoplasm of cervixNOMS HealthcareStart: 31-95-9663Qxwcvpeva for malignant neoplasm of cervix Pap SmearNOMS HealthcareStart: 47-90-7741BYxG,Tdap and Td Vaccines (1 - Tdap) DTaP,Tdap and Td Vaccines (1 - Tdap)[facility] SystemStart: 1993 Urine screening for proteinDiabetes: Urine Protein ScreeningNOGA Healthcare Start: 27-88-2719Oizvz BMI Follow Up PlanAdult BMI Follow Up PlanMercy Health Lorain Hospital SystemStart: 37-43-7845Dldrczlxxz ScreeningDepression ScreeningMercy Health Lorain Hospital SystemStart: 51-80-4443Bfhqibi ScreeningTobacco ScreeningMercy Health Lor[facility] Hospital SystemStart: 85-06-6384Wqdxhsbv screeningDiabetes: Retinopathy ScreeningNOMS HealthcareStart: 97-07-9316Yikpwlzyl for malignant neoplasm of colonNOMS HealthcareStart: 94-90-1549Fnqbdonje for malignant neoplasm of lungLung Cancer Screening Shared Decision MakingSelect Specialty HospitalCT Abdomen and PelvisElyria Memorial HospitalHekaiser foundation hospital B core antibody measurementDayton Osteopathic Hospital B virus surface Ab [Presence] in SerumElyria Memorial HospitalTHIN PREP TIS PAP AND HR HPV DNATHIN PREP TIS PAP AND HR HPV DNA Pathology and Cytology Routine Well woman exam with routine gynecological exam Ordered: 07/29/2025Select Specialty HospitalComment on above:Ordered: 07/29/2025[facility] Immunizations Immunization DateImmunizationNotesCare BvituuaaPcbmeevc93-17-6677Kxgsxgh SARS-CoV-2 VaccinationNicole Tamir DO Work Phone: [facility] Specialty HospitalQvoawomkpl56-89-6919fhxlijcuu, injectable, quadrivalent, preservative freePmh [address] [place], [place] [address]Csnhhx36-88-5804ujdpvvetm virus vaccine, unspecified formulationNicole Tamir DO Work Phone: [facility] Specialty HospitalBcxwacazlg19-85-7313Tqmckim SARS-CoV-2 VaccinationNicole Tamir DO Work Phone: [facility] Specialty HospitalXvfdtnnsfq14-89-2300Yzkmorb SARS-CoV-2 VaccinationNicole Tamir DO Work Phone: [facility]ty HospitalJautsgfjqf84-89-1167rhqbxlcvh, injectable, quadrivalent, preservative freePmh [address] [place], [place] [address]Mownck67-03-7324awavekmsn, injectable, quadrivalent, contains preservativePmh [address] [place] [address] 80-83-5463wleeidkyk, injectable, quadrivalent, preservative freePmh [address] [place], [place] [address]Zzuswx04-19-2731pqvudtuuz, injectable, quadrivalent, preservative freePmh [address] [place], [place] [address]Zesokt82-27-6561bxyshbcer, injectable, quadrivalent, contains preservativePmh [address] [place], [place] [address]Xwxylb85-83-9110kieyhbeis, injectable, quadrivalent, preservative freePmh [address] [place], [place] [address]Ovxvns97-06-1227qobmsidxz, injectable, quadrivalent, contains preservativePmh [address] [place] [address] Payers DatePayer CategoryPayerPolicy [id number]-gie [id number] Cross Blue Shield Managed Care - HMOANTHEM Member Subscriber Plan / Payer (Effective 2025-Present) Name: Sarbjit Campa Relation to Subscriber: Self Name: Sarbjit Campa Payer ID: [id number] ([facility]) Type: Not on file Address: [address] [place] [id number] [id number] [address] Member Subscriber Plan / Payer (Effective 2025-) Name: Sarbjit Campa Relation to Subscriber: Self Name: Sarbjit Campa Payer ID: Not on file Group ID: Not on file Type: Not on file Address: [facility] [address] [place] [id number] 2025Medicaid [id number] Cross Blue Shield [id number] General Hospital Managed Care - OtherANTHEM Member Subscriber Plan / Payer (Effective 2023- Present) Name: Sarbjit Campa Relation to Subscriber: Self Name: Sarbjit Campa Payer ID: [id number] ([employer]) Type: Not on file Address: [address] [place] [id number] General Hospital Managed Care - PPOANTHEM [id number]6-9181ShqmfmnSVXA BCBS [id number] 2023- [id number] [place], [place] [address] 1.2.840.586647.1.13.693.2.7.3.539577.09786-21-2480HvjzRoosevelt General Hospital [id number] 2..0.28918[id number] 2.1.946137.3.57[id number] 2.1.299777.3.57[id number] 2..1.577413.3.579.[id number] 2..1.514464.3.57[id number] 2.16.840.1.633620.3.57[id number] 2.0.1.033462.3.579.2.[id number] 2.0.1.177546.3.57[id number] 2.0.1.357996.3.57[id number] 2.0.1.091104.3.57[id number] 2..1.006349.3.57[id number] 2..1.207127.3.579.[id number] 2..1.928507.3.579.[id number] 2..1.123763.3.57[id number] 2..1.823962.3.579.[id number] 2..1.745119.3.579.2.3[id number] 2..1.708368.3.579.2.[id number] 2..1.437393.3.579.2.9[id number] 2..1.231864.3.579.2.677200-73-8538Fhvkckj51375469 2..1.388391.3.579.2.[id number] 2.16.840.1.648844.3.579.2.531 Social History DateTypeDetailFacilityUnknown if ever smokedNopemiscot memorial health systems [employer] Other Start: 05-14-2024 End: 99-61-9649Smy Assigned At [facility] HealthcareStart: 07-27-2018 End: 90-77-2545Xgvkupe smoking status NHISEx-smoker (finding)[facility] Hospitaltart: 63-47-4598Epn Assigned At [facility] Centertart: 10-17-1994 End: 44-04-4611Zmnlezu of tobacco useCurrent smokerNOGA HealthcareStart: 10-17-1994 End: 72-91-9637Qzwkmtt of tobacco useCigarette SmokerK[facility] SSD HealthcareStart: 09-19-2023 End: 18-78-7602Ifavgkxhvi smoked current (pack per day) - Ookutznl4SNMV HealthcareStart: 09-19-2023 End: 64-41-3865Zskfbcr use and exposureFormer smokeless tobacco userNOGA HealthcareStart: 05-24-2024 End: 98-30-6103Ywaegsvsd beverage intakeLifetime non-drinker (finding)[facility] HealthcareStart: 91-75-9564Jvg often do you need to have someone help you when you read instructions, pamphlets, or other written material from your doctor or pharmacy [SILS]NeverNOMS HealthcareDo you belong to any clubs or organizations such as voodoo groups, unions, fraternal or athletic groups, or school groups? YesNOMS HealthcareAre you now , , , , never or living with a partner?WidowedNOMS HealthcareHow often to you have a drink containing alcohol?Monthly or lessNOMS HealthcareHow many standard drinks containing alcohol do you have on a typical day?1 or 2NOMS HealthcareHow often do you have 6 or more drinks on 1 occasion?NeverNOMS HealthcareHow hard is it for you to pay for the very basics like food, housing, medical care, and heating Not very hardNOMS HealthcareDo you feel stress - tense, restless, nervous, or anxious, or unable to sleep at night because yourmind is troubled all the time - these days [OSQ]Only a littleNOMS Healthcare(I/We) worried whether (my/our) food would run out before (I/we) got money to buy more.Never trueNOMS Healthcare In the past 12 months, was there a time when you were not able to pay the mortgage or rent on time?NoNOMS HealthcareStart: 17-15-0250Meh assigned at Not on fileNOMS HealthcareStart: 44-29-7482Wiairog use and exposureSmokeless tobacco non-userMercy Health St. [facility] Desktop Genetics SystemStart: 40-55-3973Kbzzixrjv beverage intakeCurrent drinker of alcohol (finding)[facility] Desktop Genetics [facility] Medical Centertart: 00-54-8041Eqiqbyn CommentoccasionallyProOhioHealth Hardin Memorial Hospitaltart: 05-22-2015 End: 69-44-8083ZrkWjkkya (finding)[facility] [place] [facility] Medical Equipment Procedure CodeEquipment CodeEquipment Original TextEquipment IdentifierDates Valve Aor 14.7mm 21mm 30mm 19.4mm Onx Cnfrm-X Sw Rng Ptfe - [id number] - [id number]: 01-05-2023 Goals DatePatient GoalDesired Activity/StatePersonal health goalComment on above: Evaluation of progress towards goal: Patient will discharge with home health care. - Timi Ochoa RN 01/06/23 2:13 PM Clinical Notes 11-19-2011 to 08-05-2025 Note Date & GcviRgkbSbzoaycr22-28-9400 History of Present illness Narrative* Priscilla Rivas [facility] - 08/05/2025 11:00 AM EDT 15 minute xhur-br-rkee follow-up anticoagulation appointment. INR performed in office per protocol. INR 1.8 (goal range: 1.5-2.0). Patient reports: Taking warfarin dosing as documented. Missed or extra doses of warfarin: No Changes to medications: YES Mounjaro increased to 7.5 mg weekly Changes to lifestyle (diet / alcohol / smoking / activity): No Recent emergency department visit / hospitalization / health changes / new contraindication to current anticoagulant: No Signs/symptoms of bruising/bleeding or clotting or any intolerable adverse events: No Upcoming procedures: No Anticoagulant prescription needed: No Seen referring provider in the last year Duration of therapy reviewed Patient could benefit from [facility] pill packaging and patient is agreeable forreferral to be sent: No Assessment: INR is [...] that persists or worsens. Priscilla Rivas RPH 08/05/25 1100 documented in this encounterSelect Medical Specialty [facility] [place] [facility]10-13-2025 History of Present illness Narrative* Diana Brunner NP - 07/29/2025 1:40 PM [...] both small and large intestine without complication ([facility]) 01/05/2023 Essential hypertension 01/05/2023 Class 2 severe obesity due to excess calories with serious comorbidity and body mass index (BMI) of39.0 to 39.9 in adult 08/19/2021 Aortic valve replaced 01/05/2023 Congenital bicuspid aortic valve ([facility]) 09/19/2023 DDD (degenerative disc disease), lumbar 09/19/2023 Dyslipidemia 09/19/2023 VIKI (generalized anxiety disorder) 09/19/2023 MDD (major depressive disorder), recurrent episode, mild 09/19/2023 Stress bladder incontinence, female 09/19/2023 Annual physical exam 09/19/2023 Type 2 diabetes mellitus with hyperglycemia, without long-term current use of insulin ([facility]) 09/22/2023 Thoracic ascending aortic aneurysm 03/19/2024 Hypersomnia 03/19/2024 Hiatal hernia with GERD without esophagitis 03/19/2024 Insulin resistance 05/15/2024 Pain of skin 05/15/2024 Bilateral leg edema 05/24/2024 Resolved Ambulatory Problems Diagnosis Date Noted Inflamed skin tag 03/19/2024 Past Medical History: Diagnosis Date Benign essential hypertension Crohn's disease without complication, unspecified gastrointestinal tract location ([facility]) Ganglion cyst Hyperhidrosis MDD (major depressive disorder), [...] SYSTEMS Review of Systems: Review of Systems OBJECTIVE Objective: OBGyn Exam Vitals: Estimated body mass index is 34.82 kg/m as calculated from the following: Height [...] 3. Postmenopausal state Z78.0 DEXA bone density Documented by Diana Brunner NP on behalf [...] CYST REMOVAL TUBAL LIGATION documented in this encounterSelect Specialty HospitalJcqxdwdjxo04-06-6025 History of Present illness Narrative* Priscilla Rivas, [facility] - 07/05/2025 11:15 AM EDT 15 minute wpgv-jy-ngyf follow-up anticoagulation appointment. INR performed in office [...] of therapy reviewed Patient could benefit from [facility] pill packaging and patient is agreeable forreferral to be sent: No Assessment: INR is [...] Rivas RPH 07/05/25 1118 documented in this encounterSelect Medical Specialty Hospital [facility] [place] [facility]09-08-2025 History of Present illness Narrative* Sharda Zamora LPN - 06/24/2025 1:30 PM EDTAssociated Order(s): IUD Insertion Post-Procedure Diagnose(s): Encounter for [...] both small and large intestine without complication ([facility]) 01/05/2023 Essential hypertension 01/05/2023 Class 2 severe obesity due to excess calories with serious comorbidity and body mass index (BMI) of39.0 to 39.9 in adult ([facility]) 08/19/2021 Aortic valve replaced 01/05/2023 Congenital bicuspid aortic valve 09/19/2023 DDD (degenerative disc disease), lumbar 09/19/2023 Dyslipidemia 09/19/2023 VIKI (generalized anxiety disorder) 09/19/2023 MDD (major depressive disorder), recurrent episode, mild 09/19/2023 Stress bladder incontinence, female 09/19/2023 Annual physical exam 09/19/2023 Type 2 diabetes mellitus with hyperglycemia, without long-term current use of insulin ([facility]) 09/22/2023 Thoracic ascending aortic aneurysm 03/19/2024 Hypersomnia [...] date: 1994 Quit date: 2015 Years since quittin.6 Smokeless tobacco: Former Substance [...] nursing note reviewed. Exam conducted with a sponge press operator present. Vitals: Estimated body mass index is [...] by patient, parent, or legal power of mortgage loan closer - including discussion of procedurerisks and benefits, patient questions answered, and patient [...] is having an unknown IUD removed and aMirena placed, written consent was obtained and patient [...] was then gently sounded, New IUD was advancedthrough the endocervix, toward the uterine fundus. The [...] of: Kevin Flynn DO documented in this encounterSelect Specialty HospitalZmpmafiuhy23-59-0880 History of Present illness Narrative* Priscilla Rivas RPH - 06/19/2025 11:30 AM EDT 15 minute oodh-wq-nuee follow-up anticoagulation appointment. INR performed in office per protocol. INR 2.7 (goal range: 1.5-2.0). Patient reports: Taking warfarin dosing as documented. Missed or extra doses of warfarin: No Changes to medications: No Changes to lifestyle (diet / alcohol / smoking / activity): YES Has lost ~20 pounds Appetite is suppressed d/t Mounjaro Recent emergency department visit / hospitalization / [...] if anymajor bleeding/bleeding that persists or worsens. Patient could benefit from [facility] pill packaging and patient is agreeable forreferral to be sent: No Priscilla Rivas RPH 06/19/25 1132 documented in this encounterSelect Medical Specialty Hospital - [place] [facility]08-26-2025 History of Present illness Narrative* Rere Oliveira LPN - 06/11/2025 9:20 AM EDT Reason for Appointment: Patient ID: Sarbjit [...] both small and large intestine without complication ([facility]) 01/05/2023 Essential hypertension 01/05/2023 Class 2 severe obesity due to excess calories with serious comorbidity and body mass index (BMI) of39.0 to 39.9 in adult ([facility]) 08/19/2021 Aortic valve replaced 01/05/2023 Congenital bicuspid aortic valve 09/19/2023 DDD (degenerative disc disease), lumbar 09/19/2023 Dyslipidemia 09/19/2023 VIKI (generalized anxiety disorder) 09/19/2023 MDD (major depressive disorder), recurrent episode, mild 09/19/2023 Stress bladder incontinence, female 09/19/2023 Annual physical exam 09/19/2023 Type 2 diabetes mellitus with hyperglycemia, without long-term current use of insulin ([facility]) 09/22/2023 Thoracic ascending aortic aneurysm 03/19/2024 Hypersomnia [...] nursing note reviewed. Exam conducted with a sponge press operator present. Vitals: Estimated body mass index is [...] of: Kevin Flynn DO documented in this encounterSelect Specialty [id number] Evaluation note* Diagnosis Onset Date Resolution Status Admit Date Crohn's disease inactiveAugust 2024 2:24pm [facility] Work Phone: 1(946) 594-522308-05-2025 History of Present illness Narrative* Priscilla Rivas, [facility] - 05/21/2025 11:15 AM EDT 15 minute rwjt-fb-cjvj follow-up anticoagulation appointment. INR performed in office [...] that persists or worsens. Priscilla Rivas RPH 05/21/25 1147 documented in this encounterSelect [facility]-16-[facility] History of Present illness Narrative* Jaun Sultana MD - 05/01/2025 9:36 AM EDTAssociated Problem(s): Class 2 severe obesity due to excess calories with serious comorbidity and body mass index (BMI) of 39.0 to 39.9 in adult ([facility]) Weight loss indicated. * Jaun Sultana MD - 05/01/2025 9:36 AM EDTAssociated Problem(s): Prediabetes A1C in office 6.2. Reports BS 150 fasting and developed signs of elevated BS. Check fasting labs and if over 126 would meet criteria for diabetes. * Jaun Sultana MD - 05/01/2025 8:45 AM EDT Images from the original note were not included. Subjective Patient ID: Sarbjit Campa is a 49 y.o. female who presents for Follow-up (Possible diabetes). Concerned of possible diabetes. History of prediabetes and insulin resistance. On metformin for fewmonths but had to stop due to diarrhea and nausea. Checking BS in am and often around 150 when first wake up and fasting. Highest reading has been 189 after eating. C/o excessive thirst and increasedurination. C/o severe fatigue and no energy. C/o [...] Relevant Orders Insulin, fasting documented in this encounterSelect Specialty [id number] History of Present illness Narrative* Priscilla Rivas, [facility] - 04/04/2025 11:15 AM EDT 15 minute xgxo-iv-cwem follow-up anticoagulation appointment. INR performed in office [...] bleeding/bleeding that persists or worsens. Priscilla Rivas [facility] 04/04/25 1123 documented in this encounterSelect Medical Specialty [facility] [place] [facility]06-02-2025 History of Present illness Narrative* Laquita Jacobs [facility] - 03/18/2025 8:32 AM EDT Refill request received via fax from [facility] for warfarin 4 mg tablets. Last OV: 07/20/24. New Rx sent to patient preferred pharmacy. Additionally, updated referral routed to Dr. Robina Lee for co-sign as Asiya Wang PA-C is no longer with [facility]. PPMM awaiting co-signature. Laquita Jacobs [facility] 03/18/25 0839 documented in this encounterSelect Medical Specialty Hospital [facility] [place] [facility]05-29-2025 History of Present illness Narrative* Priscilla Rivas [facility] - 03/14/2025 11:45 AM EDT 15 minute usvy-mc-cfwf follow-up anticoagulation appointment. INR performed in office [...] that persists or worsens. Priscilla Rivas RPH 03/14/25 1148 documented in this encounterSelect Medical Specialty Hospital [facility] [place] [facility]04-30-2025 History of Present illness Narrative* Priscilla Rivas RPH - 02/13/2025 9:00 AM EDT 15 minute mngc-gd-qawd follow-up anticoagulation appointment. INR performed in office [...] bleeding/bleeding that persists or worsens. Priscilla Rivas [facility] 02/13/25 0927 documented in this encounterSelect Medical Specialty [facility] [place] [facility]04-01-2025 History of Present illness Narrative* Priscilla Rivas [facility] - 01/15/2025 2:15 PM EDT 15 minute wrpu-qm-znkt follow-up anticoagulation appointment. INR performed in office [...] bleeding/bleeding that persists or worsens. Priscilla Rivas [facility] 01/15/25 1423 documented in this encounterSelect Medical Specialty Hospital [facility] [place] [facility]03-27-2025 Miscellaneous Notes* Telephone Encounter - Letty Magallon MA - 01/10/2025 8:20 AM EDT The patient's name appeared on the PAL[facility] for tomorrow. Crop Supervisor LVM requesting a call back to let [facility] know if patient plans on keeping the appointment or if the appointment needs to be rescheduled. documented in this encounterSelect Medical Specialty Hospital [facility] [place] [facility]03-27-2025 Telephone encounter Note* Telephone Encounter - Letty Magallon MA - 01/10/2025 8:20 AM EDT The patient's name appeared on the PAL[facility] for tomorrow. Crop Supervisor LVM requesting a call back to let [facility] know if patient plans on keeping the appointment or if the appointment needs to be rescheduled. [facility]03-10-2025 History of Present illness Narrative* Priscilla Rivas RP - 12/24/2024 2:15 PM EDT 15 minute dlvl-bk-koxe follow-up anticoagulation appointment. INR performed in office [...] Rivas RPH 12/24/24 1417 documented in this encounterSelect Medical Specialty Hospital [facility] [place] [facility]02-17-2025 History of Present illness Narrative* Priscilla Rivas RPH - 12/03/2024 2:15 PM EST 15 minute jwad-rx-qdlv follow-up anticoagulation appointment. INR performed in office [...] Rivas RPH 12/03/24 1418 documented in this encounterSelect Medical Specialty Hospital [facility] [place] [facility]02-06-2025 Evaluation note* Diagnosis Onset Date Resolution Status Admit Date Crohn's disease acuteFebruary 2024 2:44pm [facility] Work Phone: 1(611) 554-565501-06-2025 History of Present illness Narrative* Priscilla Rivas RPH - 10/22/2024 2:15 PM EST 15 minute tgfm-wl-akmg follow-up anticoagulation appointment. INR performed in office [...] Rivas RPH 10/22/24 1425 documented in this encounterMain Campus Medical CenterMusations [facility] [id number] History of Present illness Narrative* Priscilla Rivas RPH - 10/08/2024 2:15 PM EST 15 minute xkiw-pq-upco follow-up anticoagulation appointment. INR performed in office [...] Rivas RPH 10/08/24 1358 documented in this encounterSelect Medical Specialty [facility] [place] [facility]12-02-2024 Evaluation note* Diagnosis Onset Date Resolution Status Admit Date Acute sinusitis acuteDecember 2023 10:12amCOVID-19acuteDecember 2023 10:36amCrohn's diseaseacuteFebruary 2024 2:44pm [facility] Work Phone: 1(625) 512-337510-29-2024 History of Present illness Narrative* Jaun Sultana [...] (BMI) of 36.0 to 36.9 in adult ([facility]) Discussed proper diet and regular aerobic exercise. [...] tag on left upper inner thigh. Cryo 05/15 and smaller but still present. Irritated with [...] continue. Elevate legs PRN. documented in this encounterSelect Specialty [id number] History of Present illness Narrative* Kinsey Garnett DO - 07/18/2024 3:00 PM EDT Images from [...] and she is compliant as above Her Clayton Sleepiness scale is a 4 She will [...] was counseled on the risks of stroke, MD, and sudden with KOLE, along with the [...] to clinic: 1 year documented in this encounterSelect Specialty [id number] Evaluation note* Encounter Date Diagnosis Assessment Notes Treatment Notes Treatment Clinical Notes Nov, Contact with and (bedoya spected) exposure to other viral communicable diseases (ICD-10 - Z20.828) Nov,Influenza A (ICD-10 - J10.1) Advised patient that Influenza A PCR test was positive, Influenza B/COVID/RSV PCR negative. Rapid Strep test negative. Encouraged supportive care, Tamiflu as directed, prednisone, Capmist as directed, Tylenol as needed for body aches/fever. Increase fluids and rest. Encouraged use of cool mist humidifier, push fluids, rest. Advised patient that she needs to stay home from work/school/activities until fever free for 24 hours without use of antipyretics. Work note provided. Follow-up with PCP for further management if needed. Immediate eval for SOB, difficulty, chest pain, fevers that do not break with antipyretic or any other concerning symptoms as reviewed on patient education handout. Patient verbalizes understanding and is agreeable to treatment plan. Patient left in stable condition [facility] Other 01-10-2023 Evaluation note* Encounter Date Diagnosis Assessment Notes Treatment Notes Treatment Clinical Notes Oct, Contact with and (bedoya spected) exposure to other viral communicable diseases (ICD-10 - Z20.828) Oct,OVID-19 (ICD-10 - U07.1)Today you tested positive for the COVID virus. This mean you need to follow all CDC quarantine guidelines found at coronavirus.[place].gov. It is important to rest, increase fluids, and stay at home. Recommend contacting primary care provider and discussing best course of action if you have chronic health conditions. COVID POSITIVE education handout discharge instructions. given. [facility] Other 01-05-2023 Evaluation note* Encounter Date Diagnosis Assessment Notes Treatment Notes Treatment Clinical Notes Oct, Crohn's disease (ICD-10 - K50.90 ) CONTINUE SKYRIZI DIRECTED PT DUE FOR SKYRIZI INJECTION NEXT WEEK OBTAIN LABS FROM [facility] IN [place] RTO 6 MONTHS [facility] Other 10-07-2022 Evaluation note* Encounter Date Diagnosis Assessment Notes Treatment Notes Treatment Clinical Notes Jul, Contact with and (bedoya spected) exposure to other viral communicable diseases (ICD-10 - Z20.828) Jul,cute sinusitis, unspecified (ICD-10 - J01.90) Advsied patient [...] understanding and is agreeable to treatment plan Jul,ther viral agents as the cause of diseases classified elsewhere (ICD-10 - B97.89) [facility] Other 06-30-2022 Evaluation note* Encounter Date Diagnosis Assessment Notes Treatment Notes Treatment Clinical Notes Mar, Crohn's disease, uns pecified, without complications (ICD-10 - K50.90) START PROCESS FOR APPROVAL OF SKYRIZI LABS INDICATED ABOVE [facility] Other 03-29-2022 Evaluation note* Encounter Date Diagnosis Assessment Notes Treatment Notes Treatment Clinical Notes Dec, Crohn's disease, uns pecified, without complications (ICD-10 - K50.90) PATIENT HAD [...] STELARA SINCE JULY OR SEPTEMBER OF 2021. [facility] Other 01-06-2022 Evaluation note* Encounter Date Diagnosis Assessment Notes Treatment Notes Treatment Clinical Notes Oct, Rash and nonspecific skin erupti on (ICD-10 - R21) Pt received 60mg IM [...] Pt understood and agreed to treatment plan. [facility] Other 11-30-2021 Evaluation note* Encounter Date Diagnosis Assessment Notes Treatment Notes Treatment Clinical Notes Aug, Crohn's disease, uns pecified, without complications (ICD-10 - K50.90) PATIENT STATES THAT SHE IS ON THE STELARA AND SHE HAS ONLY HAD THE IV DOSE. PATIENT CAN NOT TELL A DIFFERENCE AT THIS TIME. PATIENT STATES PAIN HAS IMPROVED, NOT REGULAR BOWEL MOVEMENTS AT THIS TIME. [facility] Other 02-03-2012 History general Narrative - Reported* Type Description Date Medical History bicuspid aortic valve Medical HistorycrohnsMedical History11/19/11 Colonoscopy-scarring splenic flexure Medical History07/03/09EGD/Colonoscopy-normal EGD, Crohn's diseaseMedical History Tobacco use disorder, currentMedical HistoryTobacco use disorder, currentMedical HistoryAcrodermatitis continua of HallopeauMedical HistoryAI [Aortic insufficiency]Medical HistoryHypertension, unspecified HTNMedical HistoryCrohn's diseaseMedical HistoryExercise counselingMedical HistoryDietary surveillance and counselingMedical HistoryC. difficile diarrheaMedical HistoryCrohn disease Medical HistoryEncounter for smoking cessation counselingMedical History 03/09/2017 Colonoscopy- patchy inflammation cecum, Scarring, splenic flexure Medical HistoryBMI 30.0-30.9,adultMedical HistoryBMI 31.0-31.9,adultMedical Historychronic depressionSurgical HistorycrohnsSurgical Historyganglion cyst Surgical Historybicuspid aortic valve replacement03/2015Hospitalization History [id number] [facility] Other 02-03-2012 History general Narrative - Reported* Type Description Date Medical History bicuspid aortic valve Medical HistorycrohnsMedical History11/19/11 Colonoscopy-scarring splenic flexure Medical History07/03/09EGD/Colonoscopy-normal EGD, Crohn's diseaseMedical History Tobacco use disorder, currentMedical HistoryTobacco use disorder, currentMedical HistoryAcrodermatitis continua of HallopeauMedical HistoryAI [Aortic insufficiency]Medical HistoryHypertension, unspecified HTNMedical HistoryCrohn's diseaseMedical HistoryExercise counselingMedical HistoryDietary surveillance and counselingMedical HistoryC. difficile diarrheaMedical HistoryCrohn disease Medical HistoryEncounter for smoking cessation counselingMedical History 03/09/2017 Colonoscopy- patchy inflammation cecum, Scarring, splenic flexure Medical HistoryBMI 30.0-30.9,adultMedical HistoryBMI 31.0-31.9,adultMedical Historychronic depressionSurgical HistorycrohnsSurgical Historyganglion cyst Surgical Historybicuspid aortic valve replacement03/2015Surgical Historybicuspid aortic valve ifbccfcxmyw30/22/2023Hospitalization [id number] [facility] Other Evaluation noteNo InformationNort [employer] Other Evaluation noteNo assessment information available [facility] Work Phone: Evaluation note* Diagnosis Onset Date Resolution Status Crohn's disease acute [facility] Work Phone: Evaluation note* Diagnosis KOLE (obstructive sleep apnea) Obstructive sleep apnea (adult) (pediatric) Hypoxia Hypoxemia Sleep deprivation Problems related to lack of adequate sleep Hypersomnia Hypersomnia, unspecified Snoring Other dyspnea and respiratory abnormality Obesity (BMI 35.0-39.9 without comorbidity) documented in this encounter [facility]* Diagnosis Annual physical exam- Primary [...] (BMI) of36.0 to 36.9 in adult (CMS/HCC) Obstructive sleep apnea (adult) (pediatric) documented in this encounter [facility]* Diagnosis Stenosis of prosthetic aortic valve, subsequent encounter- Primary [facility] Diagnosis Annual physical exam- [...] (BMI) of36.0 to 36.9 in adult (CMS/HCC) Obstructive sleep apnea (adult) (pediatric) VIKI (generalized anxiety disorder) ([facility]) Generalized anxiety disorder documented in this encounter [facility]* Diagnosis Stenosis of prosthetic aortic valve, subsequent encounter- Primary [facility]* Diagnosis Stenosis of prosthetic aortic valve, subsequent encounter- Primary [facility]* Diagnosis S/P AVR- Primary Stenosis of prosthetic aortic valve, subsequent encounter [facility]* Diagnosis Stenosis of prosthetic aortic valve, subsequent encounter- Primary S/P AVR [facility]* Diagnosis Annual physical exam- [...] index (BMI) of36.0 to 36.9 in adult ([facility]) Obstructive sleep apnea (adult) (pediatric) Prediabetes- Primary Other abnormal glucose Insulin resistance Other abnormal glucose Annual physical exam Routine general medical examination at a health care facility Obstructive sleep apnea (adult) (pediatric) Crohn's disease of both small and large intestine without complications (HCC) documented in this encounter [facility]* Diagnosis Hyperlipidemia, unspecified hyperlipidemia type- Primary [facility]* Diagnosis Onset Date Resolution Status Admit Date Crohn's disease acuteAugust 2024 2:24pm [facility] Work Phone: Evaluation note* Diagnosis Annual physical [...] index (BMI) of36.0 to 36.9 in adult ([facility]) Obstructive sleep apnea (adult) (pediatric) Prediabetes- Primary Other abnormal glucose Insulin resistance Other abnormal glucose Annual physical exam Routine general medical examination at a health care facility Obstructive sleep apnea (adult) (pediatric) Crohn's disease of both small and large intestine without complications ([facility]) Intrauterine device surveillance Yeast infection documented in this encounter [facility]* Diagnosis Stenosis of prosthetic aortic valve, subsequent encounter- Primary S/P AVR [facility]* Diagnosis Annual physical exam- [...] both small and large intestine without complication ([facility]) Body mass index [BMI] 35.0-35.9, adult (Z68.35) [...] MDD (major depressive disorder), recurrent episode, mild IVKI (generalized anxiety disorder) Generalized anxiety disorder Bilateral leg edema Edema Inflamed skin tag Class 2 severe obesity due to excess calories with serious comorbidity and body mass index (BMI) of36.0 to 36.9 in adult ([facility]) Obstructive sleep apnea (adult) (pediatric) Prediabetes- Primary Other abnormal glucose Insulin resistance Other abnormal glucose Annual physical exam Routine general medical examination at a health care facility Obstructive sleep apnea (adult) (pediatric) Crohn's disease of both small and large intestine without complications (HCC) Encounter for removal and reinsertion of intrauterine contraceptive device (IUD) Encounter for insertion of Mirena IUD Encounter for IUD removal documented in this encounter [facility]* Diagnosis Annual physical exam- [...] edema- Primary Edema Congenital bicuspid aortic valve (HHS-HCC) Prediabetes Other abnormal glucose Essential hypertension- Primary Unspecified essential hypertension MDD (major depressive disorder), recurrent episode, mild VIKI (generalized anxiety disorder) Generalized anxiety disorder Bilateral leg edema Edema Inflamed skin tag Class 2 severe obesity due to excess calories with serious comorbidity and body mass index (BMI) of36.0 to 36.9 in adult Obstructive sleep apnea (adult) (pediatric) Prediabetes- Primary Other abnormal glucose Insulin resistance Other abnormal glucose Annual physical exam Routine general medical examination at a health care facility Obstructive sleep apnea (adult) (pediatric) Crohn's disease of both small and large intestine without complications (HCC) Well woman exam with routine gynecological exam Routine gynecological examination Encounter for screening mammogram for malignant neoplasm of breast Postmenopausal state Asymptomatic postmenopausal status (age-related) (natural) documented in this encounter [facility]* Diagnosis Stenosis of prosthetic aortic valve, subsequent encounter- Primary S/P AVR documented in this encounter [facility] SystemInstructionsNot on filedocumented in this encounter [facility] SystemInstructionsNot on filedocumented in this encounter [facility] SystemInstructionsNot on filedocumented in this encounter [facility]InstructionsNot on filedocumented in this encounter [facility] SystemInstructionsNot on filedocumented in this encounter [facility] SystemInstructionsNot on filedocumented in this encounter [facility] SystemInstructionsNot on filedocumented in this encounter [facility] SystemInstructionsNot on filedocumented in this encounter [facility] SystemReason for referral (narrative)No reason for referral information availablePomerene Hospital Work Phone: Summary Purpose Family History Relationship Condition Age at Onset Recorded Date/T kimberly father Malignant neoplasm Unknown Diabetes mellitusUnknownHeart diseaseUnknownNot SpecifiedDeceasedUnknownChronic obstructive pulmonary diseaseUnknownsisterHypertensionUnknown Relationship Condition Age at Onset Recorded Date/T kimberly father Diabetes mellitus Unknown Heart diseaseUnknownMalignant neoplasm of prostateUnknownmotherDeceasedUnknown Chronic obstructive pulmonary diseaseUnknownsisterHypertensionUnknown Advance Directives Advance Directive Response Recorded Date/ Time Advance Directives No June 9:13am Date ActivatedDate InactivatedComments01/05/2023 11:49 AM01/08/2023 2:55 PM Advance Directive Response Recorded Date/ Time Advance Directives No June 8:13am Date ActivatedDate InactivatedComments01/05/2023 11:49 AM01/08/2023 2:55 PM Chief Complaint and Reason for Visit Chief Complaint Admit Date 6 MONTH FOLLOW UP [facility] June 06, 2 025 2:24pm Unknown July 29, 2025 1 :20pm Reason for Visit Admit Date Crohn's disease June 06, 2025 2: 24pm Chief Complaint Congestion, Fever, S trep Exposure 6 month follow up for crohns Chief Complaint Congestion, Fever, S trep Exposure 6 month follow up for crohns K50.90Reason for VisitCrohn's disease Chief Complaint Admit Date cough, congestion [...] 6 MONTH FOLLOW UP [facility] June 06, 2 025 2:24pm Chief Complaint Admit Date 6 MONTH FOLLOW UP [facility] June 06, 2 025 2:24pm Unknown July 29, 2025 1 :20pm Established Patient August 01, 2025 9 :07am Additional Source Comments INFORMATION SOURCE (unrecogn ized section and content) DATE CREATED AUTHOR 10/21/[address] [facility] DATE CREATED AUTHOR AUTHOR'S ORGANIZ ATION 07/22/2024 [facility] DATE CREATED AUTHOR AUTHOR'S ORGANIZ ATION 07/30/2025 [facility] EPIC DATE CREATED AUTHOR AUTHOR'S ORGANIZ ATION 08/01/2025 [facility] DATE CREATED AUTHOR AUTHOR'S ORGANIZ ATION 08/06/2025 [facility] REASON FOR VISIT (unrecogniz ed section and content) ReasonCommentsSleep ApneaReasonCommentsFollow-upSkin tag did not fall offReason Onset DateCommentsMed Ndsskw6010/11/2024easonOnset DateCommentsMed Refill 11/29/2024ReasonCommentsMed RefillReasonCommentsFollow-upPossible diabetesReason Onset DateCommentsMed Qnulwn7905/22/2025ReasonCommentsDiscuss IUD for CyclesReason CommentsContraceptionMirena Insert/RemovalReasonCommentsRoutine Visit Care Teams (unrecognized sec tion and content) Team Status: Active Member Role Status Dates Jaun Sultana MD Primary Care Provider Active Team Status: Inactive Member Role Status Dates Allison Odom APRN Attending Provider Active Start: November 17, 2023 End: November 17, 2023 Team Status: Inactive Member Role Status Dates Jaun Sultana MD Primary Care Provider Active S tart: January 30, 2024 End: January 29atherine L Ly , DOAttending ProviderActiveStart: January 30, 2024 End: January 30, 2024 Team Status: Inactive Member Role Status Dates Jaun Sultana MD Primary Care Provider Active S tart: February 13, 2024 End: February 12atherine Rissa Calderon , DOAttending ProviderActiveStart: February 13, 2024 End: February 13, 2024Team MemberRelationshipSpecialtyStart DateEnd Date Jaun Sultana MD [address] [place] [address] PCP - GeneralFamily Eoubximj46/8/23Team MemberRelationshipSpecialtyStart DateEnd Date Jaun Sultana MD [address] [place] [address] PCP - GeneralFamily Mvtiskau41/8/23Team MemberRelationshipSpecialtyStart DateEnd Date Jaun Sultana MD [address] [place] [address] PCP - GeneralFamily Lemxmgts60/8/23 Jaun Sultana MD [address] [place] [address] PCP - [employer]06/17/24Team MemberRelationshipSpecialtyStart DateEnd Date Jaun Sultana MD [address] [place] [address] PCP - GeneralFamily Qgufgrhf57/8/23 Jaun Sultana MD [address] [place] [address] PCP - [employer]06/17/24Team MemberRelationshipSpecialtyStart DateEnd Date Jaun Sultana MD PCP - [facility]07/04/18Team MemberRelationshipSpecialtyStart DateEnd Date Jaun Sultana MD PCP - [facility]07/04/18 Team Status: Inactive Member Role Status Dates Jaun Sultana MD Primary Care Provider Active S tart: September 17, 2024 End: September 17, 2024Sybil Saldaña ProviderActiveStart: September 17, 2024 End: September 17, 2024 Team Status: Inactive Member Role Status Dates Jaun Sultana MD Primary Care Provider Active S tart: September 28, 2024 End: September 28, 2024Sybil Saldaña ProviderActiveStart: September 28, 2024 End: September 28, 2024 Team Status: Inactive Member Role Status Dates Jaun Sultana MD Primary Care Provider Active S tart: November 22, 2024 End: November 22atherine L Ly , DOAttending ProviderActiveStart: November 22, 2024 End: November 22, 2024Team MemberRelationshipSpecialtyStart DateEnd Date Jaun Sultana MD [address] [place] [address] PCP [facility]08/24/23 Jaun Sultana MD [address] [place] [address] PCP - [employer]06/17/24Team MemberRelationshipSpecialtyStart DateEnd Date Jaun Sultana MD PCP [facility]07/04/18Team MemberRelationshipSpecialtyStart DateEnd Date Jaun Sultana MD PCP - [facility]07/04/18Team MemberRelationshipSpecialtyStart DateEnd Date Jaun Sultana MD PCP - [facility]07/04/18 Team Status: Inactive Member Role Status Dates Jaun Sultana MD Primary Care Provider Active S tart: February 09, 2025 End: February 09adriel Morin APRNAtmarianne ProviderActiveStart: February 09, 2025 End: February 09, 2025Team MemberRelationshipSpecialtyStart DateEnd Date Jaun Sultana MD PCP - [facility]07/04/18Team MemberRelationshipSpecialtyStart DateEnd Date Jaun Sultana MD PCP - [facility]07/04/18Team MemberRelationshipSpecialtyStart DateEnd Date Jaun Sultana MD [address] [place] [id number] PCP - [facility]08/24/23Team MemberRelationshipSpecialtyStart DateEnd Date Jaun Sultana MD [address] [place] [id number] PCP - [facility]08/24/23Team MemberRelationshipSpecialtyStart DateEnd Date aJun Sultana MD [address] [place] [address] PCP - [facility] Apemlbfk19/8/23Team MemberRelationshipSpecialtyStart DateEnd Date Jaun Sultana MD PCP - [facility]07/04/18Team MemberRelationshipSpecialtyStart DateEnd Date Jaun Sultana MD PCP - [facility]07/04/18 Team Status: Inactive Member Role Status Dates Jaun Sultana MD Primary Care Provider Active S tart: June 06, 2025 End: June 06atherine L Ly , DOAttending ProviderActiveStart: June 06, 2025 End: June 06, 2025Team MemberRelationshipSpecialtyStart DateEnd Date Jaun Sultana MD [address] [place] [address] PCP - [facility] Dozztwkp31/8/23Team MemberRelationshipSpecialtyStart DateEnd Date Jaun Sultana MD [address] [place] [address] [facility] T[facility]/23Team MemberRelationshipSpecialtyStart DateEnd Date Jaun Sultana MD PCP - Generalmi Muyqcrle56/8/23Team MemberRelationshipSpecialtyStart DateEnd Date Jaun Sultana MD PCP - [facility] Vbslacdq73/8/23Team MemberRelationshipSpecialtyStart DateEnd Date Jaun Sultana MD [facility] - [facility]08/24/23 Team Status: Inactive Member Role Status Dates Kevin Flynn DO Attending Provider Active Start : July 29, 2025 End: July 29, 2025 Team Status: Inactive Member Role Status Dates Jaun Sutlana MD Primary Care Provider Active S tart: August 01, 2025 End: August 01, 2025[facility] AMAN Sultanattending ProviderActiveStart: August 01, 2025 End: August 01, 2025Team MemberRelationshipSpecialtyStart DateEnd Date Jaun Sultana MD [facility] - [facility]07/04/18Team MemberRelationshipSpecialtyStart DateEnd Date Jaun Sultana MD [facility] - [facility]08/24/23 Goals (unrecognized section and content) Goals may [...] BE BASED ON THE PRIMARY CLINICAL RECORDS. [employer] [facility]. provides no warranty or guarantee of the accuracy or completeness of information in this document.
== END 2025-07-29 14:31 | disposition home or self-care (01) ==
LOC: LAB 14:30
PROVIDERS: PCP Family Medicine; Visit Provider Obstetrics & Gynecology
DX: L91.8 Other hypertrophic disorders of the skin (principal)

== ENCOUNTER 2025-07-29 21:17 | Outpatient (REF) | payer BC, SELFPAY ==
--- OUTSIDE RECORDS SUMMARY | 2025-07-29 13:40 | XMS_ITS | Encounter Summary ---
Author Organization [facility] Address [address] [place] [address] Care Team Providers Care Systems Trainer Name Role Phone Jaun Elliott MD Primary Care Provider [phone] Reason for Visit * Reason Comments Routine Visit Encounter Details Date Type Department Care Team (Latest Contact Info) Description 07/29/2025 1:40 PM EDT Procedure Visit [facility] [address] [place] [phone] Kevin Flynn DO [address] [place] [address] Well woman exam with routine gynecological exam; Encounter for screening mammogram for malignant neoplasm of breast; Postmenopausal state Social History Tobacco Use Types Packs/Day Years Used Date Smoking Tobacco: Former Cigarettes 1 2014 Smokeless Tobacco: Former Alcohol Use Standard Drinks/Week Comments Never 0 (1 standard drink = 0.6 oz pur e alcohol) B1300 Health Literacy Answer Date Recor ded How often do you need to hav e someone help you when you read instructions, pamphlets, or other written material from your doctor or pharmacy? Never 05/14/2024 Social Connection and Isolation Panel Answer Date Recorded In a typical week, how many times do you talk on the phone with family, friends, or neighbors? More than three times a week 05/14/2024 How often do you get togethe r with friends or relatives? Twice a week 05/14/2024 How often do you attend [facility] or sikhism services? More than 4 times per year 05/14/2024 Do you belong to any clubs o r organizations such as restorationist groups, unions, fraternal or athletic groups, or school groups? Yes 05/14/2024 How often do you attend meet ings of the clubs or organizations you belong to? More than 4 times per year 05/14/2024 Are you , , di vorced, , never , or living with a partner? 05/14/2024 AUDIT-C Answer Date Recorded Q1: How often do you have a drink containing alc ohol? Monthly or less 05/14/2024 Q2: How many drinks containi ng alcohol do you have on a typical day when you are drinking? 1 or 2 05/14/2024 Q3: How often do you have si x or more drinks on one occasion? Never 05/14/2024 Overall Financial Resource Strain (CARDIA) Answe r Date Recorded How hard is it for you to pa y for the very basics like food, housing, medical care, and heating? Not very hard 05/14/2024 [facility] - Occupational Stress Questionnaire Answer Date Recorded Do you feel stress - tense, restless, nervous, or anxious, or unable to sleep at night because your mind is troubled all the time - these days? Only a little 05/14/2024 Exercise Vital Sign Answer Date Recorde d On average, how many days pe r week do you engage in moderate to strenuous exercise (like a brisk walk)? 2 days 05/14/2024 On average, how many minutes do you engage in exercise at this level? 30 min 05/14/2024 Hunger Vital Sign Answer Date Recorded Within the past 12 months, y ou worried that your food would run out before you got the money to buy more. Never true 05/14/20 24 Within the past 12 months, t he food you bought just didn't last and you didn't have money to get more. Never true 05/14/2024 PRAPARE - Transportation Answer Date Re corded In the past 12 months, has l ack of transportation kept you from medical appointments or from getting medications? No 04/17 In the past 12 months, has l ack of transportation kept you from meetings, work, or from getting things needed for daily living? No 05/14/2024 Housing Stability Vital Sign Answer Reinaldo e Recorded In the last 12 months, was t here a time when you were not able to pay the mortgage or rent on time? No 05/14/2024 In the past 12 months, how m any times have you moved where you were living? 0 05/14/2024 At any time in the past 12 m [facility], were you homeless or living in a nursing home (including now)? No 05/14/2024 Comments No Sex and Gender Information Value Date Recorded Sex Assigned at Not on file Legal Sex Female 10:12 PM EDT Gender Identity Not on file Sexual Orientation Not on file documented as of this encounter Last Filed Vital Signs Vital Sign Reading Time Taken Comments Blood Pressure 122/86 07/29/2025 1:53 PM EDT Pulse - - Temperature - - Respiratory Rate - - Oxygen Saturation - - Inhaled Oxygen Concentration - - Weight 97.9 kg (215 lb 12 oz) 07/29/2025 1:53 PM EDT Height - - Body Mass Index 34.82 05/01/2025 9:05 AM EDT documented in this encounter Progress Notes * Diana Brunner NP - 07/29/2025 1:40 PM EDT Reason for Appointment: Patient ID: Sarbjit Campa is a 49 y.o. female who presents for Routine Visit Patient presents today for Annual Exam. MEDICATIONS Current Outpatient Medications Medication Instructions ALPRAZolam (XANAX) 0.5 mg, Oral, 3 times daily PRN aspirin 81 mg, Daily atorvastatin (LIPITOR) 20 mg, Daily cetirizine (ZYRTEC) 5 mg, Daily citalopram (CELEXA) 40 mg, Oral, Daily furosemide (LASIX) 40 mg, Oral, Daily PRN Levonorgestrel (Mirena, 52 MG,) 20 MCG/DAY intrauterine device by Intrauterine route. metoprolol tartrate (LOPRESSOR) 25 mg, 2 times daily Mounjaro 5 mg, Subcutaneous, Weekly oxybutynin XL (DITROPAN-XL) 15 mg, Oral, Daily, Do not crush, chew, or split. Vedolizumab (ENTYVIO IV) Infuse into a venous catheter warfarin (COUMADIN) 5 mg, Daily ALLERGIES Allergies[1] PROBLEMS Active Ambulatory Problems Diagnosis Date Noted Crohn's disease of both small and large intestine without complication ([facility]) 01/05/2023 Essential hypertension 01/05/2023 Class 2 severe obesity due to excess calories with serious comorbidity and body mass index (BMI) of39.0 to 39.9 in adult 08/19/2021 Aortic valve replaced 01/05/2023 Congenital bicuspid aortic valve ([facility]) 09/19/2023 DDD (degenerative disc disease), lumbar 09/19/2023 Dyslipidemia 09/19/2023 VIKI (generalized anxiety disorder) 09/19/2023 MDD (major depressive disorder), recurrent episode, mild 09/19/2023 Stress bladder incontinence, female 09/19/2023 Annual physical exam 09/19/2023 Type 2 diabetes mellitus with hyperglycemia, without long-term current use of insulin ([facility]) 09/22/2023 Thoracic ascending aortic aneurysm 03/19/2024 Hypersomnia 03/19/2024 Hiatal hernia with GERD without esophagitis 03/19/2024 Insulin resistance 05/15/2024 Pain of skin 05/15/2024 Bilateral leg edema 05/24/2024 Resolved Ambulatory Problems Diagnosis Date Noted Inflamed skin tag 03/19/2024 Past Medical History: Diagnosis Date Benign essential hypertension Crohn's disease without complication, unspecified gastrointestinal tract location ([facility]) Ganglion cyst Hyperhidrosis MDD (major depressive disorder), single episode, mild Psoriasis Stress incontinence in female Vitamin D deficiency HISTORY PAST MEDICAL HISTORY SOCIAL HISTORY Medical History[2] Social History Tobacco Use Smoking status: Former Current packs/day: 0.00 Average packs/day: 1 pack/day for 20.0 years (20.0 ttl pk-yrs) Types: Cigarettes Start date: 1994 Quit date: 2015 Years since quittin.7 Smokeless tobacco: Former Substance Use Topics Alcohol use: Never Drug use: Never FAMILY HISTORY Family History[3] SURGICAL HISTORY Surgical History[4] REVIEW OF SYSTEMS Review of Systems: Review of Systems Constitutional: Negative. HENT: Negative. Eyes: Negative. Respiratory: Negative. Cardiovascular: Negative. Gastrointestinal: Negative. Genitourinary: Negative. Musculoskeletal: Negative. Skin: Negative. I have a skin tag I would like removed Neurological: Negative. All other systems reviewed and are negative. Hematological: Negative. Endocrine: Negative. Allergic/Immunologic: Negative. OBJECTIVE Objective: Physical Exam Constitutional: Appearance: Normal appearance. She is well-developed. Genitourinary: Vulva normal. Breasts: Breasts are soft. Right: Normal. Left: Normal. Cardiovascular: Rate and Rhythm: Normal rate and regular rhythm. Pulmonary: Effort: Pulmonary effort is normal. Breath sounds: Normal breath sounds. Abdominal: General: Bowel sounds are normal. There is no distension. Palpations: Abdomen is soft. Tenderness: There is no abdominal tenderness. There is no guarding or rebound. Musculoskeletal: General: No swelling. Normal range of motion. Right lower leg: No edema. Left lower leg: No edema. Neurological: Mental Status: She is alert and oriented to person, place, and time. Skin: General: Skin is warm and dry. Psychiatric: Mood and Affect: Mood normal. Behavior: Behavior normal. Vitals and nursing note reviewed. Exam conducted with a coat check attendant present. Vitals: Estimated body mass index is 34.82 kg/m?? as calculated from the following: Height as of 05/01/25: 5' 6 . Weight as of this encounter: 215 lb 12 oz. BP: 122/86 No LMP recorded (lmp unknown). (Menstrual status: IUD). ASSESSMENT & PLAN ICD-10-CM 1. Well woman exam with routine gynecological exam Z01.419 THIN PREP TIS PAP AND HR HPV DNA 2. Encounter for screening mammogram for malignant neoplasm of breast Z12.31 Bilateral screening mammogram Bilateral screening mammogram 3. Postmenopausal state Z78.0 DEXA bone density Annual Exam: Patient presents today for an annual exam. Patient states she is doing well and has no complaints. Pap was obtained without difficulty. String check completed after IUD and easily visualized. Patient request removal of skin tag to left buttock. Findings consistent with seborrheic keratosis measuring 0.5 mm x 0.5 mm and anesthestized with 1 % lidocaine and patient tolerated well. Using #11 blade scalpel and lesion removed and will be sent to pathology. Using 4.0 Vicryl one simple suture was placed. Orders Placed This Encounter Procedures Bilateral screening mammogram DEXA bone density Follow Up: Patient is to return in one year for annual unless needed otherwise. Documented by Diana Brunner NP on behalf of: Kevin Flynn DO [1] Allergies Allergen Reactions Flagyl [Metronidazole] Humira [Adalimumab] [2] Past Medical History: Diagnosis Date Benign essential hypertension Congenital bicuspid aortic valve Crohn's disease without complication, unspecified gastrointestinal tract location (HCC) DDD (degenerative disc disease), lumbar Dyslipidemia VIKI (generalized anxiety disorder) Ganglion cyst Hyperhidrosis MDD (major depressive disorder), single episode, mild Psoriasis Stress incontinence in female Vitamin D deficiency [3] Family History Problem Relation Name Age of Onset COPD Mother Diabetes Mother Hypertension Mother Hypertension Father Coronary artery disease Father [4] Past Surgical History: Procedure Laterality Date AORTIC VALVE REPLACEMENT 04/10/2015 bioprostetic, mechanical valve CT ANGIOGRAM ABDOMEN PELVIS 12/30/2022 CT ANGIOGRAM ABDOMEN PELVIS 12/30/2022 CT ANGIOGRAM ABDOMEN PELVIS 04/04/2015 CT ANGIOGRAM ABDOMEN PELVIS 04/04/2015 CT ANGIOGRAM HEART CORONARY 12/30/2022 CT ANGIOGRAM TAVR 12/30/2022 CT ANGIOGRAM HEART CORONARY 04/04/2015 CT ANGIOGRAM TAVR 04/04/2015 CYST REMOVAL TUBAL LIGATION documented in this encounter Plan of Treatment Upcoming Encounters Date Type Department Care Team (Late st Contact Info) Description 08/05/2026 2:00 PM EDT Procedure Visit [facility] [address] [place] [address] Kevin Flynn DO [address] [place] [address] Scheduled Orders Name Type Priority Associated Diagnoses Orde r Schedule Bilateral screening mammogram Imaging Routine Encounter for screening mammogram for malignant neoplasm of breast Expected: 07/29/2025, Expires: 09/28/2026 DEXA bone density Imaging Routine Postmenopausal state Expected: 07/29/2025 (Approximate), Expires: 07/29/2026 THIN PREP TIS PAP AND HR HPV DNA Pathology and Cytology Routine Well woman exam with routine gynecological exam Ordered: 07/29/2025 documented as of this encounter Visit Diagnoses Diagnosis Well woman exam with routine gynecological exam Routine gynecological examination Encounter for screening mammogram for malignant neoplasm of breast Postmenopausal state Asymptomatic postmenopausal status (age-related) (natural) documented in this encounter Care Teams Systems Trainer Relationship Specialty Start Date End Date Jaun Elliott MD PCP - General Family Medicine 08/24/23 documented as of this encounter
--- OUTSIDE RECORDS SUMMARY | 2025-07-29 21:20 | XMS_ITS | CCD ---
Author Organization [facility] Care Team Providers Care Line Fisher Name Role Phone DR JAUN SULTANA Attending Unavailable RD, DR JAUN Irene Consulting Unavailable RD, DR JAUN Irene Primary Care Unavailable RD, DR JAUN Irene Admitting Unavailable Shantell Serra Unavailable David Giles Unavailable [phone] Allison Odom Unavailable Santa Jang Unavailable MD Jaun Sultana Primary Care Provider Ly, Martha L Attending Provider Ly, Martha L Admitting Unavailable Ly, Martha L Attending Unavailable Jaun Sultana Primary Care Unavailable Ly, Martha L Admitting Unavailable Ly, Martha L Attending Unavailable Jaun Sultana Primary Care Unavailable ROBINA LEE Attending Unavailable JAUN SULTANA Referring Unavailable JAUN SULTANA Primary Care Unavailable Jaun Sultana MD Primary Care Provider [phone] Jaun Sultana MD Unavailable Jaun Sultana MD Primary Care Provider Jaun Sultana MD Primary Care Provider Jaun Sultana MD Primary Care Provider Jaun Sultana MD Primary Care Provider Ly DO, Martha L Attending Provider Jaun Sultana MD Primary Care Provider [phone] JAUN SULTANA Attending Unavailable KEVIN FLYNN Attending Unavailable RAJI PAULINO Attending Unavailable JAUN SULTANA Attending Unavailable KEVIN FLYNN Attending Unavailable LY, MARTHA Kwok Referring Unavailable NADERER, JAUN Primary Care Unavailable [...] adalimumab; Translations: [ADALIMUMAB] Drug Allergy 1 RASH [facility] (20 sources) metroNIDAZOLE; Translations: [METRONIDAZOLE] Drug Allergy 7 headaches, nausea [facility] (1 source) adalimumab Drug Allergy 4 [facility] (1 source) metroNIDAZOLE Drug Allergy 4 [facility] (18 sources) Midodrine; Translations: [MIDODRINE] Drug Allergy 7 [facility] (15 sources) adalimumab Drug Allergy 3 [facility] Healthcare Medications Current Medications Medication Drug Class(es) Dates Sig (Normalized) Sig (Original) 10 ML risankizumab-rzaa 60 MG/ML Injection [Skyrizi] (5 sources) Skyrizi 600 MG/10ML as directed Intravenous Active acetaminophen 325 mg oral tablet (16 sources) Start: 01-09-2023 take 2 tablets by mouth every four hours as needed acetaminophen (TYLENOL) 325 mg tablet Take 2 tablets (650 mg total) by mouth every 4 (four) hours as needed (Mild headache or pain scale of 1-3). 30 tablet 01/09/2023 Active [id number] 200 actuat albuterol 0.09 mg/actuat metered dose inhaler (5 sources) beta2-Adrenergic Agonist Start: 10-03-2022 take 2 puff(s) by inhalation every four hours as needed Albuterol Sulfate HFA 108 (90 Base) MCG/ACT 2 puffs as needed Inhalation every 4 hrs PRN Sep, Active ALPRAZolam 0.5 mg oral tablet (18 sources) Benzodiazepine Start: 09-19-2023 End: 12-06-2024 take [...] sources) HMG-CoA Reductase Inhibitor Start: 01-30-2024 End: 05-22-2025 take 1 tablet by mouth once daily atorvastatin (LIPITOR) 20 mg tablet Indications: Hyperlipidemia, unspecified hyperlipidemia type Take 1 tablet (20 mg total) by mouth daily. 90 tablet 1 05/23/2025 Active brompheniramine maleate 0.4 mg/ml / dextromethorphan hydrobromide 2 mg/ml / pseudoephedrine hydrochloride 6 mg/ml oral solution (1 source) alpha-Adrenergic Agonist, Uncompetitive B-atlacl-L-asparta te Receptor Antagonist, Sigma-1 Agonist Start: 02-09-2025 take 1 mL by mouth every four to six hours as needed Brompheniramine-Pse udoeph-Dm (Bromfed Dm) 2-30-10 mg/5 mL syrup Active 5 ML PO EVERY 4-6 HOURS as needed for cold symptoms 118 5 February 09, 2025 12:00am Complies with drug therapy cetirizine hydrochloride 10 mg oral tablet (20 [...] tablet by mouth once daily 30 tablet 05/20/2025 Active Start: 09-17-2024 take 1 tablet by molly [...] oral tablet (1 source) alpha-Adrenergic Agonist, Uncompetitive I-czozlt-E-aspartate Receptor Antagonist, Sigma-1 Agonist Start: take 4 tablets by mouth every twenty-four hours as needed Capmist DM 60-15-400 MG as needed Orally every 4-6 hours as needed, max 4 tablets in 24 hours for 5 days Nov, Active fluconazole 150 mg oral tablet (2 sources) Azole Antifungal Start: End: fluconazole (Diflucan) 150 MG tablet Indications: Yeast infection Take 1 tablet (150 mg) by mouth 1 (one) time for 1 dose Repeat in 7 days if symptoms persist. 2 tablet 06/11/2025 06/11/2025 Active fluticasone propionate 0.05 mg/actuat metered dose nasal spray (1 source) Corticosteroid Start: take 1 spray(s) nasal route once daily Fluticasone Propionate 50 mcg/actuation spray,suspension Active 1 SPRAY INTRANASAL Daily February 09, 2025 12:00am administer into each nostril Complies with drug therapy furosemide 40 mg oral tablet (20 sources) Loop Diuretic Start: Furosemide 40 mg tablet Active 40 MG PO Every 48 hours as needed September 17, 2024 1:00am Complies with drug therapy Start: 05-24-2024 take 1 tablet by molly th once daily as needed furosemide (Lasix) 40 MG tablet Indications: Bilateral leg edema TAKE 1 TABLET BY MOUTH DAILY NEEDED 30 tablet 2 09/17/2024 Active levonorgestrel 0.958504 mg/hr intrauterine system (18 sources) Progestin, Progestin-containing Intrauterine Device Start: 06-24-2025 End: 06-23-2030 Levonorgestrel intrauterine device 52 mg Start: 06-24-2025 End: 06-24-2025 Levonorgestrel intrauterine device Start: 06-24-2025 End: 06-24-2025 Once PRN Procedure, Starting on Tue06/24/25 at 1330, For 1 dose Levonorgestrel ( Mirena, 52 MG,) 20 MCG/DAY intrauterine device by [...] Activ e predniSONE 20 mg oral tablet (18 sources) Start: 02-09-2025 take 1 tablet by mouth once daily Prednisone 20 mg tablet Active 20 MG PO Daily 3 3 February 09, 2025 12:00am Complies with drug therapy Start: 01-09-2024 End: 09-17-2024 take 2 tablets by mouth once daily Prednisone 20 mg tablet Discontinued 10 MG PO Daily February 17, 2024 12:00am September 17, 2024 11:25am Take 2 tablets orally once a day. Start: 01-09-2024 take 2 tablets by mo uth once daily Prednisone Active 40 MG PO [...] Start: 11-17-2023 take 1 tablet by molly every twelve hours prednisone 20 MG 1 [...] MG/10ML (3 sources) Start: 04-30-2022 Skyrizi 600 MG/10ML as directed Intravenous INFUSED AT WEEK 0, WEEK 4 AND WEEK 8 for 56 days Apr, Active Tirzepatide (1 source) Start: 06-06-2025 Tirzepatide (Mounjaro) 5 mg/0.5 mL pen injector Active MG SUBCUT June 06, 2025 12:00am Complies with drug therapy Tirzepatide (Mounjaro) 5 MG/0.5ML solution auto-injector (4 sources) Start: 06-03-2025 inject 5 mg by subcutaneous injection every week Tirzepatide (Mounjaro) 5 MG/0.5ML solution auto-injector Indications: Type 2 diabetes mellitus with hyperglycemia, without long-term current use of insulin (HCC) Inject 5 mg under the skin 1 (one) time per week 2 mL 3 06/03/2025 Active 1 ml ustekinumab 90 mg/ml prefilled syringe (10 sources) Interleukin-12 Antagonist, Interleukin-23 Antagonist Start: 09-07-2021 Stelara 90 MG/ML INJECT 1 PREFILLED SYRINGE Subcutaneous EVERY 56 DAYS for 56 days PRIOR AUTH REFERENCE NUMBER [id number] FROM 09/07/21 TO 09/07/22 Aug, Active vedolizumab 300 mg injection (20 sources) Integrin Receptor Antagonist Start: 06-06-2025 Vedolizumab (Entyvio) 300 mg recon soln Active 300 MG IV EVERY 8 WEEKS June 06, 2025 12:00am administer over 30 mins Complies with drug therapy Start: 02-09-2025 End: 06-06-2025 Vedolizumab (Entyvio Pen) 10 8 mg/0.68 mL pen injector Discontinued 108 MG SUBCUT EVERY 2 MONTHS February 09, 2025 9:27am June 06, 2025 2:30pm Start: 02-09-2025 Vedolizumab (E ntyvio Pen) 108 mg/0.68 mL [...] in the evening. Or as directed by [facility]. 90 tablet 1 03/18/2025 Active take 1 [...] mg / clavulanate 125 mg oral tablet (3 sources) Penicillin-class Antibacterial Start: 09-17-2024 End: 09-28-2024 take 1 tablet by mouth every twelve hours Amoxicillin-Pot Clavulanate 875-125 mg tablet Discontinued 1 TAB PO Every 12 hours 05 08September 17, 2024 1:00am September 28, 2024 12:20pm 24 hr metFORMIN hydrochloride 500 mg extended release oral tablet (20 sources) Biguanide Start: 05-24-2024 End: 05-01-2025 take 1 tablet by mouth every twenty-four hours Metformin 500 mg tablet extended release 24 hr Discontinued MG PO September 17, 2024 1:00am February 09, 2025 9:25am take 1 tablet by molly th once daily at breakfast metFORMIN XR (GLUCOPHAGE XR) 500 mg 24 h r tablet Take 1 tablet (500 mg total) by mouth daily with breakfast. Active Nirmatrelvir-Ritonavir (1 source) Start: 09-28-2024 End: 11-22-2024 Nirmatrelvir-Ritonavir (Paxlovid) 300 mg (150 mg x 2)-100 mg tablets,dose pack Discontinued 0 PO .COMPLEX September 28, 2024 1:00am November 22, 2024 3:49pm take TWO 150 mg tablets of nirmatrelvir with ONE 100 mg tablet of ritonavir twice daily for 5 days PO Nirmatrelvir-Ritonavir (Paxlovid) 300 mg (150 mg x 2)-100 mg tablets,dose pack (2 sources) Start: 09-28-2024 End: 11-22-2024 Nirmatrelvir-Ritonavir (Paxlovid) 300 mg (150 mg x 2)-100 [...] twice daily for 5 days PO Omeprazole (16 sources) Proton Pump Inhibitor Start: 01-30-2024 End: [...] Status: Taking; Refills: 11; Provider: Tisha Jama Triamcinolone (20 sources) Corticosteroid Start: 10-22-2021 KENALOG - 10 m g Oct, 60 mg Start: 03-05-2021 KENALOG - 10 m g February, 40 mg Start: 06-08-2018 KENALOG - 10 m g May, 40 mg Problems Active Problems Problem Classification Problem Date Documented Da te Episodic/Chronic Abdominal pain (17 sources) Abdominal pain; Translations: [Unspecified abdominal pain] Episodic Anxiety disorders (18 sources) Generalized anxiety disorder; Translations: [Generalized anxiety disorder] Onset: 09-19-2023 09-19-2023 Chronic Aortic; peripheral; and visceral artery aneurysms (15 sources) Aneurysm of ascending aorta; Translations: [Thoracic ascending aortic aneurysm] Onset: 03-19-2024 03-19-2024 Chronic Cardiac and circulatory congenital anomalies (16 sources) Bicuspid aortic valve; Translations: [Congenital bicuspid aortic valve] Onset: 09-19-2023 09-19-2023 Chronic Contraceptive and procreative management (5 sources) Intrauterine contraceptive device in situ; Translations: [Encounter for routine checking of intrauterine contraceptive device] 06-11-2025 Episodic Diabetes mellitus with complications (4 sources) Hyperglycemia due to type 2 diabetes mellitus; Translations: [Type 2 diabetes mellitus with hyperglycemia] Onset: 09-22-2023 05-02-2025 Chronic Diabetes mellitus without complication (1 source) Type 2 diabetes mellitus; Translations: [Type 2 diabetes mellitus without complications] 06-06-2025 Chronic Disorders of lipid metabolism (17 sources) Hyperlipidemia, unspecified; Translations: [Dyslipidemia] Onset: 09-19-2023 09-19-2023 Chronic Essential hypertension (20 sources) Essential (primary) hypertension; Translations: [Hypertensive disorder] Onset: 08-19-2011 Resolved: 07-04-2018 09-19-2023 Chronic Genitourinary symptoms and ill-defined conditions (15 sources) Female stress incontinence; Translations: [Stress incontinence [...] with other respiratory manifestations Episodic Intestinal infection (3 sources) Clostridium difficile diarrhea; Translations: [Enterocolitis due to Clostridium difficile, not specified as recurrent] 09-17-2024 Episodic Mood disorders (17 sources) Recurrent major depressive episodes, mild ; Translations: [Major depressive disorder, recurrent, mild] Onset: 09-19-2023 09-19-2023 Chronic Mycoses (2 sources) Mycosis; Translations: [Candidiasis, unspecified] 06-11-2025 Episodic Nutritional deficiencies (1 source) Vitamin D deficiency, unspecified; Translations: [VITAMIN D DEFICIENCY UNSPECIFIED] Onset: 10-20-2021 Chronic Other circulatory disease (17 sources) Elevated blood pressure; Translations: [Elevated blood-pressure reading, without diagnosis of hypertension] Episodic Other connective tissue disease (3 sources) Ganglion cyst; Translations: [Ganglion, unspecified site] [...] Chronic Other nutritional; endocrine; and metabolic disorders (20 sources) Body mass index 30+ - obesity; Translations: [Obesity, unspecified] Onset: 08-19-2021 09-19-2023 Chronic Other nutritional; endocrine; and metabolic disorders (17 sources) Insulin resistance; Translations: [Insulin resistance] Onset: 05-15-2024 05-15-2024 Chronic Other nutritional; endocrine; and metabolic disorders (13 sources) Severe obesity; Translations: [Class 2 severe obesity due to excess calories with serious comorbidity and body mass index (BMI) of 36.0 to 36.9 in adult ([facility])] Onset: 08-19-2021 08-14-2024 Chronic Other skin disorders (17 sources) Eruption; Translations: [Rash and other nonspecific skin eruption] Episodic Other upper respiratory infections (6 sources) Acute sinusitis, unspecified; Translations: [Acute sinusitis] Episodic Otitis media and related conditions (1 source) Acute transudative otitis media; Translations: [Other acute nonsuppurative otitis media, bilateral] 02-09-2025 Episodic Regional enteritis and ulcerative colitis (20 sources) Crohn's disease; Translations: [Crohn's disease, unspecified, with unspecified complications] Onset: 07-12-2019 Resolved: 04-15-2022 Chronic Residual codes; unclassified (17 sources) Hypersomnia; Translations: [Hypersomnia, unspecified] Onset: 03-19-2024 03-19-2024 Chronic Residual codes; unclassified (6 sources) Obstructive sleep apnea syndrome; Translations: [Obstructive sleep apnea (adult) (pediatric)] 07-18-2024 Chronic Residual codes; unclassified (2 sources) Sleep deprivation; Translations: [Sleep deprivation] 07-18-2024 Episodic Spondylosis; intervertebral disc disorders; other back problems (15 sources) Degeneration of lumbar intervertebral disc; Translations: [DDD (degenerative disc disease), lumbar] Onset: 09-19-2023 09-19-2023 Chronic Viral infection (5 sources) Other viral agents as the cause of diseases classified elsewhere; Translations: [Disease caused by 2018-nCoV] Episodic Past or Other Problems Problem Classification Problem Date Documented Date Episodic/Chronic Abdominal hernia (15 sources) Gastroesophageal reflux disease with hiatal hernia; Translations: [Diaphragmatic hernia without obstruction or gangrene] Onset: 03-19-2024 03-19-2024 Episodic Complication of device; implant or graft (20 sources) Prosthetic aortic valve stenosis; Translations: [Stenosis of other cardiac prosthetic devices, implants and grafts, subsequent encounter] Onset: 01-05-2023 10-08-2024 Episodic Conditions associated with dizziness or vertigo (16 sources) Dizziness; Translations: [Dizziness and giddiness] Resolved: 07-04-2018 07-04-2018 Episodic Diabetes mellitus without complication (13 sources) Prediabetes; Translations: [Prediabetes] Onset: 09-22-2023 09-22-2023 Episodic Other lower respiratory disease (16 sources) Dyspnea; Translations: [Shortness of breath] Resolved: 07-04-2018 07-04-2018 Episodic Other nervous system disorders (15 sources) Pain of skin; Translations: [Other disturbances of skin sensation] Onset: 05-15-2024 05-15-2024 Episodic Other skin disorders (1 source) Rash and other nonspecific skin eruption Onset: 10-22-2021 Resolved: 10-22-2021 Episodic Other skin disorders (17 sources) Skin tag; Translations: [Other hypertrophic disorders of the skin] Onset: 03-19-2024 Resolved: 05-01-2025 05-24-2024 Episodic Residual codes; unclassified (17 sources) Bilateral lower limb edema; Translations: [Localized edema] Onset: 05-24-2024 05-24-2024 Episodic Residual codes; unclassified (1 source) Localized edema; Translations: [Localized edema] Onset: 09-27-2024 Episodic Viral infection (1 source) COVID-19 Results Test Name Value Interpretation Reference Range Facility POCT Protime / INRon 025 INR Coag (PPP) [Relative time] 1.8 {INR} Abnormal 0.8 - 1.2 [facility] Interpretation and review of laboratory results Abnormal [facility] IUD Insertionon 06-24-2025 Sharda Zamora LPN 06/25/2025 8:58 AM IUD Insertion Performed by: Sharda Zamora LPN Authorized by: Kevin Flynn DO Procedure: IUD insertion Consent obtained by patient, parent, or legal power of claim attorney - including discussion of procedure risks and benefits, patient questions answered, and patient education provided: yes risk: reasonably certain the patient is not Date/Time of Insertion: 06/24/2025 2:30 PM Immediately prior to procedure a time out was called: yes Pelvic exam performed: no Speculum placed in vagina: yes Cervix cleaned and prepped: yes Tenaculum/Allis/Rin g Forceps applied to cervix: yes Anesthesia used: no Uterus sound depth (cm): 9 Cervix dilated: yes Cervix dilated with: Cervical os finder IUD inserted without complications: yes OSM: Levonorgestrel 20 MCG/DAY Patient tolerated procedure well: yes Inserted with ultrasound guidance: no Transvaginal sono confirmed fundal placement: no Intended removal date: 5 years [facility] POCT Protime / INRon 06-19- 025 INR Coag (PPP) [Relative time] 2.7 {INR} Abnormal 0.8 - 1.2 [facility] Interpretation and review of laboratory results Abnormal [facility] POCT Protime / INRon 025 INR Coag (PPP) [Relative time] 1.8 {INR} Abnormal 0.8 - 1.2 [facility] Interpretation and review of laboratory results Abnormal [facility] ALL CBC WITH AUTO DIFFon BASOPHILS ABSOLUTE AUTO 0 [facility] Basophils/100 WBC (Bld) 0.3 % 0.2 - 2.0 % [facility] Eosinophils/100 WBC (Bld) 2 % 0.9 - 7.0 % [facility] Erythrocyte distribution width (RBC) [Ratio] 12.5 % 11.0 - 15.0 % [facility] Hematocrit (Bld) [Volume fraction] 41 % 36.0 - 48.0 % [facility] ([facility] [Mass/Vol] 14.7 g/dL 12.0 - 16.0 g/dL [facility] IMMATURE GRANULOCYTES ABS AUTO 0.01 [facility] Immature granulocytes/100 WBC (Bld) 0.1 % 0.0 - 0.5 % [facility] Interpretation and review of laboratory results Abnormal [facility] LYMPHOCYTES ABSOLUTE AUTO 1.9 [facility] Lymphocytes/100 WBC (Bld) 27.2 % 20.5 - 60.0 % [facility] MCH (RBC) [Entitic mass] 30.1 pg 26.7 - 34.0 pg [facility] MCHC (RBC) [Mass/Vol] 35.9 g/dL High 29.9 - 35.2 g/dL [facility] MCV (RBC) [Entitic vol] 84 fL 81.0 - 99.0 fL [facility] MONOCYTES ABSOLUTE AUTO 0.6 [facility] Monocytes/100 WBC (Bld) 7.8 % 1.7 - 12.0 % [facility] NEUTROPHILS ABSOLUTE AUTO 4.4 [facility] Neutrophils/100 WBC (Bld) 62.6 % 43.0 - 75.0 % [facility] Platelet mean volume (Bld) [Entitic vol] 11.7 fL 9.5 - 13.5 fL [facility].1 [facility]H PLT 203 [facility] TB RBC 4.88 [facility] TB WBC 7.1 [facility] HbA1c (Bld) [Mass fraction]o n 05-01-2025 Interpretation and review of laboratory results Abnormal [facility] Laboratory - Hematology and Cell countson 05-01-2025 HbA1c (Bld) [Mass fraction] 6.2 % [facility] POCT Protime / INRon 04-04-2 025 INR Coag (PPP) [Relative time] 1.5 {INR} Abnormal 0.8 - 1.2 [facility] Interpretation and review of laboratory results Abnormal [facility] POCT Protime / INRon 03-14-2 025 INR Coag (PPP) [Relative time] 2.3 {INR} Abnormal 0.8 - 1.2 [facility] Interpretation and review of laboratory results Abnormal [facility] POCT Protime / INRon 02-13-2 025 INR Coag (PPP) [Relative time] 2.5 {INR} Abnormal 0.8 - 1.2 [facility] Interpretation and review of laboratory results Abnormal [facility] POCT Protime / INRon 01-15-2 025 INR Coag (PPP) [Relative time] 1.7 {INR} Abnormal 0.8 - 1.2 [facility] Interpretation and review of laboratory results Abnormal [facility] POCT Protime / INRon 12-24-2 025 INR Coag (PPP) [Relative time] 1.4 {INR} Abnormal 0.8 - 1.2 [facility] Interpretation and review of laboratory results Abnormal [facility] POCT Protime / INRon 12-03-2 025 INR Coag (PPP) [Relative time] 1.4 {INR} Abnormal 0.8 - 1.2 [facility] Interpretation and review of laboratory results Abnormal [facility] POCT Protime / INRon 025 INR Coag (PPP) [Relative time] 1.8 {INR} Abnormal 0.8 - 1.2 [facility] Interpretation and review of laboratory results Abnormal [facility] POCT Protime / INRon 024 INR Coag (PPP) [Relative time] 1.2 {INR} 0.8 - 1.2 [facility] No Panel InformationOrdered By: Heidy Barrios on 09-28-2024 COVID Antigen (POC) [facility] Influenza virus B Ag [Presen ce] in Upper respiratory specimen by Rapid immunoassayon 09-17-2024 FLUBV Ag IA.rapid Ql (Nph) Influenza virus B Ag [Presence] in Upper respiratory specimen by Rapid immunoassay [facility] No Panel Informationon 09-17 Influenza Type A (Rapid) Negative [facility] POC SARS CoV-2 Antigen Negative [facility] No Panel InformationOrdered By: Heidy Barrios on 09-17-2024 Quick Strep (POC) [facility] CBC AND AUTO DIFFon 07-09-20 24 ABSOLUTE BASOPHIL 0.0 X10E9/L Normal 0.0-0.2 [facility] Comment on above: Performed By: #### C BCA, LIVR #### [facility] ([id number]) [address], [address] [place] [address] ABSOLUTE NEUTROPHIL 5.5 X10E9/L Normal 1.5-6.6 [facility] Comment on above: Performed By: #### C BCA, LIVR #### [facility] ([id number]) [address], [address] [place] [address] Basophils/100 WBC (Bld) 0.4 % Normal [facility] Comment on above: Performed By: #### C BCA, LIVR #### [facility] ([id number]) [address], [address] [place] [address] Eosinophils (Bld) [#/Vol] 0.1 10*3/uL Normal 0.0-0.4 [facility] Comment on above: Performed By: #### C MAL, LIVR #### [facility] ([id number]) [address], [address] [place] [address] Eosinophils/100 WBC (Bld) 1.3 % Normal [facility] Comment on above: Performed By: #### C MAL, LIVR #### [facility] ([id number]) [address], [address] [place] [address] Erythrocyte distribution width (RBC) [Ratio] 12.6 % Normal 11.5-15.0 [facility] Comment on above: Performed By: #### C MAL, LIVR #### [facility] ([id number]) [address], [address] [place] [address] Hematocrit (Bld) [Volume fraction] 40.9 % Normal 35-47 [facility] Comment on above: Performed By: #### C MAL, LIVR #### [facility] ([id number]) [address], [address] [place] [address] Hemoglobin (Bld) [Mass/Vol] 14.0 g/dL Normal 11.7-15.5 [facility] Comment on above: Performed By: #### C MAL, LIVR #### [facility] ([id number]) [address], [address] [place] [address] Lymphocytes (Bld) [#/Vol] 3.1 10*3/uL Normal 1.0-3.5 [facility] Comment on above: Performed By: #### C BCA, LIVR #### [facility] ([id number]) [address], [address] [place] [address] Lymphocytes/100 WBC (Bld) 32.6 % Normal [facility] Comment on above: Performed By: #### C BCA, LIVR #### [facility] ([id number]) [address], [address] [place] [address] MCH (RBC) [Entitic mass] 29.7 pg Normal 27-34 [facility] Comment on above: Performed By: #### C BCA, LIVR #### [facility] ([id number]) [address], [address] [place] [address] MCHC (RBC) [Mass/Vol] 34.3 g/dL Normal 32-36 [facility] Comment on above: Performed By: #### C MAL, LIVR #### [facility] ([id number]) [address], [address] [place] [address] MCV (RBC) [Entitic vol] 87 fL Normal 80-100 [facility] Comment on above: Performed By: #### C MAL, LIVR #### [facility] ([id number]) [address], [address] [place] [address] Monocytes (Bld) [#/Vol] 0.7 10*3/uL Normal 0-0.9 [facility] Comment on above: Performed By: #### C MAL, LIVR #### [facility] ([id number]) [address], [address] [place] [address] Monocytes/100 WBC (Bld) 7.8 % Normal [facility] Comment on above: Performed By: #### C MAL, LIVR #### [facility] ([id number]) [address], [address] [place] [address] Neutrophils/100 WBC (Bld) 57.9 % Normal [facility] Comment on above: Performed By: #### C BCA, LIVR #### [facility] ([id number]) [address], [address] [place] [address] Platelet mean volume (Bld) [Entitic vol] 10.3 fL Normal 7-12 [facility] Comment on above: Performed By: #### C BCA, LIVR #### [facility] ([id number]) [address], [address] [place] [address] Platelets (Bld) [#/Vol] 230 10*3/uL Normal 150-450 [facility] Comment on above: Performed By: #### C BCA, LIVR #### [facility] ([id number]) [address], [address] [place] [address] RBC COUNT 4.73 X10E12/L Normal 3.80-5.20 [facility] Comment on above: Performed By: #### C BCA, LIVR #### [facility] ([id number]) [address], [address] [place] [address] WBC (Bld) [#/Vol] 9.5 10*3/uL Normal 4.0-11.0 [facility] Comment on above: Performed By: #### C BCA, LIVR #### [facility] ([id number]) [address], [address] [place] [address] LIVER PANELon 07-09-2024 Albumin [Mass/Vol] 4.4 g/dL Normal 3.2-5.3 [facility] Comment on above: Performed By: #### C BCA, LIVR #### [facility] ([id number]) [address], [address] [place] [address] ALP [Catalytic activity/Vol] 55 U/L Normal 39-130 [facility] Comment on above: Performed By: #### C BCA, LIVR #### [facility] ([id number]) [address], [address] [place] [address] ALT [Catalytic activity/Vol] 15 U/L Normal 0-31 [facility] Comment on above: Performed By: #### C BCA, LIVR #### [facility] ([id number]) [address], [address] [place] [address] AST [Catalytic activity/Vol] 19 U/L Normal 0-41 [facility] Comment on above: Performed By: #### C BCA, LIVR #### [facility] ([id number]) [address], [address] [place] [address] Bilirubin [Mass/Vol] 0.6 mg/dL Normal 0.3-1.2 [facility] Comment on above: Performed By: #### C BCA, LIVR #### [facility] ([id number]) [address], [address] [place] [address] Bilirubin.direct [Mass/Vol] 0.1 mg/dL Normal 0.0-0.4 [facility] Comment on above: Performed By: #### C BCA, LIVR #### [facility] ([id number]) [address], [address] [place] [address] Protein [Mass/Vol] 7.1 g/dL Normal 6.0-8.0 [facility] Comment on above: Performed By: #### C BCA, LIVR #### [facility] ([id number]) [address], [address] [place] [address] Complete Blood Count Auto Di ffon 02-28-2024 Basophils (Bld) [#/Vol] 0.1 10*3/uL Normal 0.0-0.2 [facility] Comment on above: Result Comment: PERF ORMED BY: [place] [address] PATHOLOGIST WILDLIFE CONTROL OPERATOR ROBIN HERNANDEZ M.D. Performed By: #### P TT, PT, CBC #### [place] [id number] [place] Basophils/100 WBC (Bld) 0.5 % Normal . [facility] Comment on above: Performed By: #### P TT, PT, CBC #### [facility] [address] Eosinophils (Bld) [#/Vol] 0.1 10*3/uL Normal 0.0-0.45 [facility] Comment on above: Performed By: #### P TT, PT, CBC #### [address] Eosinophils/100 WBC (Bld) 0.7 % Normal . [facility] Comment on above: Performed By: #### P TT, PT, CBC #### [address] Erythrocyte distribution width (RBC) [Ratio] 13.5 % Normal 11.9-15.3 [facility] Comment on above: Performed By: #### P TT, PT, CBC #### [address] Hematocrit (Bld) [Volume fraction] 43.7 % Normal 34.0-46.4 [facility] Comment on above: Performed By: #### P TT, PT, CBC #### [address] Hemoglobin (Bld) [Mass/Vol] 14.8 g/dL Normal 11.8-15.4 [facility] Comment on above: Performed By: #### P TT, PT, CBC #### [address] Lymphocytes (Bld) [#/Vol] 2.2 10*3/uL Normal 1.00-4.8 [facility] Comment on above: Performed By: #### P TT, PT, CBC #### [address] Lymphocytes/100 WBC (Bld) 16.6 % Normal . [facility] Comment on above: Performed By: #### P TT, PT, CBC #### [address] MCH (RBC) [Entitic mass] 29.5 pg Normal 24.7-34.3 [facility] Comment on above: Performed By: #### P TT, PT, CBC #### [address] MCV (RBC) [Entitic vol] 87.1 fL Normal 80-100 [facility] Comment on above: Performed By: #### P TT, PT, CBC #### [address] Mean Corpuscular HGB Conc 33.9 g/dL Normal 32.0-35.0 [facility] Comment on above: Performed By: #### P TT, PT, CBC #### [place] [address] [place] Monocytes (Bld) [#/Vol] 0.5 10*3/uL Normal 0.0-0.8 [facility] Comment on above: Performed By: #### P TT, PT, CBC #### [address] Monocytes/100 WBC (Bld) 3.5 % Normal . [facility] Comment on above: Performed By: #### P TT, PT, CBC #### [address] Neutrophils (Bld) [#/Vol] 10.3 10*3/uL High 1.8-7.7 [facility] Comment on above: Performed By: #### P TT, PT, CBC #### [address] Neutrophils/100 WBC (Bld) 78.7 % Normal . [facility] Comment on above: Performed By: #### P TT, PT, CBC #### [address] NRBC% 0.2 /100{WBC} Normal 0-0.5 [facility] Comment on above: Performed By: #### P TT, PT, CBC #### [address] Platelet mean volume (Bld) [Entitic vol] 9.1 fL Normal 6.3-10.[address] [facility] Comment on above: Performed By: #### P TT, PT, CBC #### [facility] [address] Platelets (Bld) [#/Vol] 264 10*3/uL Normal 150-450 [facility] Comment on above: Performed By: #### P TT, PT, CBC #### [facility] [address] RBC (Bld) [#/Vol] 5.02 10*6/uL High 3.60-5.00 [facility] Comment on above: Performed By: #### P TT, PT, CBC #### [facility] [address] WBC (Bld) [#/Vol] 13.1 10*3/uL High 3.8-11.6 [facility] Comment on above: Performed By: #### P TT, PT, CBC #### [facility] [address] HCG,Urineon 02-28-2024 Beta HCG ( test) Ql (U) Negative Normal [facility] Comment on above: Result Comment: PERF ORMED BY: [place] [address] PATHOLOGIST WILDLIFE CONTROL OPERATOR ROBIN HERNANDEZ M.D. Performed By: #### U HCG #### [address] Luis Miguel 02-28-2024 L Specimen: [id number] Received: 02/28/24 Status: OZ [place] Num: [id number] Spec Type: Surgical Subm Dr: Martha Calderon DO Tissues: A Colon Biopsy (TERMINAL ILEUM BX) B Colon Biopsy (ASC POLYP) C Colon Biopsy (RT COLON BX) D Colon Biopsy (TRANSV BX) E Colon Biopsy (LT COLON BX) Procedures: HE/10, Gross/Micro L4/5 Age/ Patient Sex Location Account Attending Physician Sarbjit Campa 48/F [id number] Martha Calderon DO SPEC NUM: [id number] RECD: 02/28/24 STATUS: OZ WYNNE NUM: [id number] NICOL: 02/28/24 DR: Martha Calderon DO ENTERED: 02/28/24-1309 [facility] DR: SPEC TYPE: Surgical DEPT: [facility] BY: [id number] ORDERED: HE/10, Gross/Micro L4/5 ORDERED: HE10, Gross/Micro L4/5 Pathological Diagnosis A. Terminal ileum, [...] tissue fragment, entirely submitted in B1. Specimen: [id number] Received: 02/28/24 Status: OZ [place] Num: [id number] Spec Type: Surgical Subm Dr: Martha Calderon DO Tissues: A Colon Biopsy (TERMINAL ILEUM BX) B Colon Biopsy (ASC POLYP) C Colon Biopsy (RT COLON BX) D Colon Biopsy (TRANSV BX) E Colon Biopsy (LT COLON BX) Procedures: HE/10, Gross/Micro L4/5 Patient: Janet Campajolanta [id number] (Continued) Specimen: [id number] Received: 02/28/24 (Continued) Gross Description (Continued) Signed (signatur e on file) Priscila Pace MD 02/29/24 1429 Specimen: [id number] Received: 02/28/24 Status: OZ [place] Num: [id number] Spec Type: Surgical Subm Dr: Martha Calderon DO Tissues: A Colon Biopsy (TERMINAL ILEUM BX) B Colon Biopsy (ASC POLYP) C Colon Biopsy (RT COLON BX) D Colon Biopsy (TRANSV BX) E Colon Biopsy (LT COLON BX) Procedures: MADELYN/Tameka Burt/Ronnie L4/5 Patient: KatherynSarbjit [id number] (Continued) Specimen: [id number] Received: 02/28/24 (Continued) Gross Description (Continued) C. [...] E1. Clinical history: Crohn's, colitis. CPT Codes 18860w4 Specimen: [id number] Received: 02/28/24 Status: OZ [place] Num: [id number] Spec Type: Surgical Subm Dr: Martha Calderon, DO Tissues: A Colon Biopsy (TERMINAL ILEUM BX) B Colon Biopsy (ASC POLYP) C Colon Biopsy (RT COLON BX) D Colon Biopsy (TRANSV BX) E Colon Biopsy (LT COLON BX) Procedures: HE/10, Gross/Micro L4/5 Patient: Sarbjit Campa [id number] (Continued) Signed (signatur e on file) Priscila Pace MD 02/29/24 1429 Normal [facility] Partial Thromboplastin Timeo n 02-28-2024 aPTT Coag (Bld) [Time] 26.1 s Normal 25.1-36.5 Th e [facility] Comment on above: Result Comment: A he matocrit value greater than 55% may lead to inaccurate results in coagulation testing. Patients having hematocrit values >55% require a special collection tube for coagulation studies. Please contact the laboratory at [phone] for redraw instructions. PERFORMED BY: [address] [address] PATHOLOGIST WILDLIFE CONTROL OPERATOR ROBIN HERNANDEZ M.D. Performed By: #### P TT, PT, CBC #### [place] [id number] [facility] Prothrombin Time INRon 02-27 INR Coag (PPP) [Relative time] 1.0 {INR} Normal [facility] Comment on above: Result Comment: INR [...] By: #### P TT, PT, CBC #### [address] PT Coag (PPP) [Time] 11.7 s Normal 9.0-12.9 [facility] Comment on above: Result Comment: A he matocrit value greater than 55% may lead to inaccurate results in coagulation testing. Patients having hematocrit values >55% require a special collection tube for coagulation studies. Please contact the laboratory at [phone] for redraw instructions. Performed By: #### P TT, PT, CBC #### [address] enterographyon 02-13-2024 CT enterography [facility] [place] [address] [place] [address] CT Scan Report Signed Patient: Sarbjit Campa MR#: [id number] : 1975 Acct:[id number] Age/Sex: 48 / F ADM Date: 02/13/24 Loc: CT Room: Type: [facility] Attending Dr: Martha Calderon DO Copies [...] nephrolithiasis. Impression dictated by: Michael Tavares Jr., AlfonzoOTristan02/13/2024 1:17 PM Dictation Location: [place] [address] Transcribed By: [facility] 02/13/24 1317 Dictated By: Michael Tavares Jr, DO 02/13/24 1311 Signed By: 02/13/24 1317 Normal [facility] COVID/FLU/RSV RT-PCRon 11-17 SARS-CoV-2 (COVID-19) RNA DAMIEN+probe Ql (Unsp spec) Negative [employer] Other COVID/FLU/RSV RT-PCR Positive [employer] Other COVID/FLU/RSV RT-PCR Negative [employer] Other Quick St[employer] 11-17-2023 S. pyogenes Org specific cx Ql (Throat) Negative [employer] Other Quick Strep [employer] Other COVID/FLU/RSV RT-PCRon 10-26 SARS-CoV-2 (COVID-19) RNA DAMIEN+probe Ql (Unsp spec) Positive [employer] Other COVID/FLU/RSV RT-PCR Negative [facility] [employer] Other COVID/FLU RT-PCRon 2 SARS-CoV-2 (COVID-19) RNA DAMIEN+probe Ql (Unsp spec) Negative [facility] [employer] Other COVID/FLU RT-PCR Negative [facility] [employer] Other [employer] 07-23-2022 S. pyogenes Org specific cx Ql (Throat) Negative [facility] [employer] Other Quick Strep [facility] [employer] Other VIT D 25-OH [employer] 2020 Vitamin D, 25-Hydroxy 25.7 ng/mL Critically low 30.0-100.0 [facility] Comment on above: Result Comment: Lizzy min D deficiency has been defined by the [place] of [employer] and an Endocrine Society practice guideline as a level of serum 25-OH vitamin D less than 20 ng/mL (1,2). The Endocrine Society went on to further define vitamin D insufficiency as a level between 21 and 29 ng/mL (2). 1. IOM ([place] of [employer]). 2010. Dietary reference intakes for calcium and D. [place]: The National Academies Press. 2. Lacey MORALES, Raoul SCHAEFER, Addy PACHECO, et al. Evaluation, treatment, and prevention of vitamin D deficiency: an Endocrine Society clinical practice guideline. JCEM. 2010; 96(7):1911-30. Performed By: #### V ITADLC #### [facility] [address] [place] [address] [address] Kanchan Ramirez CBC AUTO DIFFon 10-12-2021 BASO # 0.0 103/ul Normal 0.0-0.1 [facility] Comment on above: Performed By: #### C BC #### [facility] [address] [place] [address] [address] Kanchan Ramirez Basophils/100 WBC (Bld) 0.4 % Normal 0.2-2.0 [facility] Comment on above: Performed By: #### C BC #### [facility] [address] [place] [address] Dr. Kanchan Ramirez EO # 0.1 103/ul Normal 0.0-0.7 [facility] Comment on above: Performed By: #### C BC #### [facility] [address] [place] [address] Dr. Kanchan Ramirez Eosinophils/100 WBC (Bld) 1.5 % Normal 0.9-7.0 [facility] Comment on above: Performed By: #### C BC #### [facility] [address] [place] [address] Dr. Kanchan Ramirez Erythrocyte distribution width (RBC) [Ratio] 12.7 % Normal 11.0-15.0 [facility] Comment on above: Performed By: #### C BC #### [facility] [address] [place] [address] Dr. Kanchan Ramirez Hematocrit (Bld) [Volume fraction] 40.4 % Normal 36.0-48.0 [facility] Comment on above: Performed By: #### C BC #### [facility] [address] [place] [address] Dr. Kanchan Ramirez Hemoglobin (Bld) [Mass/Vol] 13.6 g/dL Normal 12.0-16.0 [facility] Comment on above: Performed By: #### C BC #### [facility] [address] [place] [address] Dr. Kanchan Ramirez IG # 0.02 10e3/ul Normal 0.00-0.03 [facility] Comment on above: Performed By: #### C BC #### [facility] [address] [place] [address] Dr. Kanchan Ramirez IG % 0.2 % Normal 0.0-0.5 [facility] Comment on above: Performed By: #### C BC #### [facility] [address] [place] [address] Dr. Kanchan Ramirez LYMPH # 3.4 103/ul Normal 1.2-3.8 [facility] Comment on above: Performed By: #### C BC #### [facility] [address] [place] [address] Dr. Kanchan Ramirez Lymphocytes/100 WBC (Bld) 37.5 % Normal 20.5-60.0 [facility] Comment on above: Performed By: #### C BC #### [facility] [address] [place] [address] Dr. Kanchan Ramirez MANUAL DIFF REQ NO Normal [facility] Comment on above: Performed By: #### C BC #### [facility] [address] [place] [address] Dr. Kanchan Ramirez MCH (RBC) [Entitic mass] 30.4 pg Normal 26.7-34.0 [facility] Comment on above: Performed By: #### C BC #### [facility] [address] [place] [address] Dr. Kanchan Ramirez MCHC (RBC) [Mass/Vol] 33.7 g/dL Normal 29.9-35.2 [facility] Comment on above: Performed By: #### C BC #### [facility] [address] [place] [address] Dr. Kanchan Ramirez MCV (RBC) [Entitic vol] 90.2 fL Normal 81.0-99.0 [facility] Comment on above: Performed By: #### C BC #### [facility] [address] [place] [address] Dr. Kanchan Ramirez MONO # 0.7 103/ul Normal 0.3-0.8 [facility] Comment on above: Performed By: #### C BC #### [facility] [address] [place] [address] Dr. Kanchan Ramirez Monocytes/100 WBC (Bld) 7.9 % Normal 1.7-12.0 [facility] Comment on above: Performed By: #### C BC #### [facility] [address] [place] [address] Dr. Kanchan Ramirez NEUT # 4.8 103/ul Normal 1.4-6.5 [facility] Comment on above: Performed By: #### C BC #### [facility] [address] [place] [address] Dr. Kanchan Ramirez Neutrophils/100 WBC (Bld) 52.5 % Normal 43.0-75.0 [facility] Comment on above: Performed By: #### C BC #### [facility] [address] [place] [address] Dr. Kanchan Ramirez Platelet mean volume (Bld) [Entitic vol] 11.7 fL Normal 9.5-13.5 [facility] Comment on above: Performed By: #### C BC #### [facility] [address] [place] [address] Dr. Kanchan Ramirez PLT 260 103/ul Normal 150-450 [facility] Comment on above: Performed By: #### C BC #### [facility] [address] [place] [address] Dr. Kanchan Ramirez RBC 4.48 106/ul Normal 4.20-5.40 [facility] Comment on above: Performed By: #### C BC #### [facility] [address] [place] [address] Dr. Kanchan Ramirez WBC 9.1 103/ul Normal 4.0-11.0 [facility] Comment on above: Performed By: #### C BC #### [facility] [address] [place] [address] Dr. Kanchan Ramirez DIRECT LDLon 10-12-2021 Cholesterol in LDL [Mass/Vol] 116 mg/dL Normal [facility] Comment on above: Performed By: #### D LDL, LIPID, TSH, LIVER, BMP #### [facility] [address] [place] [address] Dr. Kanchan Ramirez DLDL NORMAL SEE BELOW Normal [facility] Comment on above: Result Comment: <100 mg/dl OPTIMAL 100 - 129 mg/dl NEAR OR ABOVE OPTIMAL 130 - 159 mg/dl BORDERLINE HIGH 160 - 189 mg/dl HIGH >190 mg/dl VERY HIGH Performed By: #### D LDL, LIPID, TSH, LIVER, BMP #### [facility] [address] [place] [address] Dr. Kanchan Ramirez GLYCOHEMOGLOBIN A1Con 2020 ADA RECOMMENDATION ADA THERAPEUTIC TARGET 6.0 - 7.0 ACTION SUGGESTED > 7.0 Normal [facility] Comment on above: Performed By: #### A 1C #### [facility] [address] [place] [address] [address] Kanchan Ramirez Glucose [Mass/Vol] 114 mg/dL Normal [facility] Comment on above: Performed By: #### A 1C #### [facility] [address] [place] [address] [address] Kanchan Ramirez HbA1c (Bld) [Mass fraction] 5.6 % Normal <=6.0 [facility] Comment on above: Performed By: #### A 1C #### [facility] [address] [place] [address] [address] Kanchan Ramirez LIPID PROFILEon 10-12-2021 CHOL-HDL RATIO NORM SEE BELOW Normal [facility] Comment on above: Result Comment: 3.3 - 4.4 LOW RISK 4.4 - 7.1 AVERAGE RISK 7.1 - 11.0 MODERATE RISK >11.0 HIGH RISK Performed By: #### D LDL, LIPID, TSH, LIVER, BMP #### [facility] [address] [place] [address] [address] Kanchan Ramirez Cholesterol [Mass/Vol] 219 mg/dL Critically high <=200 [facility] Comment on above: Performed By: #### D LDL, LIPID, TSH, LIVER, BMP #### [facility] [address] [place] [address] [address] Kanchan Ramirez Cholesterol in HDL [Mass/Vol] 38 mg/dL Normal [facility] Comment on above: Performed By: #### D LDL, LIPID, TSH, LIVER, BMP #### [facility] [address] [place] [address] [address] Kanchan Ramirez Cholesterol.total/Chol esterol in HDL [Mass ratio] 5.8 {ratio} Normal [facility] Comment on above: Performed By: #### D LDL, LIPID, TSH, LIVER, BMP #### [facility] [address] [place] [address] [address] Kanchan Ramirez HDL NORMAL > or = 60 mg/dl - LOW CARDIOVASCULAR RISK <40 mg/dl - HIGH CARDIOVASCULAR RISK Normal [facility] Comment on above: Performed By: #### D LDL, LIPID, TSH, LIVER, BMP #### [facility] [address] [place] [address] [address] Kanchan Ramirez LDL CALC NORMAL SEE BELOW Normal [facility] Comment on above: Result Comment: <100 mg/dl OPTIMAL 100 - 129 mg/dl NEAR OR ABOVE OPTIMAL 130 - 159 mg/dl BORDERLINE HIGH 160 - 189 mg/dl HIGH >190 mg/dl VERY HIGH Performed By: #### D LDL, LIPID, TSH, LIVER, BMP #### [facility] [address] [place] [address] [address] Kanchan Ramirez Triglyceride [Mass/Vol] 457 mg/dL Critically high <=150 [facility] Comment on above: Performed By: #### D LDL, LIPID, TSH, LIVER, BMP #### [facility] [address] [place] [address] [address] Kanchan Ramirez VLDL CALC 91.4 mg/dL Normal [facility] Comment on above: Performed By: #### D LDL, LIPID, TSH, LIVER, BMP #### [facility] [address] [place] [address] [address] Kanchan Ramirez LIVER PROFILEon 10-12-2021 Albumin [Mass/Vol] 3.7 g/dL Normal 3.5-5.0 [facility] Comment on above: Performed By: #### D LDL, LIPID, TSH, LIVER, BMP #### [facility] [address] [place] [address] [address] Kanchan Ramirez Albumin/Globulin [Mass ratio] 1.0 {ratio} Normal [facility] Comment on above: Performed By: #### D LDL, LIPID, TSH, LIVER, BMP #### [facility] [address] [place] [address] [address] Kanchan Ramirez ALP [Catalytic activity/Vol] 65 U/L Normal 38-126 [facility] Comment on above: Performed By: #### D LDL, LIPID, TSH, LIVER, BMP #### [facility] [address] [place] [address] [address] Kanchan Ramirez ALT [Catalytic activity/Vol] 15 U/L Normal 9-52 [facility] Comment on above: Performed By: #### D LDL, LIPID, TSH, LIVER, BMP #### [facility] [address] [place] [address] Dr. Kanchan Ramirez AST [Catalytic activity/Vol] 20 U/L Normal 14-36 [facility] Comment on above: Performed By: #### D LDL, LIPID, TSH, LIVER, BMP #### [facility] [address] [place] [address] Dr. Kanchan Ramirez BILI, CONJUGATED <0.1 Normal 0.0-0.3 [facility] Comment on above: Performed By: #### D LDL, LIPID, TSH, LIVER, BMP #### [facility] [address] [place] [address] Dr. Kanchan Ramirez Bilirubin [Mass/Vol] 0.2 mg/dL Normal 0.2-1.3 [facility] Comment on above: Performed By: #### D LDL, LIPID, TSH, LIVER, BMP #### [facility] [address] [place] [address] Dr. Kanchan Ramirez Globulin (S) [Mass/Vol] 3.6 g/dL Normal [facility] Comment on above: Performed By: #### D LDL, LIPID, TSH, LIVER, BMP #### [facility] [address] [place] [address] Dr. Kanchan Ramirez Protein [Mass/Vol] 7.3 g/dL Normal 6.1-8.2 [facility] Comment on above: Performed By: #### D LDL, LIPID, TSH, LIVER, BMP #### [facility] [address] [place] [address] Dr. Kanchan Ramirez PROF CHEM 8 (BAS METB)on Anion gap [Moles/Vol] 14.8 mmol/L Normal [facility] Comment on above: Performed By: #### D LDL, LIPID, TSH, LIVER, BMP #### [facility] [address] [place] [address] Dr. Kanchan Ramirez Calcium [Mass/Vol] 8.9 mg/dL Normal 8.4-10.2 [facility] Comment on above: Performed By: #### D LDL, LIPID, TSH, LIVER, BMP #### [facility] [address] [address] [address] Kanchan Ramirez Chloride [Moles/Vol] 103 mmol/L Normal 98-107 [facility] Comment on above: Performed By: #### D LDL, LIPID, TSH, LIVER, BMP #### [facility] [address] [place] [address] Dr. Kanchan Ramirez CO2 [Moles/Vol] 23.7 mmol/L Normal 22.0-30.0 [facility] Comment on above: Performed By: #### D LDL, LIPID, TSH, LIVER, BMP #### [facility] [address] [place] [address] Dr. Kanchan Ramirez Creatinine [Mass/Vol] 0.88 mg/dL Normal 0.52-1.04 [facility] Comment on above: Performed By: #### D LDL, LIPID, TSH, LIVER, BMP #### [facility] [address] [place] [address] Dr. Kanchan Ramirez EGFR-AF STATELESS >60 Normal >=60 [facility] Comment on above: Performed By: #### D LDL, LIPID, TSH, LIVER, BMP #### [facility] [address] [place] [address] Dr. Kanchan Ramirez EGFR-NON AF STATELESS >60 Normal >=60 [facility] Comment on above: Performed By: #### D LDL, LIPID, TSH, LIVER, BMP #### [facility] [address] [place] [address] Dr. Kanchan Ramirez Glucose [Mass/Vol] 128 mg/dL Critically high 74-106 T [facility] Comment on above: Performed By: #### D LDL, LIPID, TSH, LIVER, BMP #### [facility] [address] [place] [address] Dr. Kanchan Ramirez Potassium [Moles/Vol] 3.5 mmol/L Normal 3.4-5.0 [facility] Comment on above: Performed By: #### D LDL, LIPID, TSH, LIVER, BMP #### [facility] [address] [address] [address] Kanchan Ramirez Sodium [Moles/Vol] 138 mmol/L Normal 137-145 [facility] Comment on above: Performed By: #### D LDL, LIPID, TSH, LIVER, BMP #### [facility] [address] [address] [address] Kanchan Ramirez Urea nitrogen [Mass/Vol] 16.0 mg/dL Normal 7.0-17.0 [facility] Comment on above: Performed By: #### D LDL, LIPID, TSH, LIVER, BMP #### [facility] [address] [address] [address] Kanchan Ramirez Urea nitrogen/Creatinine [Mass ratio] 18.2 mg/mg Normal [facility] Comment on above: Performed By: #### D LDL, LIPID, TSH, LIVER, BMP #### [facility] [address] [place] [address] Dr. Kanchan Ramirez TSHon 10-12-2021 TSH 1.244 uIU/mL Normal 0.470-4.680 [facility] Comment on above: Performed By: #### D LDL, LIPID, TSH, LIVER, BMP #### [facility] [address] [place] [address] Dr. Kanchan Ramirez TSH RANGE SEE BELOW Normal [facility] Comment on above: Result Comment: <0.3 4 UIU/ml HYPERTHYROID 0.34-5.60 UIU/ml EUTHYROID >5.60 UIU/ml HYPOTHYROID Performed By: #### D LDL, LIPID, TSH, LIVER, BMP #### [facility] [address] [place] [address] Dr. Kanchan Ramirez Vital Signs Date Time Vital Sign Value Performing Clinician Facility 06-24-2025 14:00-0400 Body mass index (BMI) [Ratio] 36.48 kg/m2 [employer] Work Phone: [facility] 06-24-2025 14:00-0400 Body weight 102.51 kg [employer] Work Phone: [facility] 06-24-2025 14:00-0400 Diastolic blood pressure 74 mm[Hg] Kevin Rina DO Work Phone: [facility] 06-24-2025 14:00-0400 Systolic blood pressure 120 mm[Hg] Kevin Rina DO Work Phone: [facility] 06-11-2025 09:33-0400 Body mass index (BMI) [Ratio] 37.04 kg/m2 Kevin Rina DO Work Phone: [facility] 06-11-2025 09:33-0400 Body weight 104.1 kg Kevin Rina DO Work Phone: [facility] 06-11-2025 09:33-0400 Diastolic blood pressure 90 mm[Hg] Kevin Rina DO Work Phone: [facility] 06-11-2025 09:33-0400 Systolic blood pressure 138 mm[Hg] Kevin Rina DO Work Phone: [facility] 06-06-2025 14:29-0400 Body height 167.64 cm Jaun Sultana MD Work Phone: [facility] 06-06-2025 14:29-0400 Body mass index (BMI) [Ratio] 37.1 kg/m2 Jaun Sultana MD Work Phone: [facility] 06-06-2025 14:29-0400 Body weight 104.32 kg Jaun Sultana MD Work Phone: [facility] 05-01-2025 09:05-0400 Body height 167.6 cm Jaun Sultana MD Work Phone: [facility] 05-01-2025 09:05-0400 Body mass index (BMI) [Ratio] 39.22 kg/m2 Jaun Sultana MD Work Phone: [facility] 05-01-2025 09:05-0400 Body temperature 97.5 [degF] Jaun Sultana MD Work Phone: [facility] 05-01-2025 09:05-0400 Body weight 110.22 kg Jaun Sultana MD Work Phone: [facility] 05-01-2025 09:05-0400 Diastolic blood pressure 78 mm[Hg] Jaun Sultana MD Work Phone: [facility] 05-01-2025 09:05-0400 Heart rate 62 /min Jaun Sultana MD Work Phone: [facility] 05-01-2025 09:05-0400 Respiratory rate 22 /min Jaun Sultana MD Work Phone: [facility] 05-01-2025 09:05-0400 SaO2% (BldA) [Mass fraction] 97 % Jaun Sultana MD Work Phone: [facility] 05-01-2025 09:05-0400 Systolic blood pressure 144 mm[Hg] Jaun Sultana MD Work Phone: [facility] 02-09-2025 09:21-0400 Body height 167.64 cm [facility] 02-09-2025 09:21-0400 Body mass index (BMI) [Ratio] 38.3 kg/m2 [facility] 02-09-2025 09:21-0400 Body temperature 98.6 [degF] [facility] 02-09-2025 09:21-0400 Body weight 107.72 kg [facility] 02-09-2025 09:21-0400 Diastolic blood pressure 77 mm[Hg] [facility] 02-09-2025 09:21-0400 Heart rate 77 /min [facility] 02-09-2025 09:21-0400 Respiratory rate 18 /min [facility] 02-09-2025 09:21-0400 SaO2% (BldA) [Mass fraction] 98 % [facility] 02-09-2025 09:21-0400 Systolic blood pressure 109 mm[Hg] [facility] 11-22-2024 14:45-0500 Body height 167.64 cm [facility] 11-22-2024 14:45-0500 Body mass index (BMI) [Ratio] 37.1 kg/m2 [facility] 11-22-2024 14:45-0500 Body weight 104.5 kg [facility] 09-28-2024 11:24-0500 Body temperature 98.1 [degF] [facility] 09-28-2024 11:24-0500 Diastolic blood pressure 87 mm[Hg] [facility] 09-28-2024 11:24-0500 Heart rate 80 /min [facility] 09-28-2024 11:24-0500 Respiratory rate 18 /min [facility] 09-28-2024 11:24-0500 SaO2% (BldA) [Mass fraction] 99 % [facility] 09-28-2024 11:24-0500 Systolic blood pressure 133 mm[Hg] [facility] 09-17-2024 10:31-0500 Body height 167.64 cm [facility] 09-17-2024 10:31-0500 Body mass index (BMI) [Ratio] 37.1 kg/m2 [facility] 09-17-2024 10:31-0500 Body temperature 97.5 [degF] [facility] 09-17-2024 10:31-0500 Body weight 104.49 kg [facility] 09-17-2024 10:31-0500 Diastolic blood pressure 96 mm[Hg] [facility] 09-17-2024 10:31-0500 Heart rate 78 /min [facility] 09-17-2024 10:31-0500 Respiratory rate 18 /min [facility] 09-17-2024 10:31-0500 SaO2% (BldA) [Mass fraction] 98 % [facility] 09-17-2024 10:31-0500 Systolic blood pressure 146 mm[Hg] [facility] 08-14-2024 15:15-0400 Body height 167.6 cm Jaun Sultana MD Work Phone: [facility] 08-14-2024 15:15-0400 Body mass index (BMI) [Ratio] 36.8 kg/m2 Jaun Sultana MD Work Phone: [facility] 08-14-2024 15:15-0400 Body temperature 97.81 [degF] Jaun Sultana MD Work Phone: [facility] 08-14-2024 15:15-0400 Body weight 103.42 kg Jaun Sultana MD Work Phone: [facility] 08-14-2024 15:15-0400 Diastolic blood pressure 84 mm[Hg] Jaun Sultana MD Work Phone: [facility] 08-14-2024 15:15-0400 Heart rate 73 /min Jaun Sultana MD Work Phone: [facility] 08-14-2024 15:15-0400 Respiratory rate 22 /min Jaun Sultana MD Work Phone: [facility] 08-14-2024 15:15-0400 SaO2% (BldA) [Mass fraction] 96 % Jaun Sultana MD Work Phone: [facility] 08-14-2024 15:15-0400 Systolic blood pressure 156 mm[Hg] Jaun Sultana MD Work Phone: [facility] 07-18-2024 15:04-0400 Body height 167.6 cm Raji Tamir DO Work Phone: [facility] 07-18-2024 15:04-0400 Body mass index (BMI) [Ratio] 37.12 kg/m2 Raji Tamir DO Work Phone: [facility] 07-18-2024 15:04-0400 Body weight 104.33 kg Raji Tamir DO Work Phone: [facility] 07-18-2024 15:04-0400 Diastolic blood pressure 106 mm[Hg] Raji Tamir DO Work Phone: [facility] 07-18-2024 15:04-0400 Heart rate 78 /min Raji Tamir DO Work Phone: [facility] 07-18-2024 15:04-0400 SaO2% (BldA) [Mass fraction] 96 % Raji Paulino DO Work Phone: [facility] 07-18-2024 15:04-0400 Systolic blood pressure 152 mm[Hg] Raji Paulino DO Work Phone: [facility] 01-30-2024 14:58-0400 Body height 167.64 cm [facility] 01-30-2024 14:58-0400 Body mass index (BMI) [Ratio] 35.9 kg/m2 [facility] 01-30-2024 14:58-0400 Body weight 100.81 kg [facility] 01-30-2024 14:58-0400 Diastolic blood pressure 86 mm[Hg] [facility] 01-30-2024 14:58-0400 Systolic blood pressure 166 mm[Hg] [facility] 11-17-2023 11:00-0500 Body height 167.64 cm Allison Odom Other [facility] 11-17-2023 11:00-0500 Body mass index (BMI) [Ratio] 34.21 kg/m2 Allison Odom Other [facility] Other 11-17-2023 11:00-0500 Body temperature 99.6 [degF] Allison Odom Other [facility] Other 11-17-2023 11:00-0500 Body weight 96.16 kg Allison Odom Other [facility] 11-17-2023 11:00-0500 Respiratory rate 18 /min Allison Odom Other [facility] Other 11-17-2023 11:00-0500 SaO2% (BldA) [Mass fraction] 98 % Allison Odom Other [facility] Other 10-26-2022 17:15-0500 Body height 167.64 cm Santa Jang Other [employer] Other 10-26-2022 17:15-0500 Body mass index (BMI) [Ratio] 33.89 kg/m2 Santa Jang Other [employer] Other 10-26-2022 17:15-0500 Body temperature 97.7 [degF] Santa Jang Other [employer] Other 10-26-2022 17:15-0500 Body weight 95.26 kg Santa Jang Other [employer] Other 10-26-2022 17:15-0500 Respiratory rate 18 /min Santa Jang Other [employer] Other 10-26-2022 17:15-0500 SaO2% (BldA) [Mass fraction] 97 % Santa Jang Other [employer] Other 10-21-2022 16:30-0500 Body height 167.64 cm David Tisha Other [employer] Other 10-21-2022 16:30-0500 Body mass index (BMI) [Ratio] 33.57 kg/m2 David Giles Other [employer] Other 10-21-2022 16:30-0500 Body weight 94.35 kg David Giles Other [employer] Other 10-21-2022 16:30-0500 Diastolic blood pressure 99 mm[Hg] David Giles Other [employer] Other 10-21-2022 16:30-0500 Systolic blood pressure 135 mm[Hg] David Tisha Other [employer] Other 07-23-2022 11:30-0400 Body height 167.64 cm Allison Odom Other [employer] Other 07-23-2022 11:30-0400 Body mass index (BMI) [Ratio] 33.08 kg/m2 Allison Lei Other [employer] Other 07-23-2022 11:30-0400 Body temperature 97.7 [degF] Allison Odom Other [employer] Other 07-23-2022 11:30-0400 Body weight 92.99 kg Allison Odom Other [employer] Other 07-23-2022 11:30-0400 Respiratory rate 18 /min Allison Odom Other [employer] Other 07-23-2022 11:30-0400 SaO2% (BldA) [Mass fraction] 97 % Allison Odom Other [employer] Other 04-15-2022 16:30-0400 Body height 167.64 cm David Giles Other [employer] Other 04-15-2022 16:30-0400 Body mass index (BMI) [Ratio] 32.92 kg/m2 David Giles Other [employer] Other 04-15-2022 16:30-0400 Body weight 92.53 kg David Giles Other [employer] Other 01-12-2022 16:45-0400 Body height 167.64 cm David Giles Other [employer] Other 01-12-2022 16:45-0400 Body mass index (BMI) [Ratio] 33.25 kg/m2 David Giles Other [employer] Other 01-12-2022 16:45-0400 Body weight 93.44 kg David Giles Other [employer] Other 10-22-2021 11:25-0500 Body height 167.64 cm Shantell Serra Other [employer] Other 10-22-2021 11:25-0500 Body mass index (BMI) [Ratio] 33.08 kg/m2 Shantell Serra Other [employer] Other 10-22-2021 11:25-0500 Body temperature 98 [degF] Shantell Serra Other [employer] Other 10-22-2021 11:25-0500 Body weight 92.99 kg Shantell Serra Other [employer] Other 10-22-2021 11:25-0500 Diastolic blood pressure 80 mm[Hg] Shantell Serra Other [employer] Other 10-22-2021 11:25-0500 SaO2% (BldA) [Mass fraction] 98 % Shantell Serra Other [employer] Other 10-22-2021 11:25-0500 Systolic blood pressure 130 mm[Hg] Shantell Serra Other [employer] Other 09-15-2021 16:30-0500 Body height 167.64 cm David Giles Other [employer] Other 09-15-2021 16:30-0500 Body mass index (BMI) [Ratio] 33.08 kg/m2 David Giles Other [employer] Other 09-15-2021 16:30-0500 Body weight 92.99 kg David Giles Other [employer] Other Encounters Encounter Date Encounter Type Care Provider Facility Start: 07-05-2025 End: 07-05-2025 Follow-up encounter [facility] Medication Management Comment on above: Stenosis of prosthet ic aortic valve, subsequent encounter (Primary Dx); S/P AVR Start: 07-05-2025 End: 07-05-2025 ambulatory [facility] Start: 06-24-2025 End: 06-24-2025 Patient encounter procedure Kevin Flynn DO Work Phone: [facility] Comment on above: Encounter for remova l and reinsertion of intrauterine contraceptive device (IUD); Encounter for insertion of Mirena IUD; Encounter for IUD removal Start: 06-24-2025 End: 06-24-2025 ambulatory KEVIN FLYNN Not Available Start: 06-19-2025 End: 06-19-2025 Follow-up encounter [facility] Medication Management Comment on above: Stenosis of prosthet ic aortic valve, subsequent encounter (Primary Dx); S/P AVR Start: 06-19-2025 End: 06-19-2025 ambulatory [facility] Start: 06-11-2025 End: 06-11-2025 Bamboo flowsheet Kevin Morenoo DO Work Phone: [facility] Start: 06-11-2025 End: 06-11-2025 Bamboo flowsheet Kevin Rina DO Work Phone: [facility] Start: 06-11-2025 End: 06-11-2025 Office outpatient new 20 minutes Kevin Rina DO Work Phone: [facility] Comment on above: Intrauterine device surveillance; Yeast infection Start: 06-11-2025 End: 06-11-2025 ambulatory KEVIN RINA Not Available Start: 06-06-2025 End: 06-06-2025 ambulatory Jaun Sultana MD Work Phone: [facility] Work Phone: Start: 06-06-2025 End: 06-06-2025 Patient encounter procedure Martha Calderon [facility] Work Phone: Start: 05-22-2025 End: 05-23-2025 Refill Murtaza Starr APRN-PATHOLOGY LABORATORY DIRECTOR Work Phone: [facility] Comment on above: Med Refill Start: 05-21-2025 End: 05-21-2025 [facility] Medication Management Comment on above: Stenosis of prosthet ic aortic valve, subsequent encounter (Primary Dx); S/P AVR Start: 05-21-2025 End: 05-21-[address] [facility] Start: 05-02-2025 End: 05-02-2025 Clinisync Result Encounter Jaun Sultana MD Work Phone: [facility] External Department Unsolicited Start: 05-02-2025 End: 05-02-2025 [employer] Result Encounter Jaun Sultana MD Work Phone: [facility] External [facility] Unsolicited Start: 05-01-2025 End: 05-01-2025 Bamboo flowsheet Jaun Sultana MD Work Phone: [facility] Start: 05-01-2025 End: 05-01-2025 Bamboo flowsheet Jaun Sultana MD Work Phone: [facility] Start: 05-01-2025 End: 05-01-2025 Office outpatient visit 25 minutes Jaun Sultana MD Work Phone: [facility] Comment on above: Prediabetes (Primary Dx); Insulin resistance; Annual physical exam; Obstructive sleep apnea (adult) (pediatric); Crohn's disease of both small and large intestine without complications (HCC) Start: 05-01-2025 End: 05-01-2025 Patient encounter procedure Jaun Sultana MD Work Phone: [facility] Start: 05-01-2025 End: 05-01-2025 ambulatory JAUN SULTANA Not Available Start: 04-04-2025 End: 04-04-2025 Follow-up encounter [facility] Medication Management Comment on above: Stenosis of prosthet ic aortic valve, subsequent encounter (Primary Dx); S/P AVR Start: 04-04-2025 End: 04-04-2025 ambulatory [facility] Start: 03-18-2025 End: 03-18-2025 Orders Only Laquita Jacobs [facility] Work Phone: [facility] Medication Management Comment on above: S/P AVR (Primary Dx) ; Stenosis of prosthetic aortic valve, subsequent encounter Start: 03-14-2025 End: 03-14-2025 Follow-up encounter [facility] Medication Management Comment on above: Stenosis of prosthet ic aortic valve, subsequent encounter (Primary Dx) Start: 03-14-2025 End: 03-14-2025 ambulatory [facility] Start: 02-13-2025 End: 02-13-2025 [facility] Start: 02-13-2025 End: 02-13-2025 Follow-up encounter [facility] Medication Management Comment on above: Stenosis of prosthet ic aortic valve, subsequent encounter (Primary Dx) Start: 02-09-2025 End: 02-09-2025 ambulatory [facility] Work Phone: Start: 02-09-2025 End: 02-09-2025 Patient encounter procedure [facility] Work Phone: Start: 01-15-2025 End: 01-15-2025 Follow-up encounter [facility] Medication Management Comment on above: Stenosis of prosthet ic aortic valve, subsequent encounter (Primary Dx) Start: 01-15-2025 End: 01-15-2025 [address] [facility] Start: 01-14-2025 End: 01-14-2025 Refill Murtaza Starr APRN-PATHOLOGY LABORATORY DIRECTOR Work Phone: [facility] Comment on above: Med Refill Start: 01-10-2025 End: 01-10-2025 Telephone encounter Letty Magallon MA [facility] Medication Management Start: 12-24-2024 End: 12-24-2024 Follow-up encounter [facility] Medication Management Comment on above: Stenosis of prosthet ic aortic valve, subsequent encounter (Primary Dx) Start: 12-24-2024 End: 12-24-2024 [address] [facility] Start: 12-03-2024 End: 12-03-2024 Follow-up encounter [facility] Medication Management Comment on above: Stenosis of prosthet ic aortic valve, subsequent encounter (Primary Dx) Start: 12-03-2024 End: 12-03-2024 amb[address] [facility] Start: 11-29-2024 End: 11-29-2024 Refill Jaun Sultana MD Work Phone: [facility] Comment on above: VIKI (generalized anx iety disorder) (CMS/HCC) Start: 11-22-2024 End: 11-22-2024 ambulatory [facility] Work Phone: Start: 11-22-2024 End: 11-22-2024 Patient encounter procedure [facility] Work Phone: Start: 10-22-2024 End: 10-22-2024 ambulatory [facility] Start: 10-22-2024 End: 10-22-2024 Follow-up encounter [facility] Medication Therapy Management Comment on above: Stenosis of prosthet ic aortic valve, subsequent encounter (Primary Dx) Start: 10-11-2024 End: 10-18-2024 Refill Sunitha Alvarenga APRN-PATHOLOGY LABORATORY DIRECTOR Work Phone: [facility] Comment on above: Med Refill Start: 10-08-2024 End: 10-08-2024 Follow-up encounter [facility] Medication Therapy Management Comment on above: Stenosis of prosthet ic aortic valve, subsequent encounter (Primary Dx) Start: 10-08-2024 End: 10-08-2024 ambulatory [facility] Start: 09-28-2024 End: 09-28-2024 Patient encounter procedure [facility] Work Phone: Start: 09-27-2024 End: 09-27-2024 ambulatory JAUN SULTANA [facility] Start: 09-17-2024 End: 09-17-2024 Patient encounter procedure [facility] Work Phone: Start: 08-29-2024 End: 08-29-2024 ambulatory [facility] Start: 08-14-2024 End: 08-14-2024 Office outpatient visit [...] flowsheet Jaun Sultana MD Work Phone: [facility] Start: 08-14-2024 End: 08-14-2024 Bamboo flowsheet Jaun Sultana MD Work Phone: [facility] [employer] [facility] [facility] Start: 07-20-2024 End: 07-20-2024 ambulatory [facility] Start: 07-19-2024 End: 07-19-2024 ambulatory [facility] Start: 07-18-2024 End: 07-18-2024 Office consultation new/estab patient 60 min Raji Tamir DO Work Phone: [employer] Comment on above: KOLE (obstructive sle ep apnea); Hypoxia; Sleep deprivation; Hypersomnia; Snoring; Obesity (BMI 35.0-39.9 without comorbidity) Start: 07-18-2024 End: 07-18-2024 ambulatory RAJILINDA PAULINO Not Available Start: 07-18-2024 End: 07-18-2024 Bamboo flowsheet Raji Tamir DO Work Phone: [employer] Start: 07-18-2024 End: 07-18-2024 Bamboo flowsheet Raji Tamir DO Work Phone: [employer] Start: 07-09-2024 End: 07-09-2024 ambulatory MARTHA L LY [facility] Start: 02-28-2024 End: 02-28-2024 ambulatory Martha L Ly Facility:[facility] Start: 02-13-2024 End: 02-13-2024 ambulatory Martha Calderon Facility:[facility] Start: 02-13-2024 End: 02-13-2024 ambulatory MD Jaun Sultana Work Phone: [facility] Work Phone: Start: 02-13-2024 End: 02-13-2024 Patient encounter procedure MD Jaun Sultana Work Phone: [facility] [place] Work Phone: Start: 01-30-2024 End: 01-30-2024 ambulatory [facility] Work Phone: Start: 01-30-2024 End: 01-30-2024 Patient encounter procedure [facility] Work Phone: Start: 11-17-2023 End: 11-17-2023 ambulatory Allison Odom Other [employer] Other Start: 11-17-2023 Office outpatient vi sit 25 minutes Allison Odom [facility] Start: 11-17-2023 End: 11-17-2023 Patient encounter procedure [facility] Start: 10-31-2023 End: 10-31-2023 ambulatory David Giles Other [employer] Other Start: 10-31-2023 Telephone encounter David welch [facility] Start: 09-19-2023 Patient encounter procedure Raji Tamir DO Work Phone: [facility] Start: 04-14-2023 End: 04-14-2023 ambulatory David Giles Other [employer] Other Start: 04-14-2023 Telephone encounter David welch [facility] Start: 11-15-2022 End: 11-15-2022 ambulatory David Giles Other [employer] Other Start: 11-15-2022 Telephone encounter David welch [facility] Start: 10-26-2022 End: 10-26-2022 ambulatory David Giles Other [employer] Other Start: 10-26-2022 Office outpatient vi sit 25 minutes Santaricki Jang [facility] Start: 10-26-2022 Telephone encounter David welch [facility] Start: 10-21-2022 End: 10-21-2022 ambulatory David Giles Other [employer] Other Start: 10-21-2022 Patient encounter procedure David Giles [facility] Start: 07-23-2022 End: 07-23-2022 ambulatory Allison Odom Other [employer] Other Start: 07-23-2022 Office outpatient vi sit 25 minutes Allison Odom [facility] Start: 07-19-2022 End: 07-19-2022 ambulatory David Giles Other [employer] Other Start: 07-19-2022 Telephone encounter David welch [facility] Start: 07-14-2022 End: 07-14-2022 ambulatory David Giles Other [employer] Other Start: 07-14-2022 Telephone encounter David welch [facility] Start: 07-02-2022 End: 07-02-2022 ambulatory David Giles Other [employer] Other Start: 07-02-2022 Telephone encounter David welch [facility] Start: 04-15-2022 End: 04-15-2022 ambulatory David Giles Other [employer] Other Start: 04-15-2022 Patient encounter procedure David Giles [facility] Start: 04-15-2022 Telephone encounter David Arias yuri [facility] Start: 02-09-2022 End: 02-09-2022 ambulatory David Giles Other [employer] Other Start: 02-09-2022 Telephone encounter David Arias yuri [facility] Start: 01-12-2022 End: 01-12-2022 ambulatory David Giles Other [employer] Other Start: 01-12-2022 Office outpatient vi sit 15 minutes David Giles [facility] Start: 10-22-2021 End: 10-22-2021 ambulatory Shantell Serra Other [employer] Other Start: 10-22-2021 Office outpatient vi sit 15 minutes Shantell Serra [facility] Start: 10-20-2021 Encounter for genera l adult medical examination without abnormal findings DR JAUN SULTANA [facility] Start: 10-12-2021 End: 10-13-[address] JAUN SULTANA Facility:[facility] Start: 10-12-2021 End: 10-13-2021 Encounter for general adult medical examination without abnormal findings DR JAUN SULTANA Facility:[facility] Start: 09-15-2021 End: 09-15-2021 ambulatory David Giles Other [employer] Other Start: 09-15-2021 Office outpatient vi sit 15 minutes David Giles [facility] Procedures Date Procedure Procedure Detail Performing Clinician Start: 07-05-2025 Prothrombin time [facility] Work Phone: Start: 06-24-2025 Insertion intrauteri ne device iud Sharda Zamora LPN Start: 06-19-2025 Prothrombin time [facility] Work Phone: Start: 05-21-2025 Prothrombin time [facility] Work Phone: Start: 05-02-2025 ALL CBC WITH AUTO DIFF Jaun Sultana MD Work Phone: Start: 05-01-2025 Hemoglobin glycosyla dewey a1c Jaun [...] Phone: Start: 02-13-2024 CT of small intestine M D Jaun Sultana Work Phone: Plan of Treatment Date Care Activity Detail Author Start: 02-27-2034 Screening for malign ant neoplasm of colon [facility] Start: 08-13-2025 End: 08-13-2025 Patient encounter procedure 08/13/2025 9:00 AM EDT Office Visit [facility] [address] [place] [phone] Robina Lee MD [address] [place] [address] [facility] Start: 08-05-2025 End: 08-05-2025 Follow-up encounter 08/05/2025 11:00 AM EDT Follow Up Anticoagulation [facility] [address] [place] [address] [facility] Start: 08-01-2025 Hemoglobin A1c measurement Diabetes: Hemoglobin A1C [facility] Start: 08-01-2025 End: 08-01-2025 Patient encounter procedure 08/01/2025 9:15 AM EDT Office Visit [facility] [address] [place] [address] Jaun Sultana MD [address] [place] [address] [facility] Start: 07-29-2025 End: 07-29-2025 Patient encounter procedure 07/29/2025 1:40 PM EDT Procedure Visit [facility] [address] [place] [id number] Kevin Flynn, DO [address] [place] [address] [facility] Start: 07-20-2025 Adult BMI Screening Adult BMI Screen [facility] Start: 07-05-2025 End: 07-05-2025 Follow-up encounter 07/05/2025 11:15 AM EDT Follow Up Anticoagulation [facility] [address] [place] [address] [facility] Start: 06-24-2025 End: 06-24-2025 Patient encounter procedure 06/24/2025 1:30 PM EDT Procedure Visit [facility] [address] [place] [phone] Kevin Flynn, DO [address] [place] [address] [facility] Start: 06-19-2025 End: 06-19-2025 Follow-up encounter 06/19/2025 11:30 AM EDT Follow Up Anticoagulation [facility] [address] [place] [address] [facility] Start: 06-17-2025 COVID-19 Vaccine ( season) COVID-19 Vaccine () [facility] Start: 06-17-2025 Influenza vaccination [facility] Start: 06-11-2025 End: 06-11-2025 Patient encounter procedure 06/11/2025 9:20 AM EDT Office Visit [facility] [address] [place] [phone] Kevin Flynn DO [address] [place] [address] Arrived [facility] Comment on above: Arrived Start: 05-21-2025 End: 05-21-2025 Follow-up encounter 05/21/2025 11:15 AM EDT Follow Up Anticoagulation [facility] [address] [place] [address] [facility] Start: 05-01-2025 End: 05-01-2026 Basic metabolic 1998 panel - Serum or Plasma Basic metabolic panel Lab Routine Annual physical exam Expected: 05/01/2025 (Approximate), Expires: 05/01/2026 [facility] Comment on above: Expected: 05/01/2025 (Approximate), Expires: 05/01/2026 Start: 05-01-2025 End: 05-01-2026 CBC W Auto Differential panel - Blood CBC and differential Lab Routine Annual physical exam Expected: 05/01/2025 (Approximate), Expires: 05/01/2026 [facility] Comment on above: Expected: 05/01/2025 (Approximate), Expires: 05/01/2026 Start: 05-01-2025 End: 05-01-2026 Hepatic function 2000 panel - Serum or Plasma Hepatic function panel Lab Routine Annual physical exam Expected: 05/01/2025 (Approximate), Expires: 05/01/2026 [facility] Comment on above: Expected: 05/01/2025 (Approximate), Expires: 05/01/2026 Start: 05-01-2025 End: 05-01-2026 Insulin, fasting Insulin, fasting Lab Routine Insulin resistance Expected: 05/01/2025 (Approximate), Expires: 05/01/2026 [facility] Work Phone: Comment on above: Expected: 05/01/2025 (Approximate), Expires: 05/01/2026 Start: 05-01-2025 End: 05-01-2026 Lipid 1996 panel - Serum or Plasma Lipid panel Lab Routine Annual physical exam Expected: 05/01/2025 (Approximate), Expires: 05/01/2026 [facility] Comment on above: Expected: 05/01/2025 (Approximate), Expires: 05/01/2026 Start: 05-01-2025 End: 05-01-2026 Thyrotropin [Units/volume] in Serum or Plasma TSH Lab Routine Annual physical exam Expected: 05/01/2025 (Approximate), Expires: 05/01/2026 [facility] Comment on above: Expected: 05/01/2025 (Approximate), Expires: 05/01/2026 Start: 05-01-2025 End: 05-01-2025 Patient encounter procedure 05/01/2025 8:45 AM EDT Office Visit [facility] [address] [place] [phone] Jaun Sultana MD [address] [place] [phone] Arrived [facility] Comment on above: Arrived Start: 04-04-2025 End: 04-04-2025 Follow-up encounter 04/04/2025 11:15 AM EDT Follow Up Anticoagulation [facility] [address] [place] [address] [facility] Start: 03-14-2025 End: 03-14-2025 Follow-up encounter 03/14/2025 11:45 AM EDT Follow Up Anticoagulation [facility] [address] [place] [address] [facility] Start: 02-13-2025 End: 02-13-2025 Follow-up encounter 02/13/2025 9:00 AM EDT Follow Up Anticoagulation [facility] [address] [place] [address] [facility] Start: 02-11-2025 End: 02-11-2025 Patient encounter procedure 02/11/2025 2:45 PM EDT Office Visit [facility] [address] [place] [address] Jaun Sultana MD [address] [place] [address] [facility] Start: 01-15-2025 End: 01-15-2025 Follow-up encounter 01/15/2025 2:15 PM EDT Follow Up Anticoagulation [facility] [address] [place] [address] [facility] Start: 01-11-2025 End: 01-11-2025 Follow-up encounter 01/11/2025 2:15 PM EDT Follow Up Anticoagulation [facility] [address] [place] [address] [facility] Start: 12-24-2024 End: 12-24-2024 Follow-up encounter 12/24/2024 2:15 PM EDT Follow Up Anticoagulation [facility] [address] [place] [address] [facility] Start: 12-03-2024 End: 12-03-2024 Follow-up encounter 12/03/2024 2:15 PM EST Follow Up Anticoagulation [facility] [address] [place] [address] [facility] Start: 10-22-2024 End: 10-22-2024 Follow-up encounter 10/22/2024 2:15 PM EST Follow Up Anticoagulation [facility] [address] [place] [address] [facility] Start: 2024 Administration of varicella zoster vaccine Zoster (Shingles) Vaccine (1 of 2) [facility] Start: 08-14-2024 End: 08-14-2024 [facility] Comment on above: Arrived Start: 07-18-2024 End: 07-18-2024 Patient encounter procedure 07/18/2024 3:00 PM EDT Office Visit [facility] [address] [place] [address] Raji Paulino DO [address] [place] [address] [facility] Comment on above: Arrived Start: 06-17-2024 COVID-19 Vaccine ( season) COVID-19 Vaccine ( season) [facility] Start: 06-17-2024 Influenza vaccination [facility] Start: 01-29-2024 Tobacco Screening Tobacco Screening [facility] Start: 2014 Screening for malign ant neoplasm of breast Mammogram [facility] Start: 2004 Screening for malign ant neoplasm of cervix [facility] Start: 1995 Screening for malign ant neoplasm of cervix Pap Smear [facility] Start: 1993 DTaP,Tdap and Td Vaccines (1 - Tdap) DTaP,Tdap and Td Vaccines (1 - Tdap) [facility] Start: 1993 Urine screening for protein Diabetes: Urine Protein Screening [facility] Start: 1992 Adult BMI Follow Up Plan Adult BMI F ollow Up Plan [facility] Start: 1986 Depression Screening Depression Scre ening [facility] Start: 1986 Tobacco Screening Tobacco Screening [facility] Start: 1984 Glaucoma screening Diabetes: R etinopathy Screening [facility] Start: 1974 Screening for malign ant neoplasm of colon [facility] Start: 1974 Screening for malign ant neoplasm of lung Lung Cancer Screening Shared Decision Making [facility] CT Abdomen and Pelvis [facility] Hepatitis B core antibody measurement [facility] Hepatitis B virus surface Ab [Presence] in Serum [facility] Immunizations Immunization Date Immunization Notes Care Provider Fa carol 10-18-2021 Moderna SARS-CoV-2 Vaccination Raji Paulino DO Work Phone: [facility] 08-12-2021 influenza, injectabl e, quadrivalent, preservative free Pmh 1 [facility] 08-12-2021 influenza virus vaccine, unspecified formulation Raji Paulino DO Work Phone: [facility] 01-15-2021 Moderna SARS-CoV-2 Vaccination Raji Paulino DO Work Phone: [facility] 12-18-2020 Moderna SARS-CoV-2 Vaccination Raji Paulino DO Work Phone: [facility] 08-06-2020 influenza, injectabl e, quadrivalent, preservative free Pmh 1 [facility] 08-28-2019 influenza, injectabl e, quadrivalent, contains preservative Pmh 1 [facility] 08-02-2018 influenza, injectabl e, quadrivalent, preservative free Pmh 1 [facility] 08-03-2017 influenza, injectabl e, quadrivalent, preservative free Pmh 1 [facility] 07-28-2016 influenza, injectabl e, quadrivalent, contains preservative Pmh 1 [facility] 07-23-2015 influenza, injectabl e, quadrivalent, preservative free Pmh 1 [facility] 08-15-2014 influenza, injectabl e, quadrivalent, contains preservative Pmh 1 [facility] Payers Date Payer Category Payer Blue Cross Blue [facility] - [facility] [place] [id number] 2025 Unknown [id number] 2025 Medicaid [place] [id number] 2025 Medicaid [id number] 2024 Self-pay [id number] 2023 Blue Cross Blue Shield [id number] 2023 Blue Cross Blue Shie ld Managed Care - Other ANTHEM Member Subscriber Plan / Payer (Effective 2023-Present) Name: Sarbjit Campa Relation to Subscriber: Self Name: Sarbjit Campa Payer ID: [id number] (NAIC) Type: Not on file Address: [address] [place] [id number] 2023 Manjeet Cross Man[employer]et Shie ld Managed Care - PPO ANTHEM Member Subscriber Plan / Payer (Effective 2023-Present) Name: Sarbjit Campa Relation to Subscriber: Self Name: Sarbjit Campa Payer ID: [id number] (NAIC) Type: Not on file Address: [address] [place] [id number] 2023 Unknown BCBS BCBS xxxxxx [id number] 2023-Present [id number] [place] [address] [id number] 2023 Blue Cross Blue Shield [id number] 1974 Unknown [id number] 2.16.840.1.987656.3.579.2. 593 1974 Unknown [id number] 2.16.840.1.661857.3.579.2. 1286 1974 Unknown [id number] 2.16840.1.860981.3.579.2. 1259 1974 Unknown [id number] 2.16.840.1.756404.3.579.2. 1259 1974 Unknown [id number] 2.16840.1.503179.3.579.2. 1259 1974 Unknown [id number] 2.16840.1.314937.3.579.2. 125 1974 Unknown [id number] 2.840.1.445457.3.579.2. 9 1974 Unknown [id number] 2.840.1.003102.3.579.2. 128 1974 Unknown [id number] 2.840.1.113782.3.579.2. 1285 1974 Unknown [id number] 2.840.1.843409.3.579.2. 128 1974 Unknown [id number] 2.840.1.960685.3.579.2. 128 1974 Unknown [id number] 2.840.1.903478.3.579.2. 128 1974 Unknown [id number] 2840.1.227711.3.579.2. 1285 1974 Unknown [id number] 2840.1.938144.3.579.2. 128 1974 Unknown [id number] 2.840.1.892349.3.579.2. 1285 1974 Unknown [id number] 2.16840.1.810756.3.579.2. 128 1974 Unknown [id number] 216840.1.152601.3.579.2. 1286 1974 Unknown [id number] 2.16.840.1.710206.3.579.2. 1286 1974 Unknown [id number] 2.16.840.1.306426.3.579.2. 1286 1974 Unknown [id number] 2.16.840.1.678335.3.579.2. 1286 1959 Unknown [id number] Unknown [id number] 2.16.840.1.054470.3.579.2. 531 Unknown [id number] 2.16.840.1.580022.3.579.2. 531 Social History Date Type Detail Facility Unknown if ever smoked [employer] Other Start: 11-27-2020 End: 05-14-2024 Sex Assigned At [facility] Start: 07-27-2018 End: 09-03-2022 Tobacco smoking status [facility] Ex-smoker (finding) [facility] Start: 1975 Sex Assigned At Female [facility] Start: 10-17-1994 End: 10-17-2014 History of tobacco use Current smoker [facility] Start: 10-17-1994 End: 10-17-2014 History of tobacco use Cigarette Smoker [facility] Start: 11-27-2020 End: 09-19-2023 Cigarettes smoked current (pack per day) - Reported 1 [facility] Start: 09-19-2023 End: 07-18-2024 Tobacco use and exposure Former smokeless tobacco user [facility] Start: 05-24-2024 End: 06-24-2025 Alcoholic beverage intake Lifetime non-drinker (finding) [facility] How often do you nee d to have someone help you when you read instructions, pamphlets, or other written material from your doctor or pharmacy [SILS] Never [facility] Do you belong to any clubs or organizations such as anglican groups, unions, fraternal or athletic groups, or [...] Only a little [facility] (I/We) worried whelisa er (my/our) food would run out before (I/we) got money to buy more. Never true [facility] In the past 12 month s, was there a time when you were not able to pay the mortgage or rent on time? No [facility] Start: 1975 Sex assigned at Not on file [facility] Start: 09-03-2022 Tobacco use and exposure Smokeless tobacco non-user [facility] Start: 05-24-2023 Alcoholic beverage intake Current drinker of alcohol (finding) [facility] Start: 06-17-2017 Alcohol Comment occasionally [facility] Start: 05-22-2015 End: 02-09-2025 Sex Female (finding) [facility] Medical Equipment Procedure Code Equipment Code Equipment Origin al Text Equipment Identifier Dates Valve Aor 14.7mm 21mm 30mm 19.4mm Onx [id number] Sw Rng Ptfe - [id number] - [id number] Start: 01-05-2023 Goals Date Patient Goal Desired Activity /State Personal health goal Comment on above: Formatting of this n ote might be different from the original. Evaluation of progress towards goal: Patient will discharge with home health care. - Timi Ochoa RN 01/06/23 2:13 PM Clinical Notes 11-19-2011 to 07-05-2025 Priscilla Rivas, [facility] - 07/05/2025 11:15 AM Neha Zamora LPN - 06/24/2025 1:30 PM Dominic Rivas, [facility] - 06/19/2025 11:30 AM Morgan Roses, [facility] - 06/11/2025 9:20 AM EDT Note Date & Type Note Facility 07-05-2025 History of Presen t illness Narrative 15 minute [id number] follow-up anticoagulation appointment. INR performed in office per protocol. INR 1.8 (goal range: 1.5-2.0). Patient reports: Taking warfarin dosing as documented. Missed or extra doses of warfarin: No Changes to medications: No Changes to lifestyle (diet / alcohol / smoking / activity): YES Weight has stabilized- down 23 pounds thus far Appetite has increased slightly since last visit Recent emergency department visit / hospitalization / health changes / new contraindication to current anticoagulant: No Signs/symptoms of bruising/bleeding or clotting or any intolerable adverse events: No Upcoming procedures: No Anticoagulant prescription needed: No Seen referring provider in the last year Duration of therapy reviewed Patient could benefit from [facility] Adherence Pharmacy pill packaging and patient is agreeable for referral to be sent: No Assessment: INR is remaining stable in therapeutic range on current warfarin regimen. Plan: Patient instructed to continue warfarin 2 mg Wed and 4 mg AOD. Check INR in 4 week(s). Patient verbalizes understanding of anticoagulant dosing instructions and information discussed. Dosing regimen, counseling, and follow-up appointment were provided to the patient. Patient reminded to call with questions or any medication changes. Patient instructed to seek medical attention if any major bleeding/bleeding that persists or worsens. Priscilla Rivas RPH 07/05/25 [id number] documented in this encounter [facility] 06-24-2025 History of Presen t illness Narrative Associated Order(s): IUD Insertion Post-Procedure Diagnose(s): Encounter for removal and reinsertion of intrauterine contraceptive device (IUD); Encounter for insertion of Mirena IUD; Encounter for IUD removal Reason for Appointment: Patient ID: Sarbjit Campa is a 49 y.o. female who presents for Contraception (Mirena Insert/Removal) Patient presents today for a IUD Insertion and IUD Removal appointment. MEDICATIONS Current Outpatient Medications Medication Instructions ALPRAZolam [...] catheter warfarin (COUMADIN) 5 mg, Daily ALLERGIES Allergies Allergen Reactions Flagyl [Metronidazole] Humira [Adalimumab] PROBLEMS Active Ambulatory Problems Diagnosis Date Noted Crohn's disease of both small and large intestine without complication ([facility]) 01/05/2023 Essential hypertension 01/05/2023 Class 2 severe obesity due to excess calories with serious comorbidity and body mass index (BMI) of 39.0 to 39.9 in adult ([facility]) 08/19/2021 Aortic valve replaced 01/05/2023 Congenital bicuspid aortic valve 09/19/2023 DDD (degenerative disc disease), lumbar 09/19/2023 [...] deficiency HISTORY PAST MEDICAL HISTORY SOCIAL HISTORY Past Medical History: Diagnosis Date Benign essential hypertension Congenital bicuspid aortic valve Crohn's disease without complication, unspecified gastrointestinal tract location (HCC) DDD (degenerative disc disease), lumbar Dyslipidemia VIKI (generalized anxiety disorder) Ganglion cyst Hyperhidrosis MDD (major depressive disorder), single episode, mild Psoriasis Stress incontinence in female Vitamin D deficiency Social History Tobacco Use Smoking status: Former Current packs/day: 0.00 Average packs/day: 1 pack/day for 20.0 years (20.0 ttl pk-yrs) Types: Cigarettes Start date: 1994 Quit date: 2014 Years since quittin.6 Smokeless tobacco: Former Substance Use Topics Alcohol use: Never Drug use: Never FAMILY HISTORY Family History Problem Relation Name Age of Onset COPD Mother Diabetes Mother Hypertension Mother Hypertension Father Coronary artery disease Father SURGICAL HISTORY Past Surgical History: Procedure Laterality Date AORTIC VALVE REPLACEMENT 04/10/2015 bioprostetic, mechanical valve CT ANGIOGRAM ABDOMEN PELVIS 12/30/2022 CT ANGIOGRAM ABDOMEN PELVIS 12/30/2022 CT ANGIOGRAM ABDOMEN PELVIS 04/04/2015 CT ANGIOGRAM ABDOMEN PELVIS 04/04/2015 CT ANGIOGRAM HEART CORONARY 12/30/2022 CT ANGIOGRAM TAVR 12/30/2022 CT ANGIOGRAM HEART CORONARY 04/04/2015 CT ANGIOGRAM TAVR 04/04/2015 CYST REMOVAL TUBAL LIGATION REVIEW OF SYSTEMS Review of Systems: Review of Systems Constitutional: Negative. HENT: Negative. Eyes: Negative. Respiratory: Negative. Cardiovascular: Negative. Gastrointestinal: Negative. Genitourinary: Negative. Musculoskeletal: Negative. Skin: Negative. Neurological: Negative. All other systems reviewed and are negative. Hematological: Negative. Endocrine: Negative. Allergic/Immunologic: Negative. OBJECTIVE Objective: Physical Exam Constitutional: Appearance: Normal appearance. She is well-developed. Genitourinary: Vulva normal. Cardiovascular: Rate and Rhythm: Normal rate and [...] nursing note reviewed. Exam conducted with a v belt curer present. Vitals: Estimated body mass index is 36.48 kg/m as calculated from the following: Height as of 05/01/25: 5' 6 . Weight as of this encounter: 226 lb. BP: 120/74 No LMP recorded (lmp unknown). (Menstrual status: IUD). ASSESSMENT & PLAN Assessment/Plan Encounter Diagnosis: ICD-10-CM 1. Encounter for removal and reinsertion of intrauterine contraceptive device (IUD) Z30.433 Levonorgestrel intrauterine device 52 mg CANCELED: POCT urinalysis dipstick manually resulted 2. Encounter for insertion of Mirena IUD Z30.430 Levonorgestrel intrauterine device 52 mg CANCELED: POCT urinalysis dipstick manually resulted 3. Encounter for IUD removal Z30.432 CANCELED: POCT urinalysis dipstick manually resulted IUD Insertion Performed by: Sharda Zamora LPN Authorized by: Kevin Flynn DO Procedure: IUD insertion Consent obtained by patient, parent, or legal power of claim attorney - including discussion of procedure risks and benefits, patient questions answered, and patient education provided: yes risk: reasonably certain the patient is not Date/Time of Insertion: 06/24/2025 2:30 PM Immediately prior to procedure a time out was called: yes Pelvic exam performed: no Speculum placed in vagina: yes Cervix cleaned and prepped: yes Tenaculum/Allis/Ring Forceps applied to cervix: yes Anesthesia used: no Uterus sound depth (cm): 9 Cervix dilated: yes Cervix dilated with: Cervical os finder IUD inserted without complications: yes OSM: Levonorgestrel 20 MCG/DAY Patient tolerated procedure well: yes Inserted with ultrasound guidance: no Transvaginal sono confirmed fundal placement: no Intended removal date: 5 years IUD Removal/Insertion: Patient presents today for an IUD Removal/Insertion. Patient is having an unknown IUD removed and a Mirena placed, written consent was obtained and patient was placed in dorsal lithotomy position with feet in stirrups. A sterile speculum was inserted into the vagina and cervix was visualized. The IUD strings were grasped gently with forceps and the IUD was removed in its entirety without difficulty. The IUD was shown to the patient then properly discarded. Cervix was cleansed with betadine and the anterior lip was grasped with ring forceps. Uterus was then gently sounded, New IUD was advanced through the endocervix, toward the uterine fundus. The was then deployed as device was gently removed from the uterus. The IUD strings were cut to length from external os. All instruments were removed from the vagina. Post-procedure instructions given. All of patients questions were answered and she expressed understanding. Advised patient to call in interim with any questions or concerns. Follow Up: Patient is to return to the office in 4 weeks for a string check. Documented by Sharda Zamora LPN on behalf of: Kevin Flynn DO documented in this encounter [facility] 06-19-2025 History of Presen t illness Narrative 15 minute gxsd-lw-qniy follow-up anticoagulation appointment. INR performed in office per protocol. INR 2.7 (goal range: 1.5-2.0). Patient reports: Taking warfarin dosing as documented. Missed or extra doses of warfarin: No Changes to medications: No Changes to lifestyle (diet / alcohol / smoking / activity): YES Has lost ~20 pounds Appetite is suppressed d/t Mojuvenal Recent emergency department visit / hospitalization / health changes / new contraindication to current anticoagulant: No Signs/symptoms of bruising/bleeding or clotting or any intolerable adverse events: No Upcoming procedures: No Anticoagulant prescription needed: No Seen referring provider in the last year Duration of therapy reviewed Assessment: INR is elevated due to decreased PO intake. We will decrease weekly dose 7% to account for this. Patient denies GI side effects Plan: Patient instructed to decrease to warfarin 2 mg Wed and 4 mg AOD. Check INR in 2.5 week(s). Patient verbalizes understanding of anticoagulant dosing instructions and information discussed. Dosing regimen, counseling, and follow-up appointment were provided to the patient. Patient reminded to call with questions or any medication changes. Patient instructed to seek medical attention if any major bleeding/bleeding that persists or worsens. Patient could benefit from [facility] pill packaging and patient is agreeable for referral to be sent: No Priscilla Rivas RPH 06/19/25 1132 documented in this encounter [facility] 06-11-2025 History of Presen t illness Narrative Reason for Appointment: Patient ID: Sarbjit Campa is a 49 y.o. female who presents for Discuss IUD for Cycles Patient presents today for Consult appointment. MEDICATIONS Current Outpatient Medications Medication Instructions ALPRAZolam (XANAX) 0.5 mg, Oral, 3 times daily PRN aspirin 81 mg, Daily atorvastatin (LIPITOR) 20 mg, Daily cetirizine (ZYRTEC) 5 mg, Daily citalopram (CELEXA) 40 mg, Oral, Daily furosemide (LASIX) 40 mg, Oral, Daily PRN Levonorgestrel (Mirena, 52 MG,) 20 MCG/DAY intrauterine device Intrauterine metoprolol tartrate (LOPRESSOR) 25 mg, 2 times daily Mounjaro 5 mg, Subcutaneous, Weekly oxybutynin XL (DITROPAN-XL) 15 mg, Oral, Daily, Do not crush, chew, or split. Vedolizumab (ENTYVIO IV) Infuse into a venous catheter warfarin (COUMADIN) 5 mg, Daily ALLERGIES Allergies Allergen Reactions Flagyl [Metronidazole] Humira [Adalimumab] PROBLEMS Active Ambulatory Problems Diagnosis Date Noted Crohn's disease of both small and large intestine without complication ([facility]) 01/05/2023 Essential hypertension 01/05/2023 Class 2 severe obesity due to excess calories with serious comorbidity and body mass index (BMI) of 39.0 to 39.9 in adult ([facility]) 08/19/2021 Aortic valve replaced 01/05/2023 Congenital bicuspid aortic valve 09/19/2023 DDD (degenerative disc disease), lumbar 09/19/2023 [...] without complication, unspecified gastrointestinal tract location (HCC) Ganglion cyst Hyperhidrosis MDD (major depressive disorder), single episode, mild Psoriasis Stress incontinence in female Vitamin D deficiency HISTORY PAST MEDICAL HISTORY SOCIAL HISTORY Past Medical History: Diagnosis Date Benign essential hypertension Congenital bicuspid aortic valve Crohn's disease without complication, unspecified gastrointestinal tract location (HCC) DDD (degenerative disc disease), lumbar Dyslipidemia VIKI (generalized anxiety disorder) Ganglion cyst Hyperhidrosis MDD (major depressive disorder), single episode, mild Psoriasis Stress incontinence in female Vitamin D deficiency Social History Tobacco Use Smoking status: Former Current packs/day: 0.00 Average packs/day: 1 pack/day for 20.0 years (20.0 ttl pk-yrs) Types: Cigarettes Start date: 1994 Quit date: 2014 Years since quittin.6 Smokeless tobacco: Former Substance Use Topics Alcohol use: Never Drug use: Never FAMILY HISTORY Family History Problem Relation Name Age of Onset COPD Mother Diabetes Mother Hypertension Mother Hypertension Father Coronary artery disease Father SURGICAL HISTORY Past Surgical History: Procedure Laterality Date AORTIC VALVE REPLACEMENT 04/10/2015 bioprostetic, mechanical valve CT ANGIOGRAM ABDOMEN PELVIS 12/30/2022 CT ANGIOGRAM ABDOMEN PELVIS 12/30/2022 CT ANGIOGRAM ABDOMEN PELVIS 04/04/2015 CT ANGIOGRAM ABDOMEN PELVIS 04/04/2015 CT ANGIOGRAM HEART CORONARY 12/30/2022 CT ANGIOGRAM TAVR 12/30/2022 CT ANGIOGRAM HEART CORONARY 04/04/2015 CT ANGIOGRAM TAVR 04/04/2015 CYST REMOVAL TUBAL LIGATION REVIEW OF SYSTEMS Review of Systems: Review of Systems Constitutional: Negative. HENT: Negative. Eyes: Negative. Respiratory: Negative. Cardiovascular: Negative. Gastrointestinal: Negative. Genitourinary: Negative. Musculoskeletal: Negative. Skin: Negative. Neurological: Negative. All other systems reviewed and are negative. Hematological: Negative. Endocrine: Negative. Allergic/Immunologic: Negative. OBJECTIVE Objective: Physical Exam Constitutional: Appearance: Normal appearance. She is well-developed. Cardiovascular: Rate and Rhythm: Normal rate and [...] nursing note reviewed. Exam conducted with a v belt curer present. Vitals: Estimated body mass index is 37.04 kg/m as calculated from the following: Height as of 05/01/25: 5' 6 . Weight as of this encounter: 229 lb 8 oz. BP: 138/90 No LMP recorded (lmp unknown). (Menstrual status: IUD). ASSESSMENT & PLAN ICD-10-CM 1. Intrauterine device surveillance Z30.431 Pt has had IUD for 8 years, desires to continue with IUD for cycle control. Pt to return for iud removal and insertion. Rx for diflucan faxed to pharmacy. Documented by Rere Oliveira LPN on behalf of: Kevin Flynn DO documented in this encounter [facility] 05-21-2025 History of Presen t illness Narrative 15 minute urwa-hd-maqx follow-up anticoagulation appointment. INR performed in office per protocol. INR 1.8 (goal range: 1.5-2.0). Patient reports: Taking warfarin dosing as documented. Missed or extra doses of warfarin: No Changes to medications: YES T2DM diagnosed, on Mounjaro, with 8 pounds Changes to lifestyle (diet / alcohol / [...] warfarin 4 mg daily. Check INR in 4 week(s). Patient verbalizes understanding of anticoagulant dosing instructions and information discussed. Dosing regimen, counseling, and follow-up appointment were provided to the patient. Patient reminded to call with questions or any medication changes. Patient instructed to seek medical attention if any major bleeding/bleeding that persists or worsens. Priscilla Rivas [facility] 05/21/25 1147 documented in this encounter [facility] 05-01-2025 History of Presen t illness Narrative Associated Problem(s): Class 2 severe obesity due to excess calories with serious comorbidity and body mass index (BMI) of 39.0 to 39.9 in adult ([facility]) Weight loss indicated. Associated [...] Orders Insulin, fasting documented in this encounter [facility] 04-04-2025 History of Presen t illness Narrative 15 minute kbom-bm-eozy follow-up anticoagulation appointment. INR performed in office [...] persists or worsens. Priscilla Rivas [facility] 04/04/25 1123 documented in this encounter [facility] 03-18-2025 History of Presen t illness Narrative Refill request received via fax from [facility] for warfarin 4 mg tablets. Last OV: 07/20/24. New Rx sent to patient preferred pharmacy. Additionally, updated referral routed to Dr. Robina Lee for co-sign as Asiya Wang PA-C is no longer with [facility]. PPMM awaiting co-signature. Laquita Jacobs [facility] 03/18/25 0839 documented in this encounter [facility] 03-14-2025 History of Presen t illness Narrative 15 minute btdx-ug-xgrc follow-up anticoagulation appointment. INR performed in office [...] persists or worsens. Priscilla Rivas [facility] 03/14/25 1148 documented in this encounter [facility] 02-13-2025 History of Presen t illness Narrative 15 minute hynt-uz-nays follow-up anticoagulation appointment. INR performed in office [...] persists or worsens. Priscilla Rivas [facility] 02/13/25 0927 documented in this encounter [facility] 01-15-2025 History of Presen t illness Narrative 15 minute jxve-uj-ltzg follow-up anticoagulation appointment. INR performed in office [...] RPH 01/15/25 1423 documented in this encounter [facility] 01-10-2025 Miscellaneous Notes The patient's name appeared on the PAL[facility] for tomorrow. Manager Clinical Pharmacy CHELSEY requesting a call back to let Roby BENJAMIN know if patient plans on keeping the appointment or if the appointment needs to be rescheduled. documented in this encounter [facility] 01-10-2025 Telephone encounter Note The patient's name appeared on the PAL[facility] for tomorrow. Manager Clinical Pharmacy CHELSEY requesting a call back to let Roby BENJAMIN know if patient plans on keeping the appointment or if the appointment needs to be rescheduled. [facility] 12-24-2024 History of Presen t illness Narrative 15 minute vzyz-fk-huxt follow-up anticoagulation appointment. INR performed in office [...] RPH 12/24/24 1417 documented in this encounter [facility] 12-03-2024 History of Presen t illness Narrative 15 minute rbfx-kt-rfmw follow-up anticoagulation appointment. INR performed in office [...] persists or worsens. Priscilla Rivas [facility] 12/03/24 1418 documented in this encounter [facility] 11-22-2024 Evaluation note Diagnosis Onset Date Resolution Crohn's disease acute November 22, 2024 2:44pm [facility] Work Phone: 1(802) 915-219701-06-2025 History of Present illness Narrative* Priscilla Rivas [facility] - 10/22/2024 2:15 PM EST 15 minute wqnp-xj-vjxd follow-up anticoagulation appointment. INR performed in office [...] persists or worsens. Priscilla Rivas [facility] 10/22/24 1425 [facility] [id number] History of Present illness Narrative* Priscilla Rivas RP - 10/08/2024 2:15 PM EST 15 minute ihxa-rm-rzlm follow-up anticoagulation appointment. INR performed in office [...] persists or worsens. Priscilla Rivas RPH 10/08/24 [id number] [facility] note* Diagnosis Onset Date Resolution Status Admit Date Acute sinusitis acute September 17, 2024 10:12am COVID-19 acute September 28, 2024 10:36am Crohn's disease acute November 22, 2024 2:44pm [facility] Work Phone: 1(174) 586-458010-29-2024 History of Present illness Narrative* Jaun Sultana [...] PM EDTAssociated Problem(s): VIKI (generalized anxiety disorder) ([facility]) Symptoms controlled with celexa and continue. Use xanax PRN. * Jaun Sultana MD - 08/14/2024 5:10 PM EDTAssociated Problem(s): Essential hypertension ([facility]) BP controlled and monitor PRN. * Jaun Sultana MD - 08/14/2024 5:10 PM EDTAssociated Problem(s): Bilateral leg edema Edema controlled with lasix and continue. Elevate legs PRN. * Jaun Sultana MD - 08/14/2024 5:10 PM EDTAssociated Problem(s): Class 2 severe obesity due to excess calories with serious comorbidity and body mass index (BMI) of 36.0 to 36.9 in adult ([facility]) Discussed proper diet and regular aerobic exercise. [...] continue. Elevate legs PRN. documented in [facility] encounter[facility] [id number] History of Present illness Narrative* Raji Paulino, [...] Types: Cigarettes Start date: 1994 Quit date: 2014 Years since quittin.7 Smokeless tobacco: Former Substance [...] and she is compliant as above Her [place] Sleepiness scale is a 4 She will [...] was counseled on the risks of stroke, [place], and sudden with KOLE, along with the [...] to clinic: 1 year documented in this encounterColumbia [facility] [id number] Evaluation note* Encounter Date Diagnosis Assessment Notes [...] treatment plan. Patient left in stable condition [employer] Other 01-10-2023 Evaluation note* Encounter Date Diagnosis [...] COVID POSITIVE education handout discharge instructions. given. [employer] [facility] Other 01-05-2023 Evaluation note* Encounter Date Diagnosis Assessment Notes Treatment Notes Treatment Clinical Notes Oct, Crohn's disease (ICD-10 - K50.90) CONTINUE SKYRIZI DIRECTED PT DUE FOR SKYRIZI INJECTION NEXT WEEK OBTAIN LABS FROM [facility] IN [facility] 6 MONTHS [employer] [facility] Other 10-07-2022 Evaluation note* Encounter Date Diagnosis [...] of diseases classified elsewhere (ICD-10 - B97.89) [employer] [facility] Other 06-30-2022 Evaluation note* Encounter Date Diagnosis Assessment Notes Treatment Notes Treatment Clinical Notes Mar, Crohn's disease, unspecified, without complications (ICD-10 - K50.90) START PROCESS FOR APPROVAL OF [employer] INDICATED ABOVE [facility] Other 03-29-2022 Evaluation note* Encounter Date Diagnosis [...] STELARA SINCE JULY OR SEPTEMBER OF 2021. [employer] [facility] Other 01-06-2022 Evaluation note* Encounter Date Diagnosis [...] Pt understood and agreed to treatment plan. [employer] [facility] Other 11-30-2021 Evaluation note* Encounter Date Diagnosis Assessment Notes Treatment Notes Treatment Clinical Notes Aug, Crohn's disease, unspecified, without complications (ICD-10 - K50.90) PATIENT STATES THAT SHE IS ON THE STELARA AND SHE HAS ONLY HAD THE IV DOSE. PATIENT CAN NOT TELL A DIFFERENCE AT THIS TIME. PATIENT STATES PAIN HAS IMPROVED, NOT REGULAR BOWEL MOVEMENTS AT THIS TIME. [employer] [facility] Other 02-03-2012 History general Narrative - Reported* Type Description Date Medical History bicuspid aortic valve Medical History crohns Medical History 22 Colonoscopy-scarring sple terri flexure Medical History 07/03/09EGD/Colonoscopy-normal EG D, Crohn's disease Medical History Tobacco use disorder, current Medical History Tobacco use disorder, current Medical History Acrodermatitis continua of Hallo peau Medical History AI [Aortic insufficiency] Medical History Hypertension, unspecified HTN Medical History Crohn's disease Medical History Exercise counseling Medical History Dietary surveillance and benefits 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 difficile diarrhea Medical History Crohn disease Medical History Encounter for smoking cessation counseling Medical History 03/09/2017 Colonoscop y- patchy inflammation cecum, Scarring, splenic flexure Medical History BMI 30.0-30.9,adult Medical History BMI 31.0-31.9,adult Medical History chronic depression Surgical History crohns Surgical History ganglion cyst Surgical History bicuspid aortic valve replaceme nt 03/2015 Hospitalization History Crohns 2008 [employer] [facility] Other 02-03-2012 History general Narrative - Reported* [...] Exercise counseling Medical History Dietary surveillance and benefits 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 difficile diarrhea [...] replaceme nt 01/05/2023 Hospitalization History Crohns 2008 [employer] [facility] Other Evaluation noteNo InformationNort [employer] Other Evaluation noteNo assessment information available [facility] Work Phone: evalukwrkw note* Diagnosis Onset Date Resolution Status Crohn's disease acute [facility] Work Phone: evaluation note* Diagnosis KOLE (obstructive sleep apnea) Obstructive sleep apnea (adult) (pediatric) Hypoxia Hypoxemia Sleep deprivation Problems related to lack of adequate sleep Hypersomnia Hypersomnia, unspecified Snoring Other dyspnea and respiratory abnormality Obesity (BMI 35.0-39.9 without comorbidity) documented in this encounter [facility] HealthcareEvaluation note* Diagnosis Annual physical exam- Primary [...] apnea (adult) (pediatric) documented in this encounter [facility] HealthcareEvaluation note* Diagnosis Stenosis of prosthetic aortic valve, subsequent encounter- Primary [facility] Diagnosis Annual physical exam- Primary [...] apnea (adult) (pediatric) VIKI (generalized anxiety disorder) (CMS/HCC) Generalized anxiety disorder documented in this encounter [facility] HealthcareEvaluation note* Diagnosis Stenosis of prosthetic aortic valve, subsequent encounter- Primary [facility] Diagnosis Stenosis of prosthetic aortic valve, subsequent encounter- Primary [facility] Diagnosis S/P AVR- Primary Stenosis of prosthetic aortic valve, subsequent encounter [facility] Diagnosis Stenosis of prosthetic aortic valve, subsequent encounter- Primary S/P AVR [facility]* Diagnosis Annual physical exam- Primary [...] (BMI) of 36.0 to 36.9 in adult (CMS-HCC) Obstructive sleep apnea (adult) (pediatric) Prediabetes- Primary Other abnormal glucose Insulin resistance Other abnormal glucose Annual physical exam Routine general medical examination at a health care facility Obstructive sleep apnea (adult) (pediatric) Crohn's disease of both small and large intestine without complications (HCC) documented in this encounter [facility] HealthcareEvaluation note* Diagnosis Hyperlipidemia, unspecified hyperlipidemia type- Primary [facility]* Diagnosis Onset Date Resolution Status Admit Date Crohn's disease acute June 062024 2:24pm [facility] Work Phone: Evaluation note* Diagnosis Annual physical exam- Primary Routine [...] (BMI) of 36.0 to 36.9 in adult ([facility]) Obstructive sleep apnea (adult) (pediatric) Prediabetes- Primary Other abnormal glucose Insulin resistance Other abnormal glucose Annual physical exam Routine general medical examination at a health care facility Obstructive sleep apnea (adult) (pediatric) Crohn's disease of both small and large intestine without complications (HCC) Intrauterine device surveillance Yeast infection documented in this encounter [facility]* Diagnosis Stenosis of prosthetic aortic valve, subsequent encounter- Primary S/P AVR [facility]* Diagnosis Annual physical exam- Primary [...] (BMI) of 36.0 to 36.9 in adult ([facility]) Obstructive sleep apnea (adult) (pediatric) Prediabetes- Primary Other abnormal glucose Insulin resistance Other abnormal glucose Annual physical exam Routine general medical examination at a health care facility Obstructive sleep apnea (adult) (pediatric) Crohn's disease of both small and large intestine without complications ([facility]) Encounter for removal and reinsertion of intrauterine contraceptive device (IUD) Encounter for insertion of Mirena IUD Encounter for IUD removal documented in this encounter [facility] HealthcareInstructionsNot on filedocumented in this encounterProC[facility] SystemInstructionsNot on filedocumented in this encounterRegency Hospital [facility]Se[facility] SystemInstructionsNot on filedocumented in this encounterRegency Hospital [facility]edoSe[facility] SystemInstructionsNot on filedocumented in this encounterRegency Hospital [facility]Se[facility] System InstructionsNot on filedocumented in this encounterRegency Hospital [facility]edoSe[facility] System InstructionsNot on filedocumented in this encounterRegency Hospital [facility]edoSeam[facility] Systems System InstructionsNot on filedocumented in this encounterNorth Country HospitalKanchufang System InstructionsNot on filedocumented in this encounterRegency Hospital ToledoSharingforce Health SystemReason for referral (narrative)No reason for referral information availableKind[facility] Work Phone: Summary Purpose Family History No [...] 2 :44pm Chief Complaint Admit Date 6 MONTH FOLLOW UP CROHN'S June 06, 025 2:24pm Reason for Visit Admit Date Crohn's disease June 06, 2025 2: 24pm Additional Source Comments INFORMATION SOURCE (unrecogn ized section and content) DATE CREATED AUTHOR 10/21/2021 [facility] DATE CREATED AUTHOR AUTHOR'S ORGANIZ ATION 03/10/2024 [facility] DATE CREATED AUTHOR AUTHOR'S ORGANIZ ATION 07/22/2024 [facility] DATE CREATED AUTHOR AUTHOR'S ORGANIZ ATION 06/26/2025 [facility] EPIC DATE CREATED AUTHOR AUTHOR'S ORGANIZ ATION 07/06/2025 [facility] REASON FOR VISIT (unrecogniz ed section and content) Reason Comments Sleep Apnea Reason Comments Follow-up Skin tag did not fal l off Reason Onset Date Comments Med Refill 10/11/2024 Reason Onset Date Comments Med Refill 11/29/2024 Reason Comments Med Refill Reason Comments Follow-up Possible diabetes Reason Onset Date Comments Med Refill 05/22/2025 Reason Comments Discuss IUD for Cycles Reason Comments Contraception Mirena Insert/Remova l Care Teams (unrecognized sec tion and content) Team Status: Active Member Role Status Dates Jaun Sultana MD Primary Care Provider Active Team Status: Inactive Member Role Status Dates Allison Odom EVERETT Attending Provider Active Start: November 17, 2023 [...] February 13, 2024 End: February 13, 2024 Line Fisher Relationship Specialty Start Date End Date Jaun Sultana MD [address] [place] [address] PCP - General Family Medicine 08/24/23 Line Fisher Relationship Specialty Start Date End Date Jaun Sultana MD [address] [place] [address] PCP - General Family Medicine 08/24/23 Line Fisher Relationship Specialty Start Date End Date Jaun Sultana MD [address] [place] [address] PCP - General Family Medicine 08/24/23 Jaun Sultana MD [address] [place] [address] PCP - [facility] 06/17/24 Line Fisher Relationship Specialty Start Date End Date Jaun Sultana MD [address] [place] [address] PCP - General Family Medicine 08/24/23 Jaun uSltana MD [address] [place] [address] PCP - [employer] 06/17/24 Line Fisher Relationship Specialty Start Date End Date Jaun Sultana MD PCP - General Family Medicine 07/04/18 Line Fisher Relationship Specialty Start Date End Date Jaun [...] November 22, 2024 End: November 22, 2024 Line Fisher Relationship Specialty Start Date End Date Jaun Sultana MD [address] [place] [address] PCP - General Family Medicine 08/24/23 Jaun Sultana MD [address] [place] [address] PCP - [employer] 06/17/24 Line Fisher Relationship Specialty Start Date End Date Jaun Sultana MD PCP - General Family Medicine 07/04/18 Line Fisher Relationship Specialty Start Date End Date Jaun Sultana MD PCP - General Family Medicine 07/04/18 Line Fisher Relationship Specialty Start Date End Date Jaun Sultana MD PCP - General Family Medicine 07/04/18 Team Status: Inactive Member Role Status Dates Jaun Sultana MD Primary Care Provider Active S tart: February 09, 2025 End: February 09, 2025 Mariah Morin APRN Attending Provider Active S tart: February 09, 2025 End: February 09, 2025 Line Fisher Relationship Specialty Start Date End Date Jaun Sultana MD PCP - General Family Medicine 07/04/18 Line Fisher Relationship Specialty Start Date End Date Jaun Sultana MD PCP - General Family Medicine 07/04/18 Line Fisher Relationship Specialty Start Date End Date Jaun Sultana MD [address] [place] [address] PCP - General Family Medicine 08/24/23 Line Fisher Relationship Specialty Start Date End Date Jaun Sultana MD [address] [place] [address] PCP - General Family Medicine 08/24/23 Line Fisher Relationship Specialty Start Date End Date Jaun Sultana MD [address] [place] [address] [facility] 08/24/23 Line Fisher Relationship Specialty Start Date End Date Jaun Sultana MD [facility] 07/04/18 Line Fisher Relationship Specialty Start Date End Date Jaun Sultana MD [facility] 07/04/18 Team Status: Inactive Member Role Status Dates Jaun Sultana MD Primary Care Provider Active S tart: June 06, 2025 End: June 06, 2025 Martha Calderon DO Attending Provider Active St art: June 06, 2025 End: June 06, 2025 Line Fisher Relationship Specialty Start Date End Date Jaun Sultana MD [address] [place] [address] [facility] 08/24/23 Line Fisher Relationship Specialty Start Date End Date Jaun Sultana MD [address] [place] [address] [facility] 08/24/23 Line Fisher Relationship Specialty Start Date End Date Jaun Sultana MD [facility] 08/24/23 Goals (unrecognized section and content) Goals [...] BE BASED ON THE PRIMARY CLINICAL RECORDS. [facility] [employer] [facility]. provides no warranty or guarantee of the accuracy or completeness of information in this document.
--- OUTSIDE RECORDS SUMMARY | 2025-07-29 21:21 | XMS_ITS | Encounter Summary ---
Author Organization [facility] Address [address] [place] [address] Care Team Providers Care Lead Recreation Assistant Name Role Phone Jaun Elliott MD Primary Care Provider [phone] Encounter Details Date Type Department Care Team (Late st Contact Info) Description 02/11/2025 Abstract [facility] [address] [place] [address] Jaun Elliott MD [address] [place] [address] Social History Tobacco Use Types Packs/Day Years [...] week 05/14/2024 How often do you attend chur or pentecostal services? More than 4 times per year 05/14/2024 Do you belong to any clubs o r organizations such as hindu groups, unions, fraternal or athletic groups, or [...] any time in the past 12 m [facility], were you homeless or living in a senior care (including now)? No 05/14/2024 Comments Unknown Sex and Gender Information Value Date Recorded Sex Assigned at Not on file Legal Sex Female 10:12 PM EDT Gender Identity Not on file Sexual Orientation Not on file documented as of this encounter Plan of Treatment Upcoming Encounters Date Type Department Care Team (Late st Contact Info) Description 08/05/2026 2:00 PM EDT Procedure Visit [facility] [address] [place] [phone] Kevin Flynn DO [address] [place] [address] documented as of this encounter Visit Diagnoses Not on filedocumented in this encounter Care Teams Lead Recreation Assistant Relationship Specialty Start Date End Date Jaun Elliott MD PCP - General Family Medicine 08/24/23 documented as of this encounter
--- OUTSIDE RECORDS SUMMARY | 2025-07-29 21:21 | XMS_ITS | Encounter Summary ---
Author Organization [facility] [employer] [facility] tem Address [id number] [address] [place] [address] Care Team Providers Care Passenger Rate Clerk Name Role Phone Jaun Elliott MD Primary Care Provider [phone] Encounter Details Date Type Department Care Team (Late st Contact Info) Description 12/31/2022 Documentation [facility] Physicians Cardiothoracic Surgeons - Leonel Ca B[place] [address] [address] Kala Rowland, MARIA ISABEL Social History Tobacco Use Types Packs/Day Years Used Date Smoking Tobacco: Former Smokeless Tobacco: Never Alcohol Use Standard Drinks/Week Comments Yes 0 (1 standard drink = 0.6 oz pur e alcohol) occasionally Childcare Answer Date Recorded Childcare Unknown 03/17/2019 Employment Answer Date Recorded Employment Unknown 03/17/2019 Purpose - Life Answer Date Recorded Purpose and direction in life Unknown Comments No Sex and Gender Information Value Date Recorded Sex Assigned at Not on file Legal Sex Female 11:22 AM EDT Gender Identity Not on file Sexual Orientation Not on file COVID-19 Exposure Response Date Recorded In the last month, have you been in contact with someone who was confirmed or suspected to have Coronavirus / COVID-19? No / Unsure 12/29/2022 8:12 AM EDT documented as of this encounter Plan of Treatment Upcoming Encounters Date Type Department Care Team (Latest Contact Info) Description 08/05/2025 11:00 AM EDT Follow Up Anticoagulation [facility] - Pharmacy Medication Management [address] [place] [address] [phone]/13/2025 9:00 AM EDT Office Visit [facility] [address] [place] [address] Robina Lee MD [address] [place] [address] documented as of this encounter Visit Diagnoses Not on filedocumented in this encounter Care Teams Passenger Rate Clerk Relationship Specialty Start Date End Date Jaun Elliott MD PCP - General Family Medicine 07/04/18 documented as of this encounter
--- OUTSIDE RECORDS SUMMARY | 2025-07-29 21:21 | XMS_ITS | Clinical Summary ---
Author Organization [employer] tem Address [id number] [address] [place] [address] Care Team Providers Care Costume Seamstress Name Role Phone Jaun Elliott MD Primary Care Provider [phone] Allergies Active Allergy Reactions Criticality Noted Date Comments Metronidazole 06/16/2017 Other reaction(s): Intolerance-unknown Adalimumab 07/28/2021 Midodrine 06/16/2017 Other reaction(s): Chest pain Medications * This document contains information received from the source organization and may not represent a complete record from that organization. citalopram (CeleXA) 20 mg tablet Take 1 tablet (20 mg total) by mouth in the morning. 0 Active oxybutynin XL (DITROPAN-XL) 10 mg 24 hr tablet Take 1 tablet (10 mg total) by mouth in the morning. 1 Active acetaminophen (TYLENOL) 325 mg tablet Take 2 tablets (650 mg total) by mouth every 4 (four) hours as needed (Mild headache or pain scale of 1-3). 30 tablet 3 Active aspirin 81 mg Take 1 tablet (81 mg total) by mouth in the morning. 3 Active metFORMIN XR (GLUCOPHAGE XR) 500 mg 24 hr tablet Take 1 tablet (500 mg total) by mouth daily with breakfast. Active furosemide (LASIX) 40 mg tablet Take 1 tablet (40 mg total) by mouth daily as needed. Active vedolizumab (ENTYVIO) 60 mg/mL recon soln Infuse 300 mL (18,000 mg total) into a venous catheter. Active metoprolol tartrate (LOPRESSOR) 25 mg tabletIndications:B enign hypertension,Nonrhe umatic aortic valve stenosis Take 1 tablet (25 mg total) by mouth in the morning and at bedtime. 180 tablet 3 4 Active warfarin (COUMADIN) 4 mg tabletIndications:S tenosis of prosthetic aortic valve, subsequent encounter Take 1 tablet (4 mg total) by mouth in the evening. Or as directed by PPMM. 90 tablet 1 5 Active atorvastatin (LIPITOR) 20 mg tabletIndications:H yperlipidemia, unspecified hyperlipidemia type Take 1 tablet (20 mg total) by mouth daily. 90 tablet 1 5 Active Active Problems Problem Noted Date Diagnosed Date S/P AVR 03/18/2025 Stenosis of prosthetic aortic valve, subsequent encounter 01/08/2023 Prosthetic aortic valve stenosis 01/05/2023 Obesity (BMI 30-39.9) 08/19/2021 Crohn disease 07/12/2019 Essential hypertension Nonrheumatic aortic (valve) stenosis Presence of prosthetic heart valve Resolved Problems Problem Noted Date Diagnosed Date Resolved Date History of aortic valve replacement 11/03/2015 07/04/2018 Aortic valve disorder 10/25/20132017 Benign essential hypertension 08/19/2011 07/04/2018 Dizziness 07/04/2018 SOB (shortness of breath) Encounters Date Type Department Care Team Description 07/05/2025 11:15 AM EDT Follow Up Anticoagulation [facility] - Pharmacy Medication Management [address] [facility] [place] [place] [address] Stenosis of prosthetic aortic valve, subsequent encounter (Primary Dx); S/P AVR 07/05/2025 Travel 06/19/2025 11:30 AM EDT Follow Up Anticoagulation [facility] - Pharmacy Medication Management [address] [place] [address] Stenosis of prosthetic aortic valve, subsequent encounter (Primary Dx); S/P AVR 06/19/2025 Travel 05/22/2025 [facility]ill [facility] [address] [address] Murtaza Starr, EVERETT-INFANT NANNY Med Refill 05/21/2025 11:15 AM EDT Follow Up Anticoagulation [facility] - Pharmacy Medication Management [address] [place] [address] Stenosis of prosthetic aortic valve, subsequent encounter (Primary Dx); S/P AVR 05/21/2025 Travel 05/19/2025 Refill [facility] [address] [facility] [place] [address] Nu Barry, CAMP TENDER-INFANT NANNY Med Refill 04/28/2025 Patient Self-Triage [facility] My[facility] Department Mychart, Generic from Last 3 Months Immunizations Immunization Administration Dates Next Due Influenza, Injectable, Quadrivalent 08/28/2019,1 ,08/15/2014 Influenza, Injectable, quadr ivalent (PF) 08/12/2021,08/06/2020,08/02/2018,2016,07/23/2015 Family History Medical History Relation Name Comments Emphysema Father Cancer Maternal Aunt Cancer Maternal Uncle COPD Mother Relation Name Status Comments Father Alive Maternal Aunt Maternal Uncle Mother Social History Tobacco Use Types Packs/Day Years Used Date Smoking Tobacco: Former Smokeless Tobacco: Never Tobacco Cessation:Counseling Given: Not Answered Alcohol Use Standard Drinks/Week Comments Yes 0 (1 standard drink = 0.6 oz pur e alcohol) occasionally Childcare Answer Date Recorded Childcare Unknown 03/17/2019 Employment Answer Date Recorded Employment Unknown 03/17/2019 Hunger Screening Answer Date Recorded Within the past 12 months we worried whether our food would run out before we got money to buy more. Never True 05/24/2023 Within the past 12 months th e food we bought just didn't last and we didn't have money to get more. Never True 05/24/2023 Purpose - Life Answer Date Recorded Purpose and direction in life Unknown Comments No Sex and Gender Information Value Date Recorded Sex Assigned at Not on file Legal Sex Female 11:22 AM EDT Gender Identity Not on file Sexual Orientation Not on file Last Filed Vital Signs Vital Sign Reading Time Taken Comments Blood Pressure 130/82 07/20/2024 2:47 PM EDT Pulse 70 07/20/2024 2:47 PM EDT Temperature 36.4 C (97.6 F) 01/18/2023 1:18 PM EDT Respiratory Rate 18 01/18/2023 1:18 PM EDT Oxygen Saturation 96% 01/28/2023 3:08 PM EDT Inhaled Oxygen Concentration - - Weight 103.4 kg (228 lb) 07/20/2024 2:47 PM EDT Height 167.6 cm (5' 6 ) 07/20/2024 2:47 PM EDT Body Mass Index 36.8 07/20/2024 2:47 PM EDT Plan of Treatment Upcoming Encounters Date Type Department Care Team (Latest Contact Info) Description 08/05/2025 11:00 AM EDT Follow Up Anticoagulation [facility] - Pharmacy Medication Management [address] [place] [address] 08/13/2025 9:00 AM EDT Office Visit [facility] [address] [facility] [address] [address] Robina eLe MD [address] [place] [address] Health Maintenance Due Date Last Done Comments Depression Screening 1986 Tobacco Screening 1986 DTaP,Tdap and Td Vaccines (1 - Tdap) 1993 Pap Smear 1995 Zoster (Shingles) Vaccine (1 of 2) 2024 COVID-19 Vaccine (4 - 2024-2 6 season) 2025 10/18/2021, 01/15/2021, 12/18/2020 Influenza Vaccine 06/17/2025 08/12/2021, , 08/28/2019, Additional history exists Adult BMI Screening 07/20/2025 07/20/2024 Goals Goal Patient Goal Type Associated Problems Recent Progress Patient-Stated? Author <enter goal here> General Yes Timi Ochoa, MARIA ISABEL Note: Evaluation of progress towards goal: Patient will discharge with home health care. - Timi Ochoa RN 01/06/23 2:13 PM Medical Devices Implanted Type Area Associate Professor Of Pathology Device Identifier Shelf Expiration Date Model / Serial / Lot Valve Aor 14.7mm 21mm 30mm 19.4mm Onx Cnfrm-[id number] Sw Rng Ptfe - [id number] - [id number] Implanted:Qty : 1 on 01/05/2023 by Teodoro Ennis MD at [facility] Implant Valve N/A: Heart Aortic Valve CRYOLIFE 10/02/2027 ONXACE- / [id number] / [id number] Procedures Procedure Name Priority Date/Time Associated Diagnosis Comments POCT PROTIME / INR Routine 07/05/2025 11 :12 AM EDT Stenosis of prosthetic aortic valve, subsequent encounter S/P AVR POCT PROTIME / INR Routine 06/19/2025 11 :26 AM EDT Stenosis of prosthetic aortic valve, subsequent encounter S/P AVR POCT PROTIME / INR Routine 05/21/2025 11 :16 AM EDT Stenosis of prosthetic aortic valve, subsequent encounter S/P AVR from Last 3 Months Results * (ABNORMAL) POCT Protime / INR (07/05/2025 11:12 AM EDT) Only the most recent of3 resultswithin the time period is included. INR 1.8(A) 0.8 - 1.2 MANUALLY TRANSCRIBED RESULTS 07/05/2025 11:1 2 AM EDT [facility] Medication Management POINT O F CARE TEST ORDERABLES Final Result MANUALLY TRANSCRIBED RESULTS from Last 3 Months Insurance ANTH Advance Directives * Full Code (Latest Code Status on File) Date Activated Date Inactivated Comments 01/05/2023 11:49 AM 01/08/2023 2:55 PM Care Teams Costume Seamstress Relationship Specialty Start Date End Date Jaun Elliott MD PCP - General Family Medicine 07/04/18
--- OUTSIDE RECORDS SUMMARY | 2025-07-29 21:21 | XMS_ITS | Encounter Summary ---
Author Organization [facility] Address [address] [place] [address] Care Team Providers Care Refrigeration Service Technician Name Role Phone Jaun Elliott MD Primary Care Provider [phone] Reason for Referral * Medications - Closed Specialty Diagnoses / Procedures Referred By Contac t Referred To Contact Diagnoses Type 2 diabetes mellitus with hyperglycemia, without long-term current use of insulin (HCC) Jaun Elliott MD [address] [place] [address] Phone: tel: fax: Referral ID Status Reason Start Date Expiration Date Visits Re quested Visits Authorized [id number] Closed 1 1 Reason for Visit * Reason Onset Date Comments Med Refill 06/03/2025 Encounter Details Date Type Department Care Team (Late st Contact Info) Description [facility]/03[facility] [address] [place] [address] Jaun Elliott MD [address] [facility] [place] [address] Obesity (BMI 30-39.9); Insulin resistance; Type 2 diabetes mellitus with hyperglycemia, without long-term current use of insulin (HCC) Social History Tobacco Use Types Packs/Day Years Used Date Smoking Tobacco: Former Cigarettes 1 - 2014 Smokeless Tobacco: Former Alcohol Use Standard [...] How often do you attend chur or church services? More than 4 times per year 05/14/2024 Do you belong to any clubs o r organizations such as jewish groups, unions, fraternal or athletic groups, or [...] care, and heating? Not very hard 05/14/2024 [facility] [place] of Occupat ional Health - Occupational Stress [...] any time in the past 12 m [facility], were you homeless or living in a long-term (including now)? No 05/14/2024 Comments Unknown Sex and Gender Information Value Date Recorded Sex Assigned at Not on file Legal Sex Female 10:12 PM EDT Gender Identity Not on file Sexual Orientation Not on file documented as of this encounter Miscellaneous Notes * Telephone Encounter - Jaun Elliott MD - 06/03/2025 4:09 PM EDT Higher dose sent. * Telephone Encounter - Carmen Mata MA - 06/03/2025 10:49 AM EDT Patient needs next dose of Mounjaro called in. clm documented in this encounter Plan of Treatment Upcoming Encounters Date Type Department Care Team (Late st Contact Info) Description 08/05/2026 2:00 PM EDT Procedure Visit [facility] OBASHLYN [address] [place] [address] [place] [address] Kevin Flynn, [address] [place] [address] documented as of this encounter Visit Diagnoses Diagnosis Obesity (BMI 30-39.9) Insulin resistance Other abnormal glucose Type 2 diabetes mellitus with hyperglycemia, without long-term current use of insulin (HCC) documented in this encounter Care Teams Refrigeration Service Technician Relationship Specialty Start Date End Date Jaun Elliott MD PCP - General Family Medicine 08/24/23 documented as of this encounter
--- OUTSIDE RECORDS SUMMARY | 2025-07-29 21:21 | XMS_ITS | Encounter Summary ---
Author Organization [facility] Address [address] [place] [address] Care Team Providers Care Bag Loader Machine Operator Name Role Phone Jaun Elliott MD Primary Care Provider [phone] Jaun Elliott MD Unavailable Encounter Details Date Type Department Care Team (Late Contact Info) Description 09/26/2023 Orders Only [facility] [address] [place] [address] Jaun Elliott MD [address] [place] [address] Social History Tobacco Use Types Packs/Day Years Used Date Smoking Tobacco: Former Cigarettes 2014 Smokeless Tobacco: Former Alcohol Use Standard Drinks/Week Comments Never 0 (1 standard drink = 0.6 oz pur e alcohol) Comments Unknown Sex and Gender Information Value Date Recorded Sex Assigned at Not on file Legal Sex Female 10:12 PM EDT Gender Identity Not on file Sexual Orientation Not on file documented as of this encounter Plan of Treatment Upcoming Encounters Date Type Department Care Team (Late Contact Info) Description 08/05/2026 2:00 PM EDT Procedure Visit [facility] [address] [place] [address] Kevin Flynn DO [address], [place] [address] documented as of this encounter Procedures Procedure Name Priority Date/Time Associated Diagnosis Comments HEMOGLOBIN A1C Routine 09/26/2023 10:28 AM EST documented in this encounter Results * Hemoglobin A1c (09/26/2023 10:28 AM EST) Blood Venous blood specimen / Unknown Jaun Elliott MD LAB BLOOD ORDERABLES Final Resul t documented in this encounter Visit Diagnoses Not on filedocumented in this encounter Care Teams Bag Loader Machine Operator Relationship Specialty Start Date End Date Jaun Elliott MD PCP - General Family Medicine 08/24/23 Jaun Elliott MD [address] [place] [address] PCP - Rochelle Guadarrama 06/17/24 documented as of this encounter
--- OUTSIDE RECORDS SUMMARY | 2025-07-29 21:21 | XMS_ITS | Encounter Summary ---
Author Organization [facility] Address [address] [place] [address] Care Team Providers Care Concert Or Lecture Hall Manager Name Role Phone Jaun Elliott MD Primary Care Provider [phone] Jaun Elliott MD Unavailable Encounter Details Date Type Department Care Team (Late st Contact Info) Description 09/28/2024 Orders Only [facility] [address] [place] [address] Elaine Beltran MD [address] [place] [address] Social History Tobacco Use Types Packs/Day Years [...] week 05/14/2024 How often do you attend [facility] or christianity services? More than 4 times per year 05/14/2024 Do you belong to any clubs o r organizations such as latter day groups, unions, fraternal or athletic groups, or [...] care, and heating? Not very hard 05/14/2024 [facility] of Occupat ional Health - Occupational Stress [...] any time in the past 12 m [facility], were you homeless or living in a [facility] (including now)? No 05/14/2024 Comments Unknown Sex [...] EDT Procedure Visit [facility] [address] [address] Kevin Flynn DO [address] [facility] [address] [place], [place] [address] documented as of this encounter Procedures Procedure Name Priority Date/Time Associated Diagnosis Comments ECHO TRANSTHORACIC W/ DOPPLER Routine 09/28/2024 11:38 AM EST documented in this encounter Results * ECHO TRANSTHORACIC W/ DOPPLER (09/28/2024 11:38 AM EST) Anatomical Region Laterality Modality Radiographic Peggy ging us Elaine Beltran MD IMG XR PROCEDURES Final Result documented in this encounter Visit Diagnoses Not on filedocumented in this encounter Care Teams Concert Or Lecture Hall Manager Relationship Specialty Start Date End Date Jaun Elliott MD PCP - General Family Medicine 08/24/23 Jaun Elliott MD [address] [place] [address] PCP - [employer] 06/17/24 documented as of this encounter
--- OUTSIDE RECORDS SUMMARY | 2025-07-29 21:21 | XMS_ITS | Encounter Summary ---
Author Organization [facility] Address [address] [place] [address] Care Team Providers Care Director Client Name Role Phone Jaun Elliott MD Primary Care Provider [phone] Jaun Elliott MD Unavailable Encounter Details Date Type Department Care Team (Late Contact Info) Description 09/22/2023 Orders Only [facility] [address] [place] [address] Jaun Elliott MD [address] [place] [address] Social History Tobacco Use Types Packs/Day Years [...] EDT Procedure Visit [facility] [address] [place] [phone] Kevin Flynn DO [address], [place] [id number] documented as of this encounter Visit Diagnoses Not on filedocumented in this encounter Care Teams Director Client Relationship Specialty Start Date End Date Jaun Elliott MD PCP - General Family Medicine 08/24/23 Jaun Elliott MD [address] [place] [address] PCP - Rochelle Guadarrama 06/17/24 documented as of this encounter
--- OUTSIDE RECORDS SUMMARY | 2025-07-29 21:21 | XMS_ITS | Encounter Summary ---
Author Organization [facility] Address [address] [place] [address] Care Team Providers Care Campaign Consultant Name Role Phone Jaun Elliott MD Primary Care Provider [phone] Jaun Elliott MD Unavailable Encounter Details Date Type Department Care Team (Late st Contact Info) Description 02/28/2024 Orders Only [facility] [address] [place] [address] Martha Calderon DO [address] [facility] [place] [address] Social History Tobacco Use Types Packs/Day Years [...] EDT Procedure Visit [facility] [address] [place] [id number] Kevin Flynn DO [address] [place], [place] [id number] documented as of this encounter Procedures Procedure Name Priority Date/Time Associated Diagnosis Comments MISCELLANEOUS LAB TEST Routine 02/28/2024 12:29 PM EDT SCANNED LABS Routine 02/28/2024 10:09 AM EDT documented in this encounter Results * - Miscellaneous Test (02/28/2024 12:29 PM EDT) Jaun Elliott MD LAB BLOOD ORDERABLES Final Resul t * SCANNED LABS (02/28/2024 10:09 AM EDT) Martha Calderon DO LAB CHG PERFORMABLES Final Resul t documented in this encounter Visit Diagnoses Not on filedocumented in this encounter Care Teams Campaign Consultant Relationship Specialty Start Date End Date Jaun Elliott MD PCP - General Family Medicine 08/24/23 Jaun Elliott MD [address] [place] [place] [address] PCP - Rochelle Guadarrama 06/17/24 documented as of this encounter
--- OUTSIDE RECORDS SUMMARY | 2025-07-29 21:21 | XMS_ITS | Encounter Summary ---
Author Organization [facility] Address [address] [place] [address] Care Team Providers Care Tin Recovery Worker Name Role Phone Jaun Elliott MD Primary Care Provider Encounter Details Date Type Department Care Team (Late st Contact Info) Description 05/02/2025 Results Follow-Up [facility] [address] [place] [address] Jaun Elliott MD [address] [place] [address] ALL CBC WITH AUTO DIFF, [facility] LIVER PANEL, ALL BASIC METABOLIC PANEL, Additional followed-up results: 2 Social History Tobacco Use Types Packs/Day Years [...] week 05/14/2024 How often do you attend [facility] or gnosticism services? More than 4 times per year 05/14/2024 Do you belong to any clubs o r organizations such as mormonism groups, unions, fraternal or athletic groups, or [...] care, and heating? Not very hard 05/14/2024 [facility] - Occupational Stress [...] any time in the past 12 m onths, were you homeless or living in a long term (including now)? No 05/14/2024 Comments Unknown Sex [...] EDT Procedure Visit [facility] [address] [place] [address] Kevin Flynn DO [address] [place] [address] documented as of this encounter Visit Diagnoses Diagnosis Obesity (BMI 30-39.9) Insulin resistance Other abnormal glucose Type 2 diabetes mellitus with hyperglycemia, without long-term current use of insulin (HCC) Prediabetes Other abnormal glucose documented in this encounter Care Teams Tin Recovery Worker Relationship Specialty Start Date End Date Jaun Elliott MD PCP - General Family Medicine 08/24/23 documented as of this encounter
--- OUTSIDE RECORDS SUMMARY | 2025-07-29 21:21 | XMS_ITS | Encounter Summary ---
Author Organization [facility] [employer] [facility] tem Address [id number] [address] [place] [address] Care Team Providers Care Entry Level Management Name Role Phone Jaun Elliott MD Primary Care Provider [phone] Encounter Details Date Type Department Care Team (Late st Contact Info) Description 01/10/2023 Documentation [facility] Physicians Cardiothoracic Surgeons - [place] [address] [address] Kala Rowland, MARIA ISABEL Social [...] have Coronavirus / COVID-19? No / Unsure 01/08/2023 3:07 PM EDT documented as of this encounter Plan of Treatment Upcoming Encounters Date Type Department Care Team (Latest Contact Info) Description 08/05/2025 11:00 AM EDT Follow Up Anticoagulation [facility] - Pharmacy Medication Management [address] [place] [address] [phone]/13/2025 9:00 AM EDT Office Visit [facility] [address] [facility] [address] [place] [address] Robina Lee MD [address] [place] [address] documented as of this encounter Goals Goal Patient Goal Type Associated Problems Recent Progress Patient-Stated? Author <enter goal here> General Yes Timi Ochoa, RN Note: Evaluation of progress towards goal: Patient will discharge with home health care. - Timi Ochoa RN 01/06/23 2:13 PM documented as of this encounter Visit Diagnoses Not on filedocumented in this encounter Care Teams Entry Level Management Relationship Specialty Start Date End Date Jaun Elliott MD PCP - General Family Medicine 07/04/18 documented as of this encounter
--- OUTSIDE RECORDS SUMMARY | 2025-07-29 21:21 | XMS_ITS | Encounter Summary ---
Author Organization [facility] Address [address] [place] [address] Care Team Providers Care Agent Licensing Clerk Name Role Phone Jaun Elliott MD Primary Care Provider [phone] Encounter Details Date Type Department Care Team (Late st Contact Info) Description 07/29/2025 Bamboo flowsheet [facility] [address] [place] [address] Kevin Flynn DO [address] [place], [facility] Social History Tobacco Use Types Packs/Day Years [...] week 05/14/2024 How often do you attend [facility] or congregational services? More than 4 times per year 05/14/2024 Do you belong to any clubs o r organizations such as amish groups, unions, fraternal or athletic groups, or [...] care, and heating? Not very hard 05/14/2024 [facility] [place] of Occupat ional Health - Occupational Stress [...] any time in the past 12 m [facility], were you homeless or living in a [place] [facility] [place] facility (including now)? No 05/14/2024 Comments No Sex [...] EDT Procedure Visit [facility] [address] [place] [phone] Kevin Flynn DO [address] [place] [address] documented as of this encounter Visit Diagnoses Not on filedocumented in this encounter Care Teams Agent Licensing Clerk Relationship Specialty Start Date End Date Jaun Elliott MD PCP - General Family Medicine 08/24/23 documented as of this encounter
--- OUTSIDE RECORDS SUMMARY | 2025-07-29 21:21 | XMS_ITS | Encounter Summary ---
Author Organization [employer] Sys tem Address [id number] [address] [place] [address] Care Team Providers Care Greenhouse Or Nursery Transplanter Name Role Phone Jaun Elliott MD Primary Care Provider [phone] Reason for Visit * Reason Comments Med Refill Encounter Details Date Type Department Care Team (Late st Contact Info) Description 05/19/2025 Refill [facility] [address] [place] [address] Nu Barry, PRODUCT SAFETY PROFESSIONAL-BOAT DRIVER [address] [place] [address] Med Refill Social History Tobacco Use Types Packs/Day Years [...] encounter Miscellaneous Notes * Telephone Encounter - Ila Nicole RN - 05/19/2025 7:52 AM EDT Pt needs to complete labs for further refills. Letter sent 10/2024 to [facility], last login 04/2025. documented in this encounter Plan of Treatment Upcoming Encounters Date Type Department Care Team (Latest Contact Info) Description 08/05/2025 11:00 AM EDT Follow Up Anticoagulation [facility] - Pharmacy Medication Management [address] [place] [address] 08/13/2025 9:00 AM EDT Office Visit [facility] [address] [facility] [address] [phone] Robina Lee MD [address] [place] [address] documented as of this encounter Goals Goal Patient Goal Type Associated Problems Recent Progress Patient-Stated? Author <enter goal here> General Yes Timi Ochoa, MARIA ISABEL Note: Evaluation of progress towards goal: Patient will discharge with home health care. - Timi Ochoa RN 01/06/23 2:13 PM documented as of this encounter Visit Diagnoses Not on filedocumented in this encounter Care Teams Greenhouse Or Nursery Transplanter Relationship Specialty Start Date End Date Jaun Elliott MD PCP - General Family Medicine 07/04/18 documented as of this encounter
--- OUTSIDE RECORDS SUMMARY | 2025-07-29 21:21 | XMS_ITS | Clinical Summary ---
Author Organization [facility] Address [address] [place] [address] Care Team Providers Care Novelty Twister Operator Name Role Phone Jaun Elliott MD Primary Care Provider [phone] Allergies Active Allergy Reactions Criticality Noted Date Comments Metronidazole 09/16/2023 Adalimumab 09/16/2023 Medications aspirin 81 MG EC tablet Take 81 mg by mouth in the morning. Active atorvastatin (Lipitor) 20 MG tablet Take 20 mg by mouth in the morning. Active metoprolol tartrate (Lopressor) 25 MG tablet Take 25 mg by mouth in the morning and 25 mg before bedtime. Active Levonorgestrel (Mirena, 52 MG,) 20 MCG/DAY intrauterine device by Intrauterine route. Active warfarin (Coumadin) 5 MG tablet Take 5 mg by mouth 1 (one) time each day. Take as directed per After Visit Summary. Active cetirizine (ZyrTEC) 10 MG tablet Take 5 mg by mouth in the morning. Active Vedolizumab (ENTYVIO IV) Infuse into a venous catheter Active furosemide (Lasix) 40 MG tabletIndication s:Bilateral leg edema TAKE 1 TABLET BY MOUTH DAILY NEEDED 30 tablet 2 4 Active oxybutynin XL (Ditropan-XL) 15 MG 24 hr tabletIndication s:Stress bladder incontinence, female Take 1 tablet (15 mg) by mouth Daily Do not crush, chew, or split. 30 tablet 5 4 Active ALPRAZolam (Xanax) 0.5 MG tabletIndication s:VIKI (generalized anxiety disorder) Take 1 tablet (0.5 mg) by mouth 3 (three) times a day as needed for anxiety for up to 7 days 20 tablet 5 Active citalopram (CeleXA) 40 MG tabletIndication s:VIKI (generalized anxiety disorder) Take 1 tablet by mouth once daily 30 tablet 5 Active Tirzepatide (Mounjaro) 5 MG/0.5ML solution auto-injectorInd ications:Type 2 diabetes mellitus with hyperglycemia, without long-term current use of insulin (HCC) Inject 5 mg under the skin 1 (one) time per week 2 mL 3 5 Active Hospital, Clinic, or Other Facility Administered Medication Ordered Dose Route Frequency Start Date End Date Status Levonorgestrel intrauterine device 52 mgIndications:Encounter for removal and reinsertion of intrauterine contraceptive device (IUD),Encounter for insertion of Mirena IUD 52 mg IU Continuous 06/24/2025 06/23/2030 A ctive Active Problems Problem Noted Date Diagnosed Date Bilateral leg edema 05/24/2024 Assessment & Plan (08/14/2024 5:10 PM EDT): Edema controlled with lasix and continue. Elevate legs PRN. Assessment & Plan (05/24/2024 1:45 PM EDT): Increased edema and unclear etiology. Elevate legs PRN and recommend low sodium diet. Start lasix PRN. Check echo. Insulin resistance 05/15/2024 Pain of skin 05/15/2024 Thoracic ascending aortic aneurysm 03/19/2024 Assessment & Plan (03/19/2024 3:30 PM EDT): Cardiology monitoring. Hypersomnia 03/19/2024 Assessment & Plan (03/19/2024 3:29 PM EDT): Signs of KOLE and check sleep study. Hiatal hernia with GERD without esophagitis 12/2023 Assessment & Plan (03/19/2024 3:29 PM EDT): Symptoms worse with weight gain and continue omeprazole. Use OTC PRN. Type 2 diabetes mellitus wit h hyperglycemia, without long-term current use of insulin 09/22/2023 Assessment & Plan (05/01/2025 9:36 AM EDT): A1C in office 6.2. Reports BS 150 fasting and developed signs of elevated BS. Check fasting labs and if over 126 would meet criteria for diabetes. Assessment & Plan (05/24/2024 1:47 PM EDT): Alejandro denied by insurance and start metformin. Assessment & Plan (05/15/2024 3:04 PM EDT): Due for labs. Congenital bicuspid aortic valve ([facility]) 09/19 DDD (degenerative disc disease), lumbar 09/19/20 Assessment & Plan (03/19/2024 3:28 PM EDT): Pain stable and use OTC PRN. Dyslipidemia 09/19/2023 VIKI (generalized anxiety disorder) 09/19/2023 Assessment & Plan (08/14/2024 5:10 PM EDT): Symptoms controlled with celexa and continue. Use xanax PRN. Assessment & Plan (03/19/2024 3:29 PM EDT): Symptoms worse and increase celexa. Warned will take 2-3 weeks to notice improvement in mood. Use xanax PRN. MDD (major depressive disorder), recurrent episo de, mild 09/19/2023 Assessment & Plan (08/14/2024 5:10 PM EDT): Symptoms controlled with celexa and continue. Assessment & Plan (03/19/2024 3:30 PM EDT): Symptoms worse and increase celexa. Warned will take 2-3 weeks to notice improvement in mood. Stress bladder incontinence, female 09/19/2023 Assessment & Plan (03/19/2024 3:30 PM EDT): Worsening symptoms and increase oxybutynin. Annual physical exam 09/19/2023 Assessment & Plan (09/19/2023 3:02 PM EST): Due for labs and mammogram. Discussed proper diet and regular aerobic exercise. Need aerobic exercise 5-6 days a week for 30 minutes at a time. Smaller portions and limit total calories. Colonoscopy every 10 years. Tetanus every 10 years. Advised not to smoke. Discussed daily Aspirin therapy. Crohn's disease of both smal l and large intestine without complication 01/05/2023 Assessment & Plan (03/19/2024 3:28 PM EDT): Symptoms worse without skyrizi and follow with GI. Essential hypertension 01/05/2023 Assessment & Plan (08/14/2024 5:10 PM EDT): BP controlled and monitor PRN. Assessment & Plan (03/19/2024 3:28 PM EDT): BP controlled and monitor PRN. Assessment & Plan (09/19/2023 3:02 PM EST): BP controlled and monitor PRN. Aortic valve replaced 01/05/2023 Class 2 severe obesity due t o excess calories with serious comorbidity and body mass index (BMI) of 39.0 to 39.9 in adult 08/19/2021 Assessment & Plan (05/01/2025 9:36 AM EDT): Weight loss indicated. Assessment & Plan (08/14/2024 5:10 PM EDT): Discussed proper diet and regular aerobic exercise. Recommend Weight Watchers and need to limit calories and smaller portions. Need to increase activity and regular aerobic exercise several days a week for 30 minutes at a time. Assessment & Plan (05/15/2024 3:04 PM EDT): Discussed proper diet and regular aerobic exercise. Recommend Weight Watchers and need to limit calories and smaller portions. Need to increase activity and regular aerobic exercise several days a week for 30 minutes at a time. Resolved Problems Problem Noted Date Diagnosed Date Resolved Date Inflamed skin tag 03/19/2024 05/01/2025 Assessment & Plan (08/14/2024 5:10 PM EDT): Painful skin tag and requests removal. Will cryo. Used liquid nitrogen to perform 3 freeze thaw cycles and patient tolerated well. Warned will form blister and likely will take multiple treatments. If develop new or worsening symptoms call. Assessment & Plan (05/15/2024 3:03 PM EDT): Painful skin tag and requests removal. Will cryo. Used liquid nitrogen to perform 3 freeze thaw cycles and patient tolerated well. Warned will form blister and likely will take multiple treatments. If develop new or worsening symptoms call. Assessment & Plan (03/19/2024 3:29 PM EDT): Lesion appears to be inflamed skin tag and return for cryo. Encounters Date Type Department Care Team Description 07/29/2025 1:40 PM EDT [place] [address] Kevin Flynn, Well woman exam with routine gynecological exam; Encounter for screening mammogram for malignant neoplasm of breast; Postmenopausal state 07/29/2025 Bamboo flowsheet [facility] [place] [address] Kevin Flynn DO 06/24/2025 1:30 PM EDT [place] [address] Kevin Flynn, Encounter for removal and reinsertion of intrauterine contraceptive device (IUD); Encounter for insertion of Mirena IUD; Encounter for IUD removal 06/11/2025 9:20 AM ED[place] [address] Kevin Flynn, Intrauterine device surveillance; Yeast infection 06/11/2025 Bamboo flowsheet [place] [place] [place] [id number] Kevin Flynn DO 06/03/2025 Refill [facility] [address] [place] [phone] Jaun Elliott MD Obesity (BMI 30-39.9); Insulin resistance; Type 2 diabetes mellitus with hyperglycemia, without long-term current use of insulin (HCC) 05/18/2025 Refill [facility] [address] [facility] [place] [phone] Jaun Elliott MD VIKI (generalized anxiety disorder) 05/02/2025 Results Follow-Up [facility] [address] [facility] [address] Jaun Elliott MD ALL CBC WITH AUTO DIFF, [facility] LIVER PANEL, ALL BASIC METABOLIC PANEL, Additional followed-up results: 2 05/02/2025 Clinisync Result Encounter [facility] External Department Unsolicited Jaun Elliott MD 05/01/2025 8:45 AM EDT Office Visit [facility] [address] [facility] [place] [phone] Jaun Elliott MD Prediabetes (Primary Dx); Insulin resistance; Annual physical exam; Obstructive sleep apnea (adult) (pediatric); Crohn's disease of both small and large intestine without complications ([facility]) 05/01/2025 Bamboo flowsheet [facility] [address] [facility] [id number] Jaun Elliott MD 05/01/2025 Travel from Last 3 Months Immunizations Immunization Administration Dates Next Due Moderna SARS-CoV-2 Vaccination 10/18/2021,2020,12/18/2020 Family History Medical History Relation Name Comments Coronary artery disease Father Hypertension Father COPD Mother Diabetes Mother Hypertension Mother Relation Name Status Comments Father Mother Social History Tobacco Use Types Packs/Day Years Used Date Smoking Tobacco: Former Cigarettes 1 20 1 995 - 2015 Smokeless Tobacco: Former Tobacco Cessation:Counseling Given: Not Answered Alcohol Use Standard Drinks/Week Comments Never 0 [...] How often do you attend chur or shinto services? More than 4 times per year 05/14/2024 Do you belong to any clubs o r organizations such as adventism groups, unions, fraternal or athletic groups, or [...] care, and heating? Not very hard 05/14/2024 [facility] [place] [facility] - Occupational Stress [...] any time in the past 12 m [facility], were you homeless or living in a penitentiary (including now)? No 05/14/2024 Comments No Sex and Gender Information Value Date Recorded Sex Assigned at Not on file Legal Sex Female 10:12 PM EDT Gender Identity Not on file Sexual Orientation Not on file Last Filed Vital Signs Vital Sign Reading Time Taken Comments Blood Pressure 122/86 07/29/2025 1:53 PM EDT Pulse 62 05/01/2025 9:05 AM EDT Temperature 36.4 C (97.5 F) 05/01/2025 9:05 AM EDT Respiratory Rate 22 05/01/2025 9:05 AM EDT Oxygen Saturation 97% 05/01/2025 9:05 AM EDT Inhaled Oxygen Concentration - - Weight 97.9 kg (215 lb 12 oz) 07/29/2025 1:53 PM EDT Height 167.6 cm (5' 6 ) 05/01/2025 9:05 AM EDT Body Mass Index 34.82 05/01/2025 9:05 AM EDT Plan of Treatment Upcoming Encounters Date Type Department Care Team (Late st Contact Info) Description 08/05/2026 2:00 PM EDT Procedure Visit [facility] [address] [place] [address] Kevin Flynn DO [address] [place] [address] Procedures Procedure Name Priority Date/Time Associated Diagnosis Comments [place] INSERTION INTRAUTERINE DEVICE IUD Routine 06/24/2025 1:30 PM EDT Encounter for removal and reinsertion of intrauterine contraceptive device (IUD) Encounter for insertion of Mirena IUD Encounter for IUD removal [facility] INSULIN Routine 05/02/2025 7:50 AM EDT ALL THYROID STIM HORMONE Routine 05/02/2025 7:50 AM EDT ALL LIPID PROFILE (FASTING) Routine 05/02/2025 7:50 AM EDT ALL BASIC METABOLIC PANEL Routine 05/02/2025 7:50 AM EDT [facility] LIVER PANEL Routine 05/02/2025 7:50 AM EDT ALL CBC WITH AUTO DIFF Routine 05/02/2025 7:50 AM EDT POCT GLYCOSYLATED HEMOGLOBIN (HGB A1C) Routine 05/01/2025 9:16 AM EDT Prediabetes from Last 3 Months Results * [place] INSERTION INTRAUTERINE DEVICE IUD (06/24/2025 1:30 PM EDT) Sharda Murrell LPN - 06/24/2025 1:30 PM EDT Sharda Zamora LPN 06/25/2025 8:58 AM IUD Insertion Performed by: Sharda Zamora LPN Authorized by: Kevin Flynn DO Procedure: IUD insertion Consent obtained by patient, parent, or legal power of litigation attorney - including discussion of procedure risks [...] placement: no Intended removal date: 5 years us Kevin Flynn DO IN CLINIC/BEDSIDE ORDERABLES Fin al Result * (ABNORMAL) [facility] INSULIN (05/02/2025 7:50 AM EDT) INSULIN 28.9(A) 2.6 - 24.9 uIU/mL TBH Comment: Performed at: [place] [id number] Bundle Clerk: Lane Luciano PhD, Phone: [phone] 05/02/2025 7:50 AM EDT 05/02/2025 7:53 AM EDT Narrative CLINISYNC - 05/03/2025 3:07 AM EDT Jaun Elliott MD CLINISYNC Final Result [facility] * [facility] LIVER PANEL (05/02/2025 7:50 AM EDT) BILIRUBIN TOTAL 0.6 0.2 - 1.0 mg/dL TBH BILIRUBIN DIRECT 0.1 0.0 - 0.2 mg/dL TBH ASPARTATE AMINO TRANSFERASE 18 15 - 37 U/L TBH ALANINE AMINOTRANSFERASE 28 14 - 59 U/L TBH ALKALINE PHOSPHATASE 76 46 - 116 U/L TB TOTAL PROTEIN 7.0 6.4 - 8.2 g/dL TBH ALBUMIN LEVEL 3.7 3.4 - 5.0 g/dL TBH GLOBULIN 3.3 g/dL TBH ALBUMIN GLOBULIN RATIO 1.1 TBH 05/02/2025 7:50 AM EDT 05/02/2025 7:53 AM EDT Narrative CLINISYNC - 05/02/2025 9:03 AM EDT Jaun CAPONEISYSILVANO Final Result Performing Organization Address [facility]/ZIP Co de Phone Number [facility] * ALL THYROID STIM HORMONE (05/02/2025 7:50 AM EDT) THYROID STIMULATING HORMONE 1.446 0.358 - 3.740 uIU/mL TB 05/02/2025 7:50 AM EDT 05/02/2025 7:53 AM EDT Narrative CLINISYNC - 05/02/2025 9:03 AM EDT Jaun CAPONEISYSILVANO Final Result Performing Organization Address [facility] [[email or web address]] de Phone Number [facility] * ALL LIPID PROFILE (FASTING) (05/02/2025 7:50 AM EDT) TRIGLYCERIDES 148 <=150 mg/dL TBH CHOLESTEROL 136 <=200 mg/dL TB HDL CHOLESTEROL 44 40 - 60 mg/dL TB Comment: > or =60 mg/dl - LOW CARDIOVASCULAR RISK <40 mg/dl - HIGH CARDIOVASCULAR RISK LDL CHOLESTEROL CALCULATED 62.4 mg/dL TB Comment: <100 mg/dl OPTIMAL 100-129 mg/dl NEAR OR ABOVE OPTIMAL 130-159 mg/dl BORDERLINE HIGH 160-189 mg/dl HIGH >190 mg/dl VERY HIGH VLDL CHOLESTEROL 29.6 mg/dL TB CHOL HDL RATIO 3.1 TB Comment: 3.3 - 4.4 LOW RISK 4.4 - 7.1 AVERAGE RISK 7.1 - 11.0 MODERATE RISK >11.0 HIGH RISK 05/02/2025 7:50 AM EDT 05/02/2025 7:53 AM EDT Narrative CLINISYNC - 05/02/2025 9:03 AM EDT Jaun Naderer MD CLINISYNC Final Result [facility] * (ABNORMAL) ALL CBC WITH AUTO DIFF (05/02/2025 7:50 AM EDT) [facility] TB WBC 7.1 4.0 - 11.0 10 3/uL TBH TBH RBC 4.88 4.20 - 5.40 10 6/uL TBH TBH HGB 14.7 12.0 - 16.0 g/dL TBH TBH HCT 41.0 36.0 - 48.0 % TBH TBH MCV 84.0 81.0 - 99.0 fL TBH TBH MCH 30.1 26.7 - 34.0 pg TBH TBH MCHC 35.9(H) 29.9 - 35.2 g/dL TBH TBH RDW 12.5 11.0 - 15.0 % TBH TBH PLT 203 150 - 450 10 3/uL TBH TBH MPV 11.7 9.5 - 13.5 fL TBH NEUTROPHILS PERCENT AUTO 62.6 43.0 - 75.0 % TBH LYMPHOCYTES PERCENT AUTO 27.2 20.5 - 60.0 % TBH MONOCYTES PERCENT AUTO 7.8 1.7 - 12.0 % TBH TBH EO % 2.0 0.9 - 7.0 % TBH BASOPHILS PERCENT AUTO 0.3 0.2 - 2.0 % TBH IMMATURE GRANULOCYTES PCT AUTO 0.1 0.0 - 0.5 % TBH NEUTROPHILS ABSOLUTE AUTO 4.4 1.4 - 6.5 10 3/uL TBH LYMPHOCYTES ABSOLUTE AUTO 1.9 1.2 - 3.8 10 3/uL TBH MONOCYTES ABSOLUTE AUTO 0.6 0.3 - 0.8 10 3/uL TBH TBH EO # 0.1 0.0 - 0.7 10 3/uL TBH BASOPHILS ABSOLUTE AUTO 0.0 0.0 - 0.1 10 3/uL TBH IMMATURE GRANULOCYTES ABS AUTO 0.01 0.00 - 0.03 10 3/uL TBH 05/02/2025 7:50 AM EDT 05/02/2025 7:53 AM EDT Narrative CLINISYNC - 05/02/2025 7:59 AM EDT Jaun Elliott MD [facility]NC [facility] * (ABNORMAL) ALL BASIC METABOLIC PANEL (05/02/2025 7:50 AM EDT) SODIUM 141 136 - 145 mmol/L TBH POTASSIUM 4.0 3.5 - 5.1 mmol/L TBH CHLORIDE 106 98 - 107 mmol/L TBH CARBON DIOXIDE 24.6 21.0 - 32.0 mmol/L TBH ANION GAP 14.4 TBH GLUCOSE 143(H) 74 - 106 mg/dL TBH BLOOD UREA NITROGEN 10.0 7.0 - 18.0 mg/dL TBH CREATININE 0.74 0.55 - 1.02 mg/dL TBH TBH EGFR-AF JAPANESE >60 >=60 mL/min/1.7 3m 2 TBH TBH EGFR-NON AF JAP[place]ESE >60 >=60 mL/min/1.7 3m 2 TBH BUN CREATININE RATIO 13.5 TBH CALCIUM 8.8 8.5 - 10.1 mg/dL TBH 05/02/2025 7:50 AM EDT 05/02/2025 7:53 AM EDT Narrative CLINISYNC - 05/02/2025 9:03 AM EDT Jaun Elliott MD CLINISYSILVANO Final Result Performing Organization Address City/[facility]/ZIP Co de Phone Number [facility] * (ABNORMAL) POCT glycosylated hemoglobin (Hb A1C) docked device (05/01/2025 9:16 AM EDT) Hemoglobin A1C 6.2 Blood Venous blood specimen / Unknown 05/01/2025 9:16 AM EDT Jaun Elliott MD POINT OF CARE TEST ENTER/EDIT OR DERABLES Final Result from Last 3 Months Insurance BCBS Care Teams Novelty Twister Operator Relationship Specialty Start Date End Date Jaun Elliott MD PCP - General Family Medicine 08/24/23
[2025-08-02 15:13] LABS: Age Gdln ACOG Testing Note (.); IGP, Aptima HPV, rfx 16/18,45 Note (.)
== END 2025-07-29 21:18 | disposition home or self-care (01) ==
LOC: LAB 21:17
PROVIDERS: PCP Family Medicine; Visit Provider Obstetrics & Gynecology
DX: Z01.419 Encounter for gynecological examination (general) (routine) without abnormal findings (principal)
CPT/HCPCS: 87624; 88175